=== PATIENT | male | born 1955 | race Caucasian/White ===

== ENCOUNTER → 2018-10-31 14:29 | Outpatient (CLI) | payer OTHER, SELFPAY ==
[2018-10-27 17:06] VITALS: BMI 18.1
--- NOTE | 2018-10-31 14:37 | RAD_ITS ---
STUDY: X-RAY CHEST REASON FOR EXAM: Male, 63 years old. Cough for 8 weeks. TECHNIQUE: PA and lateral views of the chest. COMPARISON: None. FINDINGS: There is hyperinflation of the lungs consistent with chronic obstructive lung disease (COPD). Airspace disease overlies the right middle lobe as seen on lateral projection. Additional areas of scattered airspace disease within the lung parenchyma not completely excluded with limitations due to COPD findings. There is no demonstrated pleural abnormality. Normal size heart. Normal mediastinum and ian. Normal visualized pulmonary arteries. There is atherosclerotic calcification of the aortic arch with tortuosity. Normal visualized thoracic spine. Normal visualized ribs, clavicles, and shoulders. There is no demonstrated abnormality of the visualized soft tissue structures of the upper abdomen. RAD/Chest PA and Lateral IMPRESSION: COPD with findings consistent with right middle lobe infiltrate. Recommend follow-up imaging in 4-6 weeks after appropriate treatment versus cross-sectional CT imaging for further assessment. Electronically Signed: Len Ferris DO at 9:32 EST , Service support ,
--- OUTSIDE RECORDS SUMMARY | 2018-12-25 20:40 | XMS RPT_ITS ---
:1955 Author Organization OHIP Care Team Providers Name Role Phone KLAUS BAXTER CNP Primary Care Unavailable KLAUS BAXTER CNP Attending Unavailable Mati Oliver SOLAR ENERGY TECHNICIAN-C Attending Unavailable Rich Salinas Referring Unavailable Harpreet, Klaus D. SOLAR ENERGY TECHNICIAN-C Primary Care Unavailable Oliver, Mati SOLAR ENERGY TECHNICIAN-C Attending Unavailable Oleghe, Efewongbe Referring Unavailable Oleghe, Efewongbe Attending Unavailable Oleghe, Efewongbe Referring Unavailable Oliver, Mati SOLAR ENERGY TECHNICIAN-C Attending Unavailable Oleghe, Efewongbe Referring Unavailable Oliver, Mati SOLAR ENERGY TECHNICIAN-C Attending Unavailable Oliver, Mati SOLAR ENERGY TECHNICIAN-C Primary Care Unavailable Prachi Aleman Attending Unavailable PROBLEMS PROBLEMS DATE TYPE CONDITION / CODE ATTENDING STATUS SOURCE 10/31/2018 Unknown R05 - Cough / Oliver, Mati Active [place] R05(ICD-10) SOLAR ENERGY TECHNICIAN-C [facility] Hospital Repository 10/27/2018 Unknown J44.9 - Chronic Oliver, Mati Active [place] obstructive SOLAR ENERGY TECHNICIAN-C [facility] pulmonary disease, Hospital unspecified / Repository J44.9(ICD-10) 10/27/2018 Unknown F17.200 - Nicotine Oliver, Mati Active [place] dependence, SOLAR ENERGY TECHNICIAN-C Community unspecified, Hospital uncomplicated / Repository F17.200(ICD-10) 10/27/2018 Unknown R06.00 - Dyspnea, Oliver, Mati Active [place] unspecified / SOLAR ENERGY TECHNICIAN-C Community R06.00(ICD-10) Hospital Repository PROCEDURES PROCEDURES No Procedure Records FoundRESULTS RESULTS PULMONARY VISIT REPORT Observed: 11/06/2018 Status: F Source: [place] 7:02 AM [facility] REPOSITORY [facility] Pulmonary Medicine of [address] [place] [address] OFFICE VISIT Date of Service: 11/04/18 MR#: [id number] Acct: [id number] Name: TOBY LEI Rep #: [id number] : 1955 Provider: Salvador Beach MD Age/Sex: 63/M Location: [facility] [place] Status: Signed Assessment AND Plan Medications Discontinued: HPI copd: Details: Documentation reviewed 10 pages of documentation were reviewed from patient's primary care physician. Patient reportedly has had issues with shortness of breath and cough. Patient has been treated with antibiotics and steroids secondary to presumed COPD exacerbations. Patient reportedly has had weight loss despite BMI of 18.1. Chest x-ray completed October 31, 2018 showed a right middle lobe infiltrate and hyperinflation. Intake Intake Visit Reasons: copd Chief Complaint: 2 week FU Allergies doxycycline Allergy (Unknown, Verified 10/27/18 17:03) Unknown Medications cholecalciferol (vitamin D3) 1,000 unit capsule 1,000 unit PO ONCE 11/12/17 [History Confirmed 10/01/18] multivitamin capsule 1 cap PO QAM 11/12/17 [History Confirmed 10/01/18] albuterol sulfate HFA 90 mcg/actuation aerosol inhaler 2 puff INHALATION Q6H PRN PRN #8.5 g 09/17/18 [Rx Confirmed 10/01/18] budesonide-formoterol HFA 160 mcg-4.5 mcg/actuation aerosol inhaler 2 puff INHALATION Q12H #10.2 g 09/17/18 [Rx Confirmed 10/01/18] guaifenesin ER 1,200 mg tablet, extended release 12 hr 1,200 mg PO Q12H #60 tab 10/01/18 [Rx Confirmed 10/01/18] prednisone 10 mg tablet See Rx Instructions PO QDAY #30 tab 10/27/18 [Rx Confirmed 10/27/18] umeclidinium 62.5 mcg/actuation blister powder for inhalation 1 inh INHALATION DAILY #30 ea 10/27/18 [Rx Confirmed 10/27/18] PFSH Medical History Chronic pain (Chronic) COPD (chronic obstructive pulmonary disease) (Chronic) Hypertension (Chronic) Opiate dependence (Chronic) Arthritis (Chronic) Degenerative disc disease, lumbar (Chronic) Surgical History H/O hernia repair (Acute) Family History Unknown No problems noted. Social History Smoking Status: Heavy Smoker (>10/day) alcohol intake: current alcohol intake frequency: 3 or more drinks per day substance use type: does not use what type of physical activity do you participate in: none 11/06/18 0702 <Electronically signed by Salvador Beach MD> Date Salvador Beach MD Cosigner Signature: Date (if applicable) CC: CHEST PA AND LATERAL Observed: 10/31/2018 Status: F Source: [place] 2:37 PM [facility] REPOSITORY [facility] Imaging Services [address] [place] [address] Chest PA and Lateral MR#: [id number] Acct: [id number] Name: TOBY LEI Rep #: [id number] : 1955 M 63 From: Len Ferris DO PCP: Mati Oliver NP Status: REG CLI Study: Chest PA and Lateral Date of Exam: 10/31/18 Exam# [id number] Ordering Dr: Mati Oliver SOLAR ENERGY TECHNICIAN-C STUDY: X-RAY CHEST REASON FOR EXAM: Male, 63 years old. Cough for 8 weeks. TECHNIQUE: PA and lateral views of the chest. COMPARISON: None. FINDINGS: There is hyperinflation of the lungs consistent with chronic obstructive lung disease (COPD). Airspace disease overlies the right middle lobe as seen on lateral projection. Additional areas of scattered airspace disease within the lung parenchyma not completely excluded with limitations due to COPD findings. There is no demonstrated pleural abnormality. Normal size heart. Normal mediastinum and ian. Normal visualized pulmonary arteries. There is atherosclerotic calcification of the aortic arch with tortuosity. Normal visualized thoracic spine. Normal visualized ribs, clavicles, and shoulders. There is no demonstrated abnormality of the visualized soft tissue structures of the upper abdomen. RAD/Chest PA and Lateral IMPRESSION: COPD with findings consistent with right middle lobe infiltrate. Recommend follow-up imaging in 4-6 weeks after appropriate treatment versus cross-sectional CT imaging for further assessment. Electronically Signed: Len Ferris DO at 9:32 EST , Service support , CC: Mati Oliver NP Delivery Driver/Supervisor: Signed INTERNAL MEDICINE Observed: 10/28/2018 Status: F Source: [place] OFFICE VISIT 8:31 AM [facility] REPOSITORY [facility] [address] [place] [address] OFFICE VISIT Date of Service: 10/27/18 MR#: [id number] Acct: [id number] Name: TOBY LEI Rep #: [id number] : 1955 Provider: Mati Oliver NP Age/Sex: 63/M Location: [facility] [place] Status: Signed Intake Vital Signs10/27/18 Body Mass Index (BMI) 18.1 10/27/18 Height 5 ft 8 in Intake Visit Reasons: FU BREATHING AND BACK PAIN Chief Complaint: 2 week FU Is patient in pain?: No Allergies doxycycline Allergy (Unknown, Verified 10/27/18 17:03) Unknown Medications cholecalciferol (vitamin D3) 1,000 unit capsule 1,000 unit PO ONCE 11/12/17 [History Confirmed 10/01/18] multivitamin capsule 1 cap PO QAM 11/12/17 [History Confirmed 10/01/18] albuterol sulfate HFA 90 mcg/actuation aerosol inhaler 2 puff INHALATION Q6H PRN PRN #8.5 g 09/17/18 [Rx Confirmed 10/01/18] budesonide-formoterol HFA 160 mcg-4.5 mcg/actuation aerosol inhaler 2 puff INHALATION Q12H #10.2 g 09/17/18 [Rx Confirmed 10/01/18] guaifenesin ER 1,200 mg tablet, extended release 12 hr 1,200 mg PO Q12H #60 tab 10/01/18 [Rx Confirmed 10/01/18] prednisone 10 mg tablet See Rx Instructions PO QDAY #30 tab 10/27/18 [Rx Confirmed 10/27/18] umeclidinium 62.5 mcg/actuation blister powder for inhalation 1 inh INHALATION DAILY #30 ea 10/27/18 [Rx Confirmed 10/27/18] PFSH Medical History Chronic pain (Chronic) COPD (chronic obstructive pulmonary disease) (Chronic) Hypertension (Chronic) Opiate dependence (Chronic) Arthritis (Chronic) Degenerative disc disease, lumbar (Chronic) Surgical History H/O hernia repair (Acute) Family History Unknown No problems noted. Social History Smoking Status: Heavy Smoker (>10/day) alcohol intake: current alcohol intake frequency: 3 or more drinks per day substance use type: does not use what type of physical activity do you participate in: none HPI HPI Chief Complaint: 2 week FU Details: TOBY LEI, is a 63 M who presents to the office today for ongoing complaints of cough and shortness of breath. The patient has a past medical history as listed above. The patient states that he has not had any improvement since his last office visit on October 01. 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 He complains of persistent intermittent cough with brown yellow thick sputum at times, shortness of breath at rest and with exertion and wheezing. he has been using his Symbicort as needed for shortness of breath and states that he uses it about 4-6 times per day and just today oyster picker his albuterol rescue inhaler which he has used twice today. He states the albuterol inhaler helps with the shortness of breath. Despite his respiratory symptoms he has continued to smoke 2 packs a day (x 50 years per pt report), which he states makes shortness of breath worse. He states he has lost about 30 pounds in the last year. he denies any other aggravating or alleviating factors. The patient otherwise denies any fever, chills, nausea, vomiting, shortness of breath, chest pain or pressure, palpitations, orthopnea, lower extremity edema, syncope or presyncopal episodes.He previously had refused all further work up, however, is now considering further investigation and thinks that he should be seen by a lung doctor. ROS Const Constitutional: No anorexia, body ache, chills, fever(s), decreased energy, malaise, night sweats, weight change, sleep problems, other, snoring, weakness, frequent falls, headache(s), abnormal sleep pattern, change in appetite, excessive sweating or fatigue Eyes Eyes: No blurry vision, change in vision, double vision, discharge, dry eyes, bulging eyes, floaters, eye pain, light sensitivity, spots in vision, tunnel vision, other or visual disturbances ENT ENT: No ear pain, ear discharge, ear pressure, hearing loss, tinnitus, dizziness/vertigo, balance problems, nosebleed/epistaxis, nasal congestion, nasal obstruction, nose pain, sinus pressure, sinus pain, nasal discharge, post nasal drip, facial pain, dental pain, dry mouth, bad breath, hoarseness, mouth lesions, mouth pain, sore throat, difficulty swallowing, neck pain, abnormal hearing, headache(s), other, lip swelling, throat swelling or tongue swelling Resp Respiratory: Positive for cough, chest congestion, excessive phlegm production, shortness of breath and pain with cough; no change in phlegm color, hemoptysis, pain on inspiration, snoring, stridor, other or wheezing Cardio Cardiology: No chest pain at rest, chest pain with exertion, leg pain with exertion, shortness of breath, dyspnea on exertion, generalized swelling, irregular heart rhythm, lightheadedness, orthopnea, radiating jaw, neck or arm pain, fast heart rate, slow heart rate, palpitations, other or excessive sweating Gastro GI: No abdominal pain, belching, bloating, change in bowel habits, change in stool character, coffee ground emesis, constipation, cramping, diarrhea, heartburn, difficulty swallowing, feeling full early, excessive flatus, incontinent of stools, Vomiting blood/hematemesis, blood in stool, loose stools, Black,tarry stools, nausea/dyspepsia, pain with swallowing, vomiting or other Genitourinary Male: No difficulty urinating, burning urination, painful urination, urinary incontinence, urinary frequency, urinary urgency, urinary hesitancy, urinary retention, blood in urine, Frequent nighttime urination/ nocturia, post void dribbling, suprapubic fullness, side pain, sexual problems, genital lesions, genital itching, erectile dysfunction, penile discharge, difficulty with ejaculations, blood in semen, scrotal swelling, testicle lump, testicle pain or other Musc Musculoskeletal: No joint pain, back pain, deformity, joint swelling, limited range of motion, loss of height, muscle cramps, muscle weakness, decreased muscle mass, body aches, neck pain, radiating pain into limb, stiffness, other, abnormal walking, numbness or tingling Skin Skin: No acne, hair loss, change in hair, nail changes, boil, change in skin color, dry skin, redness, excessive hair growth, yellowing of the skin, lesions, rash, skin pain, skin ulcer, sores, skin swelling, wounds, other or itching Breast Breast: No change in breast shape, breast lump, breast pain, breast skin changes, breast swelling, nipple discharge or other Neuro Neurology: No abnormal walking, abnormal hearing, abnormal movements, abnormal speech, unsteady gait/balance, dizziness, weakness, frequent falls, headache(s), lack of coordination, loss of vision, numbness, tingling, visual disturbances, restless legs, fainting, tremor(s), other, behavioral changes, confusion or memory loss Psych Psychiatric: No abnormal sleep pattern, No lack of enjoyment, No anxiety, No behavioral changes, No change in appetite, No confusion, No depression, No difficulty concentrating, No hopelessness, No irritability, No memory loss, No mood swings, No panic attacks, No paranoia, No Thoughts of harming yourself/Others, No hallucinations, No other Endo Endocrine: No change in body appearance, cold intolerance, excessive sweating, fatigue, flushing, heat intolerance, increased thirst/drinking, increased hunger, increased urination or other Aller/Imm Allergy/Immunologic: No food intolerance, itchy eyes, lip swelling, seasonal allergy symptoms, throat swelling, tongue swelling, hives, wheezing or other Moo/Lymp Hematologic/Lymphatic: No easy bleeding, easy bruising, enlarged lymph nodes or other Exam Const General: cooperative, comfortable, no acute distress Nutritional Appearance: thin Orientation: alert, oriented x3 Limitations: mental status not altered [facility] Head: normal to inspection Ears: hearing grossly normal bilaterally Nose: external nose normal Eyes General: appearance normal, both eyes and all related structures Resp Effort AND Inspection: normal respiratory effort, able to speak in complete sentences, normal respiratory pattern, symmetric chest movement, no audible wheezes, cough Quality of cough: productive, no respiratory distress, no stridor, not tachypneic Auscultation: Bilateral: Inspiratory Wheezes, Expiratory Wheezes Percussion: hyperresonance Cardio Palpation: normal PMI Rate: regular rate Heart Sounds: S1 normal, S2 normal, normal S1 and S2, no click, no gallops, no murmurs, no rubs Musc Musculoskeletal: No muscle weakness Skin General: no rashes or lesions noted, elasticity normal, turgor normal Lesions: no lesions Rashes: no rashes Neuro General: alert, awake, oriented x3, CN's II-XI intact bilaterally Speech: speech normal Gait: normal gait Motor: muscle tone normal throughout Extrem General: normal to inspection, normal gait, no edema, no pedal edema Psych Appearance: grossly normal Mental Status: mental status grossly normal Affect: normal affect Attitude: cooperative Thought Process: normal Assessment AND Plan Problems 1. COPD exacerbation J44.1 2. Tobacco abuse Z72.0 3. Weight loss R63.4 Plan Patient appears to be in an exacerbation of his COPD again. Will refer patient to pulmonology per his request and order PFTs. Will obtain chest x-ray and if appropriate, start patient on another course of antibiotics. Will Start patient on 12-day dose prednisone taper. Stop Spiriva due to cost and start Incruse. Reinforced on how to properly take medication. Patient educated on medication side effects and signs and symptoms that would warrant emergency medical care. Pt should be considered for a LDCT screening of the lungs, given his 100 pack year smoking history, however, he refuses at this time. A duoneb administration was given in office and pt did feel symptomatic relief. This note was generated with [employer] dictation software. It may contain incorrect words, spelling, and punctuation that were not noted in checking the note before signing. Orders Orders: Referrals: Medications New: prednisone 4 tabs for 3 days, then 3 tabs for 3 days, then 2 tabs for 3 days, then 1 tab f or 3 days PO QDAY; administer with food or milk 30 tabs 0RF Discontinued: tiotropium bromide 2.5 mcg/actuation (Spiriva Respim2 puffs Inhalation DAILY 4 grams 3RF at) Discontinued Reason: Order Changed Plan Detail Follow Up 2-4 weeks or sooner if needed Coding Level of Care Code Off vis,est,level 3 Diagnoses COPD exacerbation J44.1 Tobacco abuse Z72.0 Weight loss R63.4 10/28/18 0831 <Electronically signed by Mati CHAVEZ> Date Mati CHAVEZ Cosigner Signature: Date (if applicable) CC: INTERNAL MEDICINE Observed: 10/05/2018 Status: F Source: [place] OFFICE VISIT 1:05 PM [facility] [address] [place] [address] OFFICE VISIT Date of Service: 10/01/18 MR#: [id number] Acct: [id number] Name: TOBY LEI Rep #: [id number] : 1955 Provider: Rich Salinas MD Age/Sex: 63/M Location: [facility] [place] Status: Signed Intake Vital Signs10/01/18 Height 5 ft 8 in 10/01/18 Weight: 119 lb 10/01/18 Body Mass Index (BMI) 18.1 10/01/18 Blood Pressure 127/79 H Intake Visit Reasons: 2 WK FU Chief Complaint: 2 week FU Is patient in pain?: No Allergies doxycycline Allergy (Unknown, Verified 10/01/18 15:35) Unknown Medications cholecalciferol (vitamin D3) 1,000 unit capsule 1,000 unit PO ONCE 11/12/17 [History Confirmed 10/01/18] multivitamin capsule 1 cap PO QAM 11/12/17 [History Confirmed 10/01/18] albuterol sulfate HFA 90 mcg/actuation aerosol inhaler 2 puff INHALATION Q6H PRN PRN #8.5 g 09/17/18 [Rx Confirmed 10/01/18] budesonide-formoterol HFA 160 mcg-4.5 mcg/actuation aerosol inhaler 2 puff INHALATION Q12H #10.2 g 09/17/18 [Rx Confirmed 10/01/18] guaifenesin ER 1,200 mg tablet, extended release 12 hr 1,200 mg PO Q12H #60 tab 10/01/18 [Rx Confirmed 10/01/18] prednisone 20 mg tablet 40 mg PO DAILY #6 tab 10/01/18 [Rx Confirmed 10/01/18] tiotropium bromide 2.5 mcg/actuation mist for inhalation 2 puff INHALATION DAILY #4 g 10/01/18 [Rx Confirmed 10/01/18] PFSH Medical History Chronic pain (Chronic) COPD (chronic obstructive pulmonary disease) (Chronic) Hypertension (Chronic) Opiate dependence (Chronic) Arthritis (Chronic) Degenerative disc disease, lumbar (Chronic) Surgical History H/O hernia repair (Acute) Family History Unknown No problems noted. Social History Smoking Status: Heavy Smoker (>10/day) alcohol intake: current alcohol intake frequency: 3 or more drinks per day substance use type: does not use what type of physical activity do you participate in: none HPI HPI Chief Complaint: 2 week FU Details: TOBY LEI, is a 63yo M who presents to the office today for follow-up. He was seen about 2 weeks ago for COPD exacerbation and was given prescriptions for prednisone, levofloxacin and Mucinex. Patient reports feeling better however still has significant wheezing and shortness of breath. He still smokes daily. He denies fever or chills. He is also still not open to any investigations at this time. ROS Const Constitutional: No chills, fatigue, fever(s), frequent falls, malaise, weakness, sleep problems or change in appetite Eyes Eyes: No blurry vision, change in vision, double vision, discharge or visual disturbances ENT ENT: Positive for nasal discharge and nasal congestion; no abnormal hearing, ear pain, ear pressure, tinnitus or dizziness/vertigo Resp Respiratory: Positive for cough Cough: Yes productive, shortness of breath, wheezing and chest congestion Cardio Cardiology: No chest pain at rest, chest pain with exertion, shortness of breath, dyspnea on exertion, generalized swelling, irregular heart rhythm, lightheadedness, orthopnea, fast heart rate or palpitations Gastro GI: No abdominal pain, change in bowel habits, constipation, diarrhea, nausea/dyspepsia or vomiting Genitourinary Male: No difficulty urinating, burning urination, painful urination, urinary incontinence, urinary frequency, urinary urgency, urinary hesitancy, urinary retention, blood in urine, Frequent nighttime urination/ nocturia, sexual problems, testicle lump or testicle pain Musc Musculoskeletal: No joint pain, back pain, joint swelling, limited range of motion, muscle weakness, numbness or tingling Skin Skin: No change in skin color, itching, rash or wounds Breast Breast: No breast lump or breast pain Neuro Neurology: No frequent falls, weakness, abnormal hearing, numbness, tingling, unsteady gait/balance, dizziness, loss of vision, memory loss or visual disturbances Psych Psychiatric: No memory loss, No anxiety, No change in appetite, No depression, No Thoughts of harming yourself/Others Endo Endocrine: No fatigue, heat intolerance, increased thirst/drinking, increased hunger or increased urination Aller/Imm Allergy/Immunologic: Positive for wheezing; no itchy eyes or seasonal allergy symptoms Moo/Lymp Hematologic/Lymphatic: No easy bleeding, easy bruising or enlarged lymph nodes Exam Const General: cooperative, no acute distress Orientation: alert, awake, oriented x3 HENMT Head: atraumatic, normocephalic, normal to inspection Ears: hearing grossly normal bilaterally Resp Effort AND Inspection: able to speak in complete sentences Auscultation: Bilateral: Diminished Lung Sounds, Expiratory Wheezes, Rhonchi Cardio Rate: regular rate Rhythm: regular rhythm Heart Sounds: S1 normal, S2 normal Musc Musculoskeletal: No muscle weakness Neuro General: alert, awake, oriented x3, moves all extremities, CN's II-XI intact bilaterally Psych Appearance: grossly normal Mood: congruent mood Affect: normal affect Assessment AND Plan 1. COPD (chronic obstructive pulmonary disease) J44.9 Plan Still appears to be in exacerbation. Significant rhonchi/wheezing on examination. Diminished breath sounds. Symptoms however appear improved from 2 weeks ago. 3 more days of steroids given. Mucinex also prescribed. Continue Symbicort and albuterol as needed. Spiriva added. DuoNeb treatment given in office. Patient again declined any investigations. Advised to call the office with any concerns otherwise follow-up in a month Orders Orders: Medications New: Discontinued: albuterol sulfate Discontinued Reason: Or2.5 mg (3 mL) Continuous Nebulization ONCE 1 macho Changed mL 0RF 2. Nicotine dependence F17.200 Plan Still an everyday smoker with no plans of cessation. Strongly encouraged to discontinue tobacco use as this is worsening his COPD and breathing. Patient not open to cessation at this time. This note was generated with [employer] software. It may contain incorrect words, spelling, and punctuation that were not noted in checking the note before signing. Plan Detail Other Medications New: Discontinued: Coding Level of Care Code Off vis,est,level 3 Diagnoses COPD (chronic obstructive pulmonary disease) J44.9 Nicotine dependence F17.200 10/05/18 1302 <Electronically signed by Rich Salinas MD> Date Rich Salinas MD Cosigner Signature: Date (if applicable) CC: INTERNAL MEDICINE Observed: 09/17/2018 Status: F Source: [place] OFFICE VISIT 11:02 AM [facility] [address] [place] [address] [address] [place] [address] OFFICE VISIT Date of Service: 09/17/18 MR#: [id number] Acct: [id number] Name: TOBY LEI Rep #: [id number] : 1955 Provider: Mati Oliver NP Age/Sex: 63/M Location: [facility] [place] Status: Signed Intake Vital Signs09/17/18 Height 5 ft 8 in Intake Visit Reasons: bronchitis Chief Complaint: cough, SOB, and rib pain Is patient in pain?: Yes (rib pain) Pain scale (1-10): 7 Allergies doxycycline Allergy (Unknown, Verified 07/03/18 15:36) Unknown Medications cholecalciferol (vitamin D3) 1,000 unit capsule 1,000 unit PO ONCE 11/12/17 [History Confirmed 07/03/18] multivitamin capsule 1 cap PO QAM 11/12/17 [History Confirmed 07/03/18] albuterol sulfate HFA 90 mcg/actuation aerosol inhaler 2 puff INHALATION Q6H PRN PRN #8.5 g 09/17/18 [Rx Confirmed 09/17/18] budesonide-formoterol HFA 160 mcg-4.5 mcg/actuation aerosol inhaler 2 puff INHALATION Q12H #10.2 g 09/17/18 [Rx Confirmed 09/17/18] guaifenesin ER 1,200 mg tablet, extended release 12 hr 1,200 mg PO Q12H PRN #14 tab 09/17/18 [Rx Confirmed 09/17/18] levofloxacin 500 mg tablet 500 mg PO DAILY #7 tab 09/17/18 [Rx Confirmed 09/17/18] prednisone 10 mg tablet See Rx Instructions PO QDAY #30 tab 09/17/18 [Rx Confirmed 09/17/18] PFSH Medical History Chronic pain (Chronic) COPD (chronic obstructive pulmonary disease) (Chronic) Hypertension (Chronic) Opiate dependence (Chronic) Arthritis (Chronic) Degenerative disc disease, lumbar (Chronic) Surgical History H/O hernia repair (Acute) Family History Unknown No problems noted. Social History Smoking Status: Heavy Smoker (>10/day) alcohol intake: current alcohol intake frequency: 3 or more drinks per day substance use type: does not use what type of physical activity do you participate in: none HPI HPI Chief Complaint: cough, SOB, and rib pain Details: TOBY LEI, is a 63 M who presents to the office today for an acute visit of cough, shortness of breath, and left-sided rib pain times 2 weeks. He has a past medical history as listed above. Should be noted that patient is also currently on Suboxone therapy with Dr. Alonso. The patient states that he noted a productive cough of yellow sputum, worsening shortness of breath, and left-sided rib pain with coughing that started 2 weeks ago and has been progressively worsening. It got so bad that he was unable to work today and had to leave. He states that he has been taking his Symbicort routinely for his COPD. He does state that he has been exposed to many sick contacts at work. He takes his albuterol rescue inhaler periodically which does help with his shortness of breath. He denies any other aggravating or relieving factors. He otherwise denies any fever, chills, nausea, vomiting, chest pain or pressure, syncope or presyncopal episodes. ROS Const Constitutional: No weight change, body ache, chills, fatigue, sleep problems, fever(s), change in appetite, snoring, weakness, frequent falls, headache(s) or excessive sweating Eyes Eyes: No change in vision, eye pain, light sensitivity or blurry vision ENT ENT: No headache(s), abnormal hearing, ear pain, tinnitus, nasal congestion, sore throat or neck pain Resp Respiratory: Positive for cough Cough: Yes productive, shortness of breath and other (rib pain from coughing); no snoring or wheezing Cardio Cardiology: No excessive sweating, chest pain at rest, chest pain with exertion, shortness of breath, dyspnea on exertion, palpitations, orthopnea or lightheadedness Gastro GI: No abdominal pain, change in bowel habits, constipation, diarrhea, vomiting, nausea/dyspepsia or cramping Genitourinary Male: No painful urination, urinary incontinence, urinary frequency, urinary urgency, blood in urine, testicle pain or other Musc Musculoskeletal: No neck pain, abnormal walking, joint pain, back pain, limited range of motion, numbness, tingling or muscle weakness Skin Skin: No redness, dry skin, itching, lesions, wounds or rash Neuro Neurology: No weakness, frequent falls, headache(s), abnormal hearing, abnormal walking, numbness, tingling, abnormal speech, dizziness or memory loss Psych Psychiatric: No change in appetite, No memory loss, No anxiety, No depression, No Thoughts of harming yourself/Others Endo Endocrine: No fatigue, excessive sweating, cold intolerance, increased thirst/drinking, heat intolerance, flushing or increased hunger Aller/Imm Allergy/Immunologic: No wheezing, itchy eyes, hives or seasonal allergy symptoms Moo/Lymp Hematologic/Lymphatic: No easy bleeding, easy bruising or enlarged lymph nodes Exam Const General: cooperative, comfortable, no acute distress Nutritional Appearance: average body habitus, well nourished Orientation: alert, oriented x3 Limitations: mental status not altered [facility] Head: normal to inspection Ears: hearing grossly normal bilaterally Nose: external nose normal Eyes General: appearance normal, both eyes and all related structures Resp Effort AND Inspection: normal respiratory effort, able to speak in complete sentences, normal respiratory pattern, symmetric chest movement, cough Quality of cough: wet, prolonged expiratory phase Auscultation: Bilateral: Diminished Lung Sounds, Inspiratory Wheezes, Expiratory Wheezes, Rhonchi Cardio Palpation: normal PMI Rate: regular rate Heart Sounds: S1 normal, S2 normal, normal S1 and S2, no click, no gallops, no murmurs, no rubs GI Inspection: normal to inspection Auscultation: normal bowel sounds, no hyperactive bowel sounds, no hypoactive bowel sounds Palpation: soft, no hepatosplenomegaly Musc Musculoskeletal: No joint tenderness, decreased ROM or muscle weakness Skin General: no rashes or lesions noted, elasticity normal, turgor normal Lesions: no lesions Rashes: no rashes Neuro General: alert, awake, oriented x3, CN's II-XI intact bilaterally Speech: speech normal Gait: normal gait Motor: muscle tone normal throughout Extrem General: normal to inspection, normal gait, no edema, no pedal edema Psych Appearance: disheveled Mental Status: mental status grossly normal Mood: anxious mood Affect: anxious affect, irritable affect Attitude: cooperative Thought Process: normal Assessment AND Plan Problems 1. Chronic obstructive pulmonary disease with (acute) exacerbation J44.1 Plan The patient does seem to be an exacerbation of his COPD. A DuoNeb treatment was given in the office and patient did well and felt somewhat better symptomatically. Patient refuses a chest x-ray at this time. Given the duration of patient's symptoms, will treat empirically with 7-day course of Levaquin therapy, a prednisone taper, and Mucinex. Advised on the use of these medications and potential side effects. Patient verbalized understanding. Patient continues to refuse any baseline blood work. Discussed red flag symptoms that require urgent medical attention. Patient verbalized understanding. Patient to follow-up in 2 weeks or sooner if needed. Medications New: Refilled: budesonide-formoterol 160-4.5 mcg/actuation (Symbi2 puffs Inhalation Q12H 10.2 grams 2RF samira) Plan Detail Follow Up 2 weeks or sooner if needed Coding Level of Care Code Off vis,est,level 3 Diagnoses Chronic obstructive pulmonary disease with (acute) exacerbation J44.1 09/17/18 1102 <Electronically signed by Mati CHAVEZ> Date Mati CHAVEZ Cosigner Signature: Date (if applicable) CC: ALLERGIES ALLERGIES DATE TYPE / CODE NAME / CODE REACTION SEVERITY SOURCE 10/27/2018 Drug doxycycline/ Unknown Unknown [facility] Allergy/4160 [id number]( Hospital 37876(SNOMED XNORM) Repository CT) ENCOUNTERS ENCOUNTERS ADMIT/DISCHARGE ACCOUNT NUMBER ADMITTING ENCOUNTER LOCATION SOURCE CLASS 11/04/2018 [id number] Ambulatory [place]: [place] BMS[facility] Repository 10/31/2018 [id number] Ambulatory [facility] ding:RAD Repository 10/27/2018/10/27/20 [id number] Ambulatory BMSBuilding: [place] 18 BMS.[facility] Repository 10/01/2018/10/01/20 [id number] Ambulatory BMSBuilding: [place] 18 BMS.[facility] Repository 09/17/2018/09/17/20 [id number] Ambulatory BMSBuilding: [place] 18 BMS.[facility] Repository 07/03/2018/07/03/20 [id number] Ambulatory BMSBuilding: [place] 18 BMS.[facility] Repository 02/13/2018 [id number] Ambulatory BBuilding: [facility] Repository PAYERS PAYERS ENCOUNTER GUARANTOR PAYER SUBSCRIBER SOURCE 11/04/2018 [address]BY [id number] TOBY MINNERDOB: [place] TAPIA, Insurance:MEDICAL [id number] [address]Cvk: [facility] Number: Repository ) [id number] Date:[id number] [address] [address]QS: 11/04/2018 Secondary NOT GIVENUNK [place] Insurance:SELF PAY [facility] Number: Effective Repository Date:2018-11-04 10/31/2018 [address]BY [id number] TOBY MINNERDOB: [place] TAPIA, Insurance:MEDICAL [id number] Health [place] [address]Jpq: [facility] Number: Repository () [id number] Date:[id number] [address] [place] [id number]: 10/31/2018 Secondary NOT GIVENUNK [place] Insurance:SELF PAY [facility] Number: Effective Repository Date:2018-10-31 10/27/2018 TOBY [id number] TOBY MINNERDOB: [place] STEVENS RDWOOSTER, Insurance:MEDICAL [id number] [facility] [place] [address]Lad: [facility] Number: Repository () [id number] Date:[id number] [address] [place] [phone]: 10/27/2018 Secondary NOT GIVENUNK [place] Insurance:SELF PAY [facility] Number: Effective Repository Date:2018-10-27 10/01/2018 TOBY [id number] TOBY MINNERDOB: [place] STEVENS RDWOOSTER, Insurance:MEDICAL [id number] [facility] [place] [address]Clo: [facility] Number: Repository () [id number] Date:[id number] [address] [place] [phone]: 10/01/2018 Secondary NOT GIVENUNK [place] Insurance:SELF PAY [facility] Number: Effective Repository Date:2018-10-01 09/17/2018 [address]BY [id number] TOBY MINNERDOB: [place] STEVENS RDWOOSTER, Insurance:MEDICAL [id number] [facility] [place] [address]Edk: [facility] Number: Repository () [id number] Date:[id number] [address] [place] [phone]: 09/17/2018 Secondary NOT GIVENUNK [place] Insurance:SELF PAY [facility] Number: Effective Repository Date:2018-09-17 07/03/2018 TOBY [id number] TOBY MINNERDOB: [place] [facility] Insurance:MEDICAL [id number] [facility] [address]Inq: [facility] Number: Repository () [id number] Date:[id number] [address] [place] [id number]: 07/03/2018 Secondary NOT GIVENUNK [place] Insurance:SELF PAY [facility] Number: Effective Repository Date:2018-07-03 02/13/2018 TOBY R Primary TOBY R [facility] MINNERDOB: Insurance:MEDICAL MINNERDOB: [facility] [place] [address] [id number] Repository [facility], Number: [place] [address]Bwi: [id number] [place], [place] Date:2018-02-13 [address]Ekk: [phone] ()Tel: [phone] (WP) Name:BPO [address]OX ()Tel: 000) [address], [place] [phone] (WP) [address]KB:
== END ==
PROVIDERS: Family Provider Nurse Practitioner Family; PCP Nurse Practitioner Family; Visit Provider Nurse Practitioner Family
DX: R05 Cough (principal)
CPT/HCPCS: 71046

== ENCOUNTER → 2018-12-03 14:43 | Outpatient (CLI) | payer OTHER, SELFPAY ==
[2018-11-25 15:40] VITALS: BMI 18.1
--- NOTE | 2018-12-03 14:48 | CT_ITS ---
STUDY: CT CHEST WITHOUT CONTRAST REASON FOR EXAM: Male, 63 years old. Cough. Abnormal chest x-ray RADIATION DOSAGE (If Supplied By Facility): CTDIvol = ( 7.05 ) mGy, DLP = ( 265.02 ) mGycm TECHNIQUE: Transaxial imaging was performed without the administration of intravenous contrast material. Individualized dose optimization techniques were used for this CT. COMPARISON: None. FINDINGS: There is hyperinflation of the lungs consistent with chronic obstructive lung disease (COPD). Emphysematous changes are noted in both lungs more prominent in the upper lobes predominantly centrilobular type. Irregular opacities are seen in the right middle lobe may represent resolving pneumonia. There is a spiculated nodule in the superior segment of the left lung lower lobe measures 1 cm image #89/follow-up in 6 months is recommended. There is no demonstrated pleural abnormality. Normal heart and pericardium. Normal mediastinum. Normal hilar regions. Normal unenhanced pulmonary arteries. Normal aorta arch and descending thoracic aorta. Normal osseous structures. There is no demonstrated abnormality of the visualized upper abdomen. CT/Chest without Contrast IMPRESSION: There is a spiculated nodule in the superior segment of the left lung lower lobe measures 1 cm image #89/follow-up in 6 months is recommended. Electronically Signed: Vishnu Toledo MD at 8:19 EST Tel , Service support ,
== END ==
PROVIDERS: Family Provider Internal Medicine; PCP Internal Medicine; Referring Provider Internal Medicine; Visit Provider Internal Medicine
DX: J44.9 Chronic obstructive pulmonary disease, unspecified (principal); R93.89 Abnormal findings on diagnostic imaging of other specified body structures
CPT/HCPCS: 71250

== ENCOUNTER → 2019-03-06 11:18 | Outpatient (CLI) | payer OTHER, SELFPAY ==
[2019-02-18 15:39] VITALS: BMI 19.0
[2019-03-06 12:09] LABS: Absolute Neutrophil Count 6.7 X10^3/uL (2.0-7.7); Basophil# 0.01 X10^3/uL; Basophil% 0.1 % (0-1); Differential Indicated SCAN CRITERIA MET; Eosinophil# 0.02 X10^3/uL; Eosinophils% 0.3 % (0-5); Hematocrit 42.7 % (40-54); Lymphocyte % 7.8 % (19-41); Mean Corp Hgb Conc 35.1 g/gl (32-36); Mean Platelet Vol. 9.9 fl (6.2-12.0); Monocyte# 0.23 X10^3/uL; POSITIVE COUNT NO; POSITIVE DIFFERENTIAL YES; POSITIVE MORPHOLOGY YES; Platelet Count 227 K/mm3 (150-450); RBC Distribution Width CV 13.1 % (11.6-14.6); RBC Distribution Width SD 43.1 fl (35.1-43.9); Red Blood Count 4.69 M/mm3 (4.6-6.2); White Blood Count 7.7 K/mm3 (4.4-11.0)
[2019-03-06 12:26] LABS: ALB/GLOB Ratio 0.7 RATIO (0.9-2.4); AST(SGOT) 24 U/L (15-37); Alanine Aminotransfer ALT/SGPT 22 U/L (16-61); Alkaline Phosphatase 57 U/L (45-117); Anion Gap 9 (5-15); BUN 28 mg/dL (7-18); BUN/Creat Ratio 16.8 RATIO (10-20); Calcium,Total 8.9 mg/dL (8.5-10.1); Chloride 97 mmol/L (98-107); Creatinine, Serum 1.67 mg/dL (0.70-1.30); EST Glomerular Filtration Rate 44 mL/min (>60); Est Glom Filt Rate - Afr Amer 53 mL/min (>60); Globulin 4.1 g/dL (2.2-4.2); Glucose 115 mg/dL (74-106); Potassium 4.5 mmol/L (3.5-5.1); Protein, Total 7.1 g/dL (6.4-8.2); Sodium Level 135 mmol/L (136-145)
== END ==
PROVIDERS: Family Provider Internal Medicine; PCP Internal Medicine; Referring Provider Internal Medicine; Visit Provider Internal Medicine
DX: R53.81 Other malaise (principal); R53.82 Chronic fatigue, unspecified; R31.9 Hematuria, unspecified
CPT/HCPCS: 36415; 80053; 85025

== ENCOUNTER 2019-03-06 11:43 | Inpatient (IN) | payer OTHER, SELFPAY ==
[2019-02-18 15:39] VITALS: BMI 19.0
[2019-03-06] VITALS (17 sets, daily range): BP systolic 98–131; BP diastolic 61–78; PULSE 71–113; RESP 16–30; TEMP 36.6–37; O2SAT 87–96; BMI 17.5; BMI 17.7
--- NOTE | 2019-03-06 12:30 | EKG12_ITS ---
Test Reason : SOB Blood Pressure : / mmHG Vent. Rate : 102 BPM Atrial Rate : 102 BPM P-R Int : 122 ms QRS Dur : 082 ms QT Int : 324 ms P-R-T Axes : 006 069 035 degrees QTc Int : 422 ms Sinus tachycardia Possible Left atrial enlargement Borderline ECG Confirmed by CORNEL MALDONADO, DESI ([id number]), video editor LUCY CUEVA ([id number]) on 03/08/2019 11:03:56 AM Referred By: Rich Salinas Confirmed By:DESI UNGER MD
--- NOTE | 2019-03-06 12:30 | RAD_ITS ---
STUDY: X-RAY CHEST REASON FOR EXAM: Male, 63 years old. Cough for 2 days TECHNIQUE: PA and lateral views of the chest. COMPARISON: 10/31/2018 FINDINGS: EKG leads project over the chest. Multilobar airspace consolidation involving the right lower lobe dominantly but also the left upper and lower lobes. There is no demonstrated pleural abnormality. Normal size heart. Normal mediastinum and ian. Normal visualized pulmonary arteries. Normal visualized aortic arch and descending thoracic aorta. Normal visualized thoracic spine. Normal visualized ribs, clavicles, and shoulders. There is no demonstrated abnormality of the visualized soft tissue structures of the upper abdomen. RAD/Chest PA and Lateral IMPRESSION: Multilobar airspace disease suggesting pneumonia. Follow-up to resolution recommended. Electronically Signed: Kavon Elias MD at 13:46 EDT , Service support ,
[2019-03-06] MEDS: Ipratropium/Albuterol Sulfate 3 ML AMPUL.NEB INHALATION ×3 (12:50→23:46)
[2019-03-06] MEDS: 0.9% Normal Saline 1,000 ML 150 ML IV ×2 (13:02→22:29)
[2019-03-06 13:09] LABS: International Normalized Ratio 1.4; Prothrombin Time (Protime)PT. 17.2 SECONDS (11.7-14.9)
[2019-03-06 13:10] LABS: Basophil# 0.01 X10^3/uL; Basophil% 0.1 % (0-1); Differential Indicated SCAN CRITERIA MET; Hematocrit 40.6 % (40-54); Hemoglobin 14.1 g/dl (13.0-16.5); Lymphocyte % 7.4 % (19-41); Mean Corp Hgb Conc 34.7 g/gl (32-36); Mean Corpuscular Hgb 31.5 pg (27.0-32.0); Mean Corpuscular Volume 90.8 fL (80-94); Mean Platelet Vol. 9.7 fl (6.2-12.0); Monocyte# 0.21 X10^3/uL; Monocyte% 3.1 % (0-10); Neutrophil # 5.98 X10^3/uL (2.7-7.7); Neutrophil % 88.2 % (47-70); POSITIVE COUNT NO; POSITIVE DIFFERENTIAL YES; POSITIVE MORPHOLOGY YES; Partial Thromboplast Time 49.2 Seconds (24.1-36.2); Platelet Count 199 K/mm3 (150-450); RBC Distribution Width CV 13.1 % (11.6-14.6); RBC Distribution Width SD 43.3 fl (35.1-43.9); Red Blood Count 4.47 M/mm3 (4.6-6.2); White Blood Count 6.8 K/mm3 (4.4-11.0)
[2019-03-06] MEDS: Albuterol 2.5 MG/3 ML VIAL.NEB. INHALATION ×2 (13:11)
[2019-03-06 13:25] LABS: AST(SGOT) 24 U/L (15-37); Alanine Aminotransfer ALT/SGPT 22 U/L (16-61); Albumin, Serum 2.9 g/dL (3.2-5.0); Alkaline Phosphatase 55 U/L (45-117); Anion Gap 9 (5-15); BUN 29 mg/dL (7-18); BUN/Creat Ratio 19.3 RATIO (10-20); Bilirubin, Direct 0.31 mg/dL (0.00-0.30); Calcium,Total 8.5 mg/dL (8.5-10.1); Chloride 98 mmol/L (98-107); EST Glomerular Filtration Rate 50 mL/min (>60); Est Glom Filt Rate - Afr Amer 60 mL/min (>60); Estimated Creatinine Clearance 37.86 ml/min; Globulin 3.9 g/dL (2.2-4.2); Glucose 98 mg/dL (74-106); Lactic Acid 2.7 mmol/L (0.4-2.0); Potassium 3.9 mmol/L (3.5-5.1); Protein, Total 6.8 g/dL (6.4-8.2); Sodium Level 132 mmol/L (136-145)
--- NOTE | 2019-03-06 13:56 | ED.VISSUMM ---
- ER Visit Summary Date of Service: 03/06/19 Chief Complaint: Shortness of breath History of Present Illness: The patient is a 63 M who states that yesterday he got really sick. He states that since Friday he has had a little bit of a upper respiratory infection. But now it has moved into his chest. He notes a history of COPD and rheumatoid arthritis. History of drug alcohol and tobacco abuse. Denies any fevers but states he just cannot breathe. He notes a cough with some sputum production. Dyspnea on exertion. Generalized myalgias. Physical Examination: 105/73 temperature of 98.1 heart rate of 113 respirations are 24. Initially patient is 87% on room air down to 81 with ambulation. Is placed on nasal cannula and comes up to the mid 90s. Gen: Well-nourished well-developed Head: Normocephalic atraumatic Eyes: Perrl EOMI ENT: TMs clear no rhinorrhea moist mucous membranes Neck: Supple no lymphadenopathy no JVD nontender CVS: Regular rate tachycardic rhythm no murmurs normal S1-S2 Respiratory: No distress rhonchi and wheezing bilaterally right greater than left bilaterally chest nontender Abdomen: Soft nontender nondistended normal bowel sounds no masses Back: Nontender Extremity: Nontender no edema Skin: Normal color no rash Neuro: alert orientated ?3 CN II-XII intact normal strength sensation reflexes gait cerebellar Psych: Normal affect normal mood Test Results: Chest x-ray demonstrates large multilobar pneumonia. EKG sinus tachycardia at 102. White count normal 6.8. Lactic acid elevated 2.7. Troponin negative. Emergency Department Course and Treatment: Patient received IV fluids aerosols Rocephin and azithromycin after blood cultures. Plan is admission into the hospital. Impression: 1. Multilobar pneumonia 2. Sepsis 3. Hypoxemia This note was generated with [employer] dictation software. It may contain incorrect words, spelling, and punctuation that were not noted in review of the chart prior to signing ED Disposition - Plan for ED Patient: Referrals: Rich Salinas MD [Primary Care Provider] -
--- NOTE | 2019-03-06 15:11 | PCM.HP.STD ---
Problem List (1) Severe sepsis Status: Acute (2) Acute respiratory failure with hypoxia Status: Acute (3) Pneumococcal pneumonia Status: Acute (4) PERCY (acute kidney injury) Status: Acute (5) COPD exacerbation Status: Chronic (6) Opiate withdrawal Status: Acute History of Present Illness Date of Admission: 03/06/19 Chief Complaint: shortness of breath. malaise. The patient is a 63 year old M who has been feeling sick for the past week but most notably over the past few days. Placement of myalgias, malaise, shortness of breath. Also experiencing right-sided chest pain that is worse with deep inspiration and cough. Cough is productive for brown phlegm. Presented to the emergency room today with these complaints and was found to have a right lower lobe infiltrate. He received Rocephin and azithromycin for that. Was also hypoxic at 87% and was having to labored breathing and was notably tachypneic and placed on oxygen. He is maintaining his sats since being placed on oxygen. Patient stated that he had a similar episode about 4 years ago related with pneumonia. [] Past Medical History Past Medical History (Chronic Problems): Chronic Problems (Last Reviewed 02/18/19 @ 15:38 by Radha Moran) COPD exacerbation (Chronic) Chronic fatigue and malaise (Chronic) Chronic pain (Chronic) COPD (chronic obstructive pulmonary disease) (Chronic) Hypertension (Chronic) Opiate dependence (Chronic) Medical History: Medical History (Last Reviewed 03/06/19 @ 15:17 by Juan José Styles DO) Chronic pain (Chronic) G89.29 COPD (chronic obstructive pulmonary disease) (Chronic) J44.9 Hypertension (Chronic) I10 Opiate dependence (Chronic) F11.20 Bronchitis J40 Pneumonia J18.9 Arthritis M19.90 Degenerative disc disease, lumbar M51.36 Depression F32.9 Emphysema of lung J43.9 Osteoporosis M81.0 Rheumatoid arthritis M06.9 Sleep apnea G47.30 Allergies doxycycline Allergy (Unknown, Verified 03/06/19 11:45) Unknown Home Medications: Ambulatory Orders Medication Instructions Recorded multivitamin capsule 1 cap PO QAM 11/12/17 albuterol sulfate HFA 90 2 puff INHALATION Q6H PRN PRN #1 12/21/18 mcg/actuation aerosol inhaler device budesonide-formoterol HFA 160 2 puff INHALATION Q12H #10.2 g 12/21/18 mcg-4.5 mcg/actuation aerosol inhaler umeclidinium 62.5 mcg/actuation 1 inh INHALATION DAILY #30 ea 12/21/18 blister powder for inhalation albuterol sulfate 0.63 mg/3 mL 0.63 mg INHALATION TID PRN #90 ml 01/29/19 solution for nebulization omeprazole 20 mg capsule,delayed 20 mg PO DAILY #90 cap 02/18/19 release Surgical History: Surgical History (Last Reviewed 03/06/19 @ 15:17 by Juan José Styles DO) H/O hernia repair Z98.890, Z87.19 Smoking Status: Heavy Smoker (>10/day) Tobacco Use: Cigarettes Alcohol: Heavy - 3-4 beers per day Drugs: Marijuana, - - Uses roughly 4 Vicodin per day to keep his withdrawal symptoms at bay. - *Family History Maternal Family History: Family History (Last Reviewed 02/18/19 @ 15:38 by Radha Moran) Unknown No problems noted. History Items: No pertinent history Review of Systems Constitutional: Reports: Chills. Denies: Anorexia, Fever Eyes: Denies: Blurred vision, Double vision HEENT: Denies: Head Aches, Sinus Congestion, Sinus Drainage Cardiovascular: Reports: Chest Pain. Denies: Edema Respiratory: Reports: Cough, Shortness of breath upon exertion. Denies: Shortness of breath at rest, Sputum production Gastrointestinal: Reports: Nausea. Denies: Abdominal Pain, Vomiting Genitourinary: Denies: Dysuria Musculoskeletal: Reports: - - Diffuse myalgias Skin: Denies: Dryness, Jaundice Neurological: Denies: Numbness, Tingling, Focal weakness Psychiatric: Denies: Anxiety, Depression Endocrine: Reports: Change in Body Habitus - Has lost roughly 40 pounds over the past several years. States that he is not trying to lose weight Hematologic/ Lymphatic: Denies: Easy Bruising, Easy Bleeding, Hx of blood clot Comment: Yawning. Rhinitis. Watery eyes. A 10 point review of systems were negative except as mentioned in the history of present illness and the other review of systems. VTE Information - Inpt Only VTE Present on Admission: No VTE Pharm Prophylaxis ordered?: Yes Patient Problems: Active and Suspected Problems (Last Reviewed 02/18/19 @ 15:38 by Radha Moran) Severe sepsis (Acute) Acute respiratory failure with hypoxia (Acute) Pneumococcal pneumonia (Acute) PERCY (acute kidney injury) (Acute) - Physical Exam General: Alert, Cooperative, No apparent distress, - - Cachectic. Afebrile. HEENT: Atraumatic, Normocephalic, - - Temporal wasting. No maxillary sinus tenderness. Oral: Moist Mucosa, - - Poor dentition Neck: No Nodes, Thyroid Normal Size and Texture Lungs: Diminished, Wheezes, - - Crackles right lower lobe Cardiovascular: Normal S1, Normal S2, Tachycardic Abdomen: Bowel Sounds Present, Soft, Non Tender, Non-Distended, No Hepato-splenomegaly Extremities: No edema, No Calf Tenderness Skin: No rashes, No breakdown Musculoskeletal: Cachexia, Muscle Wasting Neurological: Muscle tone normal, - - No clonus Psych/Mental Status: Normal Affect, Appropriate Vital Signs Temp Pulse Resp BP Pulse Ox 36.7 C 109 H 18 99/72 91 03/06/19 11:46 03/06/19 13:12 03/06/19 13:12 03/06/19 12:22 03/06/19 12:51 Oxygen Flow Rate (L/min) 3 Oxygen Delivery Method Nasal Cannula Weight: 53.8 kg Body Mass Index (BMI) 17.5 Laboratory Tests Past 24 Hrs 03/06/19 03/06/19 03/06/19 12:46 12:46 12:46 WBC 6.8 RBC 4.47 L Hgb 14.1 Hct 40.6 MCV 90.8 MCH 31.5 MCHC 34.7 RDW 13.1 RDW Differential 43.3 Plt Count 199 MPV 9.7 Immature Gran % (Auto) 1.200 H Neut % (Auto) 88.2 H Lymph % (Auto) 7.4 L [place] % (Auto) 3.1 Eos % (Auto) 0.0 Baso % (Auto) 0.1 Absolute Neuts (auto) 6.0 Absolute Lymphs (auto) 0.50 L Total Counted Not Reportable PT INR APTT Sodium 132 L Potassium 3.9 Chloride 98 Carbon Dioxide 25.0 Anion Gap 9 BUN 29 H Creatinine 1.50 H Estim Creat Clear Calc 37.86 Est GFR (MDRD) Af Amer 60 Est GFR (MDRD) Non-Af 50 L BUN/Creatinine Ratio 19.3 Glucose 98 Lactic Acid 2.7 H Calcium 8.5 Total Bilirubin 0.80 Direct Bilirubin 0.31 H AST 24 ALT 22 Alkaline Phosphatase 55 Troponin I < 0.015 Total Protein 6.8 Albumin 2.9 L Globulin 3.9 03/06/19 12:46 WBC RBC Hgb Hct MCV MCH MCHC RDW RDW Differential Plt Count MPV Immature Gran % (Auto) Neut % (Auto) Lymph % (Auto) [place] % (Auto) Eos % (Auto) Baso % (Auto) Absolute Neuts (auto) Absolute Lymphs (auto) Total Counted PT 17.2 H INR 1.4 APTT 49.2 H Sodium Potassium Chloride Carbon Dioxide Anion Gap BUN Creatinine Estim Creat Clear Calc Est GFR (MDRD) Af Amer Est GFR (MDRD) Non-Af BUN/Creatinine Ratio Glucose Lactic Acid Calcium Total Bilirubin Direct Bilirubin AST ALT Alkaline Phosphatase Troponin I Total Protein Albumin Globulin Clinical Impression(s) from Imaging Studies Chest X-Ray 03/06/19 12:30 IMPRESSION: Multilobar airspace disease suggesting pneumonia. Follow-up to resolution recommended. Electronically Signed: Kavon Elias MD at 13:46 EDT , Service support , Assessment/Plan All Active Problems (Last Reviewed 02/18/19 @ 15:38 by Radha Moran) Severe sepsis (Acute) Acute respiratory failure with hypoxia (Acute) Pneumococcal pneumonia (Acute) EPRCY (acute kidney injury) (Acute) Blood in urine (Acute) Abnormal chest x-ray (Acute) Esophageal foreign body (Acute) Alcohol withdrawal (Acute) Opiate withdrawal (Acute) Substance use disorder (Acute) Nicotine dependence (Acute) 1. Severe sepsis Present on admission Secondary to pneumonia Check urinary antigens for Streptococcus and Legionella, check sputum culture, check influenza. Follow-up lactic acid Treat the pneumonia IV fluids Lactic acidosis may be at least partially related with the hypoxia. 2. Suspected pneumococcal pneumonia Continue with azithromycin and ceftriaxone Pulmonary toilet Follow-up urinary antigens for Streptococcus and Legionella as well as sputum culture 3. Acute opiate withdrawal Patient has an intake CINA score of 15. Granted some of that may be attributed to his pneumonia and sepsis Patient does state that he takes Vicodin's to keep his withdrawal symptoms at bay Will initially made him on buprenorphine taper as well as other medications to help with other somatic complaints [facility] to help patient facilitate outpatient facilities. Patient stated that he found it difficult to follow-up appointments 3 times per week given his job. 4. Acute kidney injury Presumed, as creatinine is 1.5 and his creatinine from 2015 was 0.9 IV fluids Urine studies Reevaluate 5. Alcohol abuse States that he is only drinking 3 beers per day and cut back before he got sick Doubt the patient is going through alcohol withdrawal at this time Start the patient on thiamine and folate Advised patient to quit alcohol completely if he wants to stay sober off of opiates. Stated that he cannot just pick and choose which one he wants to go off of if he wants to maintain complete sobriety 6. Cachexia Patient is a very gaunt in appearance and has lost roughly 40 pounds in the past several years unintentionally. Check prealbumin Much of this workup can have to be performed on outpatient basis 7. Acute COPD exacerbation Patient seen Dr. Patterson and was to have pulmonary function test. Unclear if those were done as I do not see in [facility] IV steroids with Solu-Medrol 40 mg every 8 hours plus bronchodilators 8. DVT prophylaxis with Lovenox Code Visit Inpatient E&M: 68287 Init Hosp L3
--- NOTE | 2019-03-06 15:16 | HP.PCM_ITS ---
Problem List (1) Severe sepsis Status: Acute (2) Acute respiratory failure with hypoxia Status: Acute (3) Pneumococcal pneumonia Status: Acute (4) PERCY (acute kidney injury) Status: Acute (5) COPD exacerbation Status: Chronic (6) Opiate withdrawal Status: Acute History of Present Illness Date of Admission: 03/06/19 Chief Complaint: shortness of breath. malaise. The patient is a 63 year old M who has been feeling sick for the past week but most notably over the past few days. Placement of myalgias, malaise, shortness of breath. Also experiencing right-sided chest pain that is worse with deep inspiration and cough. Cough is productive for brown phlegm. Presented to the emergency room today with these complaints and was found to have a right lower lobe infiltrate. He received Rocephin and azithromycin for that. Was also hypoxic at 87% and was having to labored breathing and was notably tachypneic and placed on oxygen. He is maintaining his sats since being placed on oxygen. Patient stated that he had a similar episode about 4 years ago related with pneumonia. [] Past Medical History Past Medical History (Chronic Problems): Chronic Problems (Last Reviewed 02/18/19 @ 15:38 by Radha Moran) COPD exacerbation (Chronic) Chronic fatigue and malaise (Chronic) Chronic pain (Chronic) COPD (chronic obstructive pulmonary disease) (Chronic) Hypertension (Chronic) Opiate dependence (Chronic) Medical History: Medical History (Last Reviewed 03/06/19 @ 15:17 by Juan José Styles DO) Chronic pain (Chronic) G89.29 COPD (chronic obstructive pulmonary disease) (Chronic) J44.9 Hypertension (Chronic) I10 Opiate dependence (Chronic) F11.20 Bronchitis J40 Pneumonia J18.9 Arthritis M19.90 Degenerative disc disease, lumbar M51.36 Depression F32.9 Emphysema of lung J43.9 Osteoporosis M81.0 Rheumatoid arthritis M06.9 Sleep apnea G47.30 Allergies doxycycline Allergy (Unknown, Verified 03/06/19 11:45) Unknown Home Medications: Ambulatory Orders Medication Instructions Recorded multivitamin capsule 1 cap PO QAM 11/12/17 albuterol sulfate HFA 90 2 puff INHALATION Q6H PRN PRN #1 12/21/18 mcg/actuation aerosol inhaler device budesonide-formoterol HFA 160 2 puff INHALATION Q12H #10.2 g 12/21/18 mcg-4.5 mcg/actuation aerosol inhaler umeclidinium 62.5 mcg/actuation 1 inh INHALATION DAILY #30 ea 12/21/18 blister powder for inhalation albuterol sulfate 0.63 mg/3 mL 0.63 mg INHALATION TID PRN #90 ml 01/29/19 solution for nebulization omeprazole 20 mg capsule,delayed 20 mg PO DAILY #90 cap 02/18/19 release Surgical History: Surgical History (Last Reviewed 03/06/19 @ 15:17 by Juan José Styles DO) H/O hernia repair Z98.890, Z87.19 Smoking Status: Heavy Smoker (>10/day) Tobacco Use: Cigarettes Alcohol: Heavy - 3-4 beers per day Drugs: Marijuana, - - Uses roughly 4 Vicodin per day to keep his withdrawal symptoms at bay. - *Family History Maternal Family History: Family History (Last Reviewed 02/18/19 @ 15:38 by Radha Moran) Unknown No problems noted. History Items: No pertinent history Review of Systems Constitutional: Reports: Chills. Denies: Anorexia, Fever Eyes: Denies: Blurred vision, Double vision HEENT: Denies: Head Aches, Sinus Congestion, Sinus Drainage Cardiovascular: Reports: Chest Pain. Denies: Edema Respiratory: Reports: Cough, Shortness of breath upon exertion. Denies: Shortness of breath at rest, Sputum production Gastrointestinal: Reports: Nausea. Denies: Abdominal Pain, Vomiting Genitourinary: Denies: Dysuria Musculoskeletal: Reports: - - Diffuse myalgias Skin: Denies: Dryness, Jaundice Neurological: Denies: Numbness, Tingling, Focal weakness Psychiatric: Denies: Anxiety, Depression Endocrine: Reports: Change in Body Habitus - Has lost roughly 40 pounds over the past several years. States that he is not trying to lose weight Hematologic/ Lymphatic: Denies: Easy Bruising, Easy Bleeding, Hx of blood clot Comment: Yawning. Rhinitis. Watery eyes. A 10 point review of systems were negative except as mentioned in the history of present illness and the other review of systems. VTE Information - Inpt Only VTE Present on Admission: No VTE Pharm Prophylaxis ordered?: Yes Patient Problems: Active and Suspected Problems (Last Reviewed 02/18/19 @ 15:38 by Radha Moran) Severe sepsis (Acute) Acute respiratory failure with hypoxia (Acute) Pneumococcal pneumonia (Acute) PERCY (acute kidney injury) (Acute) - Physical Exam General: Alert, Cooperative, No apparent distress, - - Cachectic. Afebrile. HEENT: Atraumatic, Normocephalic, - - Temporal wasting. No maxillary sinus tenderness. Oral: Moist Mucosa, - - Poor dentition Neck: No Nodes, Thyroid Normal Size and Texture Lungs: Diminished, Wheezes, - - Crackles right lower lobe Cardiovascular: Normal S1, Normal S2, Tachycardic Abdomen: Bowel Sounds Present, Soft, Non Tender, Non-Distended, No Hepato- splenomegaly Extremities: No edema, No Calf Tenderness Skin: No rashes, No breakdown Musculoskeletal: Cachexia, Muscle Wasting Neurological: Muscle tone normal, - - No clonus Psych/Mental Status: Normal Affect, Appropriate Vital Signs Temp Pulse Resp BP Pulse Ox 36.7 C 109 H 18 99/72 91 03/06/19 11:46 03/06/19 13:12 03/06/19 13:12 03/06/19 12:22 03/06/19 12:51 Oxygen Flow Rate (L/min) 3 Oxygen Delivery Method Nasal Cannula Weight: 53.8 kg Body Mass Index (BMI) 17.5 Laboratory Tests Past 24 Hrs 03/06/19 03/06/19 03/06/19 12:46 12:46 12:46 WBC 6.8 RBC 4.47 L Hgb 14.1 Hct 40.6 MCV 90.8 MCH 31.5 MCHC 34.7 RDW 13.1 RDW Differential 43.3 Plt Count 199 MPV 9.7 Immature Gran % (Auto) 1.200 H Neut % (Auto) 88.2 H Lymph % (Auto) 7.4 L [place] % (Auto) 3.1 Eos % (Auto) 0.0 Baso % (Auto) 0.1 Absolute Neuts (auto) 6.0 Absolute Lymphs (auto) 0.50 L Total Counted Not Reportable PT INR APTT Sodium 132 L Potassium 3.9 Chloride 98 Carbon Dioxide 25.0 Anion Gap 9 BUN 29 H Creatinine 1.50 H Estim Creat Clear Calc 37.86 Est GFR (MDRD) Af Amer 60 Est GFR (MDRD) Non-Af 50 L BUN/Creatinine Ratio 19.3 Glucose 98 Lactic Acid 2.7 H Calcium 8.5 Total Bilirubin 0.80 Direct Bilirubin 0.31 H AST 24 ALT 22 Alkaline Phosphatase 55 Troponin I < 0.015 Total Protein 6.8 Albumin 2.9 L Globulin 3.9 03/06/19 12:46 WBC RBC Hgb Hct MCV MCH MCHC RDW RDW Differential Plt Count MPV Immature Gran % (Auto) Neut % (Auto) Lymph % (Auto) [place] % (Auto) Eos % (Auto) Baso % (Auto) Absolute Neuts (auto) Absolute Lymphs (auto) Total Counted PT 17.2 H INR 1.4 APTT 49.2 H Sodium Potassium Chloride Carbon Dioxide Anion Gap BUN Creatinine Estim Creat Clear Calc Est GFR (MDRD) Af Amer Est GFR (MDRD) Non-Af BUN/Creatinine Ratio Glucose Lactic Acid Calcium Total Bilirubin Direct Bilirubin AST ALT Alkaline Phosphatase Troponin I Total Protein Albumin Globulin Clinical Impression(s) from Imaging Studies Chest X-Ray 03/06/19 12:30 IMPRESSION: Multilobar airspace disease suggesting pneumonia. Follow-up to resolution recommended. Electronically Signed: Kavon Elias MD at 13:46 EDT , Service support , Assessment/Plan All Active Problems (Last Reviewed 02/18/19 @ 15:38 by Radha Moran) Severe sepsis (Acute) Acute respiratory failure with hypoxia (Acute) Pneumococcal pneumonia (Acute) PERCY (acute kidney injury) (Acute) Blood in urine (Acute) Abnormal chest x-ray (Acute) Esophageal foreign body (Acute) Alcohol withdrawal (Acute) Opiate withdrawal (Acute) Substance use disorder (Acute) Nicotine dependence (Acute) 1. Severe sepsis * Present on admission * Secondary to pneumonia * Check urinary antigens for Streptococcus and Legionella, check sputum culture, check influenza. * Follow-up lactic acid * Treat the pneumonia * IV fluids * Lactic acidosis may be at least partially related with the hypoxia. 2. Suspected pneumococcal pneumonia * Continue with azithromycin and ceftriaxone * Pulmonary toilet * Follow-up urinary antigens for Streptococcus and Legionella as well as sputum culture 3. Acute opiate withdrawal * Patient has an intake CINA score of 15. Granted some of that may be attributed to his pneumonia and sepsis * Patient does state that he takes Vicodin's to keep his withdrawal symptoms at bay * Will initially made him on buprenorphine taper as well as other medications to help with other somatic complaints * [facility] to help patient facilitate outpatient facilities. Patient stated that he found it difficult to follow-up appointments 3 times per week given his job. 4. Acute kidney injury * Presumed, as creatinine is 1.5 and his creatinine from 2015 was 0.9 * IV fluids * Urine studies * Reevaluate 5. Alcohol abuse * States that he is only drinking 3 beers per day and cut back before he got sick * Doubt the patient is going through alcohol withdrawal at this time * Start the patient on thiamine and folate * Advised patient to quit alcohol completely if he wants to stay sober off of opiates. Stated that he cannot just pick and choose which one he wants to go off of if he wants to maintain complete sobriety 6. Cachexia * Patient is a very gaunt in appearance and has lost roughly 40 pounds in the past several years unintentionally. * Check prealbumin * Much of this workup can have to be performed on outpatient basis 7. Acute COPD exacerbation * Patient seen Dr. Patterson and was to have pulmonary function test. Unclear if those were done as I do not see in [facility] * IV steroids with Solu-Medrol 40 mg every 8 hours plus bronchodilators 8. DVT prophylaxis with Lovenox Code Visit Inpatient E&M: 66596 Init Hosp L3
[2019-03-06] MEDS: Buprenorphine HCl 2 MG TAB.SUBL SL ×2 (16:06→22:29)
[2019-03-06] MEDS: Folic Acid 1 MG Tablet PO (16:07)
[2019-03-06] MEDS: Ketorolac 15 MG/ML Vial IV (16:07)
[2019-03-06] MEDS: Thiamine Hydrochloride 100 MG Tablet PO ×2 (16:07)
[2019-03-06] MEDS: Methocarbamol 750 MG Tablet PO (16:07)
[2019-03-06 16:53] LABS: Reflex Lactate? Y
[2019-03-06 18:02] LABS: Lactic Acid 3.1 mmol/L (0.4-2.0)
[2019-03-06] MEDS: hydrOXYzine PAM 25 MG Capsule 50 MG PO (21:03)
[2019-03-06] MEDS: guaiFENesin 1,200 MG Tablet 1200 MG PO (22:29)
[2019-03-06] MEDS: traZODone 50 MG Tablet PO (22:29)
[2019-03-07] VITALS (18 sets, daily range): BP systolic 107–116; BP diastolic 56–70; PULSE 86–99; RESP 16–25; TEMP 36.9–37.1; O2SAT 87–94
[2019-03-07 01:09] LABS: Bacteria 0 SEEN /hpf (None Seen); Mucous, Urine 0 SEEN /hpf (<or=2+)
[2019-03-07 01:48] LABS: Color, Urine Yellow (Yellow); Glucose, Dipstick Normal (Normal); Ketone-Dipstick 5 mg/dl (Negative); Leukocyte Esterase-Dipstick 25 /ul (Negative); Nitrite-Dipstick Negative (Negative); Occult Blood-Urine 10 /ul (Negative); Protein-Dipstick 30 mg/dl (Negative); Specific Gravity, Urine 1.025 (1.002-1.030); Urine Clarity Sl. Cloudy (Clear); Urine Urobilinogen Normal (Normal)
[2019-03-07 02:04] LABS: Urine Sodium 5 mmol/L (Not Establ.)
[2019-03-07 02:06] LABS: Urine Bilirubin Dipstick 1 mg/dL (Negative)
[2019-03-07 02:10] LABS: Hyaline Cast 10-25 SEEN /lpf (0-5)
[2019-03-07 02:11] LABS: Red Blood Cells-Urine 5-10 SEEN /hpf (0-5); Squamous Epithelial Cells - UA 5-10 SEEN /hpf (0-5); White Blood Cells 5-10 SEEN /hpf (0-5)
[2019-03-07] MEDS: Ketorolac 15 MG/ML Vial IV (02:45)
[2019-03-07] MEDS: Ipratropium/Albuterol Sulfate 3 ML AMPUL.NEB INHALATION ×5 (03:43→23:47)
[2019-03-07 06:14] LABS: Vitamin D,25 Hydroxy 37.2 ng/mL (29.95-100.01)
[2019-03-07 06:16] LABS: ALB/GLOB Ratio 0.6 RATIO (0.9-2.4); AST(SGOT) 19 U/L (15-37); Alanine Aminotransfer ALT/SGPT 18 U/L (16-61); Albumin, Serum 2.1 g/dL (3.2-5.0); Alkaline Phosphatase 48 U/L (45-117); Anion Gap 9 (5-15); BUN 31 mg/dL (7-18); BUN/Creat Ratio 34.3 RATIO (10-20); Chloride 102 mmol/L (98-107); EST Glomerular Filtration Rate 90 mL/min (>60); Est Glom Filt Rate - Afr Amer 108 mL/min (>60); Estimated Creatinine Clearance 63.84 ml/min; Globulin 3.7 g/dL (2.2-4.2); Glucose 117 mg/dL (74-106); Potassium 3.6 mmol/L (3.5-5.1); Prealbumin 8.4 mg/dL (20.0-40.0); Protein, Total 5.8 g/dL (6.4-8.2); Sodium Level 137 mmol/L (136-145); Thyroid Stim Hormone (TSH) 0.66 uIU/mL (0.358-3.74)
[2019-03-07] MEDS: Buprenorphine HCl 2 MG TAB.SUBL SL ×2 (06:41→15:07)
[2019-03-07 06:52] LABS: Absolute Lymphocyte Count 0.33 X10^3/ul (0.83-4.51); Absolute Neutrophil Count 7.6 X10^3/uL (2.0-7.7); Basophil# 0.01 X10^3/uL; Basophil% 0.1 % (0-1); Eosinophil# 0.01 X10^3/uL; Eosinophils% 0.1 % (0-5); Hemoglobin 12.1 g/dl (13.0-16.5); Lymphocyte # 0.33 X10^3/ul (4.0); Lymphocyte % 4.1 % (19-41); Mean Corp Hgb Conc 35.6 g/gl (32-36); Mean Corpuscular Hgb 31.5 pg (27.0-32.0); Mean Corpuscular Volume 88.5 fL (80-94); Mean Platelet Vol. 10.2 fl (6.2-12.0); Monocyte# 0.16 X10^3/uL; Neutrophil # 7.56 X10^3/uL (2.7-7.7); Neutrophil % 93.1 % (47-70); Platelet Count 186 K/mm3 (150-450); RBC Distribution Width CV 12.6 % (11.6-14.6); RBC Distribution Width SD 39.7 fl (35.1-43.9); Red Blood Count 3.84 M/mm3 (4.6-6.2); White Blood Count 8.1 K/mm3 (4.4-11.0)
[2019-03-07 06:54] LABS: POSITIVE COUNT NO; POSITIVE DIFFERENTIAL YES; POSITIVE MORPHOLOGY YES
[2019-03-07 06:55] LABS: Differential Indicated SCAN CRITERIA MET
[2019-03-07 07:02] LABS: Toxic Granulation 1+
[2019-03-07 07:03] LABS: Dohle Bodies 1+; Platelet Estimate ADEQUATE (ADEQ)
--- NOTE | 2019-03-07 08:15 | PN_ITS ---
Patient Problems: Active and Suspected Problems (Last Reviewed 03/06/19 @ 15:17 by Juan José Styles DO) Severe sepsis (Acute) Acute respiratory failure with hypoxia (Acute) Pneumococcal pneumonia (Acute) PERCY (acute kidney injury) (Acute) Subjective: Chest x-ray reviewed dense infiltrate in the predominantly right middle and lower lobe but also in left upper and lower lobe. Patient has history of presumptive COPD with PFT done about 4 years ago and oral. Patient has followed Dr. Pattreson in the clinic in December 2018. History of his smoking, 2 packs/day for 50 years. Has a smoking history with 1 cm spiculated mass in superior segment of left lower lobe. Vitals/I&O's: Vital Signs Temp Pulse Resp BP Pulse Ox 98.6 F 97 16 107/70 92 03/07/19 03:30 03/07/19 07:52 03/07/19 06:49 03/07/19 03:30 03/07/19 06:49 Oxygen Flow Rate (L/min) 3 Oxygen Delivery Method Nasal Cannula Weight: 120 lb Body Mass Index (BMI) 17.7 Intake and Output for Last 24 Hours 03/05/19 03/06/19 03/07/19 23:59 23:59 23:59 Intake Total 2911 / 2911 Balance 2911 / 2911 General: Alert, Oriented x3, Cooperative HEENT: Atraumatic, PERRLA, EOMI, Normocephalic Neck: Supple, No JVD, Negative Carotid Bruits Lungs: Diminished - Air entry is severely diminished in all lung bess., Rales - Coarse rales present, Rhonchi - On exertion, Short of Breath Cardiovascular: Regular rate, Regular Rhythm, Normal S1, Normal S2, No murmurs Abdomen: Bowel Sounds Present, Soft, Non Tender, Non-Distended Extremities: No edema, Capillary Refill Less than 3 Seconds Skin: No rashes, No breakdown Musculoskeletal: No Tenderness to Palpation of Joints or Extremities, Arthritic Changes, Muscle Wasting Lymphatic: No Cervical, Supraclavicular, or Inguinal Adenopathy Neurological: Cranial nerves II-XII grossly intact, Deep Tendon Reflexes 2+/4 and Symmetrical, Neuro grossly intact Psych/Mental Status: Normal Affect, Appropriate Microbiology Past 72 Hours 03/06/19 22:02 Urine, Clean Catch Streptococcus pneumoniae Antigen (M - Final Streptococcus pneumonia Ag 03/06/19 22:02 Urine, Clean Catch Legionella Antigen - Final 03/06/19 19:33 Mucosa - Nasopharyngeal Influenza Types A,B Direct FA (HARSH) - Final Laboratory Results 03/06/19 12:46: WBC 6.8, RBC 4.47 L, Hgb 14.1, Hct 40.6, MCV 90.8, MCH 31.5, MCHC 34.7, RDW 13.1, RDW Differential 43.3, Plt Count 199, MPV 9.7, Immature Gran % (Auto) 1.200 H, Neut % (Auto) 88.2 H, Lymph % (Auto) 7.4 L, [place] % (Auto) 3.1, Eos % (Auto) 0.0, Baso % (Auto) 0.1, Absolute Neuts (auto) 6.0, Absolute Lymphs (auto) 0.50 L, Total Counted Not Reportable 03/06/19 12:46: Sodium 132 L, Potassium 3.9, Chloride 98, Carbon Dioxide 25.0, Anion Gap 9, BUN 29 H, Creatinine 1.50 H, Estim Creat Clear Calc 37.86, Est GFR (MDRD) Af Amer 60, Est GFR (MDRD) Non-Af 50 L, BUN/Creatinine Ratio 19.3, Glucose 98, Calcium 8.5, Total Bilirubin 0.80, Direct Bilirubin 0.31 H, AST 24, ALT 22, Alkaline Phosphatase 55, Troponin I < 0.015, Total Protein 6.8, Albumin 2.9 L, Globulin 3.9 03/06/19 12:46: Lactic Acid 2.7 H 03/06/19 12:46: PT 17.2 H, INR 1.4, APTT 49.2 H 03/06/19 17:10: Lactic Acid 3.1 H 03/06/19 22:02: Eos Smear Total Cells Pending 03/06/19 22:02: Ur Random Sodium 5, Urine Creatinine 189.00 03/06/19 22:02: Urine Color Yellow, Urine Clarity Sl. Cloudy, Urine pH 5.0, Ur Specific Widener 1.025, Urine Protein 30 H, Urine Glucose (UA) Normal, Urine Ketones 5 H, Urine Occult Blood 10 H, Urine Nitrite Negative, Urine Bilirubin 1 H, Urine Urobilinogen Normal, Ur Leukocyte Esterase 25 H, Urine RBC 5-10 SEEN, Urine WBC 5-10 SEEN, Ur Squamous Epith Cells 5-10 SEEN, Urine Bacteria 0 SEEN, Hyaline Casts 10-25 SEEN, Urine Mucus 0 SEEN 03/07/19 04:30: WBC 8.1, RBC 3.84 L, Hgb 12.1 L, Hct 34.0 L, MCV 88.5, MCH 31.5, MCHC 35.6, RDW 12.6, RDW Differential 39.7, Plt Count 186, MPV 10.2, Immature Gran % (Auto) 0.600, Neut % (Auto) 93.1 H, Lymph % (Auto) 4.1 L, [place] % (Auto) 2.0, Eos % (Auto) 0.1, Baso % (Auto) 0.1, Absolute Neuts (auto) 7.6, Absolute Lymphs (auto) 0.33 L, Total Counted Not Reportable, Differential Comment , Toxic Granulation 1+, Dohle Bodies 1+, Platelet Estimate ADEQUATE 03/07/19 04:30: Sodium 137, Potassium 3.6, Chloride 102, Carbon Dioxide 26.0, Anion Gap 9, BUN 31 H, Creatinine 0.90, Estim Creat Clear Calc 63.84, Est GFR (MDRD) Af Amer 108, Est GFR (MDRD) Non-Af 90, BUN/Creatinine Ratio 34.3 H, Glucose 117 H, Calcium 8.0 L, Total Bilirubin 0.40, AST 19, ALT 18, Alkaline Phosphatase 48, Total Protein 5.8 L, Albumin 2.1 L, Globulin 3.7, Albumin/Globulin Ratio 0.6 L, Prealbumin 8.4 L, TSH 0.66 03/07/19 04:30: Vitamin D 25-Hydroxy 37.2 Current Medications Acetaminophen (Tylenol) 650 mg PO Q6H PRN PRN PRN Reason: Mild Pain (1-3)/Temp > 100.7 F Albuterol Sulfate (Ventolin Aerosols) 2.5 mg INHALATION Q2H PRN PRN PRN Reason: SHORTNESS OF BREATH Albuterol/Ipratropium (Duoneb) 3 ml INHALATION Q4H.RT TRICE Last Admin: 03/07/19 06:49 Dose: 3 ml Buprenorphine HCl (Buprenorphine Hcl) 4 mg SL Q8H TRICE; Taper Stop: 03/09/19 19:29 Last Admin: 03/07/19 06:41 Dose: 4 mg Clonidine (Catapres) 0.1 mg PO Q2H PRN PRN PRN Reason: Hot/Cold Sweats or Anxiety Dextrose (D50w Syringe) 0 gm IV X1 PRN; Protocol PRN Reason: Hypoglycemia Dicyclomine HCl (Bentyl) 20 mg PO Q6H PRN PRN PRN Reason: Abdomnial Discomfort Enoxaparin Sodium (Lovenox) 40 mg SC DAILY@1000 TRICE Folic Acid (Folic Acid) 1 mg PO DAILY@0800 [facility] Last Admin: 03/06/19 16:07 Dose: 1 mg Glucagon () 1 mg IM .X1 PRN PRN Reason: Hypoglycemia Guaifenesin (Mucinex) 1,200 mg PO BID [facility] Last Admin: 03/06/19 22:29 Dose: 1,200 mg Hydroxyzine Pamoate (Vistaril Pamoate Capsule) 50 mg PO Q6H PRN PRN PRN Reason: Mild Anxiety Last Admin: 03/06/19 21:03 Dose: 50 mg Azithromycin 500 mg/ Dextrose 255 mls @ 250 mls/hr IV Q24 [facility] Stop: 03/09/19 11:02 Ceftriaxone Sodium (Rocephin) 1 gm in 50 mls @ 100 mls/hr IV Q24 [facility] Ketorolac Tromethamine (Toradol) 15 mg IV Q6H PRN PRN PRN Reason: PAIN Stop: 03/11/19 15:17 Last Admin: 03/07/19 02:45 Dose: 15 mg Methocarbamol (Methocarbamol) 750 mg PO Q6H PRN PRN PRN Reason: Muscle Aches Last Admin: 03/06/19 16:07 Dose: 750 mg Methylprednisolone (Solu-Medrol) 40 mg IV Q8 [facility] Last Admin: 03/07/19 06:42 Dose: 40 mg Multivitamins (Multivitamin) 1 tablet PO DAILY@0800 [facility] Nicotine (Nicoderm Cq (Pbkc)) 21 mg TRANSDERM. DAILY [facility] Last Admin: 03/06/19 16:06 Dose: 21 mg Nutritional Formula (Lactose Free) (Ensure Enlive) 120 ml PO 4X/DAY [facility] Last Admin: 03/06/19 23:58 Dose: Not Given Ondansetron HCl (Zofran) 4 mg IV Q8H PRN PRN PRN Reason: NAUSEA/VOMITING [facility]opraz[facility]) [facility] Pramipexole Dihydrochloride (Mirapex) 0.25 mg PO Q12H PRN PRN PRN Reason: Restless Legs Sodium Chloride () 5 - 15 ml IV UD PRN PRN Reason: SALINE FLUSH Thiamine HCl (Vitamin B1) [facility] Last Admin: 03/06/19 16:07 Dose: 100 mg Trazodone HCl (Desyrel) 50 mg PO QHS [facility] Last Admin: 03/06/19 22:29 Dose: 50 mg Medical Necessity - Tobacco Use Smoking Status: Heavy Smoker (>10/day) Tobacco Use: Cigarettes Assessment/Plan All Active Problems (Last Reviewed 03/06/19 @ 15:17 by Juan José Styles DO) Severe sepsis (Acute) Acute respiratory failure with hypoxia (Acute) Pneumococcal pneumonia (Acute) PERCY (acute kidney injury) (Acute) Blood in urine (Acute) Abnormal chest x-ray (Acute) Esophageal foreign body (Acute) Alcohol withdrawal (Acute) Opiate withdrawal (Acute) Substance use disorder (Acute) Nicotine dependence (Acute) There is a 63-year-old gentleman with history of 100 pack years of smoking, presumptive COPD is being admitted with shortness of breath, productive cough with brownish sputum, pleuritic right-sided chest pain, fever and chills along with chest x-ray suggestive of extensive right lower lobe consolidation along with left upper and left lower lobes infiltrates. Patient had on and off cough and fever for last 4 weeks. Patient was treated with 1 week of Levaquin in last week of December 2018. Patient has followed Dr. Patterson in the clinic in December 2018. History of his smoking, 2 packs/day for 50 years. Has a smoking history with 1 cm spiculated mass in superior segment of left lower lobe. 1. Severe sepsis secondary to multilobar, predominantly right middle lobe Streptococcus pneumoniae community-acquired pneumonia: The patient is started on IV Rocephin and Zithromax along with bronchodilator, oxygen and incentive spirometry. Urinary antigen is positive for Streptococcus pneumoniae. Influenza test is negative. Sputum culture is pending. Blood cultures x2 are pending. Patient is supposed to have PFT as an outpatient. 2. COPD exacerbation: On bronchodilator, IV steroids, chest physiotherapy. Patient breathing has improved. May change to prednisone 40 mg daily from tomorrow a.m. Acute opioid withdrawal: Admitting OUTSIDE SALES CONSULTANT score was 15 but may be attributed to some pneumonia and sepsis. Patient has history of taking Vicodin. [facility] consult on Friday. 3. Acute kidney injury most probably from sepsis/pneumonia: Resolved. Admitting creatinine was 1.5. Today creatinine 0.9. BUN 31. 4. Chronic alcohol use and dependence: Patient drinks 5-6 cans of beer daily since age of 14. Continue IV fluid. On thiamine and folate. 5. Severe protein calorie malnutrition with cachexia: Patient is gaunt in appearance with diffuse muscle atrophy of extremities. Albumin is 2.1. Prealbumin 8.4. Satellite Technician consult. Clinical Impression(s) from Imaging Studies Chest X-Ray 03/06/19 12:30 IMPRESSION: Multilobar airspace disease suggesting pneumonia. Follow-up to resolution recommended. Microbiology Past 72 Hours 03/06/19 19:58 Sputum, Expectorated/Coughed Gram Stain - Final 03/06/19 22:02 Urine, Clean Catch Streptococcus pneumoniae Antigen (M - Final Streptococcus pneumonia Ag 03/06/19 22:02 Urine, Clean Catch Legionella Antigen - Final 03/06/19 19:33 Mucosa - Nasopharyngeal Influenza Types A,B Direct FA (HARSH) - Final Laboratory Results 03/06/19 17:10: Lactic Acid 3.1 H 03/06/19 22:02: Eos Smear Total Cells Pending 03/06/19 22:02: Ur Random Sodium 5, Urine Creatinine 189.00 03/06/19 22:02: Urine Color Yellow, Urine Clarity Sl. Cloudy, Urine pH 5.0, Ur Specific [place] 1.025, Urine Protein 30 H, Urine Glucose (UA) Normal, Urine Ketones 5 H, Urine Occult Blood 10 H, Urine Nitrite Negative, Urine Bilirubin 1 H, Urine Urobilinogen Normal, Ur Leukocyte Esterase 25 H, Urine RBC 5-10 SEEN, Urine WBC 5-10 SEEN, Ur Squamous Epith Cells 5-10 SEEN, Urine Bacteria 0 SEEN, Hyaline Casts 10-25 SEEN, Urine Mucus 0 SEEN 03/07/19 04:30: WBC 8.1, RBC 3.84 L, Hgb 12.1 L, Hct 34.0 L, MCV 88.5, MCH 31.5, MCHC 35.6, RDW 12.6, RDW Differential 39.7, Plt Count 186, MPV 10.2, Immature Gran % (Auto) 0.600, Neut % (Auto) 93.1 H, Lymph % (Auto) 4.1 L, [place] % (Auto) 2.0, Eos % (Auto) 0.1, Baso % (Auto) 0.1, Absolute Neuts (auto) 7.6, Absolute Lymphs (auto) 0.33 L, Total Counted Not Reportable, Differential Comment , Toxic Granulation 1+, Dohle Bodies 1+, Platelet Estimate ADEQUATE 03/07/19 04:30: Sodium 137, Potassium 3.6, Chloride 102, Carbon Dioxide 26.0, Anion Gap 9, BUN 31 H, Creatinine 0.90, Estim Creat Clear Calc 63.84, Est GFR (MDRD) Af Amer 108, Est GFR (MDRD) Non-Af 90, BUN/Creatinine Ratio 34.3 H, Glucose 117 H, Calcium 8.0 L, Total Bilirubin 0.40, AST 19, ALT 18, Alkaline Phosphatase 48, Total Protein 5.8 L, Albumin 2.1 L, Globulin 3.7, Albumin/Globulin Ratio 0.6 L, Prealbumin 8.4 L, TSH 0.66 03/07/19 04:30: Vitamin D 25-Hydroxy 37.2 Code Visit Inpatient E&M: [id number] Subs Hosp L3
[2019-03-07] MEDS: Ceftriaxone 1 GM/50 ML BAG IV (08:55)
[2019-03-07] MEDS: Folic Acid 1 MG Tablet PO (08:56)
[2019-03-07] MEDS: guaiFENesin 1,200 MG Tablet 1200 MG PO ×2 (08:56→21:43)
[2019-03-07] MEDS: Multivitamins,Therapeutic Tablet 1 TABLET PO (08:57)
[2019-03-07] MEDS: Pantoprazole Sodium 20 MG Tablet PO (08:57)
[2019-03-07] MEDS: Enoxaparin 40 MG/0.4 ML Syringe SC (08:57)
[2019-03-07] MEDS: Albuterol 2.5 MG/3 ML VIAL.NEB. INHALATION (14:58)
[2019-03-07] MEDS: traZODone 50 MG Tablet PO (21:43)
[2019-03-07] MEDS: 0.9% NaCl Peripheral Flush Adult/Peds IV (21:44)
[2019-03-08] VITALS (7 sets, daily range): BP systolic 131–136; BP diastolic 79; PULSE 83–111; RESP 16–27; TEMP 36.8; O2SAT 93–97
[2019-03-08] MEDS: Buprenorphine HCl 2 MG TAB.SUBL SL ×2 (00:01→09:20)
[2019-03-08] MEDS: Ipratropium/Albuterol Sulfate 3 ML AMPUL.NEB INHALATION ×3 (03:58→11:02)
--- NOTE | 2019-03-08 07:46 | CPS ---
pt placed O2 back in nose for comfort. pep used on own.
[2019-03-08 07:58] LABS: Absolute Lymphocyte Count 0.47 X10^3/ul (0.83-4.51); Absolute Neutrophil Count 11.7 X10^3/uL (2.0-7.7); Basophil# 0.01 X10^3/uL; Basophil% 0.1 % (0-1); Hematocrit 34.7 % (40-54); Lymphocyte # 0.47 X10^3/ul (4.0); Lymphocyte % 3.6 % (19-41); Mean Corp Hgb Conc 34.6 g/gl (32-36); Mean Corpuscular Hgb 30.8 pg (27.0-32.0); Mean Corpuscular Volume 89.2 fL (80-94); Mean Platelet Vol. 9.7 fl (6.2-12.0); Monocyte# 0.83 X10^3/uL; Monocyte% 6.4 % (0-10); Neutrophil # 11.72 X10^3/uL (2.7-7.7); Neutrophil % 89.6 % (47-70); Platelet Count 221 K/mm3 (150-450); RBC Distribution Width CV 13.1 % (11.6-14.6); RBC Distribution Width SD 42.4 fl (35.1-43.9); Red Blood Count 3.89 M/mm3 (4.6-6.2); White Blood Count 13.1 K/mm3 (4.4-11.0)
[2019-03-08 08:03] LABS: Differential Indicated SCAN CRITERIA MET; POSITIVE COUNT NO; POSITIVE DIFFERENTIAL YES; POSITIVE MORPHOLOGY NO
[2019-03-08 08:16] LABS: Anion Gap 5 (5-15); BUN 31 mg/dL (7-18); Calcium,Total 9.2 mg/dL (8.5-10.1); Chloride 101 mmol/L (98-107); Creatinine, Serum 0.84 mg/dL (0.70-1.30); EST Glomerular Filtration Rate 98 mL/min (>60); Est Glom Filt Rate - Afr Amer 118 mL/min (>60); Estimated Creatinine Clearance 68.36 ml/min; Glucose 125 mg/dL (74-106); Potassium 3.9 mmol/L (3.5-5.1); Sodium Level 134 mmol/L (136-145)
[2019-03-08] MEDS: Multivitamins,Therapeutic Tablet 1 TABLET PO (09:21)
[2019-03-08] MEDS: Pantoprazole Sodium 20 MG Tablet PO (09:21)
[2019-03-08] MEDS: Thiamine Hydrochloride 100 MG Tablet PO (09:21)
[2019-03-08] MEDS: Folic Acid 1 MG Tablet PO (09:21)
[2019-03-08] MEDS: guaiFENesin 1,200 MG Tablet 1200 MG PO (09:22)
[2019-03-08] MEDS: Enoxaparin 40 MG/0.4 ML Syringe SC (09:22)
[2019-03-08] MEDS: Ceftriaxone 1 GM/50 ML BAG IV (09:26)
[2019-03-08] MEDS: 0.9% NaCl Peripheral Flush Adult/Peds IV (09:30)
--- NOTE | 2019-03-08 09:48 | DCINST_ITS ---
- Discharge Diagnoses Current Active Problems: Current Active and Chronic Problems (Last Reviewed 03/06/19 @ 15:17 by Juan José Styles DO) Severe sepsis (Acute) Acute respiratory failure with hypoxia (Acute) Pneumococcal pneumonia (Acute) PERCY (acute kidney injury) (Acute) COPD exacerbation (Chronic) You will use the following diet at home:: Cardiac Your food should be the consistency of: Regular Your liquids should be the consistency of: Regular/Thin Discharge Activity: Return to Normal Activity Weight Bearing Status: Weight bearing as tolerated Call your doctor if you observe: Fever of 101 or Higher, Shortness of breath, - - intractable cough Instructions: Pneumonia Treatment, Discharge Instructions for Pneumonia Additional Instructions: please follow up with Dr Patterson o/a of lung nodule; counselled to follow up for PET scan as recommended by Pulmo; counselled to quit drinking alcohol and smoking. Follow up with PCP for repeat [facility]est imaging to assess for resolution of infiltrate Allergies/Adverse Reactions: Allergies doxycycline Allergy (Unknown, Verified 03/06/19 11:45) Unknown Medications to take at Discharge multivitamin capsule 1 cap PO QAM 11/12/17 albuterol sulfate HFA 90 mcg/actuation aerosol inhaler 2 puff INHALATION Q6H PRN PRN #1 device 12/21/18 budesonide-formoterol HFA 160 mcg-4.5 mcg/actuation aerosol inhaler 2 puff INHALATION Q12H #10.2 g 12/21/18 umeclidinium 62.5 mcg/actuation blister powder for inhalation 1 inh INHALATION DAILY #30 ea 12/21/18 albuterol sulfate 0.63 mg/3 mL solution for nebulization 0.63 mg INHALATION TID PRN #90 ml 01/29/19 omeprazole 20 mg capsule,delayed release 20 mg PO DAILY #90 cap 02/18/19 Amoxicillin/Potassium Clav [Augmentin 875-125 Tablet] 1 each PO BID #20 tablet 03/08/19 predniSONE tablet 40 mg PO DAILY #10 tablet 03/08/19 The following prescriptions were given: predniSONE tablet 40 mg PO DAILY #10 tablet Amoxicillin/Potassium Clav [Augmentin 875-125 Tablet] 1 each PO BID #20 tablet Primary Care Physician: Rich Salinas MD [Primary Care Provider] - Please follow up with your Primary Care Physician in: one week Test Results: Test results from this visit will be discussed in further detail at your follow- up appointment, if applicable. Please Follow Up With: Delmar Patterson DO When: 1-2 weeks Proposed Discharge Date: 03/08/19
--- NOTE | 2019-03-08 09:53 | DS.PCM_ITS ---
Discharge Date and Diagnosis Date of Admission: 03/06/19 Date of Discharge: 03/08/19 - Primary Discharge Diagnosis Active and Suspected Problems (Last Reviewed 03/06/19 @ 15:17 by Juan José Styles DO) Severe sepsis (Acute) Acute respiratory failure with hypoxia (Acute) Pneumococcal pneumonia (Acute) PERCY (acute kidney injury) (Acute) - Secondary Discharge Diagnosis Chronic Problems (Last Reviewed 03/06/19 @ 15:17 by Juan José Styles DO) COPD exacerbation (Chronic) Chronic fatigue and malaise (Chronic) Chronic pain (Chronic) COPD (chronic obstructive pulmonary disease) (Chronic) Hypertension (Chronic) Opiate dependence (Chronic) Hospital Course and Treatment Imaging Results: Diagnostic Data Chest X-Ray 03/06/19 12:30 IMPRESSION: Multilobar airspace disease suggesting pneumonia. Follow-up to resolution recommended. Electronically Signed: Kavon Elias MD at 13:46 EDT , Service support , Operations: None Procedures: None Summary of Care Provided: The patient is a 63 year old M with past medical history of COPD and alcohol dependence. He was admitted on 03/06/2019 with a complaint of shortness of breath and generalized malaise. He also had right-sided chest pain which was worse with inspiration and coughing. Cough was productive of brownish sputum. However in the ED, he was noted to be hypoxic, saturating at 87% on room air with labored breathing and was also tachypneic. Saturation improved after he was placed on oxygen by nasal cannula. Chest x-ray done showed multilobar airspace disease suggestive of pneumonia. He was admitted and managed for severe sepsis due to community-acquired pneumonia as well as acute hypoxic respiratory insufficiency due to community-acquired pneumonia. He was started on IV ceftriaxone and IV azithromycin. Urine for Streptococcus antigen was negative. Sputum also cultured alphahemolytic organism clusters. This was likely Streptococcus pneumonia. Blood cultures showed no growth after 48 hours. Sputum Gram stain was negative. Of note, lactic acid was also elevated, likely due to dehydration as blood pressure went down to the 90s systolic on admission. Patient was hydrated with IV fluids as he was also noted to be in [place] I, with a creatinine of 1.5 on admission. Creatinine trended down to 0.84. Patient gradually improved and malaise resolved. Shortness of breath also improved and cough also got better. Of note, patient was also put on buprenorphine taper for acute opiate withdrawal as a [employer] COMM[employer]INE[employer] score was 15 and he said he had been taking Vicodin. However, some of the symptoms could have been explained by the severe sepsis. The symptoms gradually resolved, and patient was discharged home on 03/08/2019 with a prescription for p.o. Augmentin for 7 days to complete a 10-day course of antibiotics. He is to follow up with his PCP in 1 week and will need follow-up imaging to assess for resolution of infiltrates. Patient was also given information by [employer] about alcohol abuse assistance in the community. Patient is also to follow up with his room cleaner Dr Patterson for COPD and a lung nodule which had been previously diagnosed. Patient's walking pulse ox was 91% on room air prior to discharge, therefore he didnt qualify for home oxygen. Patient seen and examined. He had no complaints and said he felt much better. He still had a mild cough which was productive of scanty brownish sputum. He denied palpitations or dizziness, chest pain, fever chills, diarrhea vomiting. Review of systems otherwise negative. Labs and vitals reviewed. Home medications reviewed and reconciled. o/e: Vital Signs Height 5 ft 9 in Weight: 119 lb 14.903 oz Weight in Pounds 119.9 lbs Pulse Ox 96 Temperature 98.3 F Pulse Rate 99 Respiratory Rate 16 Blood Pressure 131/79 Blood Pressure Position Semi-Fowlers [] - Physical Exam General: Alert, Oriented x3, Cooperative, No apparent distress HEENT: Atraumatic, PERRLA, EOMI, Normocephalic Oral: Moist Mucosa Neck: Supple, No JVD, Negative Carotid Bruits Lungs: - - decreased breath sounds bibasally, with few coarse crackles posteriorly. Cardiovascular: Regular rate, Regular Rhythm, Normal S1, Normal S2, No murmurs Abdomen: Bowel Sounds Present, Soft, Non Tender, Non-Distended, No Hepato- splenomegaly Extremities: No clubbing, No cyanosis, No edema, Capillary Refill Less than 3 Seconds Skin: No rashes, No breakdown Musculoskeletal: No Tenderness to Palpation of Joints or Extremities Lymphatic: No Cervical, Supraclavicular, or Inguinal Adenopathy Neurological: Cranial nerves II-XII grossly intact, Neuro grossly intact, Motor Exam 5/5 strength throughout Psych/Mental Status: Normal Affect, Appropriate, Alert and oriented to time, place, person, mood and affect Vital Signs Temp Pulse Resp BP Pulse Ox 98.3 F 85 18 131/79 H 96 03/08/19 09:00 03/08/19 09:00 03/08/19 09:00 03/08/19 09:00 03/08/19 09:00 Oxygen Flow Rate (L/min) 2 Oxygen Delivery Method Room Air Weight: 119 lb 14.903 oz Body Mass Index (BMI) 17.7 Intake and Output for Last 24 Hours 03/06/19 03/07/19 03/08/19 23:59 23:59 23:59 Intake Total 5214.5 / 5214.5 700 / 700 Balance 5214.5 / 5214.5 700 / 700 Microbiology Past 72 Hours 03/06/19 19:58 Gram Stain - Final Sputum, Expectorated/Coughed Respiratory Culture - Preliminary Alpha hemolytic organism 03/06/19 22:02 Streptococcus pneumoniae Antigen (M - Final Urine, Clean Catch Streptococcus pneumonia Ag 03/06/19 22:02 Legionella Antigen - Final Urine, Clean Catch 03/06/19 19:33 Influenza Types A,B Direct FA ([facility]ARSH) - Final Mucosa - Nasopharyngeal Laboratory Tests Past 24 Hrs 03/08/19 03/08/19 07:35 07:35 WBC 13.1 H RBC 3.89 L Hgb 12.0 L Hct 34.7 L MCV 89.2 MCH 30.8 MCHC 34.6 RDW 13.1 RDW Differential 42.4 Plt Count 221 MPV 9.7 Immature Gran % (Auto) 0.300 Neut % (Auto) 89.6 H Lymph % (Auto) 3.6 L Pennington % (Auto) 6.4 Eos % (Auto) 0.0 Baso % (Auto) 0.1 Absolute Neuts (auto) 11.7 H Absolute Lymphs (auto) 0.47 L Total Counted Not Reportable Differential Comment COMMENT Sodium 134 L Potassium 3.9 Chloride 101 Carbon Dioxide 28.0 Anion Gap 5 BUN 31 H Creatinine 0.84 Estim Creat Clear Calc 68.36 Est GFR (MDRD) Af Amer 118 Est GFR (MDRD) Non-Af 98 BUN/Creatinine Ratio 37.0 H Glucose 125 H Calcium 9.2 Discharge Diet: Low fat/ Low Cholesterol Discharge Activity: Return to Normal Activity Weight Bearing Status: Weight bearing as tolerated Call your doctor if you observe: Fever of 101 or Higher, Shortness of breath, - - intractable cough Home Medications: Medications to take at Discharge multivitamin capsule 1 cap PO QAM 11/12/17 albuterol sulfate HFA 90 mcg/actuation aerosol inhaler 2 puff INHALATION Q6H PRN PRN #1 device 12/21/18 budesonide-formoterol HFA 160 mcg-4.5 mcg/actuation aerosol inhaler 2 puff INHALATION Q12H #10.2 g 12/21/18 umeclidinium 62.5 mcg/actuation blister powder for inhalation 1 inh INHALATION DAILY #30 ea 12/21/18 albuterol sulfate 0.63 mg/3 mL solution for nebulization 0.63 mg INHALATION TID PRN #90 ml 01/29/19 omeprazole 20 mg capsule,delayed release 20 mg PO DAILY #90 cap 02/18/19 Amoxicillin/Potassium Clav [Augmentin 875-125 Tablet] 1 each PO BID #20 tablet 03/08/19 Guaifenesin [Mucinex] 1,200 mg PO BID #30 tbmp.12hr 03/08/19 RX: predniSONE tablet 40 mg PO DAILY #10 tablet 03/08/19 Following Prescrptions Were Given to Patient: RX: predniSONE tablet 40 mg PO DAILY #10 tablet Amoxicillin/Potassium Clav [Augmentin 875-125 Tablet] 1 each PO BID #20 tablet Guaifenesin [Mucinex] 1,200 mg PO BID #30 tbmp.12hr Primary Care Physician: Rich Salinas MD [Primary Care Provider] - Please follow up with your Primary Care Physician in: one week Please Follow Up With: Delmar Patterson DO When: 1-2 weeks Patient Instructions: Pneumonia Treatment, Discharge Instructions for Pneumonia Disposition: Home Minutes spent on discharge:: 45 Patient Condition:: Stable Medical Necessity - Tobacco Use Smoking Status: Heavy Smoker (>10/day) Tobacco Use: Cigarettes Meaningful Use Info Meaningful Use Diagnoses (Choose all that apply): None applicable Code Visit Inpatient E&M: 65492 Disch Hosp
--- NOTE | 2019-03-08 13:00 | CASEMGMT ---
RN CM Assessment Presentation: Sepsis, pneumonia Intro role of CM and purpose of RN CM assessment. Pt with mild tremors, hx of ETOH use, but able to participate in assessment. Demographics, PCP and Pharmacy verified. Pt lives with his daughter and plans to return on discharge. States he will be looking for own place again when able. Reported to CM that [facility] would be giving pt information on ETOH abuse assist. PCP: Dr. Duron Preferred Pharmacy: [facility] Insurance: MMO Prescription Benefit: yes LNOK: patt Woody Living Arrangements: Lives independently with daughter. Denies requiring assistance with any care needs. Transportation: drives DME: nebulizer HHC: none Patient DC goals: Home SW referral: F/U for ETOH abuse assist information prior to dc. Bharat PRASAD will speak with Willie GRAMAJO re: pt. DC PLAN: Home Donna WOOD RN ACM
--- NOTE | 2019-03-09 14:24 | CASEMGMT ---
[facility] DC PHONE CALL DC DATE: 03/08/19 DC Disposition: Home LACE/STRATA: 09/02 Attempted call to patient. No answer. Donna DAVISN RN AC
[2019-03-09 15:40] LABS: Eosinophil Ct. Urine No Eosinophils Seen % (.)
== END 2019-03-08 12:47 | disposition home or self-care (01) | DRG 871 ==
LOC: ED 12:48 → MS3 14:48
PROVIDERS: Emergency Provider Emergency Medicine; Family Provider Internal Medicine; PCP Internal Medicine; Visit Provider Student in an Organized Health Care Education/Training Program
DX: A40.3 Sepsis due to Streptococcus pneumoniae (principal); J13 Pneumonia due to Streptococcus pneumoniae; R65.20 Severe sepsis without septic shock; E43 Unspecified severe protein-calorie malnutrition; J96.01 Acute respiratory failure with hypoxia; F11.23 Opioid dependence with withdrawal; N17.9 Acute kidney failure, unspecified; Z68.1 Body mass index [BMI] 19.9 or less, adult; R64 Cachexia; J44.1 Chronic obstructive pulmonary disease with (acute) exacerbation; J44.0 Chronic obstructive pulmonary disease with (acute) lower respiratory infection; F10.10 Alcohol abuse, uncomplicated; R53.82 Chronic fatigue, unspecified; I10 Essential (primary) hypertension; G89.29 Other chronic pain; F17.210 Nicotine dependence, cigarettes, uncomplicated
CPT/HCPCS: 36415; 71046; 80048; 80053; 80076; 81001; 82306; 82570; 83605; 84134; 84300; 84443; 84484; 85025; 85610; 85730; 87040; 87070; 87077; 87186; 87205; 87449; 87633; 87804; 93005; 94640; 94667; 94668; 97802; 99251; 99282; 99406; J7030; J7040; J7050; A4216; G0463; J0696

== ENCOUNTER → 2019-03-12 09:57 | Outpatient (CLI) | payer OTHER, SELFPAY ==
[2019-03-12 09:35] VITALS: BMI 17.7
[2019-03-12 12:11] LABS: Absolute Lymphocyte Count 0.96 X10^3/ul (0.83-4.51); Absolute Neutrophil Count 11.1 X10^3/uL (2.0-7.7); Basophil# 0.03 X10^3/uL; Basophil% 0.2 % (0-1); Eosinophil# 0.03 X10^3/uL; Eosinophils% 0.2 % (0-5); Hemoglobin 12.6 g/dl (13.0-16.5); Lymphocyte # 0.96 X10^3/ul (4.0); Lymphocyte % 7.4 % (19-41); Mean Corp Hgb Conc 34.1 g/gl (32-36); Mean Corpuscular Hgb 31.2 pg (27.0-32.0); Mean Corpuscular Volume 91.6 fL (80-94); Mean Platelet Vol. 9.7 fl (6.2-12.0); Monocyte# 0.55 X10^3/uL; Monocyte% 4.3 % (0-10); Neutrophil # 11.12 X10^3/uL (2.7-7.7); Neutrophil % 86.1 % (47-70); Platelet Count 416 K/mm3 (150-450); RBC Distribution Width CV 13.9 % (11.6-14.6); RBC Distribution Width SD 46.5 fl (35.1-43.9); Red Blood Count 4.04 M/mm3 (4.6-6.2); White Blood Count 12.9 K/mm3 (4.4-11.0)
[2019-03-12 12:12] LABS: POSITIVE COUNT NO; POSITIVE DIFFERENTIAL NO; POSITIVE MORPHOLOGY NO
[2019-03-12 12:16] LABS: Anion Gap 6 (5-15); BUN 15 mg/dL (7-18); BUN/Creat Ratio 20.1 RATIO (10-20); Calcium,Total 8.9 mg/dL (8.5-10.1); Chloride 103 mmol/L (98-107); Creatinine, Serum 0.75 mg/dL (0.70-1.30); EST Glomerular Filtration Rate 112 mL/min (>60); Est Glom Filt Rate - Afr Amer 135 mL/min (>60); Glucose 111 mg/dL (74-106); Potassium 4.4 mmol/L (3.5-5.1); Sodium Level 138 mmol/L (136-145)
== END ==
PROVIDERS: Family Provider Internal Medicine; PCP Internal Medicine; Visit Provider Internal Medicine
DX: A41.9 Sepsis, unspecified organism (principal); R65.20 Severe sepsis without septic shock
CPT/HCPCS: 36415; 80048; 85025

== ENCOUNTER 2019-04-13 07:59 | Emergency (ER) | payer OTHER, SELFPAY ==
[2019-03-23 08:08] VITALS: BMI 18.3
[2019-04-13 08:00] VITALS: BP 136/76; PULSE 78; RESP 18; TEMP 37.1; O2SAT 99; BMI 18.2
--- NOTE | 2019-04-13 08:10 | ED.VISSUMM ---
- ER Visit Summary Date of Service: 04/13/19 Chief Complaint: Right eye redness History of Present Illness: The patient is a 63 M who presents with right eye redness that began this morning. Patient states he woke up today he noticed his eye was red. Patient admits to increased watery drainage from his right eye. Patient feels like there is something in his eye. Patient does not remember getting anything in his eye. Patient admits to some blurred vision from the right eye. Patient states the pain is worse when he blinks. Patient denies any matting or crusting. Physical Examination: Vital signs are stable. Patient is afebrile. Patient is in no acute distress. Equal, round, and reactive to light bilaterally. Extraocular muscles are intact. Conjunctiva was injected on the right. Tetracaine and fluorescein dye was applied. There is a corneal abrasion over the lower central cornea. There are no foreign bodies visualized. Patient was unable to tolerate eversion of the upper eyelid. Funduscopic exam was unable to be performed because the patient would not tolerate it. Emergency Department Course and Treatment: Patient felt like he could tolerate drops better than ointment. Patient was given a prescription for gentamicin ophthalmic drops. Patient was instructed to follow-up with his primary care physician in 1 to 2 days. Patient was also given the name of ophthalmology on-call for follow-up. Patient was instructed to take Tylenol or ibuprofen as needed for pain. Patient understood and was agreeable with the plan. All questions were answered. Disposition: Discharge home Impression: Corneal abrasion right eye This note was generated with [employer] dictation software. It may contain incorrect words, spelling, and punctuation that were not noted in review of the chart prior to signing ED Disposition - Plan for ED Patient: Disposition: Home or Assisted Living Diagnosis: Corneal abrasion, right Instructions: ED Eye Injury Corneal Abrasion Prescriptions: Gentamicin Ophthalmic Drops [Garamycin Ophthalmic Drops] 1 drp RIGHT EYE Q4 #1 opth.btl Referrals: Rich Salinas MD [Primary Care Provider] - 2 Days Xochilt De La Rosa MD [STAFF PHYSICIAN] - 1-2 Days if not improving
--- NOTE | 2019-04-13 08:17 | ED.DCSUM_ITS ---
- ER Visit Summary Date of Service: 04/13/19 Chief Complaint: Right eye redness History of Present Illness: The patient is a 63 M who presents with right eye redness that began this morning. Patient states he woke up today he noticed his eye was red. Patient admits to increased watery drainage from his right eye. Patient feels like there is something in his eye. Patient does not remember getting anything in his eye. Patient admits to some blurred vision from the right eye. Patient states the pain is worse when he blinks. Patient denies any matting or crusting. Physical Examination: Vital signs are stable. Patient is afebrile. Patient is in no acute distress. Equal, round, and reactive to light bilaterally. Extraocular muscles are intact. Conjunctiva was injected on the right. Tetracaine and fluorescein dye was applied. There is a corneal abrasion over the lower central cornea. There are no foreign bodies visualized. Patient was unable to tolerate eversion of the upper eyelid. Funduscopic exam was unable to be performed because the patient would not tolerate it. Emergency Department Course and Treatment: Patient felt like he could tolerate drops better than ointment. Patient was given a prescription for gentamicin ophthalmic drops. Patient was instructed to follow-up with his primary care physician in 1 to 2 days. Patient was also given the name of ophthalmology on- call for follow-up. Patient was instructed to take Tylenol or ibuprofen as needed for pain. Patient understood and was agreeable with the plan. All questions were answered. Disposition: Discharge home Impression: Corneal abrasion right eye This note was generated with [employer] dictation software. It may contain incorrect words, spelling, and punctuation that were not noted in review of the chart prior to signing ED Disposition - Plan for ED Patient: Disposition: Home or Assisted Living Diagnosis: Corneal abrasion, right Instructions: ED Eye Injury Corneal Abrasion Prescriptions: Gentamicin Ophthalmic Drops [Garamycin Ophthalmic Drops] 1 drp RIGHT EYE Q4 #1 opth.btl Referrals: Rich Salinas MD [Primary Care Provider] - 2 Days Xochilt De La Rosa MD [STAFF PHYSICIAN] - 1-2 Days if not improving
[2019-04-13] MEDS: Tetracaine 0.5% Ophthalmic Bottle 1 DRP RIGHT EYE (08:41)
[2019-04-13] MEDS: Fluorescein 1 MG STRIP 1 STRIP RIGHT EYE (08:41)
== END 2019-04-13 08:48 | disposition home or self-care (01) ==
PROVIDERS: Emergency Provider Emergency Medicine; Family Provider Internal Medicine; PCP Internal Medicine
DX: S05.01XA Injury of conjunctiva and corneal abrasion without foreign body, right eye, initial encounter (principal); X58.XXXA Exposure to other specified factors, initial encounter; Y93.9 Activity, unspecified; Y92.9 Unspecified place or not applicable; J44.9 Chronic obstructive pulmonary disease, unspecified; Z72.0 Tobacco use
CPT/HCPCS: 99284

== ENCOUNTER → 2019-05-24 16:30 | Outpatient (CLI) | payer OTHER, MEDICARE, SELFPAY ==
[2019-03-23 08:08] VITALS: BMI 18.3
[2019-05-24 08:01] VITALS: BMI 18.7
--- NOTE | 2019-05-24 16:40 | CT_ITS ---
STUDY: CT CHEST WITHOUT CONTRAST REASON FOR EXAM: Male, 64 years old. Lung nodule RADIATION DOSAGE (If Supplied By Facility): DLP = ( 272.27 ) mGycm TECHNIQUE: Transaxial imaging was performed without the administration of intravenous contrast material. Coronal and sagittal reformatted images were created. Individualized dose optimization techniques were used for this CT. COMPARISON: CT chest December 03, 2018 FINDINGS: There are no pulmonary infiltrates or pleural effusions. Biapical scarring is again seen. Stable emphysema is present. There is now groundglass opacity in the right lower lobe at the base. There is a new right lower lobe 1 cm spiculated nodule, series 4 image 132. There is a stable 1 cm spiculated nodule in the superior segment of the left lower lobe, series 4 image 85. There is no pneumothorax. The heart and pericardium are within normal limits. There is no thoracic lymphadenopathy. There is no evidence of thoracic aortic aneurysm. Images through the upper abdomen demonstrate no significant abnormality. There are no destructive osseous lesions. CT/Chest without Contrast IMPRESSION: New right lower lobe 1 cm spiculated nodule. Pulmonary consultation and six-month follow-up is recommended. Stable left lower lobe superior segment 1 cm nodule. Right middle lobe groundglass opacification at the bases, consistent with infectious/inflammatory etiology and/or atelectasis. Stable emphysema and scarring. Electronically Signed: Mynor Nevarez, at 21:40 EDT Tel , Service support ,
== END ==
PROVIDERS: Family Provider Internal Medicine; PCP Internal Medicine; Referring Provider Nurse Practitioner Acute Care; Visit Provider Nurse Practitioner Acute Care
DX: R91.8 Other nonspecific abnormal finding of lung field (principal)
CPT/HCPCS: 71250

== ENCOUNTER → 2019-07-19 11:05 | Outpatient (CLI) | payer OTHER, SELFPAY ==
[2019-05-26 15:35] VITALS: BMI 18.7
--- NOTE | 2019-07-19 12:00 | PET_ITS ---
EXAMINATION: FDG PET/CT INDICATIONS: A 64-year-old male with reported history of pulmonary nodularity. COMPARISON EXAMINATION: CT of the chest report dated 05/24/19 INDEX LESION SIZE SUV INTERPRETATION Right mid posterior lung field, right lower lobe 7.2-mm (frame 177) 0.6 Quantitative criteria for viable neoplasm are not fulfilled, sequential radiologic investigation recommended NON-INDEX LESION SIZE SUV INTERPRETATION Right mid pelvic mesentery, proximal ascending colon-nodular 5.2 (max) Most consistent with physiologic distribution of the radiopharmaceutical, if soft tissue mass formation suspected, correlation with CT of the abdomen and pelvis recommended TECHNIQUE: Following the intravenous administration of 15.7 mCi of F-18 deoxyglucose via the left antecubital fossa, multiplanar image acquisitions of the neck, chest, abdomen and pelvis to level of mid thigh, obtained at one hour post radiopharmaceutical administration contemporaneously interpreted with the current CT of the neck, chest, abdomen and pelvis to level of mid thigh, dated 07/19/[address] of the chest report dated 05/24/19 reveal: SERUM GLUCOSE LEVEL: 107 mg/dl. HEIGHT: 68 inches. WEIGHT: 110 lbs. FINDINGS: 1. Subtle increased FDG concentration is defined in the right mid hemithorax pulmonary parenchyma, superior segment of the right lower lobe, generating a calculated maximal standard uptake value of 0.6. The maximal axial diameter of the corresponding parenchymal density on review of CT of the chest dated 07/19/19 is 7.2-mm (AP). 2. Normal physiologic distribution of the radiopharmaceutical is apparent in the hepatic (2.1) and splenic parenchyma, both renal units, bladder and visualized intestinal tract. The visualized portion of the cerebral cortex demonstrate symmetric and preserved glucose metabolism. Prominent radiopharmaceutical concentration extends from the proximal to distal esophagus, segmental in presentation, consistent with physiologic distribution of the radiopharmaceutical. Prominent intestinal tract distribution of radiopharmaceutical is noted, most accentuated in the right mid pelvic mesentery in the region of the proximal ascending colon generating a calculated maximal standard uptake value of 5.2. Pertinent CT findings are as follows: CHEST: Parenchymal density defined in the right apical lung field demonstrates no evidence of quantitatively significant, discernible increased glucose metabolism. The parenchymal density defined in the superior segment of the left lower lobe is non-glucose avid. Centrilobular emphysematous change is noted in the bilateral upper-mid lung zones. A calcified parenchymal density noted in the left lower posteromedial lung field is non-glucose avid. Additional subcentimeter densities defined in the right-left hemithorax define no evidence of abnormal increased glucose concentration. There is atherosclerotic calcification defined in the thoracic aorta without evidence of dilatation-aneurysm formation. Calcified and non-calcified mediastinal and scattered bilateral axillary subcentimeter soft tissue densities are ametabolic. ABDOMEN AND PELVIS: Calcified granuloma formation is noted within the splenic parenchyma. There is atherosclerotic calcification defined in the abdominal aorta without evidence of dilatation-aneurysm formation. Pelvic arterial calcification is observed. Right-left inguinal soft tissue densities are non-glucose avid. SKELETAL: Degenerative changes are noted in the cervical, thoracic and lumbar spine. Scattered sclerotic densities noted in the axial skeletal structures demonstrate no evidence of facilitated FDG uptake. PET/PET/CT Tumor Base -Thigh Init IMPRESSION: 1. Barely perceptible increased radiopharmaceutical concentration noted in the right mid hemithorax pulmonary parenchyma, right lower lobe, does not fulfill quantitative criteria for viable neoplasm. (Pnoce et al, Annals of Internal Medicine, 138:724, 2003). 2. Metabolic and/or anatomic stability may be ensured in the right hemithorax pulmonary parenchyma-right lower lobe abnormality with repeat FDG PET study and/or CT of the thorax in three-six months. (Xiu, Journal of Nuclear Medicine 45:88, P2004 Breana, Seminars in Thoracic and Cardiovascular Surgery 14:292, 2002). 3. Anatomic stability may be ensured in the remaining non-glucose avid parenchymal densities with repeat CT of the thorax in three-six months. (Breana, Seminars in Thoracic and Cardiovascular Surgery 14:292, 2002). 4. Facilitated tracer concentration noted in the proximal ascending colon is most consistent with physiologic distribution of the radiopharmaceutical of the radiopharmaceutical. If intraluminal soft tissue mass formation is a diagnostic consideration, correlation with CT of the abdomen and pelvis with oral and intravenous contrast is recommended. (Deepthi et al, Journal of Nuclear Medicine, 30:E372, 2003). Electronic Signature Klaus Rasmussen D.O. Electronically Signed: Klaus Rasmussen DO at 23:31 EDT Tel , Service support ,
== END ==
PROVIDERS: Family Provider Internal Medicine; PCP Internal Medicine; Referring Provider Internal Medicine Critical Care Medicine; Visit Provider Internal Medicine Critical Care Medicine
DX: R91.1 Solitary pulmonary nodule (principal)
CPT/HCPCS: 78815; A9552

== ENCOUNTER → 2020-05-05 15:58 | Outpatient (CLI) | payer OTHER, SELFPAY ==
[2020-05-05 15:21] VITALS: BMI 19.5
[2020-05-05 16:48] LABS: Absolute Lymphocyte Count 2.79 X10^3/uL (0.83-4.51); Absolute Neutrophil Count 4.5 X10^3/uL (2.0-7.7); Basophil# 0.03 X10^3/uL; Basophil% 0.4 % (0-1); Eosinophil# 0.19 X10^3/uL; Eosinophils% 2.3 % (0-5); Hematocrit 47.8 % (40-54); Hemoglobin 16.7 g/dL (13.0-16.5); Lymphocyte # 2.79 X10^3/ul (4.0); Lymphocyte % 33.3 % (19-41); Mean Corp Hgb Conc 34.9 g/dL (32-36); Mean Corpuscular Hgb 33.1 pg (27.0-32.0); Mean Corpuscular Volume 94.8 fL (80-94); Mean Platelet Vol. 9.7 fl (6.2-12.0); Monocyte# 0.87 X10^3/uL; Monocyte% 10.4 % (0-10); NRBC Flagged by Analyzer 0 % (0-5); Neutrophil # 4.47 X10^3/uL (2.7-7.7); Neutrophil % 53.2 % (47-70); Platelet Count 338 K/mm3 (150-450); RBC Distribution Width CV 12.1 % (11.6-14.6); RBC Distribution Width SD 42.4 fl (35.1-43.9); Red Blood Count 5.04 M/mm3 (4.6-6.2); White Blood Count 8.4 K/mm3 (4.4-11.0)
[2020-05-05 17:15] LABS: ALB/GLOB Ratio 1.2 RATIO (0.9-2.4); AST(SGOT) 19 U/L (15-37); Alanine Aminotransfer ALT/SGPT 26 U/L (16-61); Albumin, Serum 4.3 g/dL (3.2-5.0); Alkaline Phosphatase 112 U/L (45-117); Anion Gap 5 (5-15); BUN 16 mg/dL (7-18); BUN/Creat Ratio 18.3 RATIO (10-20); Calcium,Total 9.4 mg/dL (8.5-10.1); Chloride 103 mmol/L (98-107); Cholesterol 153 mg/dL (200); Creatinine, Serum 0.88 mg/dL (0.70-1.30); EST Glomerular Filtration Rate 93 mL/min (>60); Est Glom Filt Rate - Afr Amer 112 mL/min (>60); Globulin 3.7 g/dL (2.2-4.2); Glucose 94 mg/dL (74-106); High Density Lipoprotein 83 mg/dL; Potassium 5.1 mmol/L (3.5-5.1); Sodium Level 136 mmol/L (136-145); Thyroid Stim Hormone (TSH) 2.72 uIU/mL (0.358-3.74); Triglycerides 87 mg/dL; Very Low Density Lipoprotein 17 mg/dL (5-40)
== END ==
PROVIDERS: PCP Internal Medicine; Referring Provider Internal Medicine; Visit Provider Internal Medicine
DX: J44.9 Chronic obstructive pulmonary disease, unspecified (principal); I10 Essential (primary) hypertension; Z13.29 Encounter for screening for other suspected endocrine disorder
CPT/HCPCS: 36415; 80053; 80061; 84439; 84443; 85025

== ENCOUNTER → 2020-11-17 15:34 | Outpatient (CLI) | payer MEDICARE, SELFPAY ==
[2020-11-17 15:05] VITALS: BMI 19.9
[2020-11-17 17:58] LABS: BNP,B-Type NATRIURETIC PEPTIDE 26.5 pg/mL (0-100)
== END ==
PROVIDERS: PCP Internal Medicine; Referring Provider Internal Medicine; Visit Provider Internal Medicine
DX: R06.02 Shortness of breath (principal)
CPT/HCPCS: 36415; 83880

== ENCOUNTER → 2021-02-15 16:09 | Outpatient (CLI) | payer MEDICARE, SELFPAY ==
[2021-02-15 17:13] LABS: BNP,B-Type NATRIURETIC PEPTIDE 27.5 pg/mL (0-100)
== END ==
PROVIDERS: PCP Internal Medicine; Referring Provider Internal Medicine; Visit Provider Internal Medicine
DX: R06.02 Shortness of breath (principal)
CPT/HCPCS: 36415; 83880

== ENCOUNTER 2021-05-19 15:33 | Emergency (ER) | payer MEDICARE, SELFPAY ==
[2021-05-19 15:33] VITALS: BP 140/111; PULSE 88; RESP 14; TEMP 36.4; O2SAT 96; BMI 19.1
--- NOTE | 2021-05-19 16:31 | EX.ED.DYSGE1 ---
HPI History of Present Illness Chief Complaint: Other, Pain/Inj Detail of Chief Complaint: Atraumatic right lateral neck pain and stiffness. Informant: patient Onset/Context/Timing Onset: Days Context: Gradual Onset Timing: Continuous Current Severity: Mild Maximum Severity: Mild Narrative Narrative: 66-year-old male history of COPD. No prior neck or back surgery. Denies any injury or trauma. Said he awoke believes is either Friday or Friday morning and he said he had some stiffness in the right lateral aspect of his neck. He denies any weakness or numbness to his upper or lower extremities. No fall or trauma. He has not been lifting anything or any new exercises. Otherwise he denies being ill. He went to a chiropractor he said he did x-rays and he said he really did not feel any better. Prior similar symptoms: No Recent Illness/Hospitalization: No [facility] Medical History (Updated 05/19/21 @ 16:[address] Chris Giles MD) Arthritis Bronchitis Chronic pain COPD (chronic obstructive pulmonary disease) Degenerative disc disease, lumbar Depression Emphysema of lung Hypertension Opiate dependence Osteoporosis Pneumonia Rheumatoid arthritis Sleep apnea Home Medications disability placard #1 ea 02/04/20 [Rx Last Taken Unknown] nebulizer accessories #1 ea 11/17/20 [Rx Last Taken Unknown] fluticasone fur. 100 mcg-umeclid 62.5 mcg-vilant 25 mcg inhalat.powder 1 inh INHALATION QDAY #90 ea 02/06/21 [Rx Last Taken Unknown] albuterol sulfate 0.63 mg/3 mL solution for nebulization See Rx Instructions .ROUTE .COMPLEX #225 milliliter 02/15/21 [Rx Last Taken Unknown] albuterol sulfate 90 mcg/actuation aerosol inhaler 2 puff INHALATION Q6H PRN PRN #1 device 05/02/21 [Rx Last Taken Unknown] hydrocodone-acetaminophen 1 tab PO Q4H PRN 4 Days #14 tab 05/19/21 [Rx Last Taken Unknown] multivitamin 1 tab PO DAILY 05/19/21 [History Last Taken Unknown] Allergy/AdvReac Type Severity Reaction Status Date / Time doxycycline AdvReac Unknown Unknown Verified 05/19/21 15:36 Family History Unknown No problems noted. Surgical History H/O hernia repair Social History household members: children and other details: grandchildren housing: house current occupational status: employed current occupation: [employer] pets and animals: Yes pets and animals: cat(s) and dog(s) Smoking Status: Current every day smoker tobacco type: cigarettes second hand exposure: Yes alcohol intake: current alcohol intake frequency: 3 or more drinks per day Alcohol type: beer substance use type: does not use what type of physical activity do you participate in: none ROS ROS ED ROS Narrative Patient denies any recent illness. Review of Systems ROS Unobtainable: Denies due to encephalopathy Constitutional Constitutional ED: Denies chills or fever(s) Eyes Eyes: Denies change in vision ENT ENT ED: Denies ear pain or sore throat Cardiovascular Cardiovascular: Denies chest pain Respiratory/Chest Respiratory/Chest: Denies cough or dyspnea Gastrointestinal Gastrointestinal: Denies abdominal pain, constipation, diarrhea, nausea or vomiting Genitourinary Genitourinary ED: Denies dysuria Musculoskeletal Musculoskeletal: Reports neck pain Integumentary Denies abscess or rash Neurologic Neurologic: Denies headache(s) Psychiatric Psychiatric: Denies depression Endocrine Endocrinology: Denies polyuria Allergic/Immunologic Allergic/Immunologic ED: Denies urticaria EXAM Physical Exam Narrative Exam Narrative: Well-appearing older male no acute distress. Vital signs stable afebrile. HEENT exam unremarkable. Neck right lateral paracervical soft tissue tenderness consistent with a myofascial strain and spasm. Spine soft nontender. Trachea midline. Lungs are coarse with a few expiratory wheezes. Heart regular rhythm. Otherwise exam unremarkable. Normal motor strength and sensation both upper and lower extremities. Normal range of motion. He does have worsening discomfort with rotation of his neck. Const Vital Signs: 05/19/21 15:33 Temperature 97.6 F L Temperature Source Temporal Pulse Rate 88 Respiratory Rate 14 Blood Pressure 140/111 H Blood Pressure Mean 120 Pulse Ox 96 Oxygen Delivery Method Room Air Positive well nourished and well developed General Appearance ED: well developed HEENT Reports moist mucous membranes Negative for trauma or tenderness Eyes PERRL and EOMs intact bilaterally Neck no lymphadenopathy, supple and no JVD Neck Narrative: Right lateral neck soft tissue muscular tenderness. General: tenderness Chest Wall inspection of chest normal and palpation of chest normal Resp normal respiratory effort Auscultation: wheezes Cardio regular rate, regular rhythm and no murmurs GI normal to inspection, nondistended, normoactive bowel sounds, non-tender and non-distended Palpation: soft Back/Spine no CVA tenderness Extremity normal to inspection General Extremety ED: Negative for edema or tenderness General Extremity: Negative for edema Neuro oriented x3 and CN's II-XII intact bilaterally Sensorium / Orientation: alert Motor Exam: strength 5/5 throughout Psych mental status grossly normal Skin no rashes or lesions noted MDM MDM MDM Narrative Medical decision making narrative: History and exam are consistent with myofascial strain and spasm of the right lateral neck. Otherwise exam unremarkable. Discussed with patient. He states muscle relaxants in the past have just knocked him out. He was just hoping for something for pain. He and I discussed treatment plan. They written for 10 [place]. Discharge Plan Triage Chief Complaint: Other, Pain/Inj ED Provider: Chris Giles Dx/Rx/DC Orders Clinical Impression: Muscle spasm, Neck muscle strain Instructions: ED Neck Sprain or Strain, ED Neck Spasm, No Trauma Prescriptions: New hydrocodone-acetaminophen 5-325 mg tablet 1 tab PO Q4H PRN (Reason: pain) 4 Days Qty: 14 RF: 0 No Action (DME) disability placard Qty: 1 RF: 0 (DME) nebulizer accessories Kit See Rx Instructions .ROUTE .MEDSUPPLY Qty: 1 RF: 3 albuterol sulfate 0.63 mg/3 mL solution for nebulization See Rx Instructions .ROUTE .COMPLEX Qty: 225 RF: 3 multivitamin Tablet 1 tab PO DAILY RF: 0 Trelegy Ellipta 100-62.5-25 mcg blister with device 1 inh INHALATION QDAY Qty: 90 RF: 3 albuterol sulfate 90 mcg/actuation HFA aerosol inhaler 2 puff INHALATION Q6H PRN PRN (Reason: shortness of breath or wheezing) Qty: 1 RF: 6 Primary Care Provider: Rich Salinas Referrals: Rich Salinas MD [Primary Care Provider] - 1 Week if not improving Activity Restrictions/Additional Instructions: Ice and heat to your neck to decrease inflammation and muscle spasm. Hot shower and warm bath. Massage would help loosen the muscles up. [place] as needed for pain no more than 2 every 6 hours. Also limited Motrin 400 mg twice a day for up to 5 days. Follow-up if not improving. Return if worse. Disposition Disposition: Home, self care
== END 2021-05-19 17:31 | disposition home or self-care (01) ==
LOC: ED 17:22
PROVIDERS: Emergency Provider Emergency Medicine; PCP Internal Medicine
DX: M62.838 Other muscle spasm (principal); S16.1XXA Strain of muscle, fascia and tendon at neck level, initial encounter; J44.9 Chronic obstructive pulmonary disease, unspecified; F17.210 Nicotine dependence, cigarettes, uncomplicated; X58.XXXA Exposure to other specified factors, initial encounter; Z79.899 Other long term (current) drug therapy
CPT/HCPCS: 99282

== ENCOUNTER → 2021-05-24 15:59 | Outpatient (CLI) | payer MEDICARE, SELFPAY ==
[2021-05-24 15:31] VITALS: BMI 19.1
[2021-05-24 16:39] LABS: Absolute Lymphocyte Count 1.78 X10^3/uL (0.83-4.51); Absolute Neutrophil Count 3.6 X10^3/uL (2.0-7.7); Basophil# 0.03 X10^3/uL; Basophil% 0.5 % (0-1); Eosinophil# 0.14 X10^3/uL; Eosinophils% 2.3 % (0-5); Hematocrit 47.3 % (40-54); Hemoglobin 16.1 g/dL (13.0-16.5); Lymphocyte # 1.78 X10^3/ul (0.83-4.51); Lymphocyte % 29.1 % (19-41); Mean Corpuscular Hgb 32.1 pg (27.0-32.0); Mean Corpuscular Volume 94.2 fL (80-94); Mean Platelet Vol. 9.2 fl (6.2-12.0); Monocyte# 0.55 X10^3/uL; NRBC Flagged by Analyzer 0 % (0-5); Neutrophil # 3.59 X10^3/uL (2.7-7.7); Neutrophil % 58.8 % (47-70); Platelet Count 300 K/mm3 (150-450); RBC Distribution Width CV 12.3 % (11.6-14.6); RBC Distribution Width SD 42.6 fl (35.1-43.9); Red Blood Count 5.02 M/mm3 (4.6-6.2); White Blood Count 6.1 K/mm3 (4.4-11.0)
[2021-05-24 18:10] LABS: ALB/GLOB Ratio 1.2 RATIO (0.9-2.4); AST(SGOT) 23 U/L (15-37); Alanine Aminotransfer ALT/SGPT 22 U/L (16-61); Albumin, Serum 4.3 g/dL (3.2-5.0); Alkaline Phosphatase 106 U/L (45-117); Anion Gap 3 (5-15); BUN 10 mg/dL (7-18); BUN/Creat Ratio 13.7 RATIO (10-20); Calcium,Total 8.9 mg/dL (8.5-10.1); Chloride 107 mmol/L (98-107); Cholesterol 175 mg/dL (200); Creatinine, Serum 0.73 mg/dL (0.70-1.30); EST Glomerular Filtration Rate 114 mL/min (>60); Est Glom Filt Rate - Afr Amer 138 mL/min (>60); Globulin 3.7 g/dL (2.2-4.2); Glucose 84 mg/dL (74-106); High Density Lipoprotein 89 mg/dL; Potassium 4.5 mmol/L (3.5-5.1); Sodium Level 138 mmol/L (136-145); Triglycerides 67 mg/dL; Very Low Density Lipoprotein 13 mg/dL (5-40)
== END ==
PROVIDERS: PCP Internal Medicine; Referring Provider Internal Medicine; Visit Provider Internal Medicine
DX: I10 Essential (primary) hypertension (principal)
CPT/HCPCS: 36415; 80053; 80061; 85025

== ENCOUNTER → 2021-11-29 08:45 | Outpatient (CLI) | payer MEDICARE, SELFPAY ==
--- NOTE | 2021-11-30 10:05 | PFT ---
INTRODUCTION: The patient is a 66-year-old male that presents for pulmonary function studies secondary to a diagnosis of shortness of breath. Respiratory therapy reported good patient effort. Bronchodilators were used during testing. INTERPRETATION: Forced expiration spirometry demonstrates the presence of a severe large airways obstructive ventilatory defect. There was no significant response to aerosolized bronchodilators. Spirograms are of good quality but do not plateau indicating slow emptying of the lungs. Body plethysmography was performed and revealed an elevated TLC and RV, indicative of underlying hyperinflation and air trapping. Diffusing capacity by single breath CO is reduced at 72% of predicted. IMPRESSION: Irreversible severe large airways obstructive ventilatory defect with associated hyperinflation, air trapping and mild reduction in diffusing capacity.
== END ==
PROVIDERS: PCP Internal Medicine; Referring Provider Internal Medicine; Visit Provider Internal Medicine
DX: R91.1 Solitary pulmonary nodule (principal)
CPT/HCPCS: 94060; 94726; 94729

== ENCOUNTER 2022-01-24 12:22 | Outpatient (CLI) | payer MEDICARE, SELFPAY ==
[2022-01-24 12:51] VITALS: PULSE 83; PULSE 86; PULSE 87; PULSE 92; PULSE 95; PULSE 98; PULSE 99; O2SAT 93; O2SAT 95; O2SAT 96; O2SAT 97; O2SAT 98
--- NOTE | 2022-01-25 10:08 | PCM.PSN.6M ---
PSN 6 Minute Walk Test 6 Minute Walk Test 6 Minute Walk Test: 6 Minute Walk Test PSN:6-Minute Walk Test Start: 01/24/22 12:51 Freq: Status: Active Protocol: RESP.6MINW Document 01/24/22 12:51 TAYLOR (Rec: 01/24/22 12:53 TAYLOR [id number]) 6 Minute Walk Test Date Performed 01/24/22 Time Performed 12:30 Height 5 ft 8 in Weight: 58.967 kg Weight in Pounds 130.[address]: Rich Salinas Assistive device used: None Pre-test Oxygen Delivery Method Room Air Pulse Ox (%) 98 Pulse Rate (60-100 beats/min) 83 Dyspnea Jeff Scale (0-10) 0 Exertion Jeff Scale (6-20) 6 1st minute Oxygen Delivery Method Room Air Pulse Ox (%) 95 Pulse Rate (60-100 beats/min) 87 2nd minute Oxygen Delivery Method Room Air Pulse Ox (%) 93 Pulse Rate (60-100 beats/min) 92 3rd minute Oxygen Delivery Method Room Air Pulse Ox (%) 96 Pulse Rate (60-100 beats/min) 95 4th minute Oxygen Delivery Method Room Air Pulse Ox (%) 98 Pulse Rate (60-100 beats/min) 98 5th minute Oxygen Delivery Method Room Air Pulse Ox (%) 97 Pulse Rate (60-100 beats/min) 99 6th minute Oxygen Delivery Method Room Air Pulse Ox (%) 98 Pulse Rate (60-100 beats/min) 98 Dyspnea Jeff Scale (0-10) 3 Exertion Jeff Scale (6-20) 12 Post-test Oxygen Delivery Method Room Air Pulse Ox (%) 98 Pulse Rate (60-100 beats/min) 86 Full Laps Walked 16 Partial Lap, Number of Tiles Walked 10 Total Distance Walked (ft) 954 Interpretation Interpretation: The patient ambulated 954 feet over the course of 6 minutes beginning on room air without assistive devices. Pretesting oxygen saturation was noted to be 98% on room air. With ambulation, the marsha oxygen saturation was 93%. This represents a significant exertional oxygen desaturation. Recommendations Recommendations: There is no indication for the use of supplemental oxygen at this time. However, close interval follow-up is recommended, given the degree of oxygen desaturation noted during this study.
== END 2022-01-24 23:59 | disposition home or self-care (01) ==
LOC: PSN 12:23
PROVIDERS: PCP Internal Medicine; Referring Provider Internal Medicine; Visit Provider Internal Medicine
DX: J44.9 Chronic obstructive pulmonary disease, unspecified (principal)
CPT/HCPCS: 94618

== ENCOUNTER → 2022-07-31 | Outpatient (CLI) | payer MEDICARE, SELFPAY ==
[2022-07-31 16:45] LABS: Absolute Lymphocyte Count 1.55 X10^3/uL (0.83-4.51); Absolute Neutrophil Count 4.2 X10^3/uL (2.0-7.7); Basophil# 0.02 X10^3/uL; Basophil% 0.3 % (0-1); Eosinophil# 0.15 X10^3/uL; Eosinophils% 2.2 % (0-5); Hematocrit 50.4 % (40-54); Hemoglobin 16.8 g/dL (13.0-16.5); Lymphocyte # 1.55 X10^3/ul (0.83-4.51); Lymphocyte % 23.2 % (19-41); Mean Corp Hgb Conc 33.3 g/dL (32-36); Mean Corpuscular Hgb 31.9 pg (27.0-32.0); Mean Corpuscular Volume 95.8 fL (80-94); Mean Platelet Vol. 10.1 fl (6.2-12.0); Monocyte# 0.75 X10^3/uL; Monocyte% 11.2 % (0-10); NRBC Flagged by Analyzer 0 % (0-5); Neutrophil # 4.17 X10^3/uL (2.7-7.7); Neutrophil % 62.7 % (47-70); Platelet Count 283 K/mm3 (150-450); RBC Distribution Width CV 12.2 % (11.6-14.6); RBC Distribution Width SD 43.7 fl (35.1-43.9); Red Blood Count 5.26 M/mm3 (4.6-6.2); White Blood Count 6.7 K/mm3 (4.4-11.0)
[2022-07-31 16:57] LABS: AST(SGOT) 17 U/L (15-37); Alanine Aminotransfer ALT/SGPT 23 U/L (16-61); Albumin, Serum 3.8 g/dL (3.2-5.0); Alkaline Phosphatase 99 U/L (45-117); Anion Gap 6 (5-15); BUN 13 mg/dL (7-18); BUN/Creat Ratio 14.9 RATIO (10-20); Calcium,Total 9.5 mg/dL (8.5-10.1); Chloride 102 mmol/L (98-107); Creatinine, Serum 0.88 mg/dL (0.70-1.30); EST Glomerular Filtration Rate 92 mL/min (>60); Est Glom Filt Rate - Afr Amer 111 mL/min (>60); Globulin 3.9 g/dL (2.2-4.2); Glucose 125 mg/dL (74-106); Potassium 4.8 mmol/L (3.5-5.1); Protein, Total 7.7 g/dL (6.4-8.2); Sodium Level 137 mmol/L (136-145)
== END | disposition home or self-care (01) ==
PROVIDERS: PCP Internal Medicine; Referring Provider Internal Medicine; Visit Provider Internal Medicine
DX: J44.9 Chronic obstructive pulmonary disease, unspecified (principal)
CPT/HCPCS: 36415; 80053; 85025

== ENCOUNTER → 2023-04-29 | Outpatient (CLI) | payer MEDICARE, SELFPAY ==
[2023-04-29 16:58] LABS: Absolute Lymphocyte Count 2.32 X10^3/uL (0.83-4.51); Absolute Neutrophil Count 4.7 X10^3/uL (2.0-7.7); Basophil# 0.05 X10^3/uL; Basophil% 0.6 % (0-1); Eosinophil# 0.16 X10^3/uL; Hemoglobin 18.4 g/dL (13.0-16.5); Lymphocyte # 2.32 X10^3/ul (0.83-4.51); Lymphocyte % 28.6 % (19-41); Mean Corp Hgb Conc 33.5 g/dL (32-36); Mean Corpuscular Hgb 31.2 pg (27.0-32.0); Mean Corpuscular Volume 93.4 fL (80-94); Mean Platelet Vol. 9.7 fl (6.2-12.0); Monocyte# 0.88 X10^3/uL; Monocyte% 10.8 % (0-10); NRBC Flagged by Analyzer 0 % (0-5); Neutrophil # 4.68 X10^3/uL (2.7-7.7); Neutrophil % 57.6 % (47-70); Platelet Count 314 K/mm3 (150-450); RBC Distribution Width CV 11.9 % (11.6-14.6); RBC Distribution Width SD 41.2 fl (35.1-43.9); Red Blood Count 5.89 M/mm3 (4.6-6.2); White Blood Count 8.1 K/mm3 (4.4-11.0)
[2023-04-29 17:36] LABS: ALB/GLOB Ratio 1.1 RATIO (0.9-2.4); AST(SGOT) 21 U/L (15-37); Alanine Aminotransfer ALT/SGPT 34 U/L (16-61); Albumin, Serum 4.2 g/dL (3.2-5.0); Alkaline Phosphatase 103 U/L (45-117); Anion Gap 5 (5-15); BUN 18 mg/dL (7-18); BUN/Creat Ratio 19.8 RATIO (10-20); Calcium,Total 9.8 mg/dL (8.5-10.1); Chloride 104 mmol/L (98-107); Creatinine, Serum 0.91 mg/dL (0.70-1.30); EST Glomerular Filtration Rate 88 mL/min (>60); Est Glom Filt Rate - Afr Amer 106 mL/min (>60); Globulin 3.8 g/dL (2.2-4.2); Glucose 86 mg/dL (74-106); Potassium 4.2 mmol/L (3.5-5.1); Sodium Level 139 mmol/L (136-145); Thyroid Stim Hormone (TSH) 2.48 uIU/mL (0.358-3.74)
[2023-05-01 09:27] LABS: Pathologist Review Reviewed
== END | disposition home or self-care (01) ==
PROVIDERS: PCP Internal Medicine; Referring Provider Nurse Practitioner Family; Visit Provider Nurse Practitioner Family
DX: T18.108A Unspecified foreign body in esophagus causing other injury, initial encounter (principal); X58.XXXA Exposure to other specified factors, initial encounter; R63.4 Abnormal weight loss; R93.89 Abnormal findings on diagnostic imaging of other specified body structures
CPT/HCPCS: 36415; 80053; 84443; 85025

== ENCOUNTER → 2023-05-07 | Outpatient (CLI) | payer MEDICARE, SELFPAY ==
[2023-05-07 15:49] LABS: Basophil# 0.05 X10^3/uL; Basophil% 0.6 % (0-1); Eosinophil# 0.34 X10^3/uL; Eosinophils% 4.2 % (0-5); Hematocrit 42.7 % (40-54); Hemoglobin 14.5 g/dL (13.0-16.5); Mean Corpuscular Hgb 31.9 pg (27.0-32.0); Mean Corpuscular Volume 93.8 fL (80-94); Mean Platelet Vol. 10.1 fl (6.2-12.0); Monocyte# 1.08 X10^3/uL; Monocyte% 13.2 % (0-10); NRBC Flagged by Analyzer 0 % (0-5); Neutrophil # 3.97 X10^3/uL (2.7-7.7); Neutrophil % 48.6 % (47-70); Platelet Count 299 K/mm3 (150-450); RBC Distribution Width CV 11.7 % (11.6-14.6); RBC Distribution Width SD 40.6 fl (35.1-43.9); Red Blood Count 4.55 M/mm3 (4.6-6.2); White Blood Count 8.2 K/mm3 (4.4-11.0)
== END | disposition home or self-care (01) ==
LOC: BIMLAB 14:32
PROVIDERS: PCP Nurse Practitioner Family; Visit Provider Nurse Practitioner Family
DX: D75.839 Thrombocytosis, unspecified (principal)
CPT/HCPCS: 36415; 85025

== ENCOUNTER → 2023-05-16 | Outpatient (CLI) | payer MEDICARE, SELFPAY ==
--- NOTE | 2023-05-16 12:52 | CT_ITS ---
ACR Level 3 findings have been noted. An addendum which confirms receipt of the report will follow. EXAM: CT CHEST WITH INTRAVENOUS CONTRAST CLINICAL INDICATION: LUNG MASS TECHNIQUE: Helically acquired images were obtained of the chest with intravenous contrast. This CT exam was performed using one or more of the following dose reduction techniques: automated exposure control, adjustment of the mA and/or kV according to patient size, and/or use of iterative reconstruction technique. CONTRAST: 100 cc of Isovue-300 IV. RADIATION DOSE: CTDIvol = 9.64 mGy, DLP = 257.88 mGy-cm COMPARISON: 05/24/2019. FINDINGS: LUNGS AND PLEURAL SPACES: Calcified granuloma left lower lobe. There is a new irregular mildly spiculated nodule measuring up to 1 cm in the superior segment of the left lower lobe abutting the major fissure in the parietal pleura. Previously noted nodule in the right lower lobe now measures 6 mm maximum diameter and appears smaller and less spiculated than on the prior exam. Previously noted nodule in the superior segment of the left lower lobe appears stable and measures 6 mm. Stable emphysema. No pneumothorax. No change right apical scarring. HEART: Unremarkable. Heart size is normal. No pericardial effusion. MEDIASTINUM: Calcified mediastinal lymph nodes unchanged. Esophagus is unremarkable. No hiatal hernia. THYROID: Unremarkable. No thyroid lesions. BONES/JOINTS: Unremarkable. No suspicious lytic or blastic abnormality. VASCULATURE: Unremarkable. Thoracic aorta is non-dilated. No thoracic aortic dissection. No obvious central pulmonary embolism although this study was not performed with the pulmonary embolism protocol. CT/Chest WITH Contrast IMPRESSION: 1. There is a new irregular mildly spiculated nodule measuring up to 1 cm in the superior segment of the left lower lobe abutting the major fissure in the parietal pleura. Fleischner Society Guidelines for high-risk patients (smoking history or other known risk factors), initial follow-up chest CT at 3-6 months and if unchanged, 18-24 months. 2. Previously noted nodule in the right lower lobe now measures 6 mm maximum diameter and appears smaller and less spiculated than on the prior exam. 3. Previously noted nodule in the superior segment of the left lower lobe appears stable and measures 6 mm. 4. Stable emphysema. 5. Calcified mediastinal lymph nodes unchanged. 6. No change right apical scarring. Electronically Signed: Calderon Moran MD at 7:33 EDT ,
== END | disposition home or self-care (01) ==
LOC: CT 12:52
PROVIDERS: PCP Nurse Practitioner Family; Referring Provider Nurse Practitioner Family; Visit Provider Nurse Practitioner Family
DX: R91.8 Other nonspecific abnormal finding of lung field (principal)
CPT/HCPCS: 71260; Q9967

== ENCOUNTER 2023-06-13 21:46 | Inpatient (IN) | payer MEDICARE, SELFPAY ==
[2023-06-13 21:47] VITALS: BP 162/90; PULSE 90; RESP 18; TEMP 36.8; O2SAT 98; BMI 17.3
[2023-06-13 22:16] LABS: Absolute Lymphocyte Count 2.03 X10^3/uL (0.83-4.51); Absolute Neutrophil Count 3.8 X10^3/uL (2.0-7.7); Basophil# 0.04 X10^3/uL; Basophil% 0.6 % (0-1); Eosinophil# 0.07 X10^3/uL; Eosinophils% 1.1 % (0-5); Hematocrit 51.2 % (40-54); Hemoglobin 17.7 g/dL (13.0-16.5); Lymphocyte # 2.03 X10^3/ul (0.83-4.51); Lymphocyte % 30.9 % (19-41); Mean Corp Hgb Conc 34.6 g/dL (32-36); Mean Corpuscular Volume 92.6 fL (80-94); Mean Platelet Vol. 9.5 fl (6.2-12.0); Monocyte# 0.59 X10^3/uL; NRBC Flagged by Analyzer 0 % (0-5); Neutrophil # 3.84 X10^3/uL (2.7-7.7); Neutrophil % 58.2 % (47-70); Platelet Count 271 K/mm3 (150-450); RBC Distribution Width CV 12.7 % (11.6-14.6); RBC Distribution Width SD 43.5 fl (35.1-43.9); Red Blood Count 5.53 M/mm3 (4.6-6.2); White Blood Count 6.6 K/mm3 (4.4-11.0)
[2023-06-13 22:44] LABS: Amphetamine Urine VISTA NEGATIVE (<1000 ng/mL); Barbiturate Urine VISTA NEGATIVE (< 200 ng/mL); Benzodiazepine Urine VISTA NEGATIVE (< 200 ng/mL); Cocaine Urine VISTA NEGATIVE (< 300 ng/mL); Ecstacy Urine VISTA NEGATIVE (< 500 ng/mL); Methadone Urine VISTA NEGATIVE (< 300 ng/mL); PCP Urine VISTA NEGATIVE (< 25 ng/mL); THC Urine VISTA NEGATIVE (< 50 ng/mL); Vista UDS pH Range 5
[2023-06-13 22:53] LABS: Alcohol, Blood (Medical)-Serum < 3.0 mg/dL
[2023-06-13 22:54] LABS: Anion Gap 4 (5-15); BUN 13 mg/dL (7-18); BUN/Creat Ratio 13.4 RATIO (10-20); Calcium,Total 9.7 mg/dL (8.5-10.1); Chloride 104 mmol/L (98-107); Creatinine, Serum 0.97 mg/dL (0.70-1.30); EST Glomerular Filtration Rate 82 mL/min (>60); Est Glom Filt Rate - Afr Amer 99 mL/min (>60); Estimated Creatinine Clearance 54.19 ml/min; Glucose 131 mg/dL (74-106); Potassium 4.2 mmol/L (3.5-5.1); Sodium Level 137 mmol/L (136-145)
--- NOTE | 2023-06-13 23:18 | EDS_ITS ---
HPI History of Present Illness Chief Complaint: Substance Abuse Informant: patient Narrative Narrative: Patient presents requesting detox from both alcohol and Vicodin/opiates. Patient is drank for a long time. He states he drinks 6 or 8 beers a day but that is been increasing since he can is retired over the last couple years. He does not remember the last time he went more than about 24 hours without drinking. He thinks he would get pretty shaky if he did not drink but he really does not stop. He also uses opiates. He primarily uses Vicodin because he used to be prescribed these for pain. But then he started buying them from people at work when he worked. He buys them on the street. He will occasionally take Percocet. He will occasionally take Suboxone. He has never injected. Patient states he just feels like he needs to get off the chemicals. They are not good for him. On review of systems I also find out that he likely has chronic COPD. Last use an inhaler about 6 hours ago. He is wheezing now. He is not having any real medical acute complaints. He does have a history of about a 40 pound weight loss over the last 3 or so years. He also reports having a spot on his lung 2 or so years ago. They then found 2 more spots. When his doctor gets back in town they were going to work this up. They recommended biopsy a few years ago but he did not do it because they were not bothering him. But now he is decided to have this done. [facility] Medical History Alcohol abuse Anxiety and depression Arthritis Chronic pain COPD (chronic obstructive pulmonary disease) Degenerative disc disease, lumbar Emphysema of lung Hypertension Opiate abuse, continuous Osteoporosis Pulmonary nodules Rheumatoid arthritis Sleep apnea Tobacco use Weight loss Home Medications disability placard #1 ea 02/04/20 [Rx Last Taken Unknown] multivitamin 1 tab PO DAILY 05/19/21 [History Last Taken Unknown] albuterol sulfate 0.63 mg/3 mL solution for nebulization See Rx Instructions .Route .COMPLEX #225 mL 07/31/22 [Rx Last Taken Unknown] albuterol sulfate 90 mcg/actuation aerosol inhaler 2 puff inhalation Q6H PRN PRN shortness of breath or wheezing #8.5 grams 04/29/23 [Rx Last Taken Unknown] fluticasone fur. 100 mcg-umeclid 62.5 mcg-vilant 25 mcg inhalat.powder (Trelegy Ellipta) 1 inh inhalation QDAY #90 ea 04/29/23 [Rx Last Taken Unknown] sertraline 25 mg tablet 25 mg PO Q24H 06/13/23 [History Last Taken Unknown] Allergy/AdvReac Type Severity Reaction Status Date / Time doxycycline AdvReac Unknown Unknown Verified 06/13/23 21:49 Family History Unknown No problems noted. Surgical History H/O hernia repair Social History household members: children and other details: grandchildren housing: house current occupational status: employed current occupation: [employer] pets and animals: Yes pets and animals: cat(s) and dog(s) Smoking Status: Current every day smoker tobacco type: cigarettes second hand exposure: Yes alcohol intake: current alcohol intake frequency: 3 or more drinks per day Alcohol type: beer substance use type: does not use what type of physical activity do you participate in: none ROS ROS ED Constitutional Constitutional ED: Denies chills or fever(s) Eyes Eyes: Denies change in vision ENT ENT ED: Denies rhinorrhea Cardiovascular Cardiovascular: Denies chest pain or palpitations Respiratory/Chest Respiratory/Chest: Reports cough; Denies dyspnea or sputum Gastrointestinal Gastrointestinal: Denies nausea or vomiting Genitourinary Genitourinary ED: Denies dysuria Musculoskeletal Musculoskeletal: Denies myalgias Integumentary Denies rash Neurologic Neurologic: Denies headache(s) Hematologic/Lymphatic Hematologic/Lymphatic: Denies easy bleeding Allergic/Immunologic Allergic/Immunologic ED: Denies urticaria EXAM Physical Exam Narrative Exam Narrative: Patient is awake and alert but no acute distress. No confusion. HEENT shows no trauma. Mucous membranes are moist. Neck is supple Lungs show some diffuse but mild expiratory wheezing. No coughing while I am in the room. His saturations are still normal at 98% on room air though. Heart sounds regular. Abdomen is very thin and not tender. He states sometimes he gets abdominal pain but that has been going on for years. That is why he started on Vicodin originally. But he is not having symptoms now. Extremities are thin. Neurologic patient is awake alert appropriate. No flight of ideas. No paranoia. No indication of hallucinations. Const Vital Signs: 06/13/23 21:47 Temperature 98.3 F Temperature Source Temporal Pulse Rate 90 Respiratory Rate 18 Blood Pressure 162/90 H Blood Pressure Mean 114 Pulse Ox 98 Oxygen Delivery Method Room Air MDM MDM MDM Narrative Medical decision making narrative: Patient CBC shows some high hemoglobin likely due to chronic COPD. Rest of the CBC is overall normal. Patient's electrolytes show no marked abnormalities. His glucose is slightly up at 131. His alcohol is negative. His toxicology urine screen is negative. Patient thinks his last helton or Percocet was 2 maybe 3 days ago. He is not 100% certain. He states he just had a little drink of alcohol be for he came in here so he surprised his level is 0. Before that he either had drinks late last night or early this morning. I also reviewed an outpatient CT from about 1 month ago. He has a spiculated mass in the left lower lobe. This along with his weight loss, age, long history of smoking leads me to believe that this is likely lung cancer. They are pending biopsy of this. Lab Data Attestation: I reviewed the patient's lab results. Labs: Laboratory Results - last 24 hr 06/13/23 06/13/23 22:00 22:10 WBC 6.6 RBC 5.53 Hgb 17.7 H Hct 51.2 MCV 92.6 MCH 32.0 MCHC 34.6 RDW Std Deviation 43.5 RDW Coeff of Dilshad 12.7 Plt Count 271 MPV 9.5 Immature Gran % (Auto) 0.200 Neut % (Auto) 58.2 Lymph % (Auto) 30.9 Iron % (Auto) 9.0 Eos % (Auto) 1.1 Baso % (Auto) 0.6 Absolute Neuts (auto) 3.8 Absolute Lymphs (auto) 2.03 Nucleated RBC % 0 Sodium 137 Potassium 4.2 Chloride 104 Carbon Dioxide 29.0 Anion Gap 4 L BUN 13 Creatinine 0.97 Estim Creat Clear Calc 54.19 Est GFR (MDRD) Af Amer 99 Est GFR (MDRD) Non-Af 82 BUN/Creatinine Ratio 13.4 Glucose 131 H Calcium 9.7 Urine Opiates Screen NEGATIVE Urine Methadone Screen NEGATIVE Ur Barbiturates Screen NEGATIVE Ur Phencyclidine Scrn NEGATIVE Ur Amphetamines Screen NEGATIVE MDMA (Ecstasy) Screen NEGATIVE U Benzodiazepines Scrn NEGATIVE Urine Cocaine Screen NEGATIVE U Cannabinoids Screen NEGATIVE Ur Drug Screen Comment Ethyl Alcohol < 3.0 Management Discussion w/another healthcare provider: Hospitalist Discharge Plan Triage Chief Complaint: Substance Abuse ED Provider: Dejan Vargas Dx/Rx/DC Orders Clinical Impression: Alcohol dependence, Opiate dependence, Mass of left lung, Desire for detoxification Prescriptions: No Action (DME) disability placard Qty: 1 0RF Rx Instructions: As directed, Length of time: 5 years albuterol sulfate 0.63 mg/3 mL solution for nebulization See Rx Instructions .ROUTE .COMPLEX Qty: 225 3RF Dose Instruction: INHALE 0.63 MG (3 mL) 3 times daily As Needed for shortness of breath or wheezing Rx Instructions: INHALE 0.63 MG (3 mL) 3 times daily As Needed for shortness of breath or wheezing Trelegy Ellipta 100-62.5-25 mcg blister with device 1 inh INHALATION QDAY Qty: 90 3RF Rx Instructions: administer at approximately the same time(s) each day albuterol sulfate 90 mcg/actuation HFA aerosol inhaler 2 puff INHALATION Q6H PRN PRN (Reason: shortness of breath or wheezing) Qty: 8.5 5RF multivitamin Tablet 1 tab PO DAILY sertraline 25 mg tablet 25 mg PO Q24H Patient Comments: TAKE 1 TABLET BY MOUTH EVERY DAY Primary Care Provider: Mati Oliver NP Referrals: Mati Oliver NP, [facility] [employer] [facility] [Primary Care Provider] - Disposition Disposition: Acute Care Hospital [facility]
--- NOTE | 2023-06-13 23:30 | HP.PCM.HOS_ITS ---
HPI - General General Date of Admission: 06/13/23 Date of Service: 06/13/23 Chief Complaint: Opiate, EtOH abuse, detoxification. HPI Narrative The patient is a 68 y/o M w/ PMHx: HTN, Tobacco use, Pulmonary nodules, COPD, Depression and Anxiety, Rheumatoid arthritis, CYNTHIA, Chronic pain syndrome, Polysubstance abuse (EtOH 6-8 beers at least daily, last use > 24 hours, Opiates, vicodin pills usually, used via oral ingestion, at least 6 tablets or more daily, last use several hours prior to ED presentation), Tobacco use who presents to the [facility] ED on06/13/23 with ongoing substance abuse, both EtOH and opiates with acute EtOH withdrawal and acute Opiate withdrawal, onset starting on day of ED presentation, progressively worsening with onset of nausea, tremors, agitation and intermittent fatigue, diaphoresis, body aches, restless legs, tactile disturbances. He denies any IVDA but has been buying nacrotic pills on the street and notes has had percocet, suboxone and possibly other agents. Patient is interested in attaining both clean and sober status. Work-up in the ED included T98.3, heart rate 90, BP 162/90, respiratory rate 18, 98% on room air, CBC with WBC 6.6, hemoglobin 17.7, platelet 271 without marked shift, UDS negative, ethyl alcohol <3, BMP with glucose 131 otherwise not marked appearing. He does report severe muscle cramps in addition. [facility] Medical History (Updated 06/14/23 @ 01:[address] Ainsley Esposito MD) Alcohol abuse Anxiety and depression Arthritis Chronic pain COPD (chronic obstructive pulmonary disease) Degenerative disc disease, lumbar Emphysema of lung Hypertension Opiate abuse, continuous Osteoporosis Pulmonary nodules Rheumatoid arthritis Sleep apnea Tobacco use Weight loss Home Medications disability placard #1 ea 02/04/20 [Rx Last Taken Unknown] multivitamin 1 tab PO DAILY vitamin 05/19/21 [History Last Taken Unknown] albuterol sulfate 0.63 mg/3 mL solution for nebulization See Rx Instructions .Route .COMPLEX copd #225 mL 07/31/22 [Rx Last Taken Unknown] albuterol sulfate 90 mcg/actuation aerosol inhaler 2 puff inhalation Q6H PRN PRN shortness of breath or wheezing #8.5 grams 04/29/23 [Rx Last Taken Unknown] fluticasone fur. 100 mcg-umeclid 62.5 mcg-vilant 25 mcg inhalat.powder (Trelegy Ellipta) 1 inh inhalation QDAY copd #90 ea 04/29/23 [Rx Last Taken Unknown] sertraline 25 mg tablet 25 mg PO Q24H depression 06/13/23 [History Last Taken Unknown] Allergy/AdvReac Type Severity Reaction Status Date / Time doxycycline AdvReac Unknown Unknown Verified 06/13/23 21:49 Family History (Updated 06/14/23 @ 01:[address] Ainsley Esposito MD) Mother Cancer Father Cancer Surgical History H/O hernia repair Social History (Updated 06/14/23 @ 01:[address] Ainsley Esposito MD) household members: children and other details: grandchildren housing: house current occupational status: retired current occupation: [employer] pets and animals: Yes pets and animals: cat(s) and dog(s) Smoking Status: Current every day smoker tobacco type: cigarettes Smoking packs per day: 2 Smoking cigarettes per day: 40.0 second hand exposure: Yes alcohol intake: current alcohol intake frequency: 3 or more drinks per day Alcohol type: beer details: At least 6-8 beers daily. substance use type: opiates and other details: Uses vicodin, percocet, suboxone. No IVDA. what type of physical activity do you participate in: none ROS ROS Narrative Admission Review of Systems: CONSTITUTIONAL: No weight loss, fever, chills, + weakness or fatigue. HEENT: + Mild rhinorrhea evident. Eyes: No visual loss, blurred vision, double vision or yellow sclerae. Ears, Nose, Throat: No hearing loss, sneezing, congestion, sore throat. SKIN: No rash or itching, lesions, wounds. CARDIOVASCULAR: No chest pain, chest pressure or chest discomfort, palpitations, edema, orthopnea, syncopal events. RESPIRATORY: + Chronic intermittent dyspnea, chronic occasional cough without marked sputum, No wheezing, hemoptysis. GASTROINTESTINAL: + anorexia, nausea, abdominal discomfort. No vomiting, diarrhea, melena, BRBPR. GENITOURINARY: No dysuria, frequency, urgency or retention. NEUROLOGICAL: + Restless legs, tremors. No headache, dizziness, syncope, paralysis, ataxia, numbness or tingling in the extremities, focal weakness, change in bowel or bladder control, seizure. MUSCULOSKELETAL: + muscle, back pain, joint pain or stiffness. HEMATOLOGIC: + Easy bleeding or bruising. LYMPHATICS: No enlarged nodes. No history of splenectomy. PSYCHIATRIC: No history of depression or anxiety. ENDOCRINOLOGIC: + reports of sweating, cold or heat intolerance. No polyuria or polydipsia. ALLERGIES: No history of asthma, hives, eczema or rhinitis. Vital Signs Vital Signs Vital Signs: 06/13/23 21:47 Temperature 98.3 F Temperature Source Temporal Pulse Rate 90 Respiratory Rate 18 Blood Pressure 162/90 H Blood Pressure Mean 114 Pulse Ox 98 Oxygen Delivery Method Room Air Weight Weight: 117 lb 8.102 oz Body Mass Index (BMI) 17.3 Physical Exam Narrative Physical Examination: General: Awake, alert, oriented x 3 and cooperative, laying in the ED bed, restless, noting abdominal discomfort and muscle cramping. Skin: Flushed color, normal turgor, no icterus, no cyanosis. HEENT: AT/NC, EOMI, PERRLA, dry MM, no carotid bruits or JVD noted, mild rhinorrhea evident. Lungs: Diminished, greater bases, appropriate effort, no rales, ronchi or wheezing. Heart: Regular rate and rhythm; no gallop, rub audible. Abdomen: Soft, mild generalized discomfort with palpation with no rebound or guarding, ND, hyperactive BS, mild HM. Extremities: No cyanosis, clubbing, or edema, evidence of muscle and fat loss. Neurological: Patient awake, alert, oriented as noted, cognitive function intact; pupils equally reactive to light and accommodation, cranial nerves grossly normal, moving all 4 extremities, no focal deficits, mild tremors, reporting tactile disturbances, strength moderately globally decreased secondary to acute presentation. Psychiatric: Affect appears fatigued, anxious, restless, no acute evidence of depressive feelings. Results Lab / Micro Data 06/13/23 22:10 06/13/23 22:10 Labs: Laboratory Results - last 24 hr 06/13/23 22:00: Urine Opiates Screen NEGATIVE, Urine Methadone Screen NEGATIVE, Ur Barbiturates Screen NEGATIVE, Ur Phencyclidine Scrn NEGATIVE, Ur Amphetamines Screen NEGATIVE, MDMA (Ecstasy) Screen NEGATIVE, U Benzodiazepines Scrn NEGATI VE, Urine Cocaine Screen NEGATIVE, U Cannabinoids Screen NEGATIVE, Ur Drug Screen Comment 06/13/23 22:10: WBC 6.6, RBC 5.53, Hgb 17.7 H, Hct 51.2, MCV 92.6, MCH 32.0, MCHC 34.6, RDW Std Deviation 43.5, RDW Coeff of Dilshad 12.7, Plt Count 271, MPV 9.5, Immature Gran % (Auto) 0.200, Neut % (Auto) 58.2, Lymph % (Auto) 30.9, [place] % (Auto) 9.0, Eos % (Auto) 1.1, Baso % (Auto) 0.6, Absolute Neuts (auto) 3.8, Absolute Lymphs (auto) 2.03, Nucleated RBC % 0, Sodium 137, Potassium 4.2, Chloride 104, Carbon Dioxide 29.0, Anion Gap 4 L, BUN 13, Creatinine 0.97, Estim Creat Clear Calc 54.19, Est GFR (MDRD) Af Amer 99, Est GFR (MDRD) Non-Af 82, BUN/Creatinine Ratio 13.4, Glucose 131 H, Calcium 9.7, Ethyl Alcohol < 3.0 Assessment & Plan Assessment/Plan (1) Desire for detoxification: PLAN: Plan The patient is a 68 y/o M w/ PMHx: HTN, Tobacco use, Pulmonary nodules, COPD, Depression and Anxiety, Rheumatoid arthritis, CYNTHIA, Chronic pain syndrome, Polysubstance abuse (EtOH 6-8 beers at least daily, last use > 24 hours, Opiates, vicodin pills usually, used via oral ingestion, at least 6 tablets or more daily, last use several hours prior to ED presentation), Tobacco use who presents to the [facility] ED on06/13/23 with acute opiate and EtOH withdrawal interested in clean/sober status. #1. Acute EtOH Withdrawal: Will admit to medical surgical floor, routine labs obtained in the ED upon presentation and notable []. Given interest in sobriety, will initiate and continue on protocol with taper course of Pheno barbital, scheduled gabapentin for seizure prophylaxis, as needed Catapres, Bentyl, Vistaril, IV fluids, IV antiemetics, Tylenol as needed for pain. Will consult Case management for assistance for transition to next level of rehabilitation care. Mag, phos pending. Maintain on CIWA protocol concurrently. #2. Acute Opiate Withdrawal: Given patient concurrent usage of opiates, will additionally initiate and continue on protocol with tapering course of Subutex, as needed tylenol, ibuprofen, bowel regimen, gabapentin, Bentyl, Vistaril, methocarbamol, clonidine, PRN nightly trazodone for insomnia, IV fluids, IV antiemetics. Once patient clinically improved and completion of taper nearing will plan consultation with case management for transition to next level of rehabilitation care. #3. Hypertension, uncontrolled: Patient with chart reported previous hypertensive history, from current medication list not on any antihypertensive medications, will for now especially given acute presentation with opiate and alcohol withdrawal utilize as needed IV hydralazine but if blood pressure remains elevated above goal would add oral regimen. #4. Hyperglycemia, mild: Admission glucose 131, will obtain hemoglobin A1c to be cautious. #5. Polysubstance Abuse, Chronic: Given history of polysubstance abuse regardless of IV drug abuse history lacking to be cautious will obtain HIV, RPR and hepatitis panel. Patient currently not candidate for hep C treatment currently as needs to be clean, sober x 6 months, documented attendance NA or AA meetings, counseling and ongoing negative drug screens. #6. History of pulmonary nodules: Patient with prior noted history of pulmonary nodule unfortunately not following up aggressively with pulmonary medicine, will encourage continued outpatient follow-up as per recent evaluation by his primary care with outpatient CT chest 05/16/2023 with new irregular mildly spiculated nodule measuring up to 1 cm in the superior segment of the left lower lobe abutting the major fissure in the parietal pleural as well as a previously noted nodule in the right lower lobe now measuring 6 mm maximum diameter and appears smaller and less spiculated in the prior exam, previously noted nodule in the superior segment of the left lower lobe appears stable and measuring 6 mm with stable emphysematous changes as well as unchanged right apical scarring. We will need again CT follow-up in 3 to 6 months therefore recommended aggressive continued outpatient follow-up with his primary care. #7. Anxiety and depression, insomnia: Patient with trial of Zoloft supposedly but suspect this was not try for an appropriate amount of time with recent initiation of mirtazapine. Encourage continued outpatient follow-up and therapy as this likely contributes to his substance abuse as well as chronic pain. We will have. As needed trazodone as noted. #8. Chronic COPD: Will maintain on ATC budesonide therapies, PRN albuterol, HOB, IS parameters. #9. Chronic pain, back pain with DDD: Contributes greatly to his substance abuse, will have as needed agents as noted above, will benefit greatly from potential consideration of injections with pain management which may be considered outpatient. #10. Tobacco use: Encourage tobacco cessation, RT consulted for education, NR ordered. #11. CYNTHIA: CPAP q HS if amenable. #12. DVT Prophylaxis: Low risk, encourage ambulation. #13. CODE status: Full Code. Admission Evaluation Time spent evaluating chart, patient history, patient evaluation, care planning and discussion with specialists: 75 minutes. Charges/Coding Visit Charges Inpatient E&M: 13120 Init Hosp L3
[2023-06-13 23:49] VITALS: PULSE 92; RESP 22
[2023-06-13] MEDS: Ipratropium/Albuterol Sulfate 3 ML AMPUL.NEB INHALATION (23:49)
[2023-06-14] VITALS (9 sets, daily range): BP systolic 94–120; BP diastolic 58–78; PULSE 71–92; RESP 16–20; TEMP 36.2–36.9; O2SAT 91–99; BMI 16.7
[2023-06-14 00:19] LABS: AST(SGOT) 20 U/L (15-37); Alanine Aminotransfer ALT/SGPT 28 U/L (16-61); Albumin, Serum 4.3 g/dL (3.2-5.0); Alkaline Phosphatase 101 U/L (45-117); Bilirubin, Direct 0.27 mg/dL (0.00-0.30); Globulin 3.9 g/dL (2.2-4.2); Magnesium 2.3 mg/dL (1.6-2.6); Phosphorus 3.1 mg/dL (2.5-4.9); Protein, Total 8.2 g/dL (6.4-8.2)
[2023-06-14] MEDS: Lactated Ringers 1,000 ML 125 ML IV (01:27)
[2023-06-14] MEDS: 0.9% Saline Lock 10 ML Syringe IV ×3 (01:39→22:52)
[2023-06-14] MEDS: Methocarbamol 750 MG Tablet 1500 MG PO (01:40)
[2023-06-14] MEDS: Phenobarbital 32.4 MG Tablet 64.8 MG PO ×6 (01:40→22:32)
[2023-06-14] MEDS: Gabapentin 300 MG Capsule PO (01:40)
[2023-06-14] MEDS: traZODone 100 MG Tablet PO (01:40)
--- NOTE | 2023-06-14 02:57 | CPS ---
PT REFUSED PAP THERAPY FOR THE NIGHT, DOES NOT WEAR AT HOME. ON RA.
--- NOTE | 2023-06-14 06:33 | NURSING ---
When patient arrived on the floor he was anxious, and complaining about the hospital gown, and locking up his clothing, He was reminded of the contract he signed which is hanging on the bathroom door. He asked for meds to prevent withdrawal symptoms. He was given his first dose of phenobarb and several prns, he is now sleeping soundly, sleeping through vitals and barely awoke long enough to take the next dose of phenobarb. Bed exit was turned on incase he wakes up confused.
[2023-06-14 07:40] LABS: Hemoglobin A1c 4.9 % (3.8-5.6)
[2023-06-14] MEDS: Thiamine Hydrochloride 100 MG Tablet PO (09:01)
[2023-06-14] MEDS: Multivitamins,Therapeutic Tablet 1 TABLET PO (09:01)
[2023-06-14] MEDS: Folic Acid 1 MG Tablet PO (09:01)
[2023-06-14] MEDS: Mag Hydrox/Al Hydrox/Simeth 30 ML UDC PO (13:54)
[2023-06-14] MEDS: Ibuprofen 600 MG Tablet PO (13:54)
[2023-06-14] MEDS: Acetaminophen 325 MG Tablet 650 MG PO (13:55)
[2023-06-14] MEDS: cloNIDine HCl 0.1 MG Tablet PO (13:55)
[2023-06-14] MEDS: Budesonide Respules 0.5 MG/2 ML AMPUL.NEB. INHALATION ×2 (13:59→19:22)
[2023-06-14] MEDS: Albuterol 2.5 MG/3 ML VIAL.NEB. INHALATION (14:00)
[2023-06-14] MEDS: Buprenorphine HCl 2 MG TAB.SUBL SL ×2 (14:02→22:32)
[2023-06-14] MEDS: Ensure Plus High Protein 120 ML LIQUID PO ×3 (14:02→22:47)
[2023-06-14] MEDS: hydrOXYzine PAM 25 MG Capsule 50 MG PO (16:10)
--- NOTE | 2023-06-14 16:28 | PN.HOSP_ITS ---
Subjective Subjective Follow-up for acute alcohol and opioid withdrawal syndrome. Objective Data Objective Data Vital Signs: Vital Signs Temp Pulse Resp BP Pulse Ox O2 Del Method 98.0 F 83 18 120/63 92 Room Air 06/14/23 13:33 06/14/23 14:00 06/14/23 14:00 06/14/23 13:33 06/14/23 13:33 06/14/23 13:33 Oxygen Delivery Method Room Air Weight: 113 lb 9.6 oz Body Mass Index (BMI) 16.7 Intake & Output: Intake and Output for Last 24 Hours 06/12/23 06/13/23 06/14/23 23:59 23:59 23:59 Intake Total 1000 / 1000 Balance 1000 / 1000 Lab / Micro Data 06/13/23 22:10 06/13/23 22:10 Labs: Laboratory Results - last 24 hr 06/13/23 22:00: Urine Opiates Screen NEGATIVE, Urine Methadone Screen NEGATIVE, Ur Barbiturates Screen NEGATIVE, Ur Phencyclidine Scrn NEGATIVE, Ur Amphetamines Screen NEGATIVE, MDMA (Ecstasy) Screen NEGATIVE, U Benzodiazepines Scrn NEGATIVE, Urine Cocaine Screen NEGATIVE, U Cannabinoids Screen NEGATIVE, Ur Drug Screen Comment 06/13/23 22:10: WBC 6.6, RBC 5.53, Hgb 17.7 H, Hct 51.2, MCV 92.6, MCH 32.0, MCH C 34.6, RDW Std Deviation 43.5, RDW Coeff of Dilshad 12.7, Plt Count 271, MPV 9.5, Immature Gran % (Auto) 0.200, Neut % (Auto) 58.2, Lymph % (Auto) 30.9, [place] % (Auto) 9.0, Eos % (Auto) 1.1, Baso % (Auto) 0.6, Absolute Neuts (auto) 3.8, Absolute Lymphs (auto) 2.03, Nucleated RBC % 0 Sodium 137, Potassium 4.2, Chloride 104, Carbon Dioxide 29.0, Anion Gap 4 L, BUN 13, Creatinine 0.97, Estim Creat Clear Calc 54.19, Est GFR (MDRD) Af Amer 99, Est GFR (MDRD) Non-Af 82, BUN/Creatinine Ratio 13.4, Glucose 131 H, Calcium 9.7, Phosphorus 3.1, Magnesium 2.3, Total Bilirubin 0.80, Direct Bilirubin 0.27, AST 20, ALT 28, Alkaline Phosphatase 101, Total Protein 8.2, Albumin 4.3, Globulin 3.9, Ethyl Alcohol < 3.0 06/14/23 06:21: Hemoglobin A1c 4.9 Physical Exam Narrative Patient is status he takes Vicodin about 4 tablets daily sometimes it takes 6 tablets also. He drinks about 6-8 bottles of beer every day. He denies IV needle. He denies history of chronic liver disease. Denies chronic stigmata of liver disease. He stated he slept all night yesterday. Physical exam: General: Alert, Oriented x3, Cooperative HEENT: Atraumatic, PERRLA, EOMI, Normocephalic Oral: Oral mucosa moist. No Gingival or Mucosal Lesions/ Ulcerations Neck: Supple, No JVD, Negative Carotid Bruits Lungs: Air entry diminished in bilateral lung bases. No crepitation/rhonchi Cardiovascular: Regular rate, Regular Rhythm, Normal S1, Normal S2, No murmurs Abdomen: Bowel Sounds Present, Soft, Non Tender, Non-Distended : No renal angle tenderness. No suprapubic tenderness. Extremities: No edema, Capillary Refill Less than 3 Seconds Skin: No rashes, No breakdown Musculoskeletal: No Tenderness to Palpation of Joints or Extremities Neurological: Cranial nerves II-XII grossly intact, DTR 2+/4 and Symmetrical, Neuro grossly intact Psych/Mental Status: Flat affect. Denies hallucination/delusion. Assessment & Plan Assessment/Plan (1) Desire for detoxification: PLAN: Plan The patient is a 68 y/o M admitted with acute alcohol and opioid withdrawal syndrome stabilization. #1. Acute EtOH Withdrawal with history of chronic alcohol use dependence and tolerance: Patient is admitted to MedSurg floor. Patient on phenobarbital based order set along with other adjunctive medications as needed for alcohol withdrawal symptom control. [facility] monitor. mine safety manager consulted for discharge planning. Electrolytes including sodium, potassium magnesium and phosphorus are in normal range. #2. Acute Opiate Withdrawal with history of chronic opioid use/Vicodin depend ence and tolerance: Denies IV needle use in the past. Denies chronic liver disease/viral hepatitis. The patient is started on buprenorphine along with other adjunctive medications as needed for medical stabilization as per order set of opioid withdrawal syndrome.Patient also on trazodone, hydroxyzine, gabapentin as needed ordered. Advised quitting opioid use. mine safety manager consult. #3. Hypertension, uncontrolled: From chart review it seems patient was on antihypertensive medication in the past but currently is not. Blood pressure most recently normal. #4. Hyperglycemia, mild: Admission glucose 131, A1c 4.9.. #5. Polysubstance Abuse, Chronic: Patient has hepatitis B surface antigen, hepatitis panel HIV 1 and 2 antibody and syphilis antibody pending. #6. History of pulmonary nodules: Patient had outpatient CT chest 05/16/2023 with new irregular mildly spiculated nodule measuring up to 1 cm in the superior segment of the left lower lobe abutting the major fissure in the parietal pleural as well as a previously noted nodule in the right lower lobe now measuring 6 mm maximum diameter and appears smaller and less spiculated in the prior exam, previously noted nodule in the superior segment of the left lower lobe appears stable and measuring 6 mm with stable emphysematous changes as well as unchanged right apical scarring. Advised that he needs a CT scan follow-up in 3 to 6 months follow-up in pulmonary clinic #7. Anxiety and depression, insomnia: Patient with trial of Zoloft supposedly but suspect this was not try for an appropriate amount of time with recent initiation of mirtazapine. Encourage continued outpatient follow-up and therapy as this likely contributes to his substance abuse as well as chronic pain. We will have. As needed trazodone as noted. #8. COPD: Will maintain on ATC budesonide therapies, PRN albuterol, incentive spirometry #9. Chronic pain, back pain with DDD: Contributes greatly to his substance abuse, will have as needed agents as noted above, will benefit greatly from potential consideration of injections with pain management which may be considered outpatient. #10. Tobacco use: Encourage tobacco cessation, #11. CYNTHIA: CPAP q HS if amenable. #12. DVT Prophylaxis: Low risk, encourage ambulation. #13. CODE status: Full Code. Charges/Coding Visit Charges Inpatient E&M: 52666 Subs Hosp L2
[2023-06-15] VITALS (9 sets, daily range): BP systolic 124–140; BP diastolic 60–92; PULSE 66–82; RESP 16–20; TEMP 36.1–37.3; O2SAT 91–95
[2023-06-15] MEDS: Phenobarbital 32.4 MG Tablet 64.8 MG PO ×6 (02:07→21:08)
[2023-06-15] MEDS: Albuterol 2.5 MG/3 ML VIAL.NEB. INHALATION (03:17)
[2023-06-15] MEDS: Buprenorphine HCl 2 MG TAB.SUBL SL ×3 (06:39→21:08)
[2023-06-15] MEDS: Thiamine Hydrochloride 100 MG Tablet PO (06:49)
[2023-06-15] MEDS: Folic Acid 1 MG Tablet PO (06:49)
[2023-06-15] MEDS: Multivitamins,Therapeutic Tablet 1 TABLET PO (06:49)
[2023-06-15] MEDS: Budesonide Respules 0.5 MG/2 ML AMPUL.NEB. INHALATION ×2 (07:20→20:03)
[2023-06-15] MEDS: Ensure Plus High Protein 120 ML LIQUID PO ×4 (09:31→21:10)
--- NOTE | 2023-06-15 12:36 | PCM.PN.HOSP ---
Reason for Visit Reason for Visit: Follow-up for acute alcohol withdrawal/opioid and alcohol withdrawal. Patient also has advanced COPD. Objective Data Objective Data Vital Signs: Vital Signs Temp Pulse Resp BP Pulse Ox O2 Del Method 97.8 F 82 18 139/74 H 94 Room Air 06/15/23 07:56 06/15/23 07:56 06/15/23 07:56 06/15/23 07:56 06/15/23 07:56 06/15/23 08:01 Oxygen Delivery Method Room Air Weight: 113 lb 9.6 oz Body Mass Index (BMI) 16.7 Intake & Output: Intake and Output for Last 24 Hours 06/13/23 06/14/23 06/15/23 23:59 23:59 23:59 Intake Total 1000 / 1000 Balance 1000 / 1000 Lab / Micro Data 06/13/23 22:10 06/13/23 22:10 Physical Exam Narrative Patient is status he takes Vicodin about 4 tablets daily sometimes it takes 6 tablets also. He drinks about 6-8 bottles of beer every day. He denies IV needle. He denies history of chronic liver disease. Denies chronic stigmata of liver disease. He stated he slept all night yesterday. Patient also has chronic cough for many years and gets easily short of breath even on mild exertion/walking or conversation. Smokes 3 packs/day Physical exam: General: Alert, Oriented x3, Cooperative HEENT: Atraumatic, PERRLA, EOMI, Normocephalic Oral: Oral mucosa moist. No Gingival or Mucosal Lesions/ Ulcerations Neck: Supple, No JVD, Negative Carotid Bruits Lungs: Air entry diminished in bilateral lung bases. Bilateral coarse wheezing. Cardiovascular: Regular rate, Regular Rhythm, Normal S1, Normal S2, No murmurs Abdomen: Bowel Sounds Present, Soft, Non Tender, Non-Distended : No renal angle tenderness. No suprapubic tenderness. Extremities: No edema, Capillary Refill Less than 3 Seconds Skin: No rashes, No breakdown Musculoskeletal: No Tenderness to Palpation of Joints or Extremities Neurological: Cranial nerves II-XII grossly intact, DTR 2+/4 and Symmetrical, Neuro grossly intact Psych/Mental Status: Flat affect. Denies hallucination/delusion. Assessment & Plan Assessment/Plan (1) Desire for detoxification: PLAN: Plan The patient is a 68 y/o M admitted with acute alcohol and opioid withdrawal syndrome stabilization. #1. Acute EtOH Withdrawal with history of chronic alcohol use dependence and tolerance: Patient is admitted to MedSurg floor. Patient on phenobarbital based order set along with other adjunctive medications as needed for alcohol withdrawal symptom control. [facility] monitor. data warehousing manager consulted for discharge planning. Electrolytes including sodium, potassium magnesium and phosphorus are in normal range. #2. Acute Opiate Withdrawal with history of chronic opioid use/Vicodin dependence and tolerance: Denies IV needle use in the past. Denies chronic liver disease/viral hepatitis. The patient is started on buprenorphine along with other adjunctive medications as needed for medical stabilization as per order set of opioid withdrawal syndrome.Patient also on trazodone, hydroxyzine, gabapentin as needed ordered. Advised quitting opioid use. data warehousing manager consult. #3. Hypertension, uncontrolled: From chart review it seems patient was on antihypertensive medication in the past but currently is not. Blood pressure most recently normal. #4. Hyperglycemia, mild: Admission glucose 131, A1c 4.9.. #5. Polysubstance Abuse, Chronic: Patient has hepatitis B surface antigen, hepatitis panel HIV 1 and 2 antibody and syphilis antibody pending. #6. History of pulmonary nodules: Patient had outpatient CT chest 05/16/2023 with new irregular mildly spiculated nodule measuring up to 1 cm in the superior segment of the left lower lobe abutting the major fissure in the parietal pleural as well as a previously noted nodule in the right lower lobe now measuring 6 mm maximum diameter and appears smaller and less spiculated in the prior exam, previously noted nodule in the superior segment of the left lower lobe appears stable and measuring 6 mm with stable emphysematous changes as well as unchanged right apical scarring. Advised that he needs a CT scan follow-up in 3 to 6 months follow-up in pulmonary clinic #7. Anxiety and depression, insomnia: Patient with trial of Zoloft supposedly but suspect this was not try for an appropriate amount of time with recent initiation of mirtazapine. Encourage continued outpatient follow-up and therapy as this likely contributes to his substance abuse as well as chronic pain. We will have. As needed trazodone as noted. #8. COPD: Patient follows Dr. Beach but has not seen him in 2 years. DuoNeb every 4 hourly while awake, Pep/incentive spirometry and Mucinex DM. Patient does not seem to be in exacerbation but it seems advanced COPD/chronic bronchitis with chronic cough with sputum production and dyspnea on mild/minimal exertion. #9. Chronic pain, back pain with DDD: Contributes greatly to his substance abuse, will have as needed agents as noted above, will benefit greatly from potential consideration of injections with pain management which may be considered outpatient. #10. Tobacco use: Encourage tobacco cessation, #11. CYNTHIA: CPAP q HS if amenable. #12. DVT Prophylaxis: Low risk, encourage ambulation. #13. CODE status: Full Code. Charges/Coding Visit Charges Inpatient E&M: 79048 Subs Hosp L2
[2023-06-15] MEDS: guaiFENesin/D-Methorphan TAB.SR.12H 1 TABLET PO ×2 (13:54→21:08)
[2023-06-15] MEDS: Ipratropium/Albuterol Sulfate 3 ML AMPUL.NEB INHALATION (20:02)
[2023-06-16] MEDS: Phenobarbital 32.4 MG Tablet 64.8 MG PO ×3 (01:04→09:27)
[2023-06-16 05:00] VITALS: BP 111/73; PULSE 69; RESP 18; TEMP 36.5; O2SAT 92
[2023-06-16] MEDS: Buprenorphine HCl 2 MG TAB.SUBL SL (05:01)
[2023-06-16] MEDS: Budesonide Respules 0.5 MG/2 ML AMPUL.NEB. INHALATION (06:56)
[2023-06-16] MEDS: Ipratropium/Albuterol Sulfate 3 ML AMPUL.NEB INHALATION ×2 (06:56→11:09)
[2023-06-16 06:57] VITALS: PULSE 74; RESP 19; O2SAT 92
[2023-06-16] MEDS: Thiamine Hydrochloride 100 MG Tablet PO (08:12)
[2023-06-16] MEDS: Folic Acid 1 MG Tablet PO (08:12)
[2023-06-16] MEDS: Multivitamins,Therapeutic Tablet 1 TABLET PO (08:13)
[2023-06-16] MEDS: guaiFENesin/D-Methorphan TAB.SR.12H 1 TABLET PO (08:13)
[2023-06-16] MEDS: Ensure Plus High Protein 120 ML LIQUID PO (08:19)
[2023-06-16 08:38] VITALS: BP 110/78; PULSE 70; RESP 16; TEMP 36.4; O2SAT 95
[2023-06-16 09:01] LABS: HIV - WCH Non-Reactive (Nonreactive); Hepatitis B Surface Antibody Non-Reactive; Hepatitis B Surface Antigen Non-Reactive (Nonreactive); Hepatitis C Antibody Non-Reactive (Nonreactive); Syphilis Antibodies Non-reactive
[2023-06-16 11:10] VITALS: PULSE 71; RESP 18
--- NOTE | 2023-06-16 11:45 | PCM.DC ---
Discharge Instructions Diet Discharge Diet: No restrictions Activity Discharge Activity: Return to Normal Activity Follow Up Care Test Results: Test results from this visit will be discussed in further detail at your follow-up appointment, if applicable. Discharge Plan Admission Admit Date/Time: 06/13/23 23:30 Primary Reason for Your Visit: Alcohol and opioid detox Attending Provider: Gaye Dorsey Primary Care Provider: Mati Oliver NP Consulting Providers: Ainsley Esposito; Zay Lion Instructions Patient Instructions: Addiction: Getting Help, Addiction: Your Treatment Options, Addiction Recovery Counseling, ED Opioid Withdrawal Additional Instructions / Restrictions: DISCHARGE INSTRUCTIONS PLEASE READ *Please take this with you to your next doctors appointment* - It is strongly advised that you refrain from any substance use. [facility] at [address] [place] [address] (ph [phone]) if you are interested in further resources -Please follow-up with Yong upon discharge due to lung nodules found on your imaging. Please call their office to schedule a follow-up appointment upon discharge. -Please call your primary care provider's office upon discharge to schedule a hospital follow up within 1 week. -For any concerning signs or symptoms please call 911 or proceed to the nearest emergency department Discharge Orders/Prescriptions Prescriptions: Continued (DME) disability placard Qty: 1 0RF Rx Instructions: As directed, Length of time: 5 years albuterol sulfate 0.63 mg/3 mL solution for nebulization See Rx Instructions .ROUTE .COMPLEX Qty: 225 3RF Dose Instruction: INHALE 0.63 MG (3 mL) 3 times daily As Needed for shortness of breath or wheezing Rx Instructions: INHALE 0.63 MG (3 mL) 3 times daily As Needed for shortness of breath or wheezing Trelegy Ellipta 100-62.5-25 mcg blister with device 1 inh INHALATION QDAY Qty: 90 3RF Rx Instructions: administer at approximately the same time(s) each day albuterol sulfate 90 mcg/actuation HFA aerosol inhaler 2 puff INHALATION Q6H PRN PRN (Reason: shortness of breath or wheezing) Qty: 8.5 5RF multivitamin Tablet 1 tab PO DAILY sertraline 25 mg tablet 25 mg PO Q24H Patient Comments: TAKE 1 TABLET BY MOUTH EVERY DAY Referrals / Follow Up: Salvador Beach MD [Med Staff - Active Staff] - 07/22/23 9:45 am (For history of possible COPD, smokes 3 packs/day since early age 15. Chronic cough, dyspnea on mild exertion.) Mati Oliver HOUSEKEEPING/LAUNDRY, HOUSEKEEPING/LAUNDRY-C [Primary Care Provider] - Disposition Disposition (needs filled in before D/C Order can be placed): Home, Self Care
--- NOTE | 2023-06-16 11:49 | DS.PCM_ITS ---
Providers Date of Admission: 06/13/23 Date of Discharge: 06/16/23 Primary Care Physician: SCOTT Grullon Reason For Visit: OPIATE/ETOH DETOX Diagnosis Discharge Diagnosis (1) Desire for detoxification: Status: Acute (2) Alcohol dependence: Status: Acute Code(s): F10.20 - Alcohol dependence, uncomplicated (3) Lung nodule: Status: Acute Code(s): R91.1 - Solitary pulmonary nodule (4) COPD (chronic obstructive pulmonary disease): Status: Chronic Code(s): J44.9 - Chronic obstructive pulmonary disease, unspecified Plan #opioid use disorder #alcohol use disorder #Lung nodule #COPD #nicotine use Medications at Discharge Home Medications disability placard #1 ea 02/04/20 multivitamin 1 tab PO DAILY vitamin 05/19/21 albuterol sulfate 0.63 mg/3 mL solution for nebulization See Rx Instructions .Route .COMPLEX copd #225 mL 07/31/22 albuterol sulfate 90 mcg/actuation aerosol inhaler 2 puff inhalation Q6H PRN PRN shortness of breath or wheezing #8.5 grams 04/29/23 fluticasone fur. 100 mcg-umeclid 62.5 mcg-vilant 25 mcg inhalat.powder (Trelegy Ellipta) 1 inh inhalation QDAY copd #90 ea 04/29/23 sertraline 25 mg tablet 25 mg PO Q24H depression 06/13/23 Hospital Course Summary of Care Provided Minutes Spent on Discharge: 31 Hospital Course: Patient was admitted 06/13 requesting detox from alcohol and opiates. Patient was admitted and detox protocol ordered. He completed several days of both tapers and was feeling much better, requested for discharge prior to both tapers being completely completed, did discuss risks of recurring symptoms given he did not finish his Subutex taper though the phenobarb may help with the symptoms. Patient verbalized his understanding and still requested discharge, it is reasonable at this time and do not feel patient needs to leave AMA. Additionally patient is noted to have lung nodules and he was advised that he follow-up with Dr. Beach on discharge. He had no new acute complaints on day of discharge and reports his breathing is better than it had been and that he intends to use his trilogy inhaler when he is discharged. Physical Exam Narrative General: Alert, oriented, no apparent distress HEENT: Atraumatic, normocephalic Eyes: Anicteric, normal conjunctiva, extraocular movements grossly intact Neck: Supple Respiratory: Scattered wheezes, normal respiratory effort Cardiovascular: Regular rate GI: Soft, nontender, nondistended Extremities: No edema Musculoskeletal: Moving all extremities Neuro: No overt focal neurological deficits Skin: No rashes appreciated Psych: Cooperative Weight / BMI Weight Weight: 51.528 kg Body Mass Index (BMI) 16.7 ABG / Lab / Microbiology Data 06/13/23 22:10 06/13/23 22:10 Laboratory: Laboratory Results - last 24 hr 06/14/23 06:21: Syphilis Total Ab Non-reactive, Hep Bs Antigen Non-Reactive, Hep Bs Antibody Non-Reactive, Hepatitis C Antibody Non-Reactive, HIV 1&2 Antibody Non-Reactive D/C Instructions Discharge Diet: No restrictions Meaningful Use Info Meaningful Use Diagnoses (Choose all that apply): None applicable Discharge Plan Admission Admit Date/Time: 06/13/23 23:30 Primary Reason for Your Visit: Alcohol and opioid detox Attending Provider: Gaye Dorsey Primary Care Provider: Mati Oliver NP Consulting Providers: Ainsley Esposito; Zay Lion Instructions Patient Instructions: Addiction: Getting Help, Addiction: Your Treatment Options, Addiction Recovery Counseling, ED Opioid Withdrawal Additional Instructions / Restrictions: DISCHARGE INSTRUCTIONS PLEASE READ *Please take this with you to your next doctors appointment* - It is strongly advised that you refrain from any substance use. Please call [facility] located at [address] [place] [phone] (ph [phone]) if you are interested in further resources -Please follow-up with Yong upon discharge due to lung nodules found on your imaging. Please call their office to schedule a follow-up appointment upon discharge. -Please call your primary care provider's office upon discharge to schedule a hospital follow up within 1 week. -For any concerning signs or symptoms please call 911 or proceed to the nearest emergency department Discharge Orders/Prescriptions Prescriptions: Continued (DME) disability placard Qty: 1 0RF Rx Instructions: As directed, Length of time: 5 years albuterol sulfate 0.63 mg/3 mL solution for nebulization See Rx Instructions .ROUTE .COMPLEX Qty: 225 3RF Dose Instruction: INHALE 0.63 MG (3 mL) 3 times daily As Needed for shortness of breath or wheezing Rx Instructions: INHALE 0.63 MG (3 mL) 3 times daily As Needed for shortness of breath or wheezing Trelegy Ellipta 100-62.5-25 mcg blister with device 1 inh INHALATION QDAY Qty: 90 3RF Rx Instructions: administer at approximately the same time(s) each day albuterol sulfate 90 mcg/actuation HFA aerosol inhaler 2 puff INHALATION Q6H PRN PRN (Reason: shortness of breath or wheezing) Qty: 8.5 5RF multivitamin Tablet 1 tab PO DAILY sertraline 25 mg tablet 25 mg PO Q24H Patient Comments: TAKE 1 TABLET BY MOUTH EVERY DAY Referrals / Follow Up: Salvador Beach MD [Med Staff - Active Staff] - 07/22/23 9:45 am (For history of possible COPD, smokes 3 packs/day since early age 15. Chronic cough, dyspnea on mild exertion.) Mati Oliver ORACLE MANUFACTURING CONSULTANT, ORACLE MANUFACTURING CONSULTANT-C [Primary Care Provider] - Disposition Disposition (needs filled in before D/C Order can be placed): Home, Self Care Charges/Coding Visit Charges Inpatient E&M: 54530 Disch Hosp >30min
--- NOTE | 2023-06-16 12:00 | PHA.DC.MR.R ---
Pharmacy [place] Med Reconciliation Pharmacy Service has performed discharge medication reconciliation for this patient. The patient's discharge medication list was reviewed for discrepancies and discrepancies were resolved. Medications at Discharge Home Medications disability placard #1 ea 02/04/20 multivitamin 1 tab PO DAILY vitamin 05/19/21 albuterol sulfate 0.63 mg/3 mL solution for nebulization See Rx Instructions .Route .COMPLEX copd #225 mL 07/31/22 albuterol sulfate 90 mcg/actuation aerosol inhaler 2 puff inhalation Q6H PRN PRN shortness of breath or wheezing #8.5 grams 04/29/23 fluticasone fur. 100 mcg-umeclid 62.5 mcg-vilant 25 mcg inhalat.powder (Trelegy Ellipta) 1 inh inhalation QDAY copd #90 ea 04/29/23 sertraline 25 mg tablet 25 mg PO Q24H depression 06/13/23
== END 2023-06-16 12:46 | disposition home or self-care (01) | DRG 897 ==
LOC: ED 23:43 → MS3 23:58
PROVIDERS: Admitting Provider Family Medicine; Emergency Provider Emergency Medicine; PCP Nurse Practitioner Family; Referring Provider Family Medicine; Visit Provider Internal Medicine
DX: F10.239 Alcohol dependence with withdrawal, unspecified (principal); F11.23 Opioid dependence with withdrawal; J43.9 Emphysema, unspecified; F17.210 Nicotine dependence, cigarettes, uncomplicated; I10 Essential (primary) hypertension; F32.A Depression, unspecified; F41.9 Anxiety disorder, unspecified; G47.33 Obstructive sleep apnea (adult) (pediatric); M51.36 Other intervertebral disc degeneration, lumbar region; G47.00 Insomnia, unspecified; Y90.0 Blood alcohol level of less than 20 mg/100 ml; G89.29 Other chronic pain; R91.8 Other nonspecific abnormal finding of lung field; R73.9 Hyperglycemia, unspecified; Z79.51 Long term (current) use of inhaled steroids; Z79.899 Other long term (current) drug therapy
CPT/HCPCS: 36415; 80048; 80076; 80307; 82077; 83036; 83735; 84100; 85025; 86703; 86706; 86780; 86803; 87340; 94640; 94668; 99281; 99283; 99406; J7120; A4216

== ENCOUNTER → 2023-08-01 | Outpatient (CLI) | payer MEDICARE, SELFPAY ==
--- NOTE | 2023-08-01 16:41 | CT_ITS ---
EXAM: CT CHEST WITH INTRAVENOUS CONTRAST CLINICAL INDICATION: new lung nodule, spiculated, 1cm TECHNIQUE: Helically acquired images were obtained of the chest with intravenous contrast. This CT exam was performed using one or more of the following dose reduction techniques: automated exposure control, adjustment of the mA and/or kV according to patient size, and/or use of iterative reconstruction technique. CONTRAST: IV 100mL Isovue-300 COMPARISON: CT chest, 05/16/2023; PET/CT, 07/19/2019 FINDINGS: LUNGS AND PLEURAL SPACES: Calcified granuloma in the left lower lobe. Minimal linear and nodular opacity in the superior segment of the left lower lobe is present, similar to the prior examination although the nodules slightly more cephalad has resolved consistent with an infectious or inflammatory process for which no follow-up is indicated. Diffuse centrilobular emphysema. Unchanged appearance of bilateral apical pleural-parenchymal scarring. 5 mm right lower lobe nodule, similar to prior examination. No new pulmonary nodules. No mass or consolidation. No pleural effusion or pneumothorax. HEART: No significant abnormality. Heart size is normal. No pericardial effusion. MEDIASTINUM: Mediastinal granulomas. No significant mediastinal adenopathy. Esophagus is unremarkable. No hiatal hernia. THYROID: No significant abnormality. No thyroid lesions. BONES/JOINTS: Degenerative changes in the spine and shoulders. No suspicious lytic or blastic abnormality. VASCULATURE: No significant abnormality. Thoracic aorta is non-dilated. No thoracic aortic dissection. No obvious central pulmonary embolism although this study was not performed with the pulmonary embolism protocol. SPLEEN: Splenic granulomas. No additional splenic abnormality. CT/Chest WITH Contrast IMPRESSION: 1. Minimal linear and nodular opacity in the superior segment of the left lower lobe is present, similar to the prior examination although the nodule previously identified slightly more cephalad has resolved consistent with an infectious or inflammatory process for which no follow-up is indicated. 2. 5 mm right lower lobe nodule, similar to prior examination. Fleischner Society Guidelines (MacMahon, et al. Radiology 2017; 284(1):228-43) suggest that no follow-up is necessary for patients with a low or high risk of malignancy. 3. Diffuse centrilobular emphysema and unchanged bilateral apical pleural-parenchymal scarring. Electronically Signed: Demar Wilde DO at 22:01 EDT Reading Location ID and State: [facility] / [place] Tel , Service support ,
[2023-08-01 17:04] LABS: CREATININE FINGERSTICK < 0.9 mg/dL (0.70-1.30); EGFR FINGERSTICK > 60.0000 mL/min (>60)
== END | disposition home or self-care (01) ==
PROVIDERS: PCP Nurse Practitioner Family; Visit Provider Internal Medicine
DX: R91.1 Solitary pulmonary nodule (principal)
CPT/HCPCS: 71260; Q9967

== ENCOUNTER → 2024-05-24 | Outpatient (CLI) | payer MEDICARE, SELFPAY | END | disposition home or self-care (01) | PROVIDERS: PCP Nurse Practitioner Family; Referring Provider Nurse Practitioner Acute Care; Visit Provider Nurse Practitioner Acute Care | DX: R05.9 Cough, unspecified (principal) | CPT/HCPCS: 87070; 87205 ==

== ENCOUNTER → 2024-08-05 | Outpatient (CLI) | payer MEDICARE, MEDICAID, SELFPAY ==
--- NOTE | 2024-08-05 16:27 | CT_ITS ---
STUDY: LOW DOSE CT LUNG CANCER SCREENING REASON FOR EXAM: Male, 69 years old. Current smoker. Patient smokes 2 packs per day for 48 years. RADIATION DOSAGE (If Supplied By Facility): CTDIvol = ( 1.47 ) mGy, DLP = ( 55.23 ) mGycm TECHNIQUE: No contrast was administered. Low dose technique was utilized (average mAS-38 and kVp 120). 1.25 mm axial source images with a slice interval of 1.25-mm were reconstructed in lung windows. 2.5 mm axial source images with a slice interval of 2.5-mm were reconstructed in lung windows. 5.0 mm axial source images with a slice interval of 5.0-mm were reconstructed in soft tissue windows. COMPARISON: Comparison is made with prior study dated August 01, 2023. NODULES: There is evidence of a 1.8 cm x 2.7 cm heterogeneous nodular density in the medial posterior aspect of the right lung apex. This has progressed as compared to prior study. A neoplastic process should be ruled out. There is also evidence of a 1 cm nodule in the anterior aspect of the right lung apex. The previously seen nodule in the posterior aspect of the superior segment of the left lobe has increased in size. It presently measures 6.5 mm. There is a new 8.7 mm noncalcified nodule in the peripheral lateral aspect of the right lower lobe as seen on axial image #100. Emphysema: Hyperinflation. Diffuse emphysematous changes with bullous formation worse in the upper lobes. Focal infiltrate/scarring in the posterior aspect of the right upper lobe abutting the right major fissure. Stable calcified granuloma in the posteromedial segment of the right lower lobe. Endobronchial lesion: None Aorta: Atherosclerotic plaque formation. CORONARY ARTERIES: Coronary artery calcification no significant coronary artery calcification is seen. Heart: Unremarkable Pulmonary artery: Unremarkable. Mediastinal nodes: Calcified mediastinal lymph nodes. Other chest and abdominal findings: CT/Low Dose CT Lung Screening IMPRESSION: Lung-RADS category 4B - Chest CT with or without contrast, PET/CT and/or tissue sampling can be obtained depending on the probability of malignancy and comorbidities. IMPORTANT NOTES FOR USE: ACR Lung-RADS Version 1.1 Assessment Categories Release Date: 2018 Category: Coded 0-4 bases on nodule(s) with highest degree of suspicion. Negative screen is defined as categories 1 and 2; a positive screen is defined as categories 3 and 4. Category 3 and 4A nodules that are unchanged on interval CT should be coded as category 2, and individuals returned to screening in 12 months. Category 4X: Category 3 or 4 nodules with additional imaging findings that increase the suspicion of lung cancer, such as spiculation, GGN that doubles in size in 1 year, enlarged lymph notes, etc. Category Modifiers: S (significant finding unrelated to lung cancer) Electronically Signed: Oliver Harry MD at 12:40 EDT ,
== END | disposition home or self-care (01) ==
LOC: CT 16:26
PROVIDERS: PCP Nurse Practitioner Family; Referring Provider Nurse Practitioner Acute Care; Visit Provider Nurse Practitioner Acute Care
DX: Z12.2 Encounter for screening for malignant neoplasm of respiratory organs (principal); F17.210 Nicotine dependence, cigarettes, uncomplicated
CPT/HCPCS: 71271

== ENCOUNTER → 2024-08-17 | Outpatient (CLI) | payer MEDICARE, MEDICAID, SELFPAY ==
--- NOTE | 2024-08-31 11:30 | PET_ITS ---
EXAMINATION: FDG-PET/CT ? INDICATIONS: 69-year-old male with a history of pulmonary nodularity. ? COMPARISON EXAMINATION: FDG-PET CT study dated 07/19/2019, CT of the chest dated 08/05/2024. ? INDEX LESION SIZE SUV INTERPRETATION Right upper lung field, right upper lobe 46.3 mm 4.5 Fulfills quantitative criteria for viable neoplasm, histopathologic analysis is recommended.? ? TECHNIQUE: Following the intravenous administration of 14.83 mCi of F-18 deoxyglucose via the left antecubital fossa, multiplanar image acquisitions of the head, neck, chest, abdomen and pelvis to the level of the midthigh, obtained at one-hour post radiopharmaceutical administration contemporaneously interpreted with the current CT of the chest, abdomen and pelvis dated 09/01/2024 and prior FDG-PET CT study dated 07/19/2019, CT of the chest dated 08/05/2024 via coregistration reveal: ? SERUM GLUCOSE LEVEL:? 100 mg/dL? HEIGHT:?? 69 inches WEIGHT:?? 126 pounds ? FINDINGS: ? HEAD/NECK:? There is no evidence of abnormal increased glucose metabolism in the pharyngeal mucosal space, parapharyngeal space, oropharynx, bilateral-lateral and anterior neck, hypopharynx and distribution of the larynx. ? The visualized portion of the cerebral cortical-subcortical structures demonstrate symmetric and preserved glucose metabolism. ? CHEST:? Increased FDG concentration is noted in the right apical lung field, right upper lobe. The calculated standard uptake value is 4.5. The maximal axial diameter of the metabolic, morphologic abnormality is 46.3 mm. ? CT of the chest demonstrates the following anatomic characteristics: Atherosclerotic calcification is defined in the thoracic aorta without evidence of dilatation, aneurysm formation. Both calcified and noncalcified mediastinal soft tissue reveals no evidence of increased tracer uptake. Centrilobular emphysematous changes are defined in the bilateral upper-mid lung zones. ? ABDOMEN/PELVIS:? Normal physiologic distribution of the radiopharmaceutical is identified in the hepatic (2.9) and splenic parenchyma, both renal units, urinary bladder, and visualized intestinal tract. ? CT of the abdomen and pelvis is remarkable for the following: Calcified phlebolith formation is noted in the bilateral lower hemipelvis. Atherosclerotic calcification is defined in the abdominal aorta without evidence of dilatation, aneurysm formation. Pelvic arterial calcification is observed. Right and left inguinal soft tissue densities are ametabolic. ? SKELETAL:? There is no evidence of quantitatively significant enhanced glucose metabolism on meticulous inspection of the appendicular and axial skeletal structures. ? Degenerative changes defined in the thoracic and lumbar spine demonstrate no evidence of increased glucose metabolism. There are no sclerotic, mixed sclerotic-lytic, or primarily lytic changes defined in the axial skeletal structures with evidence of increased FDG uptake. ? PET/PET/CT Tumor Base -Thigh Init IMPRESSION: 1. The increase in radiopharmaceutical concentration defined in the right upper lung field, right upper lobe fulfills quantitative criteria for viable neoplasm with single point technique. Histopathologic sampling is recommended.? 2. No other quantitatively significant hypermetabolic abnormalities are noted. Electronic Signature Klaus Rasmussen D.O. Accurate Quantification of SUVs for this report are calculated using the exclusive [employer]. (U.S. Patent No. [phone], 674, 983 B2 [phone] [place] patent [phone]). Standardization and correction of the FDG SUV metric via [employer] technology allow for vendor non-specific objective quantitative examination comparison and optimization of the sensitivity and specificity of the FDG PET-CT examination. [email or web address]/13/08/[email or web address] ? Electronically Signed: Klaus Rasmussen DO at 21:37 EDT ,
== END | disposition home or self-care (01) ==
PROVIDERS: PCP Nurse Practitioner Family; Referring Provider Nurse Practitioner Acute Care; Visit Provider Nurse Practitioner Acute Care
DX: R91.8 Other nonspecific abnormal finding of lung field (principal)
CPT/HCPCS: 78815; A9552

== ENCOUNTER → 2024-09-06 | Outpatient (CLI) | payer MEDICARE, MEDICAID, SELFPAY ==
[2024-09-06 14:10] LABS: Platelet Count 296 K/mm3 (150-450)
[2024-09-06 14:24] LABS: Prothrombin Time (Protime)PT. 13.3 SECONDS (11.7-14.9)
[2024-09-06 14:25] LABS: Partial Thromboplast Time 37.8 Seconds (24.1-36.2)
== END | disposition home or self-care (01) ==
LOC: PAVLAB 13:55
PROVIDERS: PCP Nurse Practitioner Family; Referring Provider Nurse Practitioner Acute Care; Visit Provider Nurse Practitioner Acute Care
DX: I48.91 Unspecified atrial fibrillation (principal); R05.9 Cough, unspecified; R06.00 Dyspnea, unspecified
CPT/HCPCS: 36415; 85049; 85610; 85730

== ENCOUNTER 2024-09-27 12:42 | Inpatient (IN) | payer MEDICARE, MEDICAID, SELFPAY ==
[2024-09-27] VITALS (12 sets, daily range): BP systolic 99–143; BP diastolic 65–97; PULSE 64–86; RESP 16–22; TEMP 36.6–36.8; O2SAT 95–98; BMI 17.9; BMI 17.7
--- NOTE | 2024-09-27 13:29 | ED.VIS.DYS ---
HPI History of Present Illness Chief Complaint: Shortness of Breath Detail of Chief Complaint: Shortness of breath Informant: patient Narrative Narrative: Patient presents with shortness of breath after having a lung biopsy this morning. Patient was noted to have a small pneumothorax that seem to get worse after 2 hours and was referred to the emergency department for chest tube placement. Patient denies any significant chest pain. He has a slight cough that is producing some bloody sputum since the biopsy. Denies fevers or chills or sweats. [facility] Medical History (Updated 09/27/24 @ 13:[address] Crow Pina, DO) Pulmonary nodules Tobacco use Opiate abuse, continuous Alcohol abuse Anxiety and depression Weight loss Osteoporosis Rheumatoid arthritis Sleep apnea Emphysema of lung Chronic pain Arthritis Hypertension Degenerative disc disease, lumbar Home Medications ?Medication ?Instructions ?Recorded ?Last Taken ?Type disability placard #1 ea 02/04/20 Unknown Rx multivitamin 1 tab PO DAILY vitamin 05/19/21 Unknown History guaifenesin 1,200 mg tablet, 1,200 mg PO Q12H #60 tabs 08/06/23 Unknown Rx extended release 12 hr albuterol sulfate 90 mcg/actuation 2 inh inhalation Q6H PRN shortness 02/18/24 Unknown History aerosol inhaler of breath or wheezing lorazepam 0.5 mg tablet 0.5 mg PO DAILY PRN anxiety 05/24/24 Unknown History mirtazapine 15 mg tablet 15 mg PO QHS 05/24/24 Unknown History albuterol sulfate 2.5 mg/3 mL 2.5 mg inhalation Q4H PRN 08/10/24 Unknown History (0.083 %) solution for nebulization shortness of breath or wheezing fluticasone fur. 200 mcg-umeclid 1 ea inhalation QDAY 08/10/24 Unknown History 62.5 mcg-vilant 25 mcg inhalat.powder (Trelegy Ellipta) Allergy/AdvReac Type Severity Reaction Status Date / Time doxycycline AdvReac Unknown Unknown Verified 09/27/24 08:58 Family History Mother Cancer Father Cancer Surgical History H/O hernia repair Social History household members: children and other details: grandchildren housing: house current occupational status: retired current occupation: [employer] pets and animals: Yes pets and animals: cat(s) and dog(s) Smoking Status: Current every day smoker tobacco type: cigarettes second hand exposure: Yes alcohol intake: current alcohol intake frequency: 3 or more drinks per day Alcohol type: beer details: At least 6-8 beers daily. substance use type: opiates and other details: Uses vicodin, percocet, suboxone. No IVDA. what type of physical activity do you participate in: none ROS ROS ED Review of Systems ROS Unobtainable: other Constitutional Constitutional ED: Reports lethargy; Denies chills, fever(s), sweats or weight loss Eyes Eyes: Denies blurry vision, change in vision or diplopia ENT ENT ED: Denies rhinorrhea or sore throat Cardiovascular Cardiovascular: Denies chest pain, orthopnea or racing heartbeat Respiratory/Chest Respiratory/Chest: Reports cough and dyspnea; Denies dyspnea on exertion, orthopnea or sputum Gastrointestinal Gastrointestinal: Denies abdominal pain, diarrhea, nausea or vomiting Genitourinary Genitourinary ED: Denies dysuria, hematuria or urinary frequency Musculoskeletal Musculoskeletal: Denies arthralgias, back pain, myalgias or neck pain Integumentary Denies abscess, Abrasions or rash Neurologic Neurologic: Denies headache(s) or weakness Psychiatric Psychiatric: Denies anxiety, depression or suicidal thoughts Endocrine Endocrinology: Denies polydipsia, polyphagia or polyuria Hematologic/Lymphatic Hematologic/Lymphatic: Denies easy bleeding, easy bruising or lymphadenopathy Allergic/Immunologic Allergic/Immunologic ED: Denies mouth swelling, tongue swelling or urticaria EXAM Physical Exam Const Vital Signs: 09/27/24 12:43 09/27/24 12:43 09/27/24 13:02 Temperature 98.0 F Temperature Source Oral Pulse Rate 86 Respiratory Rate 21 H Respiratory Effort Short of Breath Respiratory Depth Shallow Respiratory Pattern Tachypnea Blood Pressure 130/76 H Blood Pressure Mean 94 Pulse Ox 96 Oxygen Delivery Method Nasal Cannula Nasal Cannula Nasal Cannula Oxygen Flow Rate (L/min) 2 2 2 09/27/24 13:25 09/27/24 13:41 Temperature Temperature Source Pulse Rate 83 Respiratory Rate 18 Respiratory Effort Short of Breath Labored Accessory Muscle Use Respiratory Depth Deep Respiratory Pattern Tachypnea Blood Pressure 119/65 Blood Pressure Mean 83 Pulse Ox 98 96 Oxygen Delivery Method Nasal Cannula Nasal Cannula Oxygen Flow Rate (L/min) 3 3 Positive well nourished and well developed General Appearance ED: well developed and NAD HEENT Reports TM's clear and moist mucous membranes normocephalic and atraumatic; Negative for trauma or tenderness Tympanic Membrane ED: Yes TM's clear Eyes PERRL and EOMs intact bilaterally General Eye ED: Negative for pale conjunctiva or scleral icterus Neck no lymphadenopathy, supple and no JVD General: Negative for tenderness Chest Wall inspection of chest normal Chest: Negative for tenderness Resp normal respiratory effort Resp Narrative: Slightly diminished in the right lung Effort and Inspection: Negative for respiratory distress or pain with movement Auscultation: Negative for rhonchi, wheezes or diminished lung sounds Cardio regular rate, regular rhythm, S1 normal heart sound, S2 normal heart sound and no murmurs Peripheral Pulses: pulses 2+ throughout GI normal to inspection, nondistended, normoactive bowel sounds, soft to palpation, non-tender, non-distended and no masses Back/Spine no CVA tenderness and no thoracic nor lumbar tenderness Extremity normal to inspection General Extremety ED: Negative for edema General Extremity: Negative for edema Neuro oriented x3, CN's II-XII intact bilaterally, no sensory deficits noted and gait normal Sensorium / Orientation: awake, alert, oriented to person, oriented to place and oriented to time Motor Exam: strength 5/5 throughout and strength abnormal Psych mental status grossly normal Skin no rashes or lesions noted and no wounds MDM MDM MDM Narrative Medical decision making narrative: Patient presents with small pneumothorax from lung biopsy. Consented patient for procedural sedation. Patient had a small chest tube placed via Seldinger technique. He tolerated procedure well. Will discuss with hospitalist to evaluate for admission. Also discussed with general surgeon Dr. Covarrubias who will follow in consult. Patient was given 4 mg of morphine and 4 mg of Zofran after chest tube placement. Repeat chest x-ray obtained showed good expansion of the lung and I do not appreciate a pneumothorax any longer. Patient will be admitted for observation to hospitalist Dr. Styles and Dr. Covarrubias will follow along. Procedures Other Procedures Procedure(s): Patient had small arrow type Pleur-evac chest tube placed to right chest for small pneumothorax related to lung biopsy today. Area of the skin sterilely draped and prepped. Area cleansed with ChloraPrep. 1% lidocaine used anesthetize the skin and soft tissues and area adjacent the fifth rib superior portion. Using an 11 blade small 1 cm incision was made into the skin. I advanced the small chest tube over the fifth rib into the pleural space and immediately there was bubbling in the syringe with a air. I advanced the chest tube over the needle into the pleural space and connections were made and patient was attached to Pleur-evac to low intermittent suction. Patient had clean dressing applied. Patient Toller procedure well. Discharge Plan Dx/Rx/DC Orders Clinical Impression: Pneumothorax, COPD (chronic obstructive pulmonary disease), Lung mass Disposition Disposition: Acute Care Hospital [facility]
--- NOTE | 2024-09-27 13:35 | RAD_ITS ---
STUDY: X-RAY CHEST REASON FOR EXAM: Male, 69 years old. Chest tube placement TECHNIQUE: Single AP portable view of the chest. COMPARISON: Comparison is made with prior chest radiograph done earlier today. FINDINGS: A small caliber chest tube has been placed with the tip in the medial aspect of the right upper hemithorax. Minimal residual right apical pneumothorax. Normal size heart. Normal mediastinum and ian. Normal visualized pulmonary arteries. There is atherosclerotic calcification of the aortic arch with tortuosity. Normal visualized thoracic spine. Healed right rib fractures. There is no demonstrated abnormality of the visualized soft tissue structures of the upper abdomen. RAD/Chest 1 View (Portable) IMPRESSION: Status post small-caliber right-sided chest tube placement. Minimal residual right apical pneumothorax. Electronically Signed: Oliver Harry MD at 14:05 EDT ,
[2024-09-27] MEDS: Ondansetron 4 MG/2 ML Vial IV (13:54)
[2024-09-27] MEDS: Morphine 4 MG/ML Syringe IV ×2 (13:54→15:07)
--- NOTE | 2024-09-27 14:54 | HP.PCM.HOS_ITS ---
HPI - General General Date of Admission: 09/27/24 Date of Service: 09/27/24 Chief Complaint: Shortness of breath HPI Narrative TOBY LEI, is a 69 M who presents with shortness of breath. Patient underwent a lung biopsy this morning for a lung nodule and sustained a small pneumothorax 2 hours afterwards. Patient was sent to the emergency room and had a right- sided chest tube placed. Dr. Covarrubias was contacted drug from the emergency room to be seen the patient in consultation. Patient having similar chest pain after the chest tube was placed. [facility] Medical History Pulmonary nodules Tobacco use Opiate abuse, continuous Alcohol abuse Anxiety and depression Weight loss Osteoporosis Rheumatoid arthritis Sleep apnea Emphysema of lung Chronic pain Arthritis Hypertension Degenerative disc disease, lumbar Home Medications ?Medication ?Instructions ?Recorded ?Last Taken ?Type disability placard #1 ea 02/04/20 Unknown Rx albuterol sulfate 90 mcg/actuation 2 inh inhalation Q6H PRN shortness 02/18/24 Unknown History aerosol inhaler of breath or wheezing lorazepam 0.5 mg tablet 0.5 mg PO DAILY PRN anxiety 05/24/24 09/26/24 History albuterol sulfate 2.5 mg/3 mL 2.5 mg inhalation Q4H PRN 08/10/24 09/27/24 History (0.083 %) solution for nebulization shortness of breath or wheezing fluticasone fur. 200 mcg-umeclid 1 ea inhalation QDAY 08/10/24 09/27/24 History 62.5 mcg-vilant 25 mcg inhalat.powder (Trelegy Ellipta) buprenorphine 8 mg-naloxone 2 mg 1 ea sublingual BID 09/27/24 09/27/24 History sublingual film docusate sodium 100 mg capsule 100 mg PO DAILY PRN constipation 09/27/24 Unknown History (Stool Softener) mirtazapine 7.5 mg tablet 7.5 mg PO QHS 09/27/24 09/26/24 History Allergy/AdvReac Type Severity Reaction Status Date / Time doxycycline AdvReac Unknown Unknown Verified 09/27/24 08:58 Family History Mother Cancer Father Cancer Surgical History H/O hernia repair Social History household members: children and other details: grandchildren housing: house current occupational status: retired current occupation: [employer] pets and animals: Yes pets and animals: cat(s) and dog(s) Smoking Status: Current every day smoker tobacco type: cigarettes second hand exposure: Yes alcohol intake: current alcohol intake frequency: 3 or more drinks per day Alcohol type: beer details: At least 6-8 beers daily. substance use type: opiates and other details: Uses vicodin, percocet, suboxone. No IVDA. what type of physical activity do you participate in: none ROS ROS Narrative All review of systems were negative except as mentioned above in the history of present illness and the other review of systems. Vital Signs Vital Signs Vital Signs: 09/27/24 12:43 09/27/24 12:43 09/27/24 13:02 Temperature 36.7 C Temperature Source Oral Pulse Rate 86 Respiratory Rate 21 H Respiratory Effort Short of Breath Respiratory Depth Shallow Respiratory Pattern Tachypnea Blood Pressure 130/76 H Blood Pressure Mean 94 Pulse Ox 96 Oxygen Delivery Method Nasal Cannula Nasal Cannula Nasal Cannula Oxygen Flow Rate (L/min) 2 2 2 09/27/24 13:25 09/27/24 13:41 Temperature Temperature Source Pulse Rate 83 Respiratory Rate 18 Respiratory Effort Short of Breath Labored Accessory Muscle Use Respiratory Depth Deep Respiratory Pattern Tachypnea Blood Pressure 119/65 Blood Pressure Mean 83 Pulse Ox 98 96 Oxygen Delivery Method Nasal Cannula Nasal Cannula Oxygen Flow Rate (L/min) 3 3 Weight Weight: 51.9 kg Body Mass Index (BMI) 17.9 Physical Exam Const alert and no apparent distress Constitutional Narrative: Uncomfortable. HEENT normocephalic and head/scalp atraumatic Resp normal respiratory effort, no retractions, no use of accessory muscles and clear to auscultation bilaterally Resp Narrative: Chest tube on right side Cardio regular rate, regular rhythm, S1 normal heart sound and S2 normal heart sound GI normal to inspection, nondistended, normoactive bowel sounds and soft to palpation Extremity normal to inspection and no clubbing, cyanosis or edema Neuro oriented x3, CN's II-XII intact bilaterally, moves all extremities and no focal motor deficits Results Lab / Micro Data Attestation: I reviewed the patient's lab results. Imaging Radiology Impression Chest X-Ray 09/27/24 13:35 IMPRESSION: Status post small-caliber right-sided chest tube placement. Minimal residual right apical pneumothorax. Electronically Signed: Oliver Harry MD at 14:05 EDT , Assessment & Plan Assessment/Plan (1) Pneumothorax: PLAN: Iatrogenic from lung biopsy. Chest tube placed in the emergency room and follow-up x-ray shows resolution of the pneumothorax. General surgery for consultation for further recommendations in regards to when he could be put to waterseal and then subsequently discontinued. Patient with a lot of pain but does have a history of chronic pain syndrome which she is on buprenorphine patch. Will utilize acetaminophen, ketorolac as well as oxycodone and hydromorphone. PLAN: Plan Chronic conditions * Lung mass: Had a biopsy today. Despite the pneumothorax. To be successful. Patient need follow-up with oncology as outpatient * COPD: Not in exacerbation. * Tobacco abuse: Smokes 2 packs/day. Complicates care and long-term recovery. VTE prophylaxis with SCDs. CODE STATUS: Full Charges/Coding Visit Charges Inpatient E&M: 28372 Init Hosp L3
--- NOTE | 2024-09-27 15:51 | EX.PCM.CON.S ---
Assessment & Plan Assessment/Plan (1) Pneumothorax: QUALIFIERS: Pneumothorax type: postprocedural Qualified Code(s): J95.811 - Postprocedural pneumothorax PLAN: I have been consulted in conjunction with Dr. Covarrubias. She will independently evaluate this patient. Patient is a 69 y/o M who is s/p CT-guided biopsy of right lung mass today, who developed a pneumothorax post-procedure. CXR confirms chest tube placement with a minimal residual right apical pneumothorax. Patient will be admitted with the chest tube to wall suction. Plan to repeat CXR tomorrow morning. Continue oxygen via nasal canula. Patient has had the opportunity to ask and have questions answered. Patient verbally understands and agrees with the plan. Thank you for allowing us to participate in this patient's care. HPI Consult Data Date of Consult: 09/27/24 HPI Narrative Reason for Consultation: Right pneumothorax HPI Narrative: TOBY LEI, is a 69 M who presents from radiology with a right-sided pneumothorax. Patient had a CT-guided biopsy of the right upper lobe by our radiology department today. Patient was found to have a worsening pneumothorax at his 2-hour post-procedural CXR. Patient was short of breath at that time and sent directly to the the ED to have a chest tube placed. Patient states he smokes 2 packs of cigarettes per day. Patient had a PET scan which demonstrated reactivity in the right upper lobe, which lead to the biopsy. Patient is on oxygen via nasal canula as needed at home for the past 6 months. Follow-up CXR s/p chest tube placement demonstrates residual right apical pneumothorax. [facility] Medical History (Updated 09/27/24 @ 16:00 by Latasha AG, PAJinC) Anxiety Smoker On home oxygen therapy Asthma Pulmonary nodules Tobacco use Opiate abuse, continuous Alcohol abuse Anxiety and depression Weight loss Osteoporosis Rheumatoid arthritis Sleep apnea Emphysema of lung Chronic pain Arthritis Hypertension Degenerative disc disease, lumbar Home Medications ?Medication ?Instructions ?Recorded ?Last Taken ?Type disability placard #1 ea 02/04/20 Unknown Rx albuterol sulfate 90 mcg/actuation 2 inh inhalation Q6H PRN shortness 02/18/24 Unknown History aerosol inhaler of breath or wheezing lorazepam 0.5 mg tablet 0.5 mg PO DAILY PRN anxiety 05/24/24 09/26/24 History albuterol sulfate 2.5 mg/3 mL 2.5 mg inhalation Q4H PRN 08/10/24 09/27/24 History (0.083 %) solution for nebulization shortness of breath or wheezing fluticasone fur. 200 mcg-umeclid 1 ea inhalation QDAY 08/10/24 09/27/24 History 62.5 mcg-vilant 25 mcg inhalat.powder (Trelegy Ellipta) buprenorphine 8 mg-naloxone 2 mg 1 ea sublingual BID 09/27/24 09/27/24 History sublingual film docusate sodium 100 mg capsule 100 mg PO DAILY PRN constipation 09/27/24 Unknown History (Stool Softener) mirtazapine 7.5 mg tablet 7.5 mg PO QHS 09/27/24 09/26/24 History Allergy/AdvReac Type Severity Reaction Status Date / Time doxycycline AdvReac Unknown Unknown Verified 09/27/24 08:58 Family History Mother Cancer Father Cancer Surgical History H/O hernia repair Social History household members: children and other details: grandchildren housing: house current occupational status: retired current occupation: [employer] pets and animals: Yes pets and animals: cat(s) and dog(s) Smoking Status: Current every day smoker tobacco type: cigarettes second hand exposure: Yes alcohol intake: current alcohol intake frequency: 3 or more drinks per day Alcohol type: beer details: At least 6-8 beers daily. substance use type: opiates and other details: Uses vicodin, percocet, suboxone. No IVDA. what type of physical activity do you participate in: none ROS Constitutional Constitutional: Reports systems reviewed and no addt'l complaints, except as documented Eyes Eyes: Reports systems reviewed and no addt'l complaints, except as documented ENT HEENT: Reports systems reviewed and no addt'l complaints, except as documented Cardiovascular Cardiovascular: Reports systems reviewed and no addt'l complaints, except as documented Respiratory/Chest Respiratory/Chest: Reports systems reviewed and no addt'l complaints, except as documented Gastrointestinal Gastrointestinal: Reports systems reviewed and no addt'l complaints, except as documented Genitourinary Genitourinary: Reports systems reviewed and no addt'l complaints, except as documented Musculoskeletal Musculoskeletal: Reports systems reviewed and no addt'l complaints, except as documented Integumentary Integumentary: Reports systems reviewed and no addt'l complaints, except as documented Neurologic Neurologic: Reports systems reviewed and no addt'l complaints, except as documented Psychiatric Psychiatric: Reports systems reviewed and no addt'l complaints, except as documented Endocrine Endocrinology: Reports systems reviewed and no addt'l complaints, except as documented Hematologic/Lymphatic Hematologic/Lymphatic: Reports systems reviewed and no addt'l complaints, except as documented Allergic/Immunologic Allergic/Immunologic: Reports systems reviewed and no addt'l complaints, except as documented Physical Exam Const alert and oriented x3 Nutritional Appearance: cachectic HEENT normocephalic Eyes PERRL Neck full ROM Resp normal respiratory effort and clear to auscultation bilaterally Cardio regular rate and regular rhythm GI normal to inspection, nondistended, normoactive bowel sounds no CVA tenderness Back/Spine no CVA tenderness Extremity normal to inspection Skin no rashes or lesions noted Neuro no focal motor deficits and no sensory deficits noted Psych mental status grossly normal Imaging Radiology Impression Chest X-Ray 09/27/24 13:35 IMPRESSION: Status post small-caliber right-sided chest tube placement. Minimal residual right apical pneumothorax. Electronically Signed: Oliver Harry MD at 14:05 EDT Reading Location ID and State: [facility] / [place] , Service support , Charges/Coding Visit Charges Inpatient E&M: 19597 Init Hosp L2
[2024-09-27] MEDS: Ketorolac 15 MG/ML Vial IV (16:14)
[2024-09-27] MEDS: 0.9% Saline Lock 10 ML Syringe IV (16:15)
--- OUTSIDE RECORDS SUMMARY | 2024-09-27 17:49 | XMS RPT_ITS | CCD ---
Author Organization [facility] [facility] [employer] [facility] Care Team Providers Care Track Announcer Name Role Phone SIMI BAXTER Unavailable Unavailable SIMI BAXTER Unavailable Unavailable Encounters Encounter Date Encounter Type Care Provider Facility Start: 02-13-2018 Ambulatory SIMI BAXTER Fac ility:B Payers Date Payer Category Payer Unknown [id number] Summary Purpose Family History No Family History Records Found Advance Directives No Advanced Directives Records Found Additional Source Comments (unrecognized sect ion and content) No Status Records Found INFORMATION SOURCE (unrecogn ized section and content) DATE CREATED AUTHOR 05/22/2018 [facility] ([place]) FOR RECORDS PERTAINING TO PATIENTS WHO ARE OR HAVE BEEN ENROLLED IN A CHEMICAL DEPENDENCY/SUBSTANCEABUSE PROGRAM, SOME INFORMATION MAY BE OMITTED. This clinical summary was aggregated from multiple sources. Caution should be exercised in using it in the provision of clinical care. This summary normalizes information from multiple sources, and as a consequence, information in this document may materially change the coding, format and clinical context of patient data. In addition, data may be omitted in some cases. CLINICAL DECISIONS SHOULD BE BASED ON THE PRIMARY CLINICAL RECORDS. [facility] [employer] [facility]. provides no warranty or guarantee of the accuracy or completeness of information in this document.
--- OUTSIDE RECORDS SUMMARY | 2024-09-27 18:42 | XMS RPT_ITS | CCD ---
Author Organization [facility] [employer] [facility] Care Team Providers Care Smearer Name Role Phone SIMI BAXTER Unavailable Unavailable SIMI BAXTER Unavailable Unavailable Encounters Encounter Date Encounter Type Care Provider Facility Start: 02-13-2018 Ambulatory SIMI BAXTER Fac ility:B Payers Date Payer Category Payer Unknown [id number] Summary Purpose Family History No Family History Records Found Advance Directives No Advanced Directives Records Found Additional Source Comments (unrecognized sect ion and content) No Status Records Found INFORMATION SOURCE (unrecogn ized section and content) DATE CREATED AUTHOR 05/22/2018 [facility] ([place]) FOR RECORDS PERTAINING TO PATIENTS WHO ARE [...] BE BASED ON THE PRIMARY CLINICAL RECORDS. [facility] [employer] [facility]. provides no warranty or guarantee of the accuracy or completeness of information in this document.
--- NOTE | 2024-09-27 18:57 | NURSING ---
in to room as bedexit going off. pt moving in bed. pt states he wants to go smoke. explained to pt that with his chesttube and oxygen that is not an option. offered to contact physician for nicotine patch.
[2024-09-27] MEDS: Budesonide Respules 0.5 MG/2 ML AMPUL.NEB. INHALATION (19:09)
[2024-09-27] MEDS: Ipratropium/Albuterol Sulfate 3 ML AMPUL.NEB INHALATION (19:09)
--- OUTSIDE RECORDS SUMMARY | 2024-09-27 19:16 | XMS RPT_ITS | CCD ---
Author Organization [facility] [employer] [facility] Care Team Providers Care Supervisor Firearms Name Role Phone SIMI BAXTER Unavailable Unavailable SIMI BAXTER Unavailable Unavailable Encounters Encounter Date Encounter Type Care Provider Facility Start: 02-13-2018 Ambulatory SIMI BAXTER Fac ility:B Payers Date Payer Category Payer Unknown [id number] Summary Purpose Family History No Family History Records Found Advance Directives No Advanced Directives Records Found Additional Source Comments (unrecognized sect ion and content) No Status Records Found INFORMATION SOURCE (unrecogn ized section and content) DATE CREATED AUTHOR 05/22/2018 [facility] ([place]) FOR RECORDS PERTAINING TO PATIENTS WHO ARE [...] BE BASED ON THE PRIMARY CLINICAL RECORDS. [facility] [employer] [facility]. provides no warranty or guarantee of the accuracy or completeness of information in this document.
[2024-09-27] MEDS: HYDROcodone Bitartrate/Apap 5/325 Tablet PO (21:09)
[2024-09-27] MEDS: Mirtazapine 15 MG Tablet 7.5 MG PO (21:09)
--- NOTE | 2024-09-27 22:45 | NURSING ---
Pt stated he wants to be able to leave tomorrow. Pt's father recently (Friday) and stated I want to make it to the in [facility] on Friday.
[2024-09-28] VITALS (9 sets, daily range): BP systolic 102–126; BP diastolic 58–84; PULSE 67–82; RESP 16–18; TEMP 36.5–36.9; O2SAT 93–96
--- NOTE | 2024-09-28 06:00 | RAD_ITS ---
We are attempting to reach an attending provider to discuss findings. An addendum with communication details will be sent when the communication is complete. EXAM: XR CHEST, 1 VIEW CLINICAL INDICATION: right pneumothorax -- PORTABLE TECHNIQUE: Frontal view of the chest. COMPARISON: 09/27/2024. FINDINGS: LUNGS AND PLEURAL SPACES: Mild increase in the right apical pneumothorax. Previously the visceral pleura of the apex of the lung was approximately 7 mm below the superior sulcus. It is now approximately 1.2 cm below the superior sulcus with increased pneumothorax extending laterally. No effusion. No change in the opacity in the right superior sulcus. HEART: Unremarkable. Cardiac silhouette not enlarged. MEDIASTINUM: Central airways and mediastinal contour are unremarkable. BONES/JOINTS: Unremarkable. No acute fracture. SOFT TISSUES: Unremarkable. TUBES, LINES AND DEVICES: No change in the small caliber right-sided chest tube. RAD/Chest 1 View (Portable) IMPRESSION: 1. Mild increase in the right apical pneumothorax. Previously the visceral pleura of the apex of the lung was approximately 7 mm below the superior sulcus. It is now approximately 1.2 cm below the superior sulcus with increased pneumothorax extending laterally. 2. No change in the opacity in the right superior sulcus. 3. No change in the small caliber right-sided chest tube. Electronically Signed: Calderon Moran MD at 7:36 EDT ,
[2024-09-28] MEDS: HYDROcodone Bitartrate/Apap 5/325 Tablet PO ×3 (06:11→18:30)
[2024-09-28] MEDS: Ipratropium/Albuterol Sulfate 3 ML AMPUL.NEB INHALATION ×3 (07:37→19:15)
[2024-09-28] MEDS: Budesonide Respules 0.5 MG/2 ML AMPUL.NEB. INHALATION ×2 (07:37→19:15)
--- NOTE | 2024-09-28 08:13 | PCM.PN.SRG ---
Subjective Subjective Patient evaluated resting comfortably in bed. He notes his breathing has returned to normal. He notes some discomfort where the chest tube is located. Patient voices that his father on Friday at the age of 89. He states the is tomorrow in [place]. He would like to be able to be discharged today to be able to attend the . Per nursing staff patient had been seen walking the halls last night after he detached himself from wall suction. Objective Data Objective Data Vital Signs: Vital Signs Temp Pulse Resp BP Pulse Ox O2 Del Method O2 Flow Rate 98.0 F 73 18 108/58 L 94 Nasal Cannula 1 09/28/24 05:43 09/28/24 07:38 09/28/24 07:38 09/28/24 05:43 09/28/24 07:38 09/28/24 07:38 09/28/24 07:38 Oxygen Flow Rate (L/min) 1 Oxygen Delivery Method Nasal Cannula Weight: 113 lb 5.082 oz Body Mass Index (BMI) 17.7 Intake & Output: Intake and Output for Last 24 Hours 09/26/24 09/27/24 09/28/24 23:59 23:59 23:59 Intake Total 1200 / 1200 Output Total 0 / 0 Balance 0 / 0 1200 / 1200 Radiography Diagnostic Testing: Radiology Impression Chest X-Ray 09/27/24 13:35 IMPRESSION: Status post small-caliber right-sided chest tube placement. Minimal residual right apical pneumothorax. Electronically Signed: Oliver Harry MD at 14:05 EDT , Chest X-Ray 09/28/24 06:00 IMPRESSION: 1. Mild increase in the right apical pneumothorax. Previously the visceral pleura of the apex of the lung was approximately 7 mm below the superior sulcus. It is now approximately 1.2 cm below the superior sulcus with increased pneumothorax extending laterally. 2. No change in the opacity in the right superior sulcus. 3. No change in the small caliber right-sided chest tube. Electronically Signed: Calderon Moran MD at 7:36 EDT , Physical Exam Resp normal respiratory effort Resp Narrative: Chest tube, right-side- intact. No active pneumo noted by the canister. Auscultation: wheezes inspiratory wheezes and throughout Assessment & Plan Assessment/Plan (1) Pneumothorax: QUALIFIERS: Pneumothorax type: postprocedural Qualified Code(s): J95.811 - Postprocedural pneumothorax PLAN: I am following this patient in conjunction with Dr. Covarrubias. She will independently evaluate this patient. CXR this AM reveals mild increase in the right apical pneumothorax. Patient has been off wall suction throughout the night without any increase of shortness of breath Plan to place patient to waterseal and recheck CXR in 6 hours, if pneumothorax resolved then will plan to pull chest tube If pneumothorax remains and shortness of breath increases, will have to place patient back to wall suction and discuss further plans We will continue to monitor this patient Charges/Coding Visit Charges Inpatient E&M: 60894 [facility] L1
[2024-09-28] MEDS: Ensure Plus High Protein 120 ML LIQUID PO (08:54)
[2024-09-28] MEDS: Ketorolac 15 MG/ML Vial IV (09:00)
[2024-09-28] MEDS: 0.9% Saline Lock 10 ML Syringe IV ×3 (09:01→20:32)
--- NOTE | 2024-09-28 09:37 | CASEMGMT ---
BECKI PRASAD Assessment: Face to Face with pt for initial transition planning/care coordination assessment. BECKI PRASAD introduced self and role at [facility], pt voices understanding and consents to assessment. Pt is A&O x4 and answers all questions appropriately at this time. Pt sitting up in bed with oxygen on in no distress. Care providers, pharmacy, and demographics verified/updated. Admitting Dx: pneumothorax Strata Score: 1 PCP:MARY Grullon Specialists:denilson Rodarte Preferred Pharmacy: [facility] Insurance: [employer] [facility], [facility] Prescription Benefit: yes LNOK: Megan Knight dtr Living Arrangements: Pt lives alone in a ground level apt with no steps to enter. Pt reports he is I in ADLs. Pt states he does have difficulty with laundry as it requires him to navigate steps to a common area. Transportation: Pt drives self and denies concerns with transportation. DME:nebulizer, pox, oxygen through [employer] HHC/SNF: Pt reports he was dc'd from hospice approx 1 yr ago, denies hx of HHC or SNF stays. Pt states no concerns with going home at time of dc. Pt father passed on Friday. Pt aware RN OSMAR will speak with SW regarding assistance through [facility] with laundry and bathing. Updated SW who will see pt. Pt states no further concerns/needs. CM to follow. Advised pt to ask CM if any further question/concerns/needs arise, voices understanding. Pt Goal: Home Plan: Home, follow for increased oxygen rx Sourav CONNELL CM
--- NOTE | 2024-09-28 11:52 | CASEMGMT ---
Social Work- SW completed SDOH. SW provided printed resources for [employer] [facility], [facility], [place], [facility] transportation, mental health, grief, [facility], and [employer] card. Pt requests referral to Waiver program through [facility]. Pt reports that he drives and normally transports himself, but does need transportation assistance at times. Pt reports that his vehicle has repairs and he also does not feel well enough to drive at times. SW advised of [facility] car repair program. Pt reports that his furnace needs cleaned and needs filters, but he does not have any utility needs at this time. Pt reports that he would like to change oxygen providers; SW advised RNCM. SW guided discussion regarding the of pt father and pending tomorrow. Pt was guarded in regards to this topic and picked up his phone and started watching a video. Pt reported that he had supports. Pt was not receptive to engaging in discussion about loss or coping mechanisms. Pt reports no other needs at this time. ROCIO Hull
--- NOTE | 2024-09-28 12:11 | CASEMGMT ---
SW notified BECKI PRASAD that pt would like to switch oxygen companies. TC to [employer], to see if pt is eligible. Pt is. BECKI PRASAD into pt room, discussed this with pt. He states he wants to change on his own. Discussed with pt that it will be easier to change while in the hospital and this could be done prior to dc rather than an outpt basis. Pt states that he set up his oxygen on his own before and will do again. He wants to research [employer]. Pt expressing dissatisfaction with current DME company. BECKI PRASAD asked to reach out to [employer] to see if they can get in touch with him to discuss his concerns. Pt is agreeable to this. Emailed [employer] contacts. Provided pt with a local verbal list of in network DME companies. Pt states he would chose [employer]. Made him aware [employer]'s name and phone number will be placed on dc instructions. Pt denies further needs.
[2024-09-28] MEDS: buprenorphine HCL 8 MG TAB.SUBL SL ×2 (12:51→20:33)
[2024-09-28] MEDS: Ondansetron 4 MG/2 ML Vial IV (13:12)
--- NOTE | 2024-09-28 14:45 | RAD_ITS ---
INDICATION: Follow-up right pneumothorax, 6 hours off suction EXAMINATION/TECHNIQUE: X-RAY - portable upright AP chest x-ray COMPARISON: 09/28/2024 at 5:42 AM FINDINGS: Stable small right apical pneumothorax. Right chest tube remains. Study otherwise unchanged. RAD/Chest 1 View (Portable) IMPRESSION: Persistent small right apical pneumothorax. Electronically Signed: Ashok Espinoza MD at 17:39 EDT ,
--- NOTE | 2024-09-28 14:52 | PCM.PN.HOSP ---
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 Objective Data Objective Data Vital Signs: Vital Signs Temp Pulse Resp BP Pulse Ox O2 Del Method O2 Flow Rate 98.4 F 69 18 102/60 96 Nasal Cannula 1 09/28/24 12:41 09/28/24 13:37 09/28/24 13:37 09/28/24 12:41 09/28/24 12:41 09/28/24 12:41 09/28/24 12:41 Oxygen Flow Rate (L/min) 1 Oxygen Delivery Method Nasal Cannula Weight: 51.4 kg Body Mass Index (BMI) 17.7 Intake & Output: Intake and Output for Last 24 Hours 09/26/24 09/27/24 09/28/24 23:59 23:59 23:59 Intake Total 1200 / 1200 Output Total 0 / 0 Balance 0 / 0 1200 / 1200 Radiography Diagnostic Testing: Radiology Impression Chest X-Ray 09/28/24 06:00 IMPRESSION: 1. Mild increase in the right apical pneumothorax. Previously the visceral pleura of the apex of the lung was approximately 7 mm below the superior sulcus. It is now approximately 1.2 cm below the superior sulcus with increased pneumothorax extending laterally. 2. No change in the opacity in the right superior sulcus. 3. No change in the small caliber right-sided chest tube. Electronically Signed: Calderon Moran MD at 7:36 EDT , ADDENDUM: 09/28/24 0817 IMPRESSION: 1. Mild increase in the right apical pneumothorax. Previously the visceral pleura of the apex of the lung was approximately 7 mm below the superior sulcus. It is now approximately 1.2 cm below the superior sulcus with increased pneumothorax extending laterally. 2. No change in the opacity in the right superior sulcus. 3. No change in the small caliber right-sided chest tube. N.B. : The above Results were Read Back by Calderon Moran MD to Courtney Garcia RN, and understanding confirmed on 09/28/2024 08:10:13 (ET). Electronically Signed: Calderon Moran MD at 7:36 EDT , Physical Exam Const alert, oriented x3 and no apparent distress Constitutional Narrative: Patient appears cachectic General Appearance: cooperative, well kempt and well developed Orientation / Consciousness: awake, oriented to person, oriented to place and oriented to time HEENT normocephalic, head/scalp atraumatic and moist oral mucous membranes Eyes PERRL, EOMs intact bilaterally and conjunctivae normal Neck supple, no JVD, thyroid normal and no carotid bruits General: trachea midline Resp normal respiratory effort, no retractions and no use of accessory muscles Resp Narrative: Breath sounds are distant bilaterally, there is expiratory wheezes scattered over both lung bess Auscultation: wheezes; Negative for rales or rhonchi Cardio regular rate, regular rhythm, S1 normal heart sound, S2 normal heart sound, no murmurs, no rub and no gallops GI normal to inspection, nondistended, normoactive bowel sounds, soft to palpation, non-tender and non-distended Extremity no clubbing, cyanosis or edema Skin no rashes or lesions noted General Skin Exam: no breakdown Neuro oriented x3, CN's II-XII intact bilaterally, moves all extremities, no focal motor deficits and no sensory deficits noted Sensorium / Orientation: awake and alert Speech: speech normal Psych affect normal Assessment & Plan Assessment/Plan (1) Lung mass: PLAN: Plan 1. Right pneumothorax as a complication of CT-guided needle biopsy of right lung lesion-patient has a chest tube currently, general surgery is participating in his care #2 right upper lung lesions concerning for neoplasm-biopsy results are pending at this time #3 chronic obstructive pulmonary disease-patient has oxygen at home and uses it as needed. Patient remains on aerosol treatments #4 low BMI-complicates care, management, recovery, and prognosis #5 left lung nodule-etiology unclear at this point #6 right lower lobe lung lesion-etiology unclear Total clinical time spent by myself addressing the patient's medical issues, reviewing all of his data, and collaborating with patient's care team: 35 minutes Charges/Coding Visit Charges Inpatient E&M: 47968 [facility] Hosp L2
--- NOTE | 2024-09-28 16:30 | DCINST_ITS ---
Discharge Instructions Diet Discharge Diet: No restrictions Activity Lifting Restrictions: no lifting greater than 10 pounds for 3 days Additional Activity Instructions:: No high altitudes for 6 weeks from pneumothorax Follow Up Care Please Follow Up With: Mati Oliver, MARAC When: 1 week Test Results: Test results from this visit will be discussed in further detail at your follow- up appointment, if applicable. Pending Tests Upon Discharge: Please obtain a Chest x-ray on Friday to follow-up from pneumothorax Discharge Plan Admission Admit Date/Time: 09/27/24 14:49 Attending Provider: Mati Lucio Primary Care Provider: Mati Oliver Consulting Providers: Szuy Covarrubias; Juan José Styles Instructions Additional Instructions / Restrictions: Leave right chest dressing in place for 2 days. After 2 days, you may remove the entire dressing. You will need a follow-up chest x-ray on Friday. An order has been placed, please come to the hospital for the imaging. No appointment needed. Discharge Orders/Prescriptions Prescriptions: No Action (DME) disability placchristina Qty: 1 0RF Rx Instructions: As directed, Length of time: 5 years albuterol sulfate 90 mcg/actuation HFA aerosol inhaler 2 inh inhalation Q6H PRN (Reason: shortness of breath or wheezing) albuterol sulfate 2.5 mg /3 mL (0.083 %) solution for nebulization 2.5 mg inhalation Q4H PRN (Reason: shortness of breath or wheezing) Trelegy Ellipta 200-62.5-25 mcg blister with device 1 ea inhalation QDAY lorazepam 0.5 mg tablet 0.5 mg PO DAILY PRN (Reason: anxiety) docusate sodium [Stool Softener] 100 mg capsule 100 mg PO DAILY PRN (Reason: constipation) mirtazapine 7.5 mg tablet 7.5 mg PO QHS buprenorphine-naloxone 8-2 mg film 1 ea sublingual BID Patient Comments: pt states he took half of one early this morning Other Ambulatory Orders: Chest 1 View (Portable) (Routine) Timeframe: [id number] Facility: [facility] - Location: [facility] Ordered By: Latasha AG Referrals / Follow Up: Mati Oliver, RAMILA-C [Primary Care Provider] -
--- NOTE | 2024-09-28 17:55 | RAD_ITS ---
INDICATION: Follow-up right pneumothorax EXAMINATION/TECHNIQUE: X-RAY - portable upright AP chest x-ray COMPARISON: 09/28/2024 at 2:40 PM FINDINGS: Right chest tube removed. Stable small right apical pneumothorax. Remainder the study is stable. RAD/Chest 1 View (Portable) IMPRESSION: Stable small right-sided pneumothorax status post chest tube removal. Electronically Signed: Ashok Espinoza MD at 19:00 EDT ,
[2024-09-28] MEDS: Mirtazapine 15 MG Tablet 7.5 MG PO (20:33)
[2024-09-29 05:38] VITALS: BP 122/88; PULSE 87; RESP 14; TEMP 37.1; O2SAT 98
--- NOTE | 2024-09-29 06:49 | RAD_ITS ---
STUDY: X-RAY CHEST REASON FOR EXAM: Male, 69 years old. Right pneumothorax -- PORTABLE TECHNIQUE: Single AP portable view of the chest. COMPARISON: Comparison is made with prior study dated September 28, 2024. FINDINGS: Hyperinflation. Tiny residual right apical pneumothorax. Normal size heart. Calcified lymph node in the aortopulmonary window. Normal visualized pulmonary arteries. Normal visualized aortic arch and descending thoracic aorta. There are degenerative changes of the visualized thoracic spine. Healed right rib fractures. There is no demonstrated abnormality of the visualized soft tissue structures of the upper abdomen. RAD/Chest 1 View (Portable) IMPRESSION: Hyperinflation. No acute infiltrate is seen. Tiny residual right apical pneumothorax. Electronically Signed: Oliver Harry MD at 8:43 EDT ,
[2024-09-29 07:09] VITALS: PULSE 80; RESP 18; O2SAT 92
[2024-09-29] MEDS: Budesonide Respules 0.5 MG/2 ML AMPUL.NEB. INHALATION (07:09)
[2024-09-29] MEDS: Ipratropium/Albuterol Sulfate 3 ML AMPUL.NEB INHALATION (07:09)
--- NOTE | 2024-09-29 07:58 | PN.SURG_ITS ---
Subjective Subjective Patient evaluated sitting up in bed. He notes having a coughing fit overnight. He states he was coughing up small amount of blood-tinged sputum. He did not save any to be visualized. He had just completed a breathing treatment when I had arrived. Patient was anxious upon entering the room by the end of our evalua tion, he had returned to normal breathing. He notes this will occasionally happen at home. He denies any tenderness at the chest tube site. Objective Data Objective Data Vital Signs: Vital Signs Temp Pulse Resp BP Pulse Ox O2 Del Method O2 Flow Rate 98.7 F 87 14 122/88 H 98 Room Air 1 09/29/24 05:38 09/29/24 05:38 09/29/24 05:38 09/29/24 05:38 09/29/24 05:38 09/29/24 05:38 09/28/24 19:15 Oxygen Flow Rate (L/min) 1 Oxygen Delivery Method Room Air Weight: 113 lb 5.082 oz Body Mass Index (BMI) 17.7 Intake & Output: Intake and Output for Last 24 Hours 09/27/24 09/28/24 09/29/24 23:59 23:59 23:59 Intake Total 1550 / 1800 350 / 350 Output Total 0 / 0 200 / 200 Balance 0 / 0 1350 / 1600 350 / 350 Medical Nutrition Assessment Dietitian: Malnutrition Criteria Met Start: 09/28/24 16:26 Freq: Status: Active Protocol: Document 09/28/24 16:26 RMA (Rec: 09/28/24 16:26 RMA [id number]) Nutrition Malnutrition Evidence of Malnutrition Exists Yes Malnutrition (severe): Chronic Evidenced By Suboptimal Energy Intake ( Severe),Weight Loss (Severe), Physical Changes (Severe) Clinical Problem Chronic Disease or Condition Related Malnutrition Etiology severe protein-calorie malnutrition in the context of chronic disease related to inadequate oral/energy intake and increased energy expenditure Signs/Symptoms as evidenced by BMI 17.7, PO meeting less than 50% estimated nutrition needs x 6 months, ~13% unintentional weight loss x 6-12 months and muscle wasting and fat depletion in the face, orbitals, clavicle, arms and legs Status Active Problem Recommendation Dietitian Recommendations/Changes Will continue liberalized regular diet as ordered. Will d/c 120mL ensure plus HP w/ medpass and add 240mL vanilla ensure plus HP 3 times per day w/ meals. Additional ONS as needed to promote weight gain. Radiography Diagnostic Testing: Radiology Impression Chest X-Ray 09/28/24 06:00 IMPRESSION: 1. Mild increase in the right apical pneumothorax. Previously the visceral pleura of the apex of the lung was approximately 7 mm below the superior sulcus. It is now approximately 1.2 cm below the superior sulcus with increased pneumothorax extending laterally. 2. No change in the opacity in the right superior sulcus. 3. No change in the small caliber right-sided chest tube. Electronically Signed: Calderon Moran MD at 7:36 EDT , ADDENDUM: 09/28/24 0817 IMPRESSION: 1. Mild increase in the right apical pneumothorax. Previously the visceral pleura of the apex of the lung was approximately 7 mm below the superior sulcus. It is now approximately 1.2 cm below the superior sulcus with increased pneumothorax extending laterally. 2. No change in the opacity in the right superior sulcus. 3. No change in the small caliber right-sided chest tube. N.B. : The above Results were Read Back by Calderon Moran MD to Courtney Garcia RN, and understanding confirmed on 09/28/2024 08:10:13 (ET). Electronically Signed: Calderon Moran MD at 7:36 EDT , Chest X-Ray 09/28/24 14:45 IMPRESSION: Persistent small right apical pneumothorax. Electronically Signed: Ashok Espinoza MD at 17:39 EDT , Chest X-Ray 09/28/24 17:55 IMPRESSION: Stable small right-sided pneumothorax status post chest tube removal. Electronically Signed: Ashok Espinoza MD at 19:00 EDT , Physical Exam Chest Chest Narrative: Right chest tube site- dressing intact without any drainage. Nontender to palpation Assessment & Plan Assessment/Plan (1) Pneumothorax: QUALIFIERS: Pneumothorax type: postprocedural Qualified Code(s): J95.811 - Postprocedural pneumothorax PLAN: I am following this patient in conjunction with Dr. Covarrubias. I have discussed this patient with Dr. Covarrubias. CXR was completed this morning demonstrating a tiny residual apical pneumotho rax. Patient's father on Friday and his viewing is today in [place]. He notes states his children will be taking him to the . I have again discussed with him that if his shortness of breath becomes worse, he is to seek medical help emergently. I have ordered a follow-up CXR for Friday. Patient is aware that he will need to return to the hospital to have a follow-up film. Orde r has been placed. He is to continue to keep the dressing intact until Friday Patient is very anxious which contributes to his shortness of breath and coughing fits. He continues to smoke and refuses to quit. He will be discharged today to attend his father's later today Charges/Coding Visit Charges Inpatient E&M: 57244 [facility] Hosp L1
--- NOTE | 2024-09-29 08:54 | DCINST_ITS ---
Discharge Instructions Diet Discharge Diet: No restrictions Activity Discharge Activity: Return to Normal Activity Weight Bearing Status: Full weight bearing Additional Activity Instructions:: No high altitudes for 6 weeks from p neumothorax Follow Up Care Please Follow Up With: Mati Oliver, EN[employer]EL[employer] MACHINE ADJUSTER-C Test Results: Test results from this visit will be discussed in further detail at your follow- up appointment, if applicable. Discharge Plan Admission Admit Date/Time: 09/27/24 14:49 Primary Reason for Your Visit: pneumothorax Attending Provider: Mati Lucio Primary Care Provider: Mati Oliver Consulting Providers: Suzy Covarrubias; Juan José Styles Instructions Additional Instructions / Restrictions: Leave right chest dressing in place for 2 days. After 2 days, you may remove the entire dressing. You will need a follow-up chest x-ray on Friday. An order has been placed, please come to the hospital for the imaging. No appointment needed. Discharge Orders/Prescriptions Prescriptions: New prednisone 20 mg tablet 20 mg PO BID Qty: 14 0RF Rx Instructions: 1 twice a day for 5 days, then 1/day until gone Continued (DME) disability placard Qty: 1 0RF Rx Instructions: As directed, Length of time: 5 years albuterol sulfate 90 mcg/actuation HFA aerosol inhaler 2 inh inhalation Q6H PRN (Reason: shortness of breath or wheezing) albuterol sulfate 2.5 mg /3 mL (0.083 %) solution for nebulization 2.5 mg inhalation Q4H PRN (Reason: shortness of breath or wheezing) Trelegy Ellipta 200-62.5-25 mcg blister with device 1 ea inhalation QDAY lorazepam 0.5 mg tablet 0.5 mg PO DAILY PRN (Reason: anxiety) docusate sodium [Stool Softener] 100 mg capsule 100 mg PO DAILY PRN (Reason: constipation) mirtazapine 7.5 mg tablet 7.5 mg PO QHS buprenorphine-naloxone 8-2 mg film 1 ea sublingual BID Patient Comments: pt states he took half of one early this morning Other Ambulatory Orders: Chest 1 View (Portable) (Routine) Timeframe: 20241001 Facility: [facility] - Location: [facility] Ordered By: Latasha AG Referrals / Follow Up: Martha Neumann NP, [employer]ACHINE ADJUSTER-C [Med Staff - Adv Practice Prof] - See Referral Note (as directed) Mati Oliver VSC, [employer] MACHINE ADJUSTER-C [Primary Care Provider] - Disposition Disposition (needs filled in before D/C Order can be placed): Home, Self Care
--- NOTE | 2024-09-29 08:59 | PCM.DC.SUM ---
Providers Date of Admission: 09/27/24 Date of Discharge: 09/29/24 Primary Care Physician: SCOTT Grullon Consultations 09/27/24 15:51 Consult: General Surgery Routine Consulting Provider: Suzy Covarrubias Reason for Consult: chest tube mgmt EMERGENT Consult: No MD Notified: Yes Date Notified: 09/27/24 Time Notified: 14:53 Method of Notification: ED Physician Initiated Reason For Visit: PNEUMOTHORAX Diagnosis Discharge Diagnosis (1) Lung mass: Status: Acute Code(s): R91.8 - Other nonspecific abnormal finding of lung field Plan 1. Right pneumothorax as a complication of CT-guided needle biopsy of right lung lesion-patient has a chest tube currently, general surgery is participating in his care #2 right upper lung lesions concerning for neoplasm-biopsy results are pending at this time #3 chronic obstructive pulmonary disease-patient has oxygen at home and uses it as needed. Patient remains on aerosol treatments #4 low BMI-complicates care, management, recovery, and prognosis #5 left lung nodule-etiology unclear at this point #6 right lower lobe lung lesion-etiology unclear Total clinical time spent by myself addressing the patient's medical issues, reviewing all of his data, and collaborating with patient's care team: 35 minutes Medications at Discharge Home Medications disability placard #1 ea 02/04/20 albuterol sulfate 90 mcg/actuation aerosol inhaler 2 inh inhalation Q6H PRN shortness of breath or wheezing 02/18/24 lorazepam 0.5 mg tablet 0.5 mg PO DAILY PRN anxiety 05/24/24 albuterol sulfate 2.5 mg/3 mL (0.083 %) solution for nebulization 2.5 mg inhalation Q4H PRN shortness of breath or wheezing 08/10/24 fluticasone fur. 200 mcg-umeclid 62.5 mcg-vilant 25 mcg inhalat.powder (Trelegy Ellipta) 1 ea inhalation QDAY 08/10/24 buprenorphine 8 mg-naloxone 2 mg sublingual film 1 ea sublingual BID 09/27/24 docusate sodium 100 mg capsule (Stool Softener) 100 mg PO DAILY PRN constipation 09/27/24 mirtazapine 7.5 mg tablet 7.5 mg PO QHS 09/27/24 prednisone 20 mg tablet 20 mg PO BID #14 tabs 09/29/24 Hospital Course Operations None Procedures None Summary of Care Provided Minutes Spent on Discharge: 31 Hospital Course: This 69-year-old white male was seen in the emergency room at [facility] after he underwent a needle biopsy of the right lung lesion and afterwards chest x-ray revealed a pneumothorax which was small. Chest tube was inserted in the emergency room with good results, he was admitted to [place] [address] and seen in consultation by general surgery. Patient's chest tube was subsequently removed by general surgery and there was no recurrence of the pneumothorax. On 09/29/2024, patient was seen and examined: On examination he appeared cachectic and older than his stated age. Vital signs as documented. Skin warm and dry and without overt rashes. Neck without JVD, neck was supple, trachea midline, thyroid was normal. Lungs clear bilaterally, normal air movement was noted. Heart exam notable for regular rhythm, normal sounds and absence of murmurs, rubs or gallops. Abdomen unremarkable and without evidence of organomegaly, masses, or abdominal aortic enlargement. Bowel sounds are present, abdomen is not distended. Extremities nonedematous, no cyanosis was noted, no clubbing was noted. Neuro: Cranial nerves II through XII are grossly intact, no focal motor deficits were noted, sensation to light touch and pinprick intact, motor exam 5/5 throughout. Psych: Patient is alert and oriented x3, he does not appear anxious or depressed, he does not appear agitated. Patient was discharged home in stable condition on 09/29/2024. Medical Records Data Medical Nutrition Assessment Dietitian: Malnutrition Criteria Met Start: 09/28/24 16:26 Freq: Status: Active Protocol: Document 09/28/24 16:26 RMA (Rec: 09/28/24 16:26 RMA [id number]) Nutrition Malnutrition Evidence of Malnutrition Exists Yes Malnutrition (severe): Chronic Evidenced By Suboptimal Energy Intake ( Severe),Weight Loss (Severe), Physical Changes (Severe) Clinical Problem Chronic Disease or Condition Related Malnutrition Etiology severe protein-calorie malnutrition in the context of chronic disease related to inadequate oral/energy intake and increased energy expenditure Signs/Symptoms as evidenced by BMI 17.7, PO meeting less than 50% estimated nutrition needs x 6 months, ~13% unintentional weight loss x 6-12 months and muscle wasting and fat depletion in the face, orbitals, clavicle, arms and legs Status Active Problem Recommendation Dietitian Recommendations/Changes Will continue liberalized regular diet as ordered. Will d/c 120mL ensure plus HP w/ medpass and add 240mL vanilla ensure plus HP 3 times per day w/ meals. Additional ONS as needed to promote weight gain. Weight / BMI Weight Weight: 51.4 kg Body Mass Index (BMI) 17.7 Radiography Diagnostic Testing: Radiology Impression Chest X-Ray 09/28/24 14:45 IMPRESSION: Persistent small right apical pneumothorax. Electronically Signed: Ashok Espinoza MD at 17:39 EDT , Chest X-Ray 09/28/24 17:55 IMPRESSION: Stable small right-sided pneumothorax status post chest tube removal. Electronically Signed: Ashok Espinoza MD at 19:00 EDT , Chest X-Ray 09/29/24 06:49 IMPRESSION: Hyperinflation. No acute infiltrate is seen. Tiny residual right apical pneumothorax. Electronically Signed: Oliver Harry MD at 8:43 EDT , D/C Instructions Discharge Diet: No restrictions Weight Bearing Status: Full weight bearing Additional Activity Instructions: No high altitudes for 6 weeks from pneumothorax Pending Tests Upon Discharge: Please obtain a Chest x-ray on Friday to follow-up from pneumothorax Please Follow Up With: Mati Oliver Arthur, LENS GRINDER APPRENTICE-C When: 1 week Meaningful Use Info Meaningful Use Meaningful Use Diagnoses (Choose all that apply): None applicable Ischemic Stroke Statin Dosing Therapy Reference: STATIN DOSE THERAPY REFERENCE: * Patients > 75 years receive moderate or high dose statin therapy. * Patients 75 years or YOUNGER should receive HIGH intensity statin dose unless contraindicated. You will be required to document reason for non-treatment if statin daily dose does not meet guidelines. HIGH DOSE STATIN THERAPY DAILY Atorvastatin > than or = to 40 mg Rosuvastatin > than or = to 20 mg Amlodipine + Atorvastatin > than or = to 2.5/40 mg Ezetimibe + Simvastatin 10/80 mg Simvastatin 80mg Discharge Plan Admission Admit Date/Time: 09/27/24 14:49 Primary Reason for Your Visit: pneumothorax Attending Provider: Mati Lucio Primary Care Provider: Mati Oliver Consulting Providers: Suzy Covarrubias; Juan José Styles Instructions Additional Instructions / Restrictions: Leave right chest dressing in place for 2 days. After 2 days, you may remove the entire dressing. You will need a follow-up chest x-ray on Friday. An order has been placed, please come to the hospital for the imaging. No appointment needed. Discharge Orders/Prescriptions Prescriptions: New prednisone 20 mg tablet 20 mg PO BID Qty: 14 0RF Rx Instructions: 1 twice a day for 5 days, then 1/day until gone Continued (DME) disability placard Qty: 1 0RF Rx Instructions: As directed, Length of time: 5 years albuterol sulfate 90 mcg/actuation HFA aerosol inhaler 2 inh inhalation Q6H PRN (Reason: shortness of breath or wheezing) albuterol sulfate 2.5 mg /3 mL (0.083 %) solution for nebulization 2.5 mg inhalation Q4H PRN (Reason: shortness of breath or wheezing) Trelegy Ellipta 200-62.5-25 mcg blister with device 1 ea inhalation QDAY lorazepam 0.5 mg tablet 0.5 mg PO DAILY PRN (Reason: anxiety) docusate sodium [Stool Softener] 100 mg capsule 100 mg PO DAILY PRN (Reason: constipation) mirtazapine 7.5 mg tablet 7.5 mg PO QHS buprenorphine-naloxone 8-2 mg film 1 ea sublingual BID Patient Comments: pt states he took half of one early this morning Other Ambulatory Orders: Chest 1 View (Portable) (Routine) Timeframe: [id number] Facility: [facility] - Location: [facility] Ordered By: Latasha AG Referrals / Follow Up: Martha Neumann NP, LENS GRINDER APPRENTICE-C [Med Staff - Adv Practice Prof] - See Referral Note (as directed) Oliver,Mati VSC, LENS GRINDER APPRENTICE-C [Primary Care Provider] - Disposition Disposition (needs filled in before D/C Order can be placed): Home, Self Care Charges/Coding Visit Charges Inpatient E&M: 86098 Disch Hosp >30min
[2024-09-29] MEDS: buprenorphine HCL 8 MG TAB.SUBL SL (09:01)
[2024-09-29 09:44] VITALS: BP 124/77; PULSE 78; RESP 18; TEMP 37.1; O2SAT 92
[2024-09-29 10:55] VITALS: O2SAT 91; O2SAT 93
--- NOTE | 2024-09-29 11:14 | CASEMGMT ---
Addendum entered by Olivia Mitchell 09/29/24 12:43: Received email from Lashawn stating pt came to branch for conserving device and an order is needed. Hospitalist willing to sign for this. Order sent to [facility] via [employer] at this time. Original Note: Pt did not qualify for an increase of oxygen rx.
[2024-09-29 11:16] VITALS: BP 138/70; PULSE 70; RESP 18; TEMP 36.7; O2SAT 93
--- NOTE | 2024-09-29 15:00 | PHA.DC.MR.R ---
Pharmacy [place] Med Reconciliation Pharmacy Service has performed discharge medication reconciliation for this patient. Medication education papers prepared, patient discharged when counseling attempted. The patient's discharge medication list was reviewed for discrepancies and discrepancies were resolved. Medications at Discharge Home Medications disability placard #1 ea 02/04/20 albuterol sulfate 90 mcg/actuation aerosol inhaler 2 inh inhalation Q6H PRN shortness of breath or wheezing 02/18/24 lorazepam 0.5 mg tablet 0.5 mg PO DAILY PRN anxiety 05/24/24 albuterol sulfate 2.5 mg/3 mL (0.083 %) solution for nebulization 2.5 mg inhalation Q4H PRN shortness of breath or wheezing 08/10/24 fluticasone fur. 200 mcg-umeclid 62.5 mcg-vilant 25 mcg inhalat.powder (Trelegy Ellipta) 1 ea inhalation QDAY 08/10/24 buprenorphine 8 mg-naloxone 2 mg sublingual film 1 ea sublingual BID 09/27/24 docusate sodium 100 mg capsule (Stool Softener) 100 mg PO DAILY PRN constipation 09/27/24 mirtazapine 7.5 mg tablet 7.5 mg PO QHS 09/27/24 prednisone 20 mg tablet 20 mg PO BID #14 tabs 09/29/24
== END 2024-09-29 11:20 | disposition home or self-care (01) | DRG 199 ==
LOC: ED 13:52 → MS3 14:31
PROVIDERS: Emergency Provider Emergency Medicine; PCP Nurse Practitioner Family; Visit Provider Internal Medicine
DX: J95.811 Postprocedural pneumothorax (principal); E43 Unspecified severe protein-calorie malnutrition; J85.0 Gangrene and necrosis of lung; Z68.1 Body mass index [BMI] 19.9 or less, adult; J44.9 Chronic obstructive pulmonary disease, unspecified; J84.10 Pulmonary fibrosis, unspecified; F17.210 Nicotine dependence, cigarettes, uncomplicated; G89.4 Chronic pain syndrome
CPT/HCPCS: 32551; 36415; 71045; 71046; 77012; 85025; 85610; 85730; 88172; 88305; 88312; 88313; 94640; 94762; 97802; 99156; 99284; A4216; C2613; J2405

== ENCOUNTER → 2024-09-27 | Outpatient (CLI) | payer MEDICARE, MEDICAID, SELFPAY ==
[2024-09-27] VITALS (18 sets, daily range): BP systolic 101–133; BP diastolic 62–106; PULSE 73–87; RESP 14–20; TEMP 36.5; O2SAT 90–97; BMI 20.3
--- NOTE | 2024-09-27 | ASPIGT_PTH ---
PATHOLOGY RESULTS PATIENT: TOBY LEI LOC: SD U#:[id number] AGE/SX: 69/M ROOM: RE09/27/[address]: SCOTT Lee : 1955 BED: DIS: 09/27/2024 SPEC #: [id number] RECD: 09/27/24 10:24 STATUS: SEAN RETrini #: [id number] MAJO: 09/27/24 00:[address]: Martha Neumann NP DEPT: SURGICAL PATHOLOGY RECD BY: Torrey Feng ENTERED: 09/27/24 10:27 SP TYPE: ASP RAD OTHR DR: SCOTT Grullon Tissues: Right upper lobe of lung, NOS Procedures: FNA Specimen Adequacy Special Stain Group II Special Stain Group I Surgery Specimen Level IV AFB Stain (control) GMS Stain (control) Imprint (control) HEADER OPERATION: CT guided right lung biopsy PRE-OP DIAGNOSIS: Right upper lung lobe mass TISSUE SUBMITTED: 20 gauge x 6 cores MICROSCOPIC DIAGNOSIS Right upper lobe lung mass, CT guided core biopsy: Extensive fibrosis and necrosis. Focal necrotizing granuloma formation. Negative for malignancy. See comment. 09/28/2024 COMMENT The specimen is evaluated at the time of CT biopsy by Dr. Saleh. Immediate Evaluation = Negative for malignant cells. Dr. Harry was called at 10:05 with results. Special stains for acid fast bacilli and fungi are negative for organisms; matched controls are appropriate. Correlation with clinical, radiologic findings and appropriate follow up are necessary. MICROSCOPIC DESCRIPTION Slides are reviewed. GROSS DESCRIPTION Received in fixative is one container labeled with the patient's name and designated Right lung biopsy. The specimen consists of multiple irregular fragments of gutierrez soft tissue that in aggregate measure 0.7 x 0.1 x <0.1 cm. The specimen is totally submitted in one cassette. Two touch imprints are prepared at the time of core biopsy. 09/27/2024 TC:5 CPT:61106, [id number], [id number]
--- NOTE | 2024-09-27 08:23 | CT_ITS ---
PROCEDURE: CT GUIDED CORE NEEDLE BIOPSY OF A right upper lobe LUNG LESION INDICATION: Male, 69 years old. RUL lung nodule PET positive PHYSICIAN: Dr. Kamryn Knight CONSENT: Written informed consent was obtained having explained the risks, benefits and alternatives in detail with the patient who accepted the risks and agreed to proceed. Laboratory review and clinical assessment was performed. CONSCIOUS SEDATION PROTOCOL: The Drugs used were: Versed, 2 mg IV., and 50 mcg Fentanyl, IV. The sedation time was: 23 minutes. Conscious sedation was started on 9:39 AM and terminated at 10:02 AM. The conscious sedation protocol was independently monitored. RADIATION DOSAGE (If Supplied By Facility): CTDIvol = ( 14.5 ) mGy, DLP = ( 181.24 ) mGycm Individualized dose optimization techniques were used for this CT. TECHNIQUE: The patient was placed in the prone position. A noncontrast CT was performed to localize the lesion in the posterior right upper lobe . The skin surface was prepped and draped in a sterile fashion. 1% lidocaine was used for local anesthesia. Using CT guidance, a 20-gauge coaxial biopsy device was advanced to the periphery of the lesion. A total of 6 core specimens were obtained. The specimens were placed in a formalin solution. A post procedure CT demonstrated no adverse sequelae or pneumothorax. The patient tolerated the procedure well without adverse event. A negative biopsy does not exclude malignancy. Further imaging or clinical followup based on patient condition and degree of clinical suspicion for malignancy. Suggest rebiopsy, if biopsy results do not match with clinical scenario. CT/Biopsy/Inj or Needle Placement IMPRESSION: 1. CT directed core needle biopsy of the right upper lobe lung nodule using CT image guidance with image documentation as described. Pathology results are pending. 2. Conscious Sedation protocol utilized with independent monitoring. Electronically Signed: Oliver Harry MD at 10:29 EDT ,
[2024-09-27 08:44] LABS: Absolute Lymphocyte Count 2.71 X10^3/uL (0.83-4.51); Absolute Neutrophil Count 4.1 X10^3/uL (2.0-7.7); Basophil# 0.05 X10^3/uL; Basophil% 0.6 % (0-1); Eosinophil# 0.35 X10^3/uL; Eosinophils% 4.3 % (0-5); Hematocrit 47.6 % (40-54); Lymphocyte # 2.71 X10^3/ul (0.83-4.51); Lymphocyte % 33.7 % (19-41); Mean Corp Hgb Conc 33.6 g/dL (32-36); Mean Corpuscular Hgb 30.7 pg (27.0-32.0); Mean Corpuscular Volume 91.4 fL (80-94); Mean Platelet Vol. 9.4 fl (6.2-12.0); Monocyte# 0.87 X10^3/uL; Monocyte% 10.8 % (0-10); NRBC Flagged by Analyzer 0 % (0-5); Neutrophil # 4.05 X10^3/uL (2.7-7.7); Neutrophil % 50.4 % (47-70); Platelet Count 281 K/mm3 (150-450); RBC Distribution Width CV 12.6 % (11.6-14.6); RBC Distribution Width SD 42.5 fl (35.1-43.9); Red Blood Count 5.21 M/mm3 (4.6-6.2); White Blood Count 8.1 K/mm3 (4.4-11.0)
[2024-09-27 09:00] LABS: Prothrombin Time (Protime)PT. 13.4 SECONDS (11.7-14.9)
[2024-09-27] MEDS: fentaNYL 100 MCG/2 ML Ampul IV (09:39)
[2024-09-27] MEDS: Midazolam 2 MG/2 ML Syringe IV (09:40)
[2024-09-27] MEDS: Lidocaine 2% (20 ml mdv) 20 ML Vial INFILT (09:54)
--- NOTE | 2024-09-27 10:05 | RAD_ITS ---
STUDY: X-RAY CHEST REASON FOR EXAM: Male, 69 years old. Post lung biopsy -- Immediately post lung biopsy TECHNIQUE: AP inspiration and expiration views. COMPARISON: None. FINDINGS: The patient is status post right lung biopsy. There is evidence of a small right apical pneumothorax. The patient is asymptomatic. Multiple healed right rib fractures. Hyperinflation. RAD/Chest Insp/Exp 2 View IMPRESSION: Tiny right apical pneumothorax on the immediate post right lung biopsy radiographs. Electronically Signed: Oliver Harry MD at 10:17 EDT ,
--- NOTE | 2024-09-27 12:05 | RAD_ITS ---
STUDY: X-RAY CHEST REASON FOR EXAM: Male, 69 years old. Post lung biopsy -- 2 hours post lung biopsy TECHNIQUE: AP inspiration and expiration views were obtained. COMPARISON: Comparison is made with prior study done earlier today. FINDINGS: EKG electrodes are seen. Hyperinflation. There has been a slight increase in the size of the right pneumothorax. The patient is symptomatic at this time. The patient was referred to the emergency room for chest tube placement. RAD/Chest Insp/Exp 2 View IMPRESSION: Slight increase in size of the right-sided pneumothorax. The patient is symptomatic. The patient is referred to the emergency room for appropriate treatment. Electronically Signed: Oliver Harry MD at 13:31 EDT ,
[2024-09-27] MEDS: Albuterol 2.5 MG/3 ML VIAL.NEB. INHALATION (12:11)
--- NOTE | 2024-09-27 12:30 | NURSING ---
AFTER SECOND CHEST X-RAY, PATIENT WITH SMALL PNEUMOTHORAX. PATIENT COMPLAINS OF WORSENING SHORTNESS OF BREATH AFTER BREATHING TREATMENT. DR. PARISI WOULD LIKE PATIENT SEEN IN ER. REPORT GIVEN TO COCONUT COOKER AND PATIENT TAKEN TO ROOM 11.
== END | disposition home or self-care (01) ==
LOC: CT 08:23
PROVIDERS: Radiology Diagnostic Radiology; PCP Nurse Practitioner Family; Referring Provider Nurse Practitioner Acute Care; Visit Provider Nurse Practitioner Acute Care
DX: Z01.818 Encounter for other preprocedural examination (principal); J85.0 Gangrene and necrosis of lung; R91.8 Other nonspecific abnormal finding of lung field
CPT/HCPCS: 32408; 36415; 71046; 77012; 85025; 85610; 85730; 88172; 88305; 88312; 88313; 94640; 99156; A4216; C2613

== ENCOUNTER 2024-10-05 09:28 | Emergency (ER) | payer MEDICARE, MEDICAID, SELFPAY ==
[2024-10-05] VITALS (9 sets, daily range): BP systolic 118–142; BP diastolic 73–77; PULSE 80–98; RESP 19–31; TEMP 36.4–36.8; O2SAT 92–100; BMI 19.1
--- NOTE | 2024-10-05 09:49 | EKG12_ITS ---
Test Reason : Blood Pressure : */* mmHG Vent. Rate : 89 BPM Atrial Rate : 89 BPM P-R Int : 120 ms QRS Dur : 74 ms QT Int : 356 ms P-R-T Axes : 85 86 67 degrees QTcB Int : 433 ms Normal sinus rhythm with sinus arrhythmia Normal ECG Confirmed by Calderon Ramirez ([id number]), scientific publications editor LUCY CUEVA ([id number]) on 10/06/2024 11:40:46 AM Referred By: Confirmed By: Calderon Ramirez
--- NOTE | 2024-10-05 09:56 | ED.VIS.DYS ---
HPI History of Present Illness Chief Complaint: Shortness of Breath Informant: patient Onset/Context/Timing Onset: Today Context: gradual Timing: Continuous Quality: Positive for Wheezing Current Severity: Moderate Maximum Severity: Moderate Worsened by: Exertion and Coughing Relieved by: Oxygen Associated Symptoms cough; Negative for fever or sore throat Chest Pain: Positive for None Narrative Narrative: 69-year-old male history of COPD on oxygen at home occasionally. Patient still smokes. Reportedly had a pneumothorax that was caused after procedure possibly a lung biopsy 1 to 2 weeks ago. Had a chest tube and it was removed 1 to 2 days later. Said he woke up this morning short of breath and wheezing. Cough. No hemoptysis. No chest pain. No fever. No leg pain or swelling. PE Risk Factors: Negative for Cancer, OCP + Smoking + > 35, Prior DVT or PE, Recent surgery or Recent travel Prior similar symptoms: Yes Recent Illness/Hospitalization: Yes [facility] Medical History Anxiety Smoker On home oxygen therapy Asthma Pulmonary nodules Tobacco use Opiate abuse, continuous Alcohol abuse Anxiety and depression Weight loss Osteoporosis Rheumatoid arthritis Sleep apnea Emphysema of lung Chronic pain Arthritis Hypertension Degenerative disc disease, lumbar Home Medications ?Medication ?Instructions ?Recorded ?Last Taken ?Type disability placard #1 ea 02/04/20 Unknown Rx albuterol sulfate 90 mcg/actuation 2 inh inhalation Q6H PRN shortness 02/18/24 Unknown History aerosol inhaler of breath or wheezing lorazepam 0.5 mg tablet 0.5 mg PO DAILY PRN anxiety 05/24/24 09/26/24 History albuterol sulfate 2.5 mg/3 mL 2.5 mg inhalation Q4H PRN 08/10/24 09/27/24 History (0.083 %) solution for nebulization shortness of breath or wheezing fluticasone fur. 200 mcg-umeclid 1 ea inhalation QDAY 08/10/24 09/27/24 History 62.5 mcg-vilant 25 mcg inhalat.powder (Trelegy Ellipta) buprenorphine 8 mg-naloxone 2 mg 1 ea sublingual BID 09/27/24 09/27/24 History sublingual film docusate sodium 100 mg capsule 100 mg PO DAILY PRN constipation 09/27/24 Unknown History (Stool Softener) mirtazapine 7.5 mg tablet 7.5 mg PO QHS 09/27/24 09/26/24 History prednisone 20 mg tablet 20 mg PO BID #14 tabs 09/29/24 Unknown Rx Allergy/AdvReac Type Severity Reaction Status Date / Time doxycycline AdvReac Unknown Unknown Verified 10/05/24 09:30 Family History Mother Cancer Father Cancer Surgical History H/O hernia repair Social History household members: children and other details: grandchildren housing: house current occupational status: retired current occupation: [employer] pets and animals: Yes pets and animals: cat(s) and dog(s) Smoking Status: Current every day smoker tobacco type: cigarettes second hand exposure: Yes alcohol intake: current alcohol intake frequency: 3 or more drinks per day Alcohol type: beer details: At least 6-8 beers daily. substance use type: opiates and other details: Uses vicodin, percocet, suboxone. No IVDA. what type of physical activity do you participate in: none ROS ROS ED ROS Narrative Cough. Shortness of breath. Wheezing. Constitutional Constitutional ED: Denies chills or fever(s) Eyes Eyes: Denies blurry vision ENT ENT ED: Denies ear pain Cardiovascular Cardiovascular: Denies chest pain Respiratory/Chest Respiratory/Chest: Reports cough, dyspnea and sputum Gastrointestinal Gastrointestinal: Denies abdominal pain, diarrhea, nausea or vomiting Genitourinary Genitourinary ED: Denies dysuria or hematuria Musculoskeletal Musculoskeletal: Denies arthralgias Integumentary Denies abscess Neurologic Neurologic: Denies headache(s) Psychiatric Psychiatric: Denies anxiety Endocrine Endocrinology: Denies cold intolerance Hematologic/Lymphatic Hematologic/Lymphatic: Denies easy bleeding or easy bruising Allergic/Immunologic Allergic/Immunologic ED: Denies mouth swelling or tongue swelling EXAM Physical Exam Narrative Exam Narrative: 69-year-old male sitting upright in bed. Vital signs are stable. He is 100% on nonrebreather. Heart rates in the 90s. He does not look septic or toxic. H EENT exam unremarkable. Mytrex membranes. Neck nontender no JVD. Lungs prolonged expiratory phase. Expiratory wheezing. No rales or rhonchi. Equal symmetrical. Barrel chested. Heart regular rhythm rate about 90 no murmur. Chest wall ribs nontender. No crepitance. Abdomen soft nontender. Moving all 4 extremities. Nontender no edema. No cords. Back nontender. Neurologically he is awake alert no focal motor deficits. Answer questions following commands. Const Vital Signs: 10/05/24 09:30 10/05/24 09:41 10/05/24 09:45 Temperature 98.2 F 98.2 F Temperature Source Oral Oral Pulse Rate 95 91 80 Respiratory Rate 31 H 20 H 24 H Respiratory Effort Blood Pressure 125/76 H Blood Pressure Mean 92 Pulse Ox 100 99 Oxygen Delivery Method Non-Rebreather Nasal Cannula Oxygen Flow Rate (L/min) 15 5 10/05/24 10:06 10/05/24 10:06 10/05/24 10:18 Temperature Temperature Source Pulse Rate 84 Respiratory Rate 24 H Respiratory Effort Blood Pressure Blood Pressure Mean Pulse Ox 99 97 Oxygen Delivery Method Nasal Cannula Nasal Cannula Oxygen Flow Rate (L/min) 2 1 10/05/24 10:26 10/05/24 10:26 10/05/24 10:55 Temperature 98.3 F Temperature Source Oral Pulse Rate 86 91 Respiratory Rate 19 H 20 H Respiratory Effort Short of Breath Blood Pressure 124/73 H 142/75 H Blood Pressure Mean 90 97 Pulse Ox 94 95 Oxygen Delivery Method Nasal Cannula Room Air Oxygen Flow Rate (L/min) 1 10/05/24 12:00 Temperature 98.1 F Temperature Source Oral Pulse Rate 98 Respiratory Rate 19 H Respiratory Effort Blood Pressure 138/77 H Blood Pressure Mean 97 Pulse Ox 92 Oxygen Delivery Method Room Air Oxygen Flow Rate (L/min) Positive well nourished and well developed; Negative for obese, cachectic, contractures or unkempt General Appearance ED: well developed; Negative for unkempt, cachectic, contractures, NAD or pallor Nutritional Appearance: Negative for cachectic or obese HEENT Reports moist mucous membranes atraumatic; Negative for trauma or tenderness Eyes PERRL and EOMs intact bilaterally General Eye ED: Negative for pale conjunctiva or scleral icterus Neck no lymphadenopathy, supple, no meningeal signs and no JVD General: Negative for tenderness Lymph Lymphatic: Negative for other Resp No normal respiratory effort and No clear to auscultation bilaterally Resp Narrative: Prolonged expiratory phase. Expiratory wheezing bilaterally. Equal symmetrical. Auscultation: wheezes; Negative for rales or rhonchi Cardio regular rate, regular rhythm, S1 normal heart sound, S2 normal heart sound and no murmurs Rate: Negative for bradycardia or tachycardic Rhythm: Negative for abnormal rhythm GI non-tender, non-distended and no masses Inspection: Negative for other Auscultation: normoactive bowel sounds Palpation: soft; Negative for tender, guarding or rebound tenderness present Back/Spine no CVA tenderness and normal to inspection General Back: Negative for CVA tenderness Extremity normal to inspection General Extremety ED: Negative for edema or tenderness General Extremity: Negative for edema Neuro oriented x3 and CN's II-XII intact bilaterally Sensorium / Orientation: alert, oriented to person, oriented to place and oriented to time; Negative for orientation impaired, confused, lethargic or stuporous Speech: speech normal Motor Exam: strength 5/5 throughout Psych mental status grossly normal Appearance: Negative for unkempt Attitude: No agitated Mood & Affect: anxious; Negative for depressed or tearful Thought Process: normal thought process Skin no wounds and skin turgor normal General Skin Exam: Negative for jaundice or pallor Lesions: no lesions Rashes: no rashes MDM MDM MDM Narrative Medical decision making narrative: 69-year-old male short of breath suspect exacerbation COPD rule out pneumonia rule out pneumothorax. Cardiac workup and chest x-ray. Treated with DuoNeb and albuterol aerosols. IV Solu-Medrol and reassess. Repeat exam patient doing well at 12:44 PM. He and I went over his test results. His blood work looks good as is his chest x-ray. He is clinically doing much better after the IV Solu-Medrol and aerosols. He wants to be discharged to home. He will be treated as a COPD flare and placed on a prescription for prednisone. History & Record Review Discussion w/independent historian: Patient Additional record(s) reviewed:: Prior inpatient record, Prior outpatient record and Prior ED visit Lab Data Attestation: I reviewed the patient's lab results. Lab results narrative: CBC normal white count of 7. H&H 14 and 42. Platelets 260. Chemistries unremarkable gap 5. Normal BUN and creatinine. Glucose 84. Troponin 6. Labs: Laboratory Results - last 24 hr 10/05/24 09:35 WBC 7.0 RBC 4.58 L Hgb 14.1 Hct 42.1 MCV 91.9 MCH 30.8 MCHC 33.5 RDW Std Deviation 43.0 RDW Coeff of Dilshad 12.9 Plt Count 260 MPV 10.0 Immature Gran % (Auto) 0.400 Neut % (Auto) 46.9 L Lymph % (Auto) 41.9 H Coal % (Auto) 9.9 Eos % (Auto) 0.6 Baso % (Auto) 0.3 Absolute Neuts (auto) 3.3 Absolute Lymphs (auto) 2.91 Nucleated RBC % 0 Sodium 142 Potassium 4.0 Chloride 107 Carbon Dioxide 30.0 Anion Gap 5 BUN 12 Creatinine 0.68 L Estim Creat Clear Calc 67.08 Est GFR (MDRD) Af Amer 148 Est GFR (MDRD) Non-Af 122 BUN/Creatinine Ratio 17.6 Glucose 84 Calcium 8.9 Troponin I High Sens 6 Radiography Chest X-Ray - ED: 2 View, Read by ED Physician, Read by Radiologist, Heart, Lungs, Mediastinum, Bony Structures, No Acute Disease, Chronic Changes and No Infiltrates Diagnostic Testing: Clinical Impression(s) from Imaging Studies Chest X-Ray 10/05/24 10:25 IMPRESSION: Hyperinflation. No acute abnormality is seen. Multiple healed right rib fractures. Electronically Signed: Oliver Harry MD at 10:59 EST Reading Location ID and State: [address] [place] [address] , Service support , Chest x-ray, 2 views, AP and lateral, interpreted by by myself and radiologist shows no acute abnormality. Normal cardiac silhouette. Normal lung bess. Chronic changes. Old right rib fractures healed. Rhythm Strip Rhythm Strip: Sinus Rhythm Rate: 89 Ectopy: None EKG Initial EKG: Attestation: I personally reviewed and interpreted this EKG as follows: Interpretation: Sinus Rhythm and No Acute Injury Pattern Comments: Sinus rhythm rate 89 no acute signs of OK or ischemia. Discharge Plan Triage Chief Complaint: Shortness of Breath ED Provider: Chris Giles Dx/Rx/DC Orders Prescriptions: No Action (DME) disability placchristina Qty: 1 0RF Rx Instructions: As directed, Length of time: 5 years albuterol sulfate 90 mcg/actuation HFA aerosol inhaler 2 inh inhalation Q6H PRN (Reason: shortness of breath or wheezing) albuterol sulfate 2.5 mg /3 mL (0.083 %) solution for nebulization 2.5 mg inhalation Q4H PRN (Reason: shortness of breath or wheezing) Trelegy Ellipta 200-62.5-25 mcg blister with device 1 ea inhalation QDAY lorazepam 0.5 mg tablet 0.5 mg PO DAILY PRN (Reason: anxiety) docusate sodium [Stool Softener] 100 mg capsule 100 mg PO DAILY PRN (Reason: constipation) mirtazapine 7.5 mg tablet 7.5 mg PO QHS buprenorphine-naloxone 8-2 mg film 1 ea sublingual BID Patient Comments: pt states he took half of one early this morning prednisone 20 mg tablet 20 mg PO BID Qty: 14 0RF Rx Instructions: 1 twice a day for 5 days, then 1/day until gone Primary Care Provider: Mati Oliver Referrals: Mati Oliver, HEALTHCARE LIAISON-C [Primary Care Provider] - Print Language: Tamazight
[2024-10-05] MEDS: Albuterol 2.5 MG/3 ML VIAL.NEB. INHALATION ×2 (10:03)
[2024-10-05] MEDS: Ipratropium/Albuterol Sulfate 3 ML AMPUL.NEB INHALATION (10:03)
[2024-10-05] MEDS: MethylPREDNISolone 125 MG/2 ML Vial IV (10:06)
--- NOTE | 2024-10-05 10:19 | CPS ---
RT decreased pt to 1L NC at this time. Pt states he does not wear O2 at home normally.
[2024-10-05 10:24] LABS: Absolute Lymphocyte Count 2.91 X10^3/uL (0.83-4.51); Absolute Neutrophil Count 3.3 X10^3/uL (2.0-7.7); Basophil# 0.02 X10^3/uL; Basophil% 0.3 % (0-1); Eosinophil# 0.04 X10^3/uL; Eosinophils% 0.6 % (0-5); Hematocrit 42.1 % (40-54); Hemoglobin 14.1 g/dL (13.0-16.5); Lymphocyte # 2.91 X10^3/ul (0.83-4.51); Lymphocyte % 41.9 % (19-41); Mean Corp Hgb Conc 33.5 g/dL (32-36); Mean Corpuscular Hgb 30.8 pg (27.0-32.0); Mean Corpuscular Volume 91.9 fL (80-94); Monocyte# 0.69 X10^3/uL; Monocyte% 9.9 % (0-10); NRBC Flagged by Analyzer 0 % (0-5); Neutrophil # 3.26 X10^3/uL (2.7-7.7); Neutrophil % 46.9 % (47-70); Platelet Count 260 K/mm3 (150-450); RBC Distribution Width CV 12.9 % (11.6-14.6); Red Blood Count 4.58 M/mm3 (4.6-6.2)
--- NOTE | 2024-10-05 10:25 | RAD_ITS ---
STUDY: X-RAY CHEST REASON FOR EXAM: Male, 69 years old. Chest pain TECHNIQUE: Single AP portable view of the chest. COMPARISON: Comparison is made with prior study dated September 29, 2024. FINDINGS: EKG electrodes are seen. There is hyperinflation of the lungs consistent with chronic obstructive lung disease (COPD). There is no demonstrated pleural abnormality. Normal size heart. Calcified left hilar lymph nodes. Normal visualized pulmonary arteries. Normal visualized aortic arch and descending thoracic aorta. Normal visualized thoracic spine. Multiple healed right rib fractures. There is no demonstrated abnormality of the visualized soft tissue structures of the upper abdomen. RAD/Chest 1 View (Portable) IMPRESSION: Hyperinflation. No acute abnormality is seen. Multiple healed right rib fractures. Electronically Signed: Oliver Harry MD at 10:59 EST ,
[2024-10-05 10:55] LABS: Anion Gap 5 (5-15); BUN 12 mg/dL (7-18); BUN/Creat Ratio 17.6 RATIO (10-20); Calcium,Total 8.9 mg/dL (8.5-10.1); Chloride 107 mmol/L (98-107); Creatinine, Serum 0.68 mg/dL (0.70-1.30); EST Glomerular Filtration Rate 122 mL/min (>60); Est Glom Filt Rate - Afr Amer 148 mL/min (>60); Estimated Creatinine Clearance 67.08 ml/min; Glucose 84 mg/dL (74-106); Sodium Level 142 mmol/L (136-145); Troponin-I HS 6 pg/mL (3.0-78.0)
== END 2024-10-05 12:57 | disposition home or self-care (01) ==
PROVIDERS: Emergency Provider Emergency Medicine; PCP Nurse Practitioner Family; Visit Provider Emergency Medicine
DX: J44.1 Chronic obstructive pulmonary disease with (acute) exacerbation (principal); F17.210 Nicotine dependence, cigarettes, uncomplicated; Z79.51 Long term (current) use of inhaled steroids
CPT/HCPCS: 71045; 80048; 84484; 85025; 93005; 94640; 96374; 99285; A4216

== ENCOUNTER → 2025-03-15 | Outpatient (CLI) | payer MEDICARE, MEDICAID, SELFPAY ==
--- NOTE | 2025-03-15 13:10 | PR.HP_ITS ---
History of Present Illness General Arrival date:: 03/15/25 Arrival time:: 13:10 Date of Referral:: 02/21/25 Date of Evaluation: 03/15/25 Referring Physician: Dr. Randhawa Primary Diagnosis: centrilobular emphysema History of Present Pulmonary Event [facility] Breathless Scale: When is the patient short of breath? Y/N Grade: Description of Breathlessness: 0 I only get breathless with strenuous exercise. 1 I get short of breath when hurrying on level ground or walking up a slight hill. 2 On level ground, I walk slower than people of the same age because of breathless, or have to stop for breath when walking at my own pace. 3 I stop for breath after walking 100 yards or after a few minutes on level ground. 4 I am too breathless to leave the house or I am breathless when dressing. Respiratory Problems: Yes Retain Secretions, Fatigue, Wheezing, Able to Speak in Full Sentences, Dizziness, Hoarseness, Anxiety, Panic, Dyspnea with Activity and Cough with Secretions; No Limited Range of Motion, Chest Pain, Ankle Swelling, Dyspnea at Rest or Dyspnea Lying Down Flat Medications Home Medications disability placard #1 ea 02/04/20 albuterol sulfate 90 mcg/actuation aerosol inhaler 2 inh inhalation Q6H PRN shortness of breath or wheezing 02/18/24 lorazepam 0.5 mg tablet 0.5 mg PO DAILY PRN anxiety 05/24/24 albuterol sulfate 2.5 mg/3 mL (0.083 %) solution for nebulization 2.5 mg inhalation Q4H PRN shortness of breath or wheezing 08/10/24 fluticasone fur. 200 mcg-umeclid 62.5 mcg-vilant 25 mcg inhalat.powder (Trelegy Ellipta) 1 ea inhalation QDAY 08/10/24 buprenorphine 8 mg-naloxone 2 mg sublingual film 1 ea sublingual BID 09/27/24 docusate sodium 100 mg capsule (Stool Softener) 100 mg PO DAILY PRN constipation 09/27/24 mirtazapine 7.5 mg tablet 7.5 mg PO QHS 09/27/24 prednisone 20 mg tablet 20 mg PO BID #14 tabs 09/29/24 prednisone 10 mg tablet 10 mg PO QDAY #30 tabs 10/05/24 Allergies Allergies doxycycline Adverse Reaction (Unknown, Verified 10/05/24 14:14) Unknown Secretions Thick:: Yes Amount/Day:: 2 TBSP AM: Yes Sleep Disorder Evaluation Hx of Sleep Apnea: No Do you snore loudly (louder than talking or can be heard through closed doors)?: No Do you often feel tired/ fatigued/ sleepy during daytime?: No Has anyone observed you stop breathing during sleep?: No History of Hypertension (for STOP score): Yes STOP Results: Negative Medical Utilization Medical Devices Do you use a peak flow meter at home?: No Do you use a spacer device with your inhalers?: No Medical Utilization Number of hospital visits in the last year?: 2 Number of emergency room visits in the last year?: 2 Do you see your physician on a regular schedule?: No Advanced Directives Advanced Directives Do you have a Healthcare Power of Batch Blender?: No Living Will: No Advance Directives Information Provided: No Advance Directives on File: No DNR Order?:: No Past Medical History Covid-19 Screening Physicial Symptoms Other Clinical Concerns Exposure Risk Pertinent Comorbidities 65 years or older:: Yes Has a chronic lung disease or moderate to severe asthma:: Yes Medical History Medical History Anxiety Smoker On home oxygen therapy Asthma Pulmonary nodules Tobacco use Opiate abuse, continuous Alcohol abuse Anxiety and depression Weight loss Osteoporosis Rheumatoid arthritis Sleep apnea Emphysema of lung Chronic pain Arthritis Hypertension Degenerative disc disease, lumbar Surgical History Surgical History H/O hernia repair Significant Family History Family History Mother Cancer Father Cancer Social History Smoking History Smoking Status: Current every day smoker Years Smokin Packs Smoked per Day: 2 Hx Tobacco Use: Yes Alcohol Use Alcohol Usage: Yes Substance Abuse Hx Substance Use: Yes Occupation Occupation (List type of work in comments):: Retired Functioning ADL/IADL Current Ability Current Ability: Independent: Self-Care (e.g.,grooming, dressing, & bathing), Independent: Ambulation, Independent: Transfer and Independent: Household tasks (e.g., light meal prep, laundry, shopping) Pt Functioning Prior to Problem Prior Functioning: Self-Care (e.g.,grooming, dressing, & bathing): Independent, Ambulation: Independent, Transfer: Independent and Household tasks (e.g., light meal prep, laundry, shopping): Independent Social Environment Status Marital Status: Current Living Arrangements Living Environment:: Alone Children How many children do you have?: 2 Do any of your children live nearby?: Yes Safety Do you feel safe in your surroundings?: Yes Assistance Do you need any assistance at home?: no Review of Systems Review of Systems Review of Systems Respiratory: Reports Cough, SOB upon Exertion, Sputum production, Wheezing, Dizziness/Lightheadedness and Fatigue; Denies Hemoptysis, Pleuritic Pain, SOB at Rest, Appetite, Normal, PVD, Sexual changes or Sleep, Normal Pain Is Patient Pain Free?: No Pain Location: other (everywhere) Pain Level: 5/10 Risk Factor Assessment Chief Complaint Chief Complaint: centrilobular emphysema Vital Signs Pulse Rate: 77 Pulse Rhythm: Regular Pulse Ox: 96 Blood Pressure: 111/65 Obesity Height: 5 ft 7 in Weight:: 117 lb Weight in Pounds: 117.0 lbs Body Mass Index (BMI): 18.3 Nutritional Referral for Obesity: No Physical Activity Physical Inactivity: None Risk Stratification Risk Guidelines: Lowest Risk: Risk Factor for Obesity, Moderate Risk: Risk Factor for Dyslipidemia, Risk Factor for Diabetes and Risk Factor for Sedentary Lifestyle and Highest Risk: Risk Factor for Smoking, Risk Factor for Hypertension and Risk Factor for Depression For Smoking Smoking Risk Guidelines For Dyslipidemia Dyslipidemia Risk Guidelines For Diabetes Mellitus Diabetes Risk Guidelines For Obesity/Overweight Obesity/Overweight Risk Guidelines For Hypertension Hypertension Risk Guidelines For Sedentary Lifestyle Sedentary Lifestyle Risk Guidelines For Depression Depression Risk Guidelines Motivation Motivation to Participate On a scale of 1 to 10, how prepared are you to commit to attending program?: 8 What do you see as barriers to successfully being able to complete the program?: nothing What do you see as the benefits of succesfully completing the program? In other words, what do you hope to get out of participating in the program?: breath easier, more energy Are there issues you are dealing with that will interfere with completing the program?: no yes Diagnostic Data Review Pulmonary Function Test FEV1:: 40 FVC:: 93 FEV1/FVC%:: 42
[2025-03-15 13:18] VITALS: BP 111/65; PULSE 77; O2SAT 96
--- NOTE | 2025-03-15 13:18 | PR.ITP_ITS ---
General Information2 General Information Admitting Diagnosis: centrilobular emphysema PFT FEV1:: 40 FVC:: 93 FEV1/FVC%:: 42 Personal Learning Style/Barriers Personal Learning Style:: Audio/Visual Barriers to Learning: None Education/Goals MO Patient Goals: Quit Smoking: Initial Assessment, Increase muscle strength: Initial Assessment, Experience less dyspnea: Initial Assessment, Improve energy level: Initial Assessment, Improve the ability to cope with ADLs: Initial Assessment, Improve knowledge of lung disease: Initial Assessment, Understand how to use medications: Initial Assessment, Increase knowledge of oxygen use: Initial Assessment, Control panic/anxiety: Initial Assessment, Improve diet and nutrition: Initial Assessment, Improve my quality of life: Initial Assessment and Reduce Stress/relaxation techniques: Initial Assessment Exercise - Initial Assessment Visit Date of Eval: 03/15/25 (initial eval ) Problem/Goals Problems: Deconditioning, No regular exercise, Knowledge deficit exercise guidelines and Knowledge deficit exercise safety Goals:: Aerobic exercise 30-60 mins x 12 weeks [36 sessions] Functional Capacity Test Number of feet walked: 954 Lowest SPO2 %: 93 Physician Prescribed Exercise Modalities: Treadmill, Rower, Schwinn Airdyne AD-7, [email or web address] Stepper, Fonemesh Pro- II Ergometer and Fonemesh Lateral Religious Ritual Slaughterer Frequency (days/week): 3 Duration (Minutes):: 30-45 Intensity: 60-80% of age predicted maximum heart rate reserve Current METSs:: 2 Target HR:: 113 (90-113) Resting Blood Pressure: 111/65 Minimum SpO2 with exercise: 96 EKG Type: NSR with sinus arrhythmia Plan Plan and Plan to Review:: Benefits of exercise, Core components of exercise, How to measure dyspnea level, How to monitor dyspnea level, Exercise intensity, Exercise safety guideline, Home exercise guidelines and Jeff: 3-4/11-13 Nutrition/Wt Mgmt - Initial Visit Date of Eval: 03/15/25 (initial eval ) Problems/Goals Problems: Underweight Goals: Prevent further wt loss Weight Management Knowledge Deficit Management of:: Underweight Admit Height:: 5 ft 7 in Admit Weight:: 117 lb Admit BMI:: 18.3 Intervention Referral to dietitian:: No Will attend diet classes:: Yes Intervention/Plan: Instruct on ideal BMI & set weight loss goal w/patient, Assist pt to ID & incorporate diet changes for weight loss by S9, Refer to Structured Weight Loss program as appropriate, Encourage goal of using 250- 300dcal per session for weight loss and Other additional plan/interventions Plan Nutrition Plan: Yes: Review BMI or WC & identify target wt & strategies for wt control, Yes: Nutrition education class:, Yes: Medication education class [Prednisone]:, Yes: Weight control education class:, Yes: Education re: Need for ongoing weight monitoring, Yes: Food diary: and Yes: Physical activity log: Nutrition/Wt Mgmt - 30-Day Weight Management Height: 5 ft 7 in Weight:: 117 lb BMI: 18.3 Nutrition/Wt Mgmt - 60-Day Weight Management Height: 5 ft 7 in Weight:: 117 lb BMI: 18.3 Nutrition/Wt Mgmt - 90-Day Weight Management Height: 5 ft 7 in Weight:: 117 lb BMI: 18.3 Nutrition/Wt Mgmt - Final Weight Management Height: 5 ft 7 in Weight:: 117 lb BMI: 18.3 Psychosocial - Initial Assess Visit Date of Eval: 03/15/25 (initial eval ) Problems/Goals History of Emotional Disorders: Anxious and Depression Psychosocial Goals: 1. Patient is free from overwhelming symtoms of depression (or anxiety, 2. Identifies personal stressors & states the strategies for managing, 3. Identifies activities to decrease isolation and/or symptoms of, 4. Improved psychosocial coping skills., 5. Verbalizes coping strategies., 6. Adequate treatment of depression. and 7. Improved Q.O.L. Self-reported stressors: Recent Illness Psychosocial Test Tool Used:: Pulmonary QOL and PHQ-9 Questionnaire Referred to MD for counseling:: No Referral to Behavioral Health PS - Interventions: Yes: Attend Stress Management Classes Intervention/Plan: See List Interventions/Plan:: Assess stressors,coping strategies & signs of derpression on admission, Instruct/assist pt to develop coping & personal stress Mgt strategies, Refer to Behavioral Health if appropriate, Refer to Physician if appropriate, Instruct patient to recognize signs & symptoms of depression and Instruct patient to recog Psychosocial - 30-Day Problems/Goals History of Emotional Disorders: Anxious and Depression Psychosocial Goals: 1. Patient is free from overwhelming symtoms of depression (or anxiety, 2. Identifies personal stressors & states the strategies for managing, 3. Identifies activities to decrease isolation and/or symptoms of, 4. Improved psychosocial coping skills., 5. Verbalizes coping strategies., 6. Adequate treatment of depression. and 7. Improved Q.O.L. Self-reported stressors: Recent Illness Psychosocial Test Tool Used:: Pulmonary QOL and PHQ-9 Questionnaire Referred to MD for counseling:: No Referral to Behavioral Health PS - Interventions: Yes: Attend Stress Management Classes Plan Interventions/Plan:: Assess stressors,coping strategies & signs of derpression on admission, Instruct/assist pt to develop coping & personal stress Mgt strategies, Refer to Behavioral Health if appropriate, Refer to Physician if appropriate, Instruct patient to recognize signs & symptoms of depression and Instruct patient to recog Psychosocial - 60-Day Problems/Goals History of Emotional Disorders: Anxious and Depression Psychosocial Goals: 1. Patient is free from overwhelming symtoms of depression (or anxiety, 2. Identifies personal stressors & states the strategies for managing, 3. Identifies activities to decrease isolation and/or symptoms of, 4. Improved psychosocial coping skills., 5. Verbalizes coping strategies., 6. Adequate treatment of depression. and 7. Improved Q.O.L. Self-reported stressors: Recent Illness Psychosocial Test Tool Used:: Pulmonary QOL and PHQ-9 Questionnaire Referred to MD for counseling:: No Referral to Behavioral Health PS - Interventions: Yes: Attend Stress Management Classes Plan Interventions/Plan:: Assess stressors,coping strategies & signs of derpression on admission, Instruct/assist pt to develop coping & personal stress Mgt strategies, Refer to Behavioral Health if appropriate, Refer to Physician if appropriate, Instruct patient to recognize signs & symptoms of depression and Instruct patient to recog Psychosocial - 90-Day Problems/Goals History of Emotional Disorders: Anxious and Depression Psychosocial Goals: 1. Patient is free from overwhelming symtoms of depression (or anxiety, 2. Identifies personal stressors & states the strategies for managing, 3. Identifies activities to decrease isolation and/or symptoms of, 4. Improved psychosocial coping skills., 5. Verbalizes coping strategies., 6. Adequate treatment of depression. and 7. Improved Q.O.L. Self-reported stressors: Recent Illness Psychosocial Test Tool Used:: Pulmonary QOL and PHQ-9 Questionnaire Referred to MD for counseling:: No Referral to Behavioral Health PS - Interventions: Yes: Attend Stress Management Classes Plan Interventions/Plan:: Assess stressors,coping strategies & signs of derpression on admission, Instruct/assist pt to develop coping & personal stress Mgt strategies, Refer to Behavioral Health if appropriate, Refer to Physician if appropriate, Instruct patient to recognize signs & symptoms of depression and Instruct patient to recog Psychosocial - Final Assess Problems/Goals History of Emotional Disorders: Anxious and Depression Psychosocial Goals: 1. Patient is free from overwhelming symtoms of depression (or anxiety, 2. Identifies personal stressors & states the strategies for managing, 3. Identifies activities to decrease isolation and/or symptoms of, 4. Improved psychosocial coping skills., 5. Verbalizes coping strategies., 6. Adequate treatment of depression. and 7. Improved Q.O.L. Self-reported stressors: Recent Illness Psychosocial Test Tool Used:: Pulmonary QOL and PHQ-9 Questionnaire Referred to MD for counseling:: No Referral to Behavioral Health PS - Interventions: Yes: Attend Stress Management Classes Plan Interventions/Plan:: Assess stressors,coping strategies & signs of derpression on admission, Instruct/assist pt to develop coping & personal stress Mgt strategies, Refer to Behavioral Health if appropriate, Refer to Physician if appropriate, Instruct patient to recognize signs & symptoms of depression and Instruct patient to recog Oxygen & Oxygen Titration Init Visit Date of Eval: 03/15/25 (initial eval ) Initial Assessment Oxygen on Admission: Oxygen w/activity (3L with activity) SpO2:: 96 Goal Oxygen & Oxygen Tritration Goals: Effective hypoxemia control and Uses O2 as Rx'd/safely Plans Plan: Monitor SpO2 rest & with exercise, Recommend appropriate FiO2 to Pt/MD, Assist to contact DME for O2, Train appropriate O2 use at rest, Train appropriate O2 use with exercise and Train O2 safety & systems Reviewed prescribed medications:: Purpose, Schedule, Side effects and Importance of compliance Instruct correct technique/timing & care:: MDI, DPI, Nebulizer and Return demo use of inhaler Bronchial Hygiene Plan: Controlled cough, CPT, Vibratory PEP device, VEST, Role of exercise in secretion clearance, NS Nasal spray, Hydration, Hand hygiene, Evaluate sputum, When to call MD, Signs/symptoms to report:, Influenza/Pneumovax vaccines and Cleaning of respiratory equipment Oxygen & Oxygen Titration 30D Reassessment SpO2:: 96 Oxygen & Oxygen Titration 60D Reassessment SpO2:: 96 Oxygen & Oxygen Titration 90D Reassessment SpO2:: 96 Oxygen & Oxygen Titration JEOVANNY Reassessment SpO2:: 96 Core Components - Initial Visit Date of Eval: 03/15/25 (initial eval ) Hypertension Hypertension Diagnosis:: Hypertension ICD-10 I10 BP: 111/65 Citizen Of [place] [employer] Hypertension Guidelines Outcomes/Goals: Able to verbalize/achieve optimal blood pressure <130/80 and Incorporates diet changes & exercise for blood pressure control by DC Tobacco - Initial Assessment Tobacco Program Goals Stages of Change:: Contemplate Learning Barriers: Ready to Learn Do you have family support?: Yes Tobacco Use: Cigarettes Do you use smokeless tobacco?: No Smoking Cessation Referral:: Yes Individual Education/Counseling:: Yes Education Schedule Given:: Yes Gave Education Materials For:: Tobacco Triggers, Pulmonary Disease, Risk Factors, Breathing Techniques, Medical Compliance, Pulmonary A&P, Exacerbation Signs & Symptoms and Stress & Relaxation Exacerbation Mgmt & Airway Clearance Problems:: Poor knowledge of O2 use/safety Hypoxemia Goals:: Hypoxemia managed, Port system and Using O2 as Rx's safely Bronchial Hygiene Problems:: Ineffective secretion clearance and Respiratory in fection Prevention/Management Goals: Pt demonstrates effective cough, effective secretion clearance. and Pt describes signs and symptoms of infection. Plan: Monitor SpO2 rest & with exercise, Recommend appropriate FiO2 to Pt/MD, Assist to contact DME for O2, Train appropriate O2 use at rest, Train appropriate O2 use with exercise and Train O2 safety & systems Instruct correct technique/timing & care:: MDI, DPI, Nebulizer and Return demo use of inhaler Bronchial Hygiene Plan: Controlled cough, CPT, Vibratory PEP device, VEST, Role of exercise in secretion clearance, NS Nasal spray, Hydration, Hand hygiene, Evaluate sputum, When to call MD, Signs/symptoms to report:, Influenza/Pneumovax vaccines and Cleaning of respiratory equipment Medication Interventions/plans: Instruct on medication effects & side effects, Review medication list w/patient every two weeks and Instruct importance of taking meds as ordered & assist problem solving Medication Goals: Adherence to prescribed medications and Correct technique/timing & care of MDI, DPI, nebulizer, and spacer. Does pt report taking home meds as prescribed?: Yes Medications: Yes: MDI, Yes: DPI, Yes: NEB and Yes: Spacer Reviewed prescribed medications:: Purpose, Schedule, Side effects and Importance of compliance Diabetes Diabetes:: No Referral to dietitian:: No Will attend diet classes:: Yes Core Components - 30 DAYS Hypertension Hypertension Diagnosis:: Hypertension ICD-10 I10 Resting Blood Pressure:: 111/65 Citizen Of [place] [employer] Hypertension Guidelines Outcomes/Goals: Able to verbalize/achieve optimal blood pressure <130/80 and Incorporates diet changes & exercise for blood pressure control by DC Tobacco - 30-Day Tobacco Program Goals Stages of Change:: Contemplate Do you have family support?: Yes Tobacco Use: Cigarettes Do you use smokeless tobacco?: No Smoking Cessation Referral:: Yes Education Schedule Given:: Yes Gave Education Materials For:: Tobacco Triggers, Pulmonary Disease, Risk Factors, Breathing Techniques, Medical Compliance, Pulmonary A&P, Exacerbation Signs & Symptoms and Stress & Relaxation Diabetes Diabetes:: No Core Components - 60 DAYS Hypertension Hypertension Diagnosis:: Hypertension ICD-10 I10 Resting Blood Pressure:: 111/65 Citizen Of [place] [employer] Hypertension Guidelines Outcomes/Goals: Able to verbalize/achieve optimal blood pressure <130/80 and Incorporates diet changes & exercise for blood pressure control by DC Tobacco - 60-Day Tobacco Program Goals Stages of Change:: Contemplate Do you have family support?: Yes Tobacco Use: Cigarettes Do you use smokeless tobacco?: No Smoking Cessation Referral:: Yes Individual Education/Counseling:: Yes Education Schedule Given:: Yes Gave Education Materials For:: Tobacco Triggers, Pulmonary Disease, Risk Factors, Breathing Techniques, Medical Compliance, Pulmonary A&P, Exacerbation Signs & Symptoms and Stress & Relaxation Diabetes Diabetes:: No Core Components - 90 DAYS Hypertension Hypertension Diagnosis:: Hypertension ICD-10 I10 Resting Blood Pressure:: 111/65 Citizen Of [place] [employer] Hypertension Guidelines Outcomes/Goals: Able to verbalize/achieve optimal blood pressure <130/80 and Incorporates diet changes & exercise for blood pressure control by DC Tobacco - 90-Day Tobacco Program Goals Stages of Change:: Contemplate Do you have family support?: Yes Tobacco Use: Cigarettes Do you use smokeless tobacco?: No Smoking Cessation Referral:: Yes Individual Education/Counseling:: Yes Education Schedule Given:: Yes Gave Education Materials For:: Tobacco Triggers, Pulmonary Disease, Risk Factors, Breathing Techniques, Medical Compliance, Pulmonary A&P, Exacerbation Signs & Symptoms and Stress & Relaxation Diabetes Diabetes:: No Core Components - Final Hypertension Hypertension Diagnosis:: Hypertension ICD-10 I10 Resting Blood Pressure:: 111/65 Citizen Of [place] [employer] Hypertension Guidelines Outcomes/Goals: Able to verbalize/achieve optimal blood pressure <130/80 and Incorporates diet changes & exercise for blood pressure control by DC Tobacco - Final Tobacco Program Goals Stages of Change:: Contemplate Do you have family support?: Yes Tobacco Use: Cigarettes Do you use smokeless tobacco?: No Smoking Cessation Referral:: Yes Individual Education/Counseling:: Yes Education Schedule Given:: Yes Diabetes Diabetes:: No Patient Health Questionnaire PHQ-9 Screening Initial Assessment: 1. Little interest or pleasure in doing things: More than half the days 2. Feeling down, depressed, or hopeless: More than half the days 3. Trouble falling or staying asleep, or sleeping too much: Nearly every day 4. Feeling tired or having little energy: More than half the days 5. Poor appetite or overeating: Nearly every day 6. Feeling bad about yourself -- or that you are a failure or have let yourself or your family down: Nearly every day 7. Trouble concentrating on things, such as reading the newspaper or watching television: More than half the days 8. Moving or speaking so slowly that other people could have noticed. Or the opposite - being so fidgety or restless that you have been moving around a lot more than usual: Several days 9. Thoughts that you would be better off , or of hurting yourself in some way: Not at all How difficult have these problems made it for you to do your work, take care of things at home, or get along with other people?: Somewhat difficult Total Score: 18 Knowledge Questionaire (BCKQ) Information Information: [place] COPD Knowledge Questionnaire (BCKQ) This questionnaire is designed to find out what you know about your lung problem. It should be completed without help form anyone else. This usually takes between 10 and 20 minutes. Your answers will help us to find out what inf ormation you need to help you to understand and manage your lung condition. [place] which you think is the correct answer. Questions 1. In COPD: b. COPD can only be confirmed by breathing tests: False c. In COPD ther is usually gradual worsening over time: True d. In COPD oxygen levels in the blood are always low: Don't know e. COPD is usually in people less than 40 years old: False 2. COPD: Mateusz than 80% of COPD cases are caused by cigarette smoking: Don't know b. COPD can be caused by occupational dust exposure: Don't know c. Longstanding asthma can develop into COPD: Don't know d. COPD is commonly an inherited disease: False e. Women are less vunerable to the effects of cigarette than men: False 3. The following symptoms are Common in COPD: a. Swelling of the ankles is common in COPD:: False b. Fatigue [tiredness] is common in COPD: Don't know c. Wheezing is common in COPD: True d. Crushing chest pain is common in COPD: True e. Rapid weight loss is common in COPD: True 4. Breathlessness in COPD: a. Severe breathlessness prevents travel by air: Don't know b. Breathlessness can be worsened by eating large meals: Don't know c. Breathlessness means that your oxygen levels are low: Don't know d. Breathlessness is a normal response to exercise: True e. Breathlessness is primarily caused by a narrowing of the bronchial tubes: Don't know 5. Phlegm (sputum): a. Coughing phlegm is a common symptom in COPD: True b. Clearing phlegm is more difficult if you get dehydrated: Don't know c. Bronchodilator inhalers can help clear phlegm: Don't know d. Phlegm causes harm if swallowed: Don't know e. Clearing phlegm can be assisted by breathing exercises: Don't know 6. Chest infections / exacerbations: a. Chest infections often cause coughing of blood: Don't know b. Chest infection phlegm usually becomes coloured (ylw/grn): Don't know cExerbations (episodes of worsening) can occur in the absence of chest infection: Don't know d. Chest infections are always accompanied by a high temperature: Don't know e. Steroid tablets should be taken whenever there is an exacerbation: Don't know 7. Excercise in COPD: aWalking excercises better than breathing to improve fitness: Don't know b. Exercise should be avoided as it strains the lungs: Don't know c. Exercise can help maintain your bone density: Don't know d. Exercise helps relieve depression: Don't know e. Exercise should be stopped if it makes you breathless: True 8. Smoking: a. Stopping smoking will reduce the risk of heart disease: True b. Stopping smoking will slow down further lung damage: Don't know c. Stopping smoking is pointless as the damage is done: Don't know d.Stopping smoking usually results in improved lung function: Don't know eNicotine replacement therapy only available on prescription: Don't know 9. Vaccination: a. A flu jab is recommended every year: Don't know b. You can get flu from having a flu jab: Don't know c. You can only have a flu jab if you are 65 or over: False d. A pneumonia jab protects against all forms of pneumonia: Don't know e.You can have a pneumonia jab and a flu job on the same day: Don't know 10. Inhaled bronchodilators: a. Bronchodilators act quickly (within 10 minutes): Don't know b. Both short & long acting bronchodilators can be taken on the same day: Don't know c. Spacers (volumatic,nebuhaler,serochamber)should be dried w/atowel after washing: Don't know d. A spacer device increases the medication to the lungs: Don't know e. Tremor may be a side effect of bronchodilators: Don't know 11. Antibiotic treatment in COPD: a. To be effective, the course should last at least 10 days: Don't know b. Excessive use of antibiotics can cause resistant bacteria (germs): Don't know c. Antibiotics will clear all chest infections: Don't know d. Antibiotic treatment is necessary for an exacerbation (worsening) however mild: Don't know e. Seek advice if antibiotics cause severe diarrhoea: True 12. Steroid tablets given for COPD (eg Prednisolone): a. Steroid tablets help strengthen muscles: True b. Steroid tablets should be avoided if there is a chest infection: Don't know c. The risk of long-term side effects due to steroids is less w/short courses then w/continous treatment: Don't know dIndigestion is common side effect from using steroid tablet: Don't know e. Steroid tablets can increase your appetite: Don't know 13. Inhaled steroids (brown, red or orange): a. Inhaled steroids should be stopped if you are given steroid tablets: Don't know bSteroid inhalers can be used for rapid relief breathlessnes: Don't know c. Spacer devices reduce the risk of getting thrush in the mouth: Don't know d.Steroid inhaler should be taken before your bronchodilator: Don't know e. Inhaled steroids improve lung function in COPD: Don't know COPD Assessment Test [CAT] Questions Never cough = 0, Cough all the time = 5: 4 No phlegm = 0, Chest full of phlegm = 5: 4 No chest tightness = 0, Chest very tight = 5: 3 No breathless w/exertion = 0, Very breathless w/exertion = 5: 5 No limitations w/activity = 0, Very limited w/activity = 5: 5 Confident leaving home = 0, Not at all confident = 5: 1 Sleep soundly = 0, Don't sleep soundly = 5: 4 Lots of energy = 0, No energy at all = 5: 3 Total CAT score:: 29 Self-Efficacy 6-Item Scale Initial Assessment: We would like to know how confident you are in doing certain activities. Please select your confidence level for: Fatigue Select Number: 2 Physical Discomfort or Pain Select Number: 2 Emotional Distress Select Number: 3 Other Symptoms or Health Problems Select Number: 4 Different Tasks and Activities Select Number: 8 Medication Select Number: 6 Total Score:: 4 Nutrition Survey Nutrition Survey Instructions Scoring Instructions Nutrition Survey Initial: Have you lost >10 lbs over the past 2 months without trying?: Yes Are you following a special diet at home for diabetes, low fat, or low salt?: No Are you interested in meeting with a dietitian for help understanding your diet?: No Do you eat less than 3 meals a day?: Yes Do you eat fatty meats (helton, sausage, ribs, etc), fried foods, desserts, large amounts of salad dressings, margarine, butter, or cheese most days?: Yes Do you have food allergies? [Enter types in comment field]: No Do you eat in restaurants more than 3 times a week?: No Do you season food with salt, seasoning salt, or garlic salt?: No Do you used canned, boxed, frozen meals, or soups, seasoning packets?: Yes Total Score:: 4
[2025-03-15 13:31] VITALS: BP 111/65; O2SAT 96
[2025-03-15 13:56] VITALS: BMI 18.3
[2025-03-15 14:14] VITALS: BMI 18.3
== END | disposition home or self-care (01) ==
LOC: PR 13:05
PROVIDERS: PCP Nurse Practitioner Family
DX: J43.2 Centrilobular emphysema (principal); R09.89 Other specified symptoms and signs involving the circulatory and respiratory systems; F17.200 Nicotine dependence, unspecified, uncomplicated

== ENCOUNTER 2025-04-01 08:29 | Outpatient (RCR) | payer MEDICARE, MEDICAID, SELFPAY ==
[2025-03-15 14:14] VITALS: BMI 18.3
== END 2025-04-30 23:59 ==
LOC: PR 08:29
PROVIDERS: PCP Nurse Practitioner Family
DX: J42 Unspecified chronic bronchitis (principal); J43.2 Centrilobular emphysema; R09.89 Other specified symptoms and signs involving the circulatory and respiratory systems; Z72.0 Tobacco use
CPT/HCPCS: 97150; 94626

== ENCOUNTER 2025-05-07 13:12 | Emergency (ER) | payer MEDICARE, MEDICAID, SELFPAY ==
[2025-03-15 14:14] VITALS: BMI 18.3
[2025-05-07 13:13] VITALS: BP 113/70; PULSE 88; RESP 18; TEMP 36.5; O2SAT 96; BMI 17.1
[2025-05-07] MEDS: HYDROcodone Bitartrate/Apap 5/325 Tablet PO (13:24)
--- NOTE | 2025-05-07 13:24 | EX.ED.GENINJ ---
HPI History of Present Illness Chief Complaint: Lower Extremity Injury Detail of Chief Complaint: Blunt trauma left foot Informant: patient Onset/Context/Timing Onset: Days (Injury occurred on , May 05) Mechanism/Context: Blunt Injury Location of pain/injuries: Left foot Quality of Pain: Aching and Throbbing Location: Mid left foot Current Severity: Mild Maximum Severity: Moderate Worsened by: Weightbearing and palpation Relieved by: Nothing. Better if not weightbearing and elevated Associated Symptoms Associated Symptoms: Negative for Parasthesias, Weakness, Loss of function or Inability to ambulate Narrative Narrative: Patient is a 70-year-old male. A 6 foot walnut shelf/cabinet fell onto his left foot. He presents today because of increased pain swelling discoloration. He denies paresthesia, anesthesia or motor weakness. Patient does have history of COPD, depression, lung nodule, substance disorder and chronic pain. Based on meds he has a history hypertension. Prior similar symptoms: No Recent Illness/Hospitalization: [facility] Medical History Anxiety Smoker On home oxygen therapy Asthma Pulmonary nodules Tobacco use Opiate abuse, continuous Alcohol abuse Anxiety and depression Weight loss Osteoporosis Rheumatoid arthritis Sleep apnea Emphysema of lung Chronic pain Arthritis Hypertension Degenerative disc disease, lumbar Home Medications ?Medication ?Instructions ?Recorded ?Last Taken ?Type disability placard #1 ea 02/04/20 Unknown Rx albuterol sulfate 90 mcg/actuation 2 inh inhalation Q6H PRN shortness 02/18/24 Unknown History aerosol inhaler of breath or wheezing lorazepam 0.5 mg tablet 0.5 mg PO DAILY PRN anxiety 05/24/24 09/26/24 History albuterol sulfate 2.5 mg/3 mL 2.5 mg inhalation Q4H PRN 08/10/24 09/27/24 History (0.083 %) solution for nebulization shortness of breath or wheezing fluticasone fur. 200 mcg-umeclid 1 ea inhalation QDAY 08/10/24 09/27/24 History 62.5 mcg-vilant 25 mcg inhalat.powder (Trelegy Ellipta) buprenorphine 8 mg-naloxone 2 mg 1 ea sublingual BID 09/27/24 09/27/24 History sublingual film docusate sodium 100 mg capsule 100 mg PO DAILY PRN constipation 09/27/24 Unknown History (Stool Softener) mirtazapine 7.5 mg tablet 7.5 mg PO QHS 09/27/24 09/26/24 History prednisone 20 mg tablet 20 mg PO BID #14 tabs 09/29/24 Unknown Rx prednisone 10 mg tablet 10 mg PO QDAY #30 tabs 10/05/24 Unknown Rx oxycodone-acetaminophen 5 mg-325 1 tab PO Q8H PRN pain 4 days #10 05/07/25 Unknown Rx mg tablet (Percocet) tabs Allergy/AdvReac Type Severity Reaction Status Date / Time doxycycline AdvReac Unknown Unknown Verified 05/07/25 13:13 Family History Mother Cancer Father Cancer Surgical History H/O hernia repair Social History household members: children and other details: grandchildren housing: house current occupational status: retired current occupation: [employer] pets and animals: Yes pets and animals: cat(s) and dog(s) Smoking Status: Current every day smoker tobacco type: cigarettes second hand exposure: Yes alcohol intake: current alcohol intake frequency: 3 or more drinks per day Alcohol type: beer details: At least 6-8 beers daily. substance use type: opiates and other details: Uses vicodin, percocet, suboxone. No IVDA. what type of physical activity do you participate in: none ROS ROS ED Musculoskeletal Musculoskeletal: Reports other Details: Foot pain, swelling and bruising Integumentary Reports Abrasions and other Details: Blister noted dorsum of the left foot. Neurologic Neurologic: Denies paresthesias Hematologic/Lymphatic Hematologic/Lymphatic: Denies easy bleeding or easy bruising EXAM Physical Exam Const Vital Signs: 05/07/25 13:13 Temperature 97.7 F L Temperature Source Temporal Pulse Rate 88 Respiratory Rate 18 Blood Pressure 113/70 Blood Pressure Mean 84 Pulse Ox 96 Oxygen Delivery Method Room Air Positive well nourished and well developed Constitutional Narrative: Patient was seen grimacing as he was walking from triage to his room. General Appearance ED: well developed; Negative for NAD HEENT HEENT Narrative: Head is normocephalic. Ears are normal. Nares patent. atraumatic Eyes PERRL and EOMs intact bilaterally Neck full ROM Resp normal respiratory effort Cardio regular rhythm Rate: regular rate Extremity Negative for normal to inspection Extremity Narrative: Patient has swelling discoloration of the left foot. There is maximal tenderness over the 4th and 5th metatarsal. He also has pain over the 2nd and 3rd. There is discoloration of his 2nd through 5th toe. There is no subungual hematoma of any of his toes. Sensations intact. There is blister noted on the dorsal surface. He there is no tenderness over the lateral or medial malleolus. Because of the swelling and pain unable to appreciate a DP pulse. Neuro oriented x3 and CN's II-XII intact bilaterally Watson Coma Scale: document GCS findings Spontaneous Obeys Commands Oriented 15 Psych mental status grossly normal and thought process normal Skin Skin Narrative: Abrasion/blister with bruising left foot MDM MDM MDM Narrative Medical decision making narrative: X-rays obtained to determine if patient has a contusion versus fracture. He was medicated with [place]. Nurse informing that he was upset that eating get anything stronger. Radiography Chest X-Ray - ED: Read by ED Physician (Three-view x-ray of the left foot reveals a nondisplaced spiral fracture shaft of the fifth metatarsal. This is pendantly reviewed interpreted by me at 1348.) Treatment and Re-Evaluation Narrative: Patient was referred to Dr. Petty is on-call for podiatry. He was placed in a walking boot. He was instructed to keep his foot elevated, ice to the foot 6-10 times a day and he was given crutches to weight-bear as tolerated. Discharge Plan Triage Chief Complaint: Lower Extremity Injury ED Provider: Dominic Lee Dx/Rx/DC Orders Clinical Impression: Closed fracture of shaft of metatarsal bone of left foot, COPD (chronic obstructive pulmonary disease), Chronic pain, Hypertension Instructions: ED Fracture, Foot Prescriptions: New oxycodone-acetaminophen [Percocet] 5-325 mg tablet 1 tab PO Q8H PRN (Reason: pain) 4 Days Qty: 10 0RF No Action (DME) disability placard Qty: 1 0RF Rx Instructions: As directed, Length of time: 5 years albuterol sulfate 90 mcg/actuation HFA aerosol inhaler 2 inh inhalation Q6H PRN (Reason: shortness of breath or wheezing) albuterol sulfate 2.5 mg /3 mL (0.083 %) solution for nebulization 2.5 mg inhalation Q4H PRN (Reason: shortness of breath or wheezing) Trelegy Ellipta 200-62.5-25 mcg blister with device 1 ea inhalation QDAY lorazepam 0.5 mg tablet 0.5 mg PO DAILY PRN (Reason: anxiety) prednisone 10 mg tablet 10 mg PO QDAY Qty: 30 0RF Rx Instructions: take 4 tabs for three days, then 3 tabs for three days, then 2 tabs for three days, then 1 tab for 3 days docusate sodium [Stool Softener] 100 mg capsule 100 mg PO DAILY PRN (Reason: constipation) mirtazapine 7.5 mg tablet 7.5 mg PO QHS buprenorphine-naloxone 8-2 mg film 1 ea sublingual BID Patient Comments: pt states he took half of one early this morning prednisone 20 mg tablet 20 mg PO BID Qty: 14 0RF Rx Instructions: 1 twice a day for 5 days, then 1/day until gone Stand Alone Forms: Bone Health Referral Primary Care Provider: Bridget Guevara Referrals: Calderon Petty DPM [Med Staff - Active Staff] - 3-5 Days if not improving Mati Oliver Arthur, YOUTH DEVELOPMENT PROFESSIONAL-C [[facility]] - Activity Restrictions/Additional Instructions: 1. Wear walking boot while awake. 2. Weight-bear as tolerated only. 3. You are referred to Dr. Calderon Petty podiatry for follow-up. There is a chance this may displace and you would require surgery 4. Elevate your foot is much as possible. Elevation means your toes have to be above your nose. 5. Apply ice 6-10 times a day Print Language: Divehi Disposition Disposition: Home, Self Care
--- NOTE | 2025-05-07 13:40 | RAD_ITS ---
PROCEDURE: FOOT MIN 3 VIEWS 05/07/2025 REASON FOR EXAM: INJURY/PAIN Initial encounter TECHNIQUE: 2 views of the left foot. COMPARISON: None. FINDINGS: Bones: Fracture of the 5th metatarsal in the mid 3rd Joints: Unremarkable Soft tissues: Adjacent soft tissue swelling Other: Bone mineralization normal for age. RAD/Foot min 3 Views IMPRESSION: 5th metatarsal fracture Reading [facility]
--- OUTSIDE RECORDS SUMMARY | 2025-05-07 13:55 | XMS RPT_ITS | CCD ---
Author Organization [facility] Care Team Providers Care Skin Tanner Name Role Phone SIMI BAXTER Unavailable Unavailable SIMI BAXTER Unavailable Unavailable Dr. Rich Salinas Primary Care Provider [phone] Dr. Rich Salinas Attending Provider [phone] Dr. Rich Salinas Referring Provider [phone] Dr. Rich Salinas Primary Care Provider [phone] Dr. Rich Salinas Referring Provider [phone] Melody 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, 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-C Jane Attending Provider Melody MCGRATH, 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-C Jane Primary Care Provider Dr. Dejan Vargas Emergency Provider Dr. Ainsley Esposito Admit Provider Dr. Ainsley Esposito Referring Provider Dr. Ainsley Esposito Other Provider Dr. Zay Lion Attending Provider Dr. Zay Lion Other Provider Dr. Gaye Dorsey Attending Provider Dr. Gaye Dorsey Other Provider Landry 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, 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-C Jane Referring Provider Nel 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, 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-C Martha Attending Provider Matrha Neumann Unavailable Melody CONCRETE STONE FABRICATOR, Jane Unavailable Landry CONCRETE STONE FABRICATOR, Jane Primary Care Provider LANDRY, JANE Primary Care Unavailable DEE GARCES R Referring Unavailable DEE GARCES R Referring Unavailable LANDRY, JANE Primary Care Unavailable DEE GARCES R Referring Unavailable LANDRY, JANE Primary Care Unavailable LANDRY, JANE Primary Care Unavailable DEE GARCES R Referring Unavailable LANDRY, JANE Primary Care Unavailable DEE GARCES R Referring Unavailable Adan PRESS OPERATOR AUTOMATIC, Norma Primary Care Provider Sherri Main RCP Unavailable Unavailabl e Melody 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-C, Jane Primary Care Provider [facility] Doctor, Out of Attending Provider Unavailab WYATT Vallejo Attending Provider WYATT RANDHAWA [facility] Unavailable Chris Giles Attending Unavailable [facility], Jane Primary Care Unavailable Neumann 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, Martha Attending Unavailable Neumann 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, Martha Referring Unavailable [facility], [place] Primary Care Unavailable Neumann 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, Martha Attending Unavailable Neumann 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, Martha Referring Unavailable Landry [facility], [place] Primary Care Unavailable Jopperi, Juan José Admitting Unavailable Jane Lucio Attending Unavailable Robotham, Suzy Consulting Unavailable Jopperi, Juan José Consulting Unavailable Tereletsky, Jane Consulting Unavailable Latasha Hanley Attending Unavailable [facility], [place] Primary Care Unavailable Jopperi, Juan José Admitting Unavailable Jopperi, Juan José Attending Unavailable Jopperi, Juan José Consulting Unavailable Landry [facility], [place] Primary Care Unavailable REZVANI, DORITA Referring Unavailable REZVANI, DORITA Attending Unavailable [facility], [place] Primary Care Unavailable Neumann 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, Martha Referring Unavailable Neumann 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, Martha Attending Unavailable Landry [facility], Jane Primary Care Unavailable Neumann 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, Martha Referring Unavailable Neumann 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, Martha Attending Unavailable Landry [facility], Jane Primary Care Unavailable Jopperi, Juan José Admitting Unavailable Robotham, Suzy Consulting Unavailable Jane Lucio Attending Unavailable Jopperi, Juan José Consulting Unavailable Landry [facility], Jane Primary Care Unavailable REZVANI, DORITA Referring Unavailable REZVANI, DORITA Attending Unavailable [facility], [place] Primary Care Unavailable Neumann 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, Martha Attending Unavailable Neumann 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, Martha Referring Unavailable Landry [facility], Jane Primary Care Unavailable [facility], Out of Attending Unavailable Tereletsky, Jane Referring Unavailable Landry [facility]SC, Jane Primary Care Unavailable Landry [facility], Jane Referring Unavailable Nel 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, Martha Attending Unavailable Landry [facility], Jane Primary Care Unavailable Landry [facility], Jane Referring Unavailable Nel 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, Martha Attending Unavailable Nel 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, Martha Attending Unavailable Landry [facility], Jane Primary Care Unavailable Landry [facility], Jane Referring Unavailable Nel 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, Martha Attending Unavailable RAMANIUK, ALIAKSANDR Attending Unavailable ADAN, NORMA Primary Care Unavailable RAMANIUK, ALIAKSANDR Attending Unavailable ADAN, NORMA Primary Care Unavailable RAMANIUK, ALIAKSANDR Attending Unavailable RAMANIUK, ALIAKSANDR Referring Unavailable ADAN, NORMA Primary Care Unavailable RAMANIUK, ALIAKSANDR Attending Unavailable ADAN, NORMA Referring Unavailable ADAN, NORMA Primary Care Unavailable Allergies Allergy Classification Reported Allergen(s) Allergy Type Date of Onset Reaction(s) Facility (8 sources) Doxycycline Drug Allergy 07-31-2022 Unknown [facility] (1 source) Doxycycline Drug Allergy 10-05-2024 [facility] Repository Medications Current Medications Medication Drug Class(es) Dates Sig (Normalized) Sig (Original) albuterol 0.83 mg/ml inhalation solution (20 sources) beta2-Adrenergic Agonist Start: 02-16-2025 End: 03-22-2025 albuterol (2.5 MG/3ML) 0.083% nebulizer solution Indications: Centrilobular emphysema (HCC) Take 3 mL (2.5 mg) by nebulization 4 times daily. 500 mL 2 03/22/2025 Active Start: 01-14-2025 take 2 puff(s) by in halation every four hours as needed albuterol 108 (90 Base) MCG/ACT inhaler Indications: Centrilobular emphysema (HCC) Inhale 2 puffs every 4 hours as needed. 01/14/2025 Active Start: 08-10-2024 End: 02-16-2025 take 2.5 mg by inhalation every four hours as needed for wheezing Albuterol Sulfate 2.5 mg /3 mL (0.083 %) solution for nebulization Active 2.5 mg INHALATION Q4H as needed for shortness of breath or wheezing August 10, 2024 12:00am Start: 02-18-2024 Albuterol Sulf ate 90 mcg/actuation HFA aerosol inhaler Active 2 NMA INHALATION EVERY 6 HOURS as needed for shortness of breath or wheezing February 18, 2024 12:00am Start: 07-22-2019 End: 08-06-2023 Albuterol Sulfate 90 mcg/act uation HFA aerosol inhaler Discontinued 2 NMA INHALATION EVERY 6 HOURS NEEDED as needed for shortness of breath or wheezing 8.5 January 22, 2023 5:15pm April 29, 2023 4:00pm Start: 07-22-2019 End: 08-06-2023 take 1 puff(s) by inhalation every six hours as needed Albuterol Sulfate Discontinued 2 PUFF INHALATION EVERY 6 HOURS NEEDED 8.January 22, 2023 5:15pm April 29, 2023 4:00pm Start: 12-21-2018 End: 07-22-2019 Albuterol Sulfate 90 mcg/act uation HFA aerosol inhaler Discontinued 2 NMA INHALATION EVERY 6 HOURS NEEDED as needed for shortness of breath or wheezing 1 December 21, 2018 12:43pm July 22, 2019 10:42am Start: 12-21-2018 End: 07-22-2019 take 1 puff(s) by inhalation every six hours as needed Albuterol Sulfate Discontinued 2 PUFF INHALATION EVERY 6 HOURS NEEDED 1 December 21, 2018 12:43pm July 22, 2019 10:42am Start: 11-04-2018 End: 08-06-2023 take 0.63 mg by inhalation three times daily as needed for wheezing Albuterol Sulfate 0.63 mg/3 mL solution for nebulization Discontinued 0 .ROUTE .COMPLEX 225 September 17, 2019 10:43am February 15, 2021 4:01pm INHALE 0.63 MG (3 mL) 3 times daily As Needed for shortness of breath or wheezing Start: 06-24-2017 End: 12-21-2018 Albuterol Sulfate 90 mcg/act uation HFA aerosol inhaler Discontinued 2 NMA INHALATION EVERY 6 HOURS NEEDED as needed for shortness of breath or wheezing 8.5 September 17, 2018 10:43am December 21, 2018 12:44pm Start: 06-24-2017 End: 12-21-2018 take 1 puff(s) by inhalation every six hours as needed Albuterol Sulfate Discontinued 2 PUFF INHALATION EVERY 6 HOURS NEEDED 8.5 September 17, 2018 10:43am December 21, 2018 12:44pm buprenorphine 8 mg / naloxone 2 mg sublingual film (20 sources) Partial Opioid Agonist, Opioid Antagonist Start: 12-24-2024 buprenorphine-naloxo ne (Suboxone) 8-2 MG per sublingual film Place 1 film under tongue twice daily 12/24/2024 Active Start: 09-27-2024 Buprenorphine- Naloxone 8-2 mg film Active 1 NMA SL TWICE A DAY September 27, 2024 12:00am Start: 05-24-2024 End: 09-27-2024 take 1 tablet under the tongue twice daily Buprenorphine-Naloxone 8-2 mg tablet, sublingual Discontinued 1 {tbl} SL TWICE A DAY May 24, 2024 12:00am September 27, 2024 1:45pm busPIRone hydrochloride 5 mg oral tablet (17 sources) Start: 01-22-2025 take 1 tablet by mouth three times daily busPIRone (Buspar) 5 MG tablet Take 1 tab by mouth three times a day 01/22/2025 Active disability placard (8 sources) Start: 02-04-2020 disability placard Active 1 February 04, 2020 1:00am As directed, Length of time: 5 years docusate sodium 100 mg oral capsule (2 sources) Start: 09-27-2024 take 1 capsule by mouth once daily as needed for constipation Docusate Sodium (Stool Softener) 100 mg capsule Active 100 mg PO DAILY as needed for constipation September 27, 2024 12:00am 30 actuat fluticasone furoate 0.1 mg/actuat / umeclidinium 0.0625 mg/actuat / vilanterol 0.025 mg/actuat dry powder inhaler (20 sources) Anticholinerg ic, Corticosteroi d, beta2-Adrener gic Agonist Start: 01-21-2025 End: 03-22-2025 take 1 puff(s) by inhalation once daily Trelegy Ellipta 100-62.5-25 MCG/ACT aerosol powder Indications: Chronic bronchitis, unspecified chronic bronchitis type (HCC) , Centrilobular emphysema (HCC) Inhale 1 puff daily. 60 each 2 03/22/2025 Active Start: 04-29-2023 End: 08-10-2024 Qrgpgtolhew-Oyjbecqho-Lvhica er (Trelegy Ellipta) 100-62.5-25 mcg blister with device Discontinued 1 NMA INHALATION daily April 29, 2023 3:59pm August 10, 2024 2:00pm administer at approximately the same time(s) each day Start: 04-29-2023 Fluticasone-Um eclidin-Vilanter (Trelegy Ellipta) 100-62.5-25 mcg blister with device Active 1 INH INHALATION daily April 29, 2023 3:59pm administer at approximately the same time(s) each day Start: 01-28-2023 End: 04-29-2023 Ygzypcxlimt-Afwcjtupc-Quhaov er (Trelegy Ellipta) 100-62.5-25 mcg blister with device Discontinued 1 NMA INHALATION daily January 28, 2023 4:55pm April 29, 2023 4:00pm administer at approximately the same time(s) each day Start: 01-28-2023 End: 04-29-2023 Famrnpkezqa-Sneuefxpc-Jtscxs er (Trelegy Ellipta) 100-62.5-25 mcg blister with device Discontinued 1 INH INHALATION daily January 28, 2023 4:55pm April 29, 2023 4:00pm administer at approximately the same time(s) each day Start: 07-31-2022 End: 01-28-2023 Sdenhurqfjz-Ezahunsde-Vicczh er (Trelegy Ellipta) 100-62.5-25 mcg blister with device Discontinued 1 NMA INHALATION daily July 31, 2022 2:33pm January 28, 2023 4:55pm administer at approximately the same time(s) each day Start: 07-31-2022 End: 01-28-2023 Ryllsdyacqz-Ogeyzxopo-Nzedla er (Trelegy Ellipta) 100-62.5-25 mcg blister with device Discontinued 1 INH INHALATION daily July 31, 2022 2:33pm January 28, 2023 4:55pm administer at approximately the same time(s) each day Start: 07-31-2022 Fluticasone-Um eclidin-Vilanter (Trelegy Ellipta) 100-62.5-25 mcg blister with device Active 1 INH INHALATION daily July 31, 2022 2:33pm administer at approximately the same time(s) each day Start: 07-05-2021 End: 07-31-2022 Nzysryhmdbb-Bawrckvwd-Opfwxq er (Trelegy Ellipta) 100-62.5-25 mcg blister with device Discontinued 1 NMA INHALATION daily July 05, 2021 8:15am July 31, 2022 2:33pm administer at approximately the same time(s) each day Start: 07-05-2021 End: 07-31-2022 Dwdcltrtqrd-Amxmjhufn-Yvrrnp er (Trelegy Ellipta) 100-62.5-25 mcg blister with device Discontinued 1 INH INHALATION daily July 05, 2021 8:15am July 31, 2022 2:33pm administer at approximately the same time(s) each day Start: 02-06-2021 End: 07-05-2021 Nkqueqsmqmo-Ftsktzlgn-Tcbqxs er (Trelegy Ellipta) 100-62.5-25 mcg blister with device Discontinued 1 NMA INHALATION daily February 06, 2021 10:06am July 05, 2021 8:15am administer at approximately the same time(s) each day Start: 02-06-2021 End: 07-05-2021 Mpirioazkqx-Ntwznjfta-Ipiutv er (Trelegy Ellipta) 100-62.5-25 mcg blister with device Discontinued 1 INH INHALATION daily February 06, 2021 10:06am July 05, 2021 8:15am administer at approximately the same time(s) each day Start: 08-11-2020 End: 02-06-2021 Qfuaqyvzlhz-Dkrefcwqd-Mtnzln er (Trelegy Ellipta) 100-62.5-25 mcg blister with device Discontinued 1 NMA INHALATION daily August 11, 2020 3:48pm February 06, 2021 10:06am administer at approximately the same time(s) each day Start: 08-11-2020 End: 02-06-2021 Mgefcudonyn-Nrirfjvtp-Bgrlhx er (Trelegy Ellipta) 100-62.5-25 mcg blister with device Discontinued 1 INH INHALATION daily August 11, 2020 3:48pm February 06, 2021 10:06am administer at approximately the same time(s) each day Start: 02-04-2020 End: 08-11-2020 Mppwxjkygal-Okfquqiwc-Gzsvnt er (Trelegy Ellipta) 100-62.5-25 mcg blister with device Discontinued 1 NMA INHALATION daily February 04, 2020 2:46pm August 11, 2020 3:48pm administer at approximately the same time(s) each day Start: 02-04-2020 End: 08-11-2020 Opamdzahmgi-Woilunuyy-Jvzoiq er (Trelegy Ellipta) 100-62.5-25 mcg blister with device Discontinued 1 INH INHALATION daily February 04, 2020 2:46pm August 11, 2020 3:48pm administer at approximately the same time(s) each day Start: 02-03-2020 End: 02-04-2020 Qqiynxggjmd-Zfzejstgv-Opflsk er (Trelegy Ellipta) 100-62.5-25 mcg blister with device Discontinued 1 NMA INHALATION daily February 03, 2020 6:07pm February 04, 2020 2:46pm administer at approximately the same time(s) each day Start: 02-03-2020 End: 02-04-2020 Ewjixmwalzn-Mttssnfjr-Gkdutt er (Trelegy Ellipta) 100-62.5-25 mcg blister with device Discontinued 1 INH INHALATION daily February 03, 2020 6:07pm February 04, 2020 2:46pm administer at approximately the same time(s) each day Start: 12-13-2019 End: 02-03-2020 Pvsntnvmioq-Khqgkwcod-Ixcbru er (Trelegy Ellipta) 100-62.5-25 mcg blister with device Discontinued 1 NMA INHALATION daily December 13, 2019 1:11pm February 03, 2020 6:07pm administer at approximately the same time(s) each day Start: 12-13-2019 End: 02-03-2020 Zjjgmpcukpy-Epmstkwdq-Hrifmp er (Trelegy Ellipta) 100-62.5-25 mcg blister with device Discontinued 1 INH INHALATION daily 60 December 13, 2019 1:11pm February 03, 2020 6:07pm administer at approximately the same time(s) each day Start: 03-23-2019 End: 12-13-2019 Usndzwoituv-Acanrcknt-Uhnzbb er (Trelegy Ellipta) 100-62.5-25 mcg blister with device Discontinued 1 NMA INHALATION daily 60 March 23, 2019 12:00am December 13, 2019 1:12pm administer at approximately the same time(s) each day Start: 03-23-2019 End: 12-13-2019 Tjbxnccbrdl-Wsjkegfru-Ekjwsu er (Trelegy Ellipta) 100-62.5-25 mcg blister with device Discontinued 1 INH INHALATION daily 60 March 23, 2019 12:00am December 13, 2019 1:12pm administer at approximately the same time(s) each day Izrlrlexvih-Bxnxihzft-Ygfthx er (2 sources) Start: 08-10-2024 Twfdnbybiaq-Mrneldsih-Vsawta er (Trelegy Ellipta) 200-62.5-25 mcg blister with device Active 1 NMA INHALATION daily August 10, 2024 12:00am LORazepam 0.5 mg oral tablet (2 sources) Benzod iazepi ne Start: 05-24-2024 take 1 tablet by mouth once daily as needed for anxiet y Lorazepam 0.5 mg tablet Active 0.5 mg PO DAILY as needed for anxiety May 24, 2024 12:00am mirtazapine 15 mg oral table t (20 sources) Start: 11-03-2024 take 1 tablet by mouth once daily mirtazapine (Remeron) 15 MG tablet Take 15 mg by mouth Nightly. 11/03/2024 Active Start: 09-27-2024 take 1 tablet by hayden th at bedtime Mirtazapine 7.5 mg tablet Active 7.5 mg PO AT BEDTIME September 27, 2024 12:00am Start: 05-24-2024 End: 09-27-2024 take 1 tablet by mouth at bedtime Mirtazapine 15 mg tablet Discontinued 15 mg PO AT BEDTIME May 24, 2024 12:00am September 27, 2024 2:37pm Start: 04-29-2023 take 1 tablet by hayden th at bedtime Mirtazapine (Remeron) 15 mg tablet Active 15 MG PO AT BEDTIME 60 April 29, 2023 12:00am Multivitamin preparation (6 sources) Start: 05-19-2021 take 1 tablet by mouth once daily Multivitamin Active 1 TABLET PO DAILY May 19, 2021 12:00am 24 hr nicotine 0.875 mg/hr transdermal system (20 sources) Cholinergic Nicotinic Agonist Start: 03-22-2025 End: 04-21-2025 apply 1 dose transdermal route every twenty-four hours nicotine (Nicoderm CQ) 21 MG/24HR patch Indications: Chronic bronchitis, unspecified chronic bronchitis type (HCC) Place 1 patch on the skin Every 24 hours. 30 patch 03/22/2025 Active Start: 03-22-2025 End: 04-21-2025 nicotine polacrilex (Commit) 4 MG lozenge Indications: Chronic bronchitis, unspecified chronic bronchitis type (HCC) Dissolve 1 lozenge (4 mg) in the mouth every 2 hours as needed for smoking cessation. 100 lozenge 03/22/2025 Active Start: 02-21-2025 End: 03-23-2025 nicotine polacrilex (Nicoret te) 4 MG gum Chew 1 each (4 mg) every 2 hours as needed for smoking cessation. 100 each 02/21/2025 Active Start: 07-28-2019 End: 2020 Nicotine (Polacrilex) (Nicor ette) 2 mg gum Discontinued 2 mg BUCCAL Q2H as needed for nicotine cravings July 28, 2019 12:00am 2020 3:19pm predniSONE 10 mg oral tablet (20 sources) Start: 10-05-2024 Prednisone 10 mg tablet Active 10 mg PO daily October 05, 2024 1:00am take 4 tabs for three days, then 3 tabs for three days, then 2 tabs for three days, then 1 tab for 3 days Start: 10-05-2024 End: 10-05-2024 take 2 tablets by mouth once daily Prednisone 20 mg tablet Discontinued 40 mg PO DAILY 20 October 05, 2024 1:00am October 05, 2024 3:46pm Start: 09-29-2024 Prednisone 20 mg tablet Active 20 mg PO TWICE A DAY September 29, 2024 12:00am 1 twice a day for 5 days, then 1/day until gone Start: 08-06-2023 End: 05-24-2024 Prednisone 10 mg tablet Discontinued 10 mg PO daily February 18, 2024 12:00am May 24, 2024 7:47am take 4 tabs for three days, then 3 tabs for three days, then 2 tabs for three days, then 1 tab for 3 days Start: 03-23-2019 End: 04-14-2019 Prednisone 10 mg tablet Discontinued 10 mg PO daily March 23, 2019 12:00am April 14, 2019 1:54pm take 4 tabs for three days, then 3 tabs for three days, then 2 tabs for three days, then 1 tab for 3 days Start: 03-08-2019 End: 03-23-2019 take 2 tablets by mouth once daily at mealtime Prednisone 20 MG tablet Discontinued 40 mg PO DAILY March 08, 2019 12:00am March 23, 2019 8:15am With Food Start: 03-08-2019 End: 03-23-2019 take 40 mg by mouth once daily at mealtime Prednisone Discontinued 40 MG PO DAILY March 08, 2019 12:00am March 23, 2019 8:15am With Food Start: 12-23-2018 End: 02-18-2019 take 2 tablets by mouth once daily Prednisone 20 mg tablet Discontinued 40 mg PO DAILY December 23, 2018 1:00am February 18, 2019 3:37pm Start: 12-23-2018 End: 02-18-2019 take 40 mg by mouth once daily Prednisone Discontinued 40 MG PO DAILY December 23, 2018 1:00am February 18, 2019 3:37pm Start: 10-27-2018 End: 11-25-2018 Prednisone 10 mg tablet Discontinued 0 PO daily October 27, 2018 1:00am November 25, 2018 4:39pm 4 tabs for 3 days, then 3 tabs for 3 days, then 2 tabs for 3 days, then 1 tab for 3 days PO QDAY; administer with food or milk Start: 10-01-2018 End: 10-01-2018 Prednisone 10 mg tablets,dos e pack Discontinued 0 PO per package directions 48 October 01, 2018 12:00am October 01, 2018 3:53pm PO PER PKG DIR Start: 10-01-2018 End: 10-27-2018 take 2 tablets by mouth once daily Prednisone 20 mg tablet Discontinued 40 mg PO DAILY October 01, 2018 12:00am October 27, 2018 6:05pm Start: 10-01-2018 End: 10-27-2018 take 40 mg by mouth once daily Prednisone Discontinued 40 MG PO DAILY October 01, 2018 12:00am October 27, 2018 6:05pm Start: 09-17-2018 End: 10-01-2018 Prednisone 10 mg tablet Discontinued 0 PO daily September 17, 2018 12:00am October 01, 2018 3:35pm 4 tabs for 3 days, then 3 tabs for 3 days, then 2 tabs for 3 days, then 1 tab for 3 days PO QDAY; administer with food or milk Start: 08-26-2017 End: 11-12-2017 take 1 tablet by mouth once daily Prednisone 20 MG tablet Discontinued 20 mg PO DAILY August 26, 2017 12:00am November 12, 2017 2:25pm Completed/Discontinued Medications Medication Drug Class(es) Dates Sig (Normalized) Sig (Original) acetaminophen 325 mg / HYDROcodone bitartrate 10 mg oral tablet (10 sources) Opioid Agonist Start: 05-24-2024 End: 09-27-2024 Hydrocodone-Acetami nophen 10-325 mg tablet Discontinued 1 {tbl} PO EVERY 6 HOURS May 24, 2024 12:00am September 27, 2024 9:01am Start: 05-19-2021 End: 07-31-2022 Hydrocodone-Acetaminophen 5- 325 mg tablet Discontinued 1 {tbl} PO Q4H as needed for pain 14 4 May 19, 2021 July 31, 2022 2:17pm Start: 05-19-2021 End: 07-31-2022 take 1 tablet by mouth every four hours Hydrocodone-Acetaminophen Discontinued 1 TABLET PO Q4H 14 4 May 19, 2021 July 31, 2022 2:17pm amoxicillin 875 mg / clavulanate 125 mg oral tablet (8 sources) Penicillin-class Antibacterial Start: 03-08-2019 End: 03-23-2019 Amoxicillin-Pot Clavulanate 1 EACH tablet Discontinued 1 NMA PO TWICE A DAY March 08, 2019 12:00am March 23, 2019 8:15am Start: 03-08-2019 End: 03-23-2019 Amoxicillin-Pot Clavulanate Discontinued 1 EACH PO TWICE A DAY March 08, 2019 12:00am March 23, 2019 8:15am azithromycin 250 mg oral tablet (2 sources) Macrolide Antimicrobial Start: 02-18-2024 End: 05-24-2024 take 2-5 tablets by mouth once daily Azithromycin 250 mg tablet Discontinued 0 PO .COMPLEX February 18, 2024 12:00am May 24, 2024 7:47am take 500 mg today (day 1), then 250 mg for 4 days (days 2-5) PO baclofen 10 mg oral tablet (8 sources) gamma-Aminobutyric Acid-ergic Agonist Start: 05-24-2021 End: 04-29-2023 take 1 tablet by mouth at bedtime as needed for muscle spasms Baclofen 10 mg tablet Discontinued 10 mg PO AT BEDTIME as needed for muscle spasm May 24, 2021 12:00am April 29, 2023 3:44pm 120 actuat budesonide 0.16 mg/actuat / formoterol fumarate 0.0045 mg/actuat metered dose inhaler (20 sources) Corticosteroid, beta2-Adrenergic Agonist Start: 11-12-2017 End: 03-23-2019 Budesonide-Formote rol (Symbicort) 160-4.5 mcg/actuation HFA aerosol inhaler Discontinued 2 NMA INHALATION Q12H 10.2 August 20, 2018 9:24am September 17, 2018 10:44am Start: 11-12-2017 End: 03-23-2019 take 1 puff(s) by inhalation every twelve hours Budesonide-Formoterol (Symbicort) 160-4.5 mcg/actuation HFA aerosol inhaler Discontinued 2 PUFF INHALATION Q12H 10.2 August 20, 2018 9:24am September 17, 2018 10:44am cyclobenzaprine hydrochloride 10 mg oral tablet (16 sources) Muscle Relaxant Start: 07-28-2019 End: 2020 take 0.5-1 tablets by mouth three times daily as needed for muscle spasms Cyclobenzaprine 10 mg tablet Discontinued 0 .ROUTE .COMPLEX October 21, 2019 10:30am 2020 3:19pm Take 1/2 to 1 tablet (5mg-10mg) by mouth three times daily as needed for muscle spasms doxycycline hyclate 100 mg oral tablet (8 sources) Tetracycline-cla ss Drug Start: 08-26-2017 End: 11-12-2017 take 1 tablet by mouth twice daily Doxycycline Hyclate 100 MG tablet Discontinued 100 mg PO TWICE A DAY August 26, 2017 12:00am November 12, 2017 2:25pm famotidine 20 mg oral tablet (8 sources) Histamine-2 Receptor Antagonist Start: 08-26-2017 End: 11-12-2017 take 1 tablet by mouth twice daily Famotidine 20 MG tablet Discontinued 20 mg PO TWICE A DAY August 26, 2017 12:00am November 12, 2017 2:25pm fluconazole 100 mg oral tablet (2 sources) Azole Antifungal Start: 08-10-2024 End: 09-27-2024 take 1 tablet by mouth once daily Fluconazole 100 mg tablet Discontinued 100 mg PO daily August 10, 2024 12:00am September 27, 2024 1:45pm Food Supplemt, Lactose-Reduced (Ensure Max Protein) liquid (8 sources) Start: 04-14-2019 End: 10-05-2020 Food Supplemt, Lactose-Reduced (Ensure Max Protein) liquid Discontinued 1 NMA PO .qid 990 90 April 14, 2019 12:00am October 04, 2020 1:00am October 05, 2020 1:02am Start: 04-14-2019 End: 10-05-2020 Food Supplemt, Lactose-Reduc ed (Ensure Max Protein) liquid Discontinued 1 EACH PO .qid 990 90 April 14, 2019 12:00am October 05, 2020 1:02am gentamicin 3 mg/ml ophthalmi c solution (8 sources) Start: 04-13-2019 End: 05-26-2019 Gentamicin 1 DROP drops Discontinued 1 NMA RIGHT EYE EVERY 4 HOURS April 13, 2019 12:00am May 26, 2019 3:33pm Start: 04-13-2019 End: 05-26-[address] P RIGHT EYE EVERY 4 HOURS April 13, 2019 12:00am May 26, 2019 3:33pm 12 hr guaiFENesin 1200 mg extended release oral tablet (20 sources) Start: 08-06-2023 End: 09-27-2024 take 1 tablet by mouth every twelve hours Guaifenesin 1,200 mg tablet extended release 12hr Discontinued 1200 mg PO Q12H 60 August 06, 2023 12:00am September 27, 2024 2:37pm Start: 03-08-2019 End: 04-14-2019 take 1 tablet by mouth twice daily Guaifenesin 1,200 MG tablet Discontinued 1200 mg PO TWICE A DAY 30 March 08, 2019 12:00am April 14, 2019 1:53pm Start: 09-17-2018 End: 11-25-2018 take 1 tablet by mouth every twelve hours, then take 1 tablet by mouth every twelve hours Guaifenesin (Mucinex) 1,200 mg tablet extended release 12hr Discontinued 1200 mg PO Q12H 60 October 01, 2018 12:00am November 25, 2018 4:38pm Handicap Placard (16 sources) Start: 04-13-2019 End: 04-14-2019 Handicap Placard Discontinue d 1 U .Route .MEDSULY April 13, 2019 8:42am April 14, 2019 1:53pm 5 years Start: 04-13-2019 End: 04-14-2019 Handicap Placard Discontinue d 1 UNIT .Route .MEDLAWRENCE April 13, 2019 8:42am April 14, 2019 1:53pm 5 years Start: 03-12-2019 End: 04-13-2019 Handicap Placard Discontinue d 1 March 12, 2019 12:00am April 13, 2019 8:42am 5 years 200 actuat levalbuterol 0.045 mg/actuat metered dose inhaler (5 sources) beta2-Adrenergic Agonist Start: 05-24-2024 End: 08-10-2024 Levalbuterol Tartrate 45 mcg/actuation HFA aerosol inhaler Discontinued 2 NMA INHALATION EVERY 4-6 HOURS as needed May 24, 2024 12:00am August 10, 2024 2:01pm Start: 08-06-2023 End: 08-10-2024 Levalbuterol Tartrate (Xopen ex Hfa) 45 mcg/actuation HFA aerosol inhaler Discontinued 2 NMA INHALATION EVERY 6 HOURS August 06, 2023 12:00am August 10, 2024 2:00pm Start: 08-06-2023 Levalbuterol T artrate (Xopenex Hfa) 45 mcg/actuation HFA aerosol inhaler Active 2 INH INHALATION EVERY 6 HOURS August 06, 2023 12:00am levoFLOXacin 500 mg oral tablet (16 sources) Quinolone Antimicrobial Start: 12-23-2018 End: 02-18-2019 take 1 tablet by mouth once daily Levofloxacin 500 mg tablet Discontinued 500 mg PO DAILY December 23, 2018 1:00am February 18, 2019 3:36pm Start: 09-17-2018 End: 10-01-2018 take 1 tablet by mouth once daily Levofloxacin (Levaquin) 500 mg tablet Discontinued 500 mg PO DAILY September 17, 2018 12:00am October 01, 2018 3:35pm loperamide hydrochloride 2 mg oral capsule (8 sources) Opioid Agonist Start: 11-12-2017 End: 07-03-2018 Loperamide (Anti-Diarrheal (Loperamide)) 2 mg capsule Discontinued 2 mg PO every 1 to 4 hours as needed November 12, 2017 1:00am July 03, 2018 3:36pm Multivitamin Tablet (2 sources) Start: 05-19-2021 End: 09-27-2024 Multivitamin Tablet Discontinued 1 {tbl} PO DAILY May 19, 2021 12:00am September 27, 2024 2:37pm Nebulizer Accessories (6 sources) Start: 11-17-2020 End: 04-29-2023 Nebulizer Accessories Discontinued 0 .ROUTE .MEDSUPPLY November 17, 2020 1:00am April 29, 2023 3:43pm As directed Start: 11-17-2020 Nebulizer Acce ssories Active 0 .ROUTE .MEDSUPPLY November 17, 2020 1:00am As directed Nebulizer Accessories (A.I.R .S Nebulizer Replacement) kit (4 sources) Start: 11-04-2018 End: 11-25-2018 Nebulizer Accessories (A.I.R .S Nebulizer Replacement) kit Discontinued 0 .ROUTE .MEDSUPPLY November 04, 2018 5:48pm November 25, 2018 4:39pm As directed Start: 11-04-2018 End: 11-04-2018 Nebulizer Accessories (A.I.R .S Nebulizer Replacement) kit Discontinued 0 .ROUTE .MEDSUPPLY November 04, 2018 1:00am November 04, 2018 5:48pm As directed nebulizer accessories kit (12 sources) Start: 11-04-2018 End: 11-25-2018 nebulizer accessories kit Discontinued 0 .ROUTE .MEDSUPPLY 1 November 04, 2018 5:48pm November 25, 2018 4:39pm As directed Start: 11-04-2018 End: 11-04-2018 nebulizer accessories kit Di scontinued 0 .ROUTE .MEDSUPPLY 1 November 04, 2018 1:00am November 04, 2018 5:48pm As directed Nebulizer Accessories kit (2 sources) Start: 11-17-2020 End: 04-29-2023 Nebulizer Accessories kit Discontinued 0 .ROUTE .MEDSUPPLY 1 November 17, 2020 1:00am April 29, 2023 3:43pm As directed nebulizer device (7 sources) Start: 09-20-2022 End: 04-29-2023 nebulizer device Discontinue d 0 .Route .MEDSUPPLY 1 September 20, 2022 12:00am April 29, 2023 3:43pm As directed Nebulizers (11 sources) Start: 09-20-2022 End: 04-29-2023 Nebulizers Discontinued 0 .R oute 1 September 20, 2022 2:11pm April 29, 2023 3:43pm As directed Start: 07-31-2022 End: 09-20-2022 Nebulizers Discontinued 0 .R oute 1 July 31, 2022 12:00am September 20, 2022 2:12pm As directed Start: 07-31-2022 Nebulizers Act jen 0 .Route 1 July 31, 2022 12:00am As directed Nebulizers misc (4 sources) Start: 09-20-2022 End: 04-29-2023 Nebulizers misc Discontinued 0 .Route 1 September 20, 2022 2:11pm April 29, 2023 3:43pm As directed Start: 07-31-2022 End: 09-20-2022 Nebulizers misc Discontinued 0 .Route 1 July 31, 2022 12:00am September 20, 2022 2:12pm As directed omeprazole 20 mg delayed release oral capsule (8 sources) Proton Pump Inhibitor Start: 02-18-2019 End: 04-14-2019 take 1 capsule by mouth once daily 30 minutes before breakfast Omeprazole 20 mg capsule,delayed release(DR/EC) Discontinued 20 mg PO DAILY February 18, 2019 12:00am April 14, 2019 1:53pm Take 30 minutes before breakfast on empty stomach. rOPINIRole 0.25 mg oral tablet (16 sources) Nonergot Dopamine Agonist Start: 2020 End: 11-17-2020 take 1 tablet by mouth at bedtime Ropinirole 0.25 mg tablet Discontinued 0.25 mg PO AT BEDTIME August 11, 2020 3:48pm November 17, 2020 4:04pm administer 1-3 hours before bedtime sertraline 25 mg oral tablet (5 sources) Serotonin Reuptake Inhibitor Start: 06-13-2023 End: 05-24-2024 take 1 tablet by mouth every twenty-four hours Sertraline 25 mg tablet Discontinued 25 mg PO Q24H June 13, 2023 12:00am May 24, 2024 12:28pm sucralfate 1000 mg oral tablet (8 sources) Aluminum Complex Start: 08-26-2017 End: 11-12-2017 take 1 tablet by mouth four times daily Sucralfate 1 GM tablet Discontinued 1 g PO 4 TIMES DAILY August 26, 2017 12:00am November 12, 2017 2:25pm Tiotropium Gering (8 sources) Anticholinergic Start: 10-01-2018 End: 10-27-2018 take 2.5 ug by inhalation once daily Tiotropium Gering (Spiriva Respimat) 2.5 mcg/actuation mist Discontinued 2 NMA INHALATION DAILY October 01, 2018 12:00am October 27, 2018 6:48pm Start: 10-01-2018 End: 10-27-2018 take 1 puff(s) by inhalation once daily Tiotropium Gering (Spiriva Respimat) 2.5 mcg/actuation mist Discontinued 2 PUFF INHALATION DAILY October 01, 2018 12:00am October 27, 2018 6:48pm Umeclidinium (20 sources) Anticholinergic Start: 12-21-2018 End: 03-23-2019 take 62.5 ug by inhalation once daily Umeclidinium (Incruse Ellipta) 62.5 mcg/actuation blister with device Discontinued 1 NMA INHALATION DAILY December 21, 2018 12:43pm March 23, 2019 8:51am Start: 12-21-2018 End: 03-23-2019 take 62.5 ug by inhalation once daily Umeclidinium (Incruse Ellipta) 62.5 mcg/actuation blister with device Discontinued 1 INH INHALATION DAILY December 21, 2018 12:43pm March 23, 2019 8:51am Start: 11-26-2018 End: 12-21-2018 take 62.5 ug by inhalation once daily Umeclidinium (Incruse Ellipta) 62.5 mcg/actuation blister with device Discontinued 1 NMA INHALATION DAILY November 26, 2018 3:52pm December 21, 2018 12:44pm Start: 11-26-2018 End: 12-21-2018 take 62.5 ug by inhalation once daily Umeclidinium (Incruse Ellipta) 62.5 mcg/actuation blister with device Discontinued 1 INH INHALATION DAILY November 26, 2018 3:52pm December 21, 2018 12:44pm Start: 10-27-2018 End: 11-26-2018 take 62.5 ug by inhalation once daily Umeclidinium (Incruse Ellipta) 62.5 mcg/actuation blister with device Discontinued 1 NMA INHALATION DAILY October 27, 2018 1:00am November 26, 2018 3:52pm varenicline 1 mg oral tablet (16 sources) Partial Cholinergic Nicotinic Agonist Start: 04-14-2019 End: 07-07-2019 take 1 tablet by mouth twice daily, then take 1 tablet by mouth once Varenicline Tartrate (Chantix Continuing Month Box) 1 mg tablet Discontinued 1 mg PO TWICE A DAY 168 84 April 14, 2019 12:00am July 06, 2019 12:00am July 07, 2019 12:06am Start: 04-14-2019 End: 10-27-2019 take 1 tablet by mouth once Varenicline Tartrate (Kumar tix Starting Month Box) 0.5 mg (11)- 1 mg (42) tablets,dose pack Discontinued 0 PO per package directions 53 April 14, 2019 12:00am October 27, 2019 4:34pm PO PER PKG DIR zinc oxide 130 mg/ml topical cream (8 sources) Start: 11-12-2017 End: 09-17-2018 Zinc Oxide (Desitin Rapid Re lief) 13 % cream Discontinued 1 NMA TOPICAL 2 to 4 times per day as needed November 12, 2017 1:00am September 17, 2018 10:12am Problems Active Problems Problem Classification Problem Date Documented Date Episodic/Chronic Acute and unspecified renal failure (8 sources) Injury of kidney; Translations: [Acute kidney failure, unspecified] 03-06-2019 Episodic Alcohol-related disorders (16 sources) Alcohol withdrawal syndrome; Translations: [Alcohol withdrawal syndrome] 03-06-2019 Chronic Cardiac dysrhythmias (1 source) Unspecified atrial fibrillation; Translations: [Unspecified atrial fibrillation] Onset: 10-06-2024 Chronic Chronic obstructive pulmonary disease and bronchiectasis (20 sources) Chronic obstructive lung disease; Translations: [Chronic obstructive pulmonary disease, unspecified] Onset: 12-29-2024 Chronic Complications of surgical procedures or medical care (2 sources) Postprocedural pneumothorax; Translations: [Postprocedural pneumothorax] Onset: 10-08-2024 Episodic Essential hypertension (9 sources) Hypertensive disorder; Translations: [Essential (primary) hypertension] Chronic Genitourinary symptoms and ill-defined conditions (8 sources) Blood in urine; Translations: [Hematuria, unspecified] 03-06-2019 Episodic Immunizations and screening for infectious disease (8 sources) Needs influenza immunization; Translations: [Encounter for immunization] 08-24-2021 Episodic Malaise and fatigue (8 sources) Malaise and fatigue; Translations: [Chronic fatigue, unspecified] 03-06-2019 Chronic Mood disorders (12 sources) Depressive disorder; Translations: [Depression] 04-29-2023 Chronic Mycoses (2 sources) Candidiasis of mouth; Translations: [Candidal stomatitis] 08-10-2024 Episodic Nutritional deficiencies (8 sources) Undernutrition; Translations: [Unspecified protein-calorie malnutrition] 03-12-2019 Chronic Other circulatory disease (16 sources) Air trapping; Translations: [Other specified symptoms and signs involving the circulatory and respiratory systems] 02-17-2025 Episodic Other circulatory disease (2 sources) Other specified symptoms and signs involving the circulatory and respiratory systems; Translations: [Other specified symptoms and signs involving the circulatory and respiratory systems] Onset: 03-22-2025 Episodic Other connective tissue disease (8 sources) Spasm; Translations: [Other muscle spasm] 05-24-2021 Episodic Other hereditary and degenerative nervous system conditions (8 sources) Restless legs; Translations: [Restless legs syndrome] 11-17-2020 Chronic Other injuries and conditions due to external causes (8 sources) Foreign body in esophagus; Translations: [Unspecified foreign body in esophagus causing other injury, initial encounter] 06-01-2016 Episodic Other lower respiratory disease (11 sources) Nodule of lung; Translations: [Solitary pulmonary nodule] 11-20-2021 Episodic Other lower respiratory disease (15 sources) Lung mass; Translations: [Other nonspecific abnormal finding of lung field] 03-23-2019 Episodic Other lower respiratory disease (6 sources) Solitary pulmonary nodule; Translations: [Solitary pulmonary nodule] 04-29-2023 Episodic Other lower respiratory disease (14 sources) Other nonspecific abnormal finding of lung field; Translations: [Swelling, mass, or lump in chest] Onset: 10-08-2024 06-13-2023 Episodic Other lower respiratory disease (2 sources) Cough; Translations: [Cough] 05-24-2024 Episodic Other lower respiratory disease (10 sources) Multiple nodules of lung; Translations: [Other nonspecific abnormal finding of lung field] 08-10-2024 Episodic Other lower respiratory disease (2 sources) Hypoxia; Translations: [Hypoxemia] 02-18-2024 Episodic Other lower respiratory disease (4 sources) Disorder of lung 03-22-2025 Episodic Other nervous system disorders (8 sources) Chronic pain; Translations: [Other chronic pain] 03-06-2019 Chronic Other nutritional; endocrine; and metabolic disorders (5 sources) Weight loss; Translations: [Abnormal weight loss] 04-29-2023 Episodic Other nutritional; endocrine; and metabolic disorders (5 sources) Abnormal weight loss; Translations: [Loss of weight] 04-29-2023 Episodic Other nutritional; endocrine; and metabolic disorders (2 sources) Weight decreased; Translations: [Abnormal weight loss] 04-29-2023 Episodic Other screening for suspected conditions (not mental disorders or infectious disease) (8 sources) Imaging of thorax abnormal; Translations: [Abnormal findings on diagnostic imaging of other specified body structures] 03-06-2019 Chronic Pneumonia (except that caused by tuberculosis or sexually transmitted disease) (8 sources) Pneumococcal pneumonia; Translations: [Pneumonia due to Streptococcus pneumoniae] 03-06-2019 Episodic Residual codes; unclassified (5 sources) Tobacco use and exposure - finding; Translations: [Tobacco use] Onset: 04-21-2025 02-17-2025 Episodic Residual codes; unclassified (1 source) Tobacco use; Translations: [Tobacco use] Onset: 04-21-2025 Episodic Respiratory failure; insufficiency; arrest (adult) (14 sources) Acute respiratory failure; Translations: [Acute respiratory failure with hypoxia] Onset: 04-21-2025 03-06-2019 Episodic Screening and history of mental health and substance abuse codes (1 source) Tobacco use and exposure - finding 02-21-2025 Chronic Septicemia (except in labor) (8 sources) Sepsis; Translations: [Sepsis, unspecified organism] 05-19-2021 Episodic Sprains and strains (8 sources) Strain of neck muscle; Translations: [Strain of muscle, fascia and tendon at neck level, initial encounter] 05-19-2021 Episodic Substance-related disorders (20 sources) Nicotine dependence; Translations: [Nicotine dependence, unspecified, uncomplicated] Onset: 09-06-2024 Chronic Comment on above: LDCT due August 02 Substance-related disorders (16 sources) Opioid withdrawal; Translations: [Opioid use, unspecified with withdrawal] 03-06-2019 Episodic Superficial injury; contusion (8 sources) Abrasion of cornea of right eye; Translations: [Injury of conjunctiva and corneal abrasion without foreign body, right eye, initial encounter] 04-14-2019 Episodic Systemic lupus erythematosus and connective tissue disorders (6 sources) Disorder of lung; 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] Onset: 03-22-2025 03-22-2025 Chronic Unclassified (8 sources) Readiness finding; Translations: [Desire for detoxification] 06-13-2023 Unclassified (1 source) Cough, unspecified; Translations: [Cough, unspecified] Onset: 06-02-2024 Past or Other Problems Problem Classification Problem Date Documented Da te Episodic/Chronic Other lower respiratory disease (1 source) Shortness of breath; Translations: [Shortness of breath] Onset: 11-10-2024 Episodic Other lower respiratory disease (1 source) Dyspnea, unspecified; Translations: [Dyspnea, unspecified] Onset: 09-06-2024 Episodic Other lower respiratory disease (1 source) Hypoxemia; Translations: [Hypoxemia] Onset: 05-24-2024 Episodic Other screening for suspected conditions (not mental disorders or infectious disease) (1 source) Encounter for screening for malignant neoplasm of respiratory organs; Translations: [Encounter for screening for malignant neoplasm of respiratory organs] Onset: 08-25-2024 Episodic Pleurisy; pneumothorax; pulmonary collapse (3 sources) Pneumothorax; Translations: [Pneumothorax, unspecified] Onset: 10-08-2024 10-07-2024 Episodic Results Test Name Value Interpretation Reference Range Facility on 05-02-2025 36 This RN received brian l from patient asking what is going on 05/09/25. This RN reviewed his PET scan appointment and prep details with him. I also advised I was waiting for a call from his daughter to review appointment details. Patient advised she goes into work at 8 am until 5 PM and is unable to call from work. I informed patient that appointment information is in his MyChart and I also put a printed copy in mail for their review. [facility] 36on 04-27-2025 36 This RN left message for patient's daughter regarding scheduling PET scan and EBUS/ENB. This RN spoke with patient regarding scheduling PET scan. Patient scheduled first available PET scan at any location for 05/09/25 4:00 PM at [facility]. This RN reviewed prep with patient on phone. Also sent to home via mail and sent to [place]. Patient requests that I discuss with his daughter. Left message. Will await call back. [facility] 36on 04-26-2025 36 This RN discussed wi Dr. Garibay. He advised ok to proceed with scheduling PET and then EBUS/ENB after we will have PET results. Sent to office R.C. for prior auth of PET. [facility] 36 Called [facility] they stated that the patient was referred to [facility] for financial assistance. His copay was $592 as of 03/10/25 Called [facility] and they stated that they spoke with the patient on 03/15/25. He was not eligible as his out of pocket was not met then. He never called back to update them fully. If he meets his out of pocket then he would potentially qualify but he has to call them. [place] [id number] ----- Message from Wyatt Randhawa DO sent at 04/21/2025 4:37 PM EDT ----- Did pt not qualify for ensifentrine. Looks like last media enrolled him in suzi plus ? [facility] 36on 04-22-2025 36 DO Jacquelin Briones, RN Jorje cooper, mr woody is getting a repeat PET for enlarging nodules and will likley need ebus ENB in near future post PET 4-6 weeks . Could you coordinate either a telephone or in office with one of the [facility] bronch physicians for this . This RN discussed with Dr. Randhawa-he advised to proceed with biopsy [facility] 36 Microscopic analysis added to telephone encounter, path and prior pulmonary notes obtained from [place] provider. Imaging from [place] in PACS for review patient added to lung nodule review conference as urgent late addition 04/26/2025. Sending information to provider as FYI. MICROSCOPIC DIAGNOSIS 09/27/24 Right upper lobe lung mass, CT guided core biopsy: Extensive fibrosis and necrosis. Focal necrotizing granuloma formation. Negative for malignancy. See comment. [facility] 09/28/2024 COMMENT The specimen is evaluated at the time of CT biopsy by Dr. Saleh. Immediate Evaluation = Negative for malignant cells. Dr. Harry was called at 10:05 with results. Special stains for acid fast bacilli and fungi are negative for organisms; matched controls are appropriate. Correlation with clinical, radiologic findings and appropriate follow up are necessary. MICROSCOPIC DESCRIPTION Slides are reviewed. GROSS DESCRIPTION Received in fixative is one container labeled with the patient's name and designated Right lung biopsy. The specimen consists of multiple irregular fragments of gutierrez soft tissue that in aggregate measure 0.7 x 0.1 x <0.1 cm. The specimen is totally submitted in one cassette. Two touch imprints are prepared at the time of core biopsy. [facility] 09/27/2024 TC:5 CPT:36624, [id number], [id number] [facility] 36 Received request for prior pathology from outside facility. [facility] 29on 04-21-2025 29 Addended by: WYATT KINGSLEY on: 04/21/2025 04:47 PM Modules accepted: Orders [facility] Progress Noteon 04-21-2025 Progress Note Patient was identifi ed and seen today via Telehealth by agreement and consent. I used the following Telehealth technology: Audio capability only. Total length of call 10 minutes. The patient was offered and advised video for a more comprehensive evaluation, but the patient declined or was unable to use video. Patient location: Patient Location: Home. This patient encounter is appropriate and reasonable under the circumstances: transportation issues . The patient has been advised of the potential risks and limitations of this mode of treatment (including but not limited to the absence of in-person examination) and has agreed to be treated in a remote fashion in spite of them. Any and all of the patient's/patient's family's questions on this issue have been answered and I have made no promises or guarantees to the patient. The patient has also been advised to contact this office for worsening conditions or problems, and seek emergency medical treatment and/or call 911 if the patient deems either necessary. The patient stated that they are currently in the [facility]. If the patient is a minor, permission has been obtained by the parent or guardian for the patient to receive medical care at this visit. Diagnosis Plan 1. Necrotizing granulomatous inflammation of lung (HCC) PET/CT skull base to mid thigh DME Order for portable oxygen concentrator ANCA Screen with MPO and PR3, with Reflex to ANCA [facility] ANCA Screen with MPO and PR3, with Reflex to ANCA [facility] 2. Pulmonary nodules PET/CT skull base to mid thigh DME Order for portable oxygen concentrator 3. Acute respiratory failure with hypoxia (HCC) 4. Tobacco use [facility] Smoking/Tobacco Cessation Program 69 yo with hx of severe copd with extensive evaluation for granulomatous lung disease at [facility] with prior pet, follow up imaging. Increased nodule size. Prior IR CT guided biopsy 09.27.24 reported necrotizing granuloma, complicated procedure with reported ptx , prior Pet avid cavitary lesion. - necrotizing granulomatous inflammation , limited eval. Advised serologic testing. Discussed with pt and daughter. Pt with his respiratory syptoms and anxiety contributing. Pfts with cwg541% and dlco 38% Follow up CT . Enlarging soft tissue nodule in RUL 1.2 cm . Cavitayr density 4 cm similar and prior pet advis, 'discussed evaluation. Possible PET. Pt wishes to proceed with EBUS / ENB, repeat biopsy. Eval for malignancy / granulomatous lung disease, infectious /inflammatory process. Will coordinate follow up, evaluation, biopsy and subsequent follow up. Both pt / daughter verbalized undertadning risk/benefit/alternative s biopsy/pet /surveillance. Wish to proceed with intervention. Normal [facility] CT CHEST WO IV CONTRASTon CT CHEST WO IV CONTRAST [facility] 1955 [id number] Exam Date/Time: 04/09/2025 10:28 Procedure: CT CHEST WO IV CONTRAST Ordering Provider: RANDHAWA ALIAKSANDR Reason For Exam: Dyspnea, chronic, unclear etiology; necrotizing pna CLINICAL INFORMATION: COPD. Pulmonary nodules. Follow-up study. 1 mm axial cuts are obtained through the chest without IV contrast. Dose reduction was employed with automated exposure control. The examination is compared to a previous study from an outside institution ([facility]) dated 12/29/2024. FINDINGS: Advanced emphysematous changes are noted diffusely. Centrilobular emphysema is most pronounced in the lung apices. There are no focal infiltrates. A masslike density with cavitation is redemonstrated in the posterior right lung apex. This measures approximately 4 cm in diameter, similar to the previous study. A 1.2 cm nodule is present in the anterior right upper lobe (image #[id number]). This has more of a linear/scar appearance on the most recent imaging. Other small nodules are noted bilaterally. These are unchanged. The heart size is normal. There is no significant mediastinal lymphadenopathy. There are no significant coronary arterial calcifications. Upper cuts of the abdomen included on the examination are grossly normal on this unenhanced scan. IMPRESSION: 1. Advanced emphysematous changes. 2. No focal infiltrates. 3. Stable masslike density with cavitation in the right lung apex. 4. Enlarging soft tissue nodule in the anterior right upper lobe. PET/CT and/or tissue sampling is recommended. Report Dictated on Electronically Signed By: Mynor Burnham MD Electronically Signed Date/Time: 04/14/2025 10:53 AM EDT Pt state he has COPD and has had multiple imaging studies. Pt states he is waiting for them to do surgery on his lungs. Pt unclear why he needs to have this scan but did not want to stop the process from getting steps closer to surgery. [facility] 36on 04-08-2025 36 Pt unclear what type of diagnostic testing he's supposed to be getting done tomorrow. Asked If he was going to get a scope shoved down his throat. Confirmed with Pt he is schedualed for a Chest CT wo IV contrast. [facility] 37on 03-22-2025 37 YOUR APPOINTMENT TOVineet DON WAS WITH THE [facility] LUNG NODULE CLINIC, COPD CLINIC, PULMONARY AND SLEEP MEDICINE OFFICE. PLEASE CALL OUR OFFICE AT [phone] IF YOU HAVE NOT RECEIVED YOUR TEST RESULTS 7 DAYS AFTER TESTING IS COMPLETED. PLEASE REMEMBER TO REQUEST REFILLS AT YOUR OFFICE VISITS. PHONE/FAX REQUESTS REQUIRE 48-72 HOURS FOR RESPONSE. A FRIENDLY REMINDER COPAYS ARE DUE AT TIME OF SERVICE. THANK YOU. Our Patients Are Important! We want to improve and you can help. After your visit we want you to feel: Listened to, Respected and have your health care explained. You may receive a survey asking you about your visit. Please complete the survey. We will use your feedback to make improvements. COVID-19 VACCINATION INFORMATION: PH. [phone] HEALTH.[email or web address] ACCINE [facility] Central Scheduling [phone] [facility] Sleep Scheduling [phone] [facility] Office Visiton 03-22-2025 Follow-up visit [id number] Toby Woody 1955 M Date Provider Department Center 03/22/2025 [id number] YANES [facility] PUL None Family History Problem Relation Age of Onset Cancer Father Family Status - Relation Status Age at Father Level of Service:13103 [place] OFFICE/OUTPATIENT ESTABLISHED MOD MDM 30 MIN Reason for Visit and Comments: COPD [313] Follow-up [122653] [facility] Progress Noteon 03-22-2025 Progress Note COPD Clinic [address] [place] [id number] Visit type: New patient Reason for Visit: BLVR Evaluation History of Present Illness: Toby Woody is a 69 y.o. male patient with significant PMH of copd being seen for copd eval and BLVR evaluation Pt presented for follow up, working on smoking cessation. Additional nrt and smoking cessation eval. Resources provided. Pt reports high anxiety with cessation. Limited osh records. Necrotizing pneumonia rul sp biopsy at osh. And pulmonary nodules. Discussed repeat ct, scheduled at [facility] 09 of april with subseuqent likely bronchoscopy ebus/enb to rule out malignancy and chronic infectious process. Biologic and blvr deferred at this time while evaluating pulmonary pathology. Ensifentrine not covered by insurance. Will follow up. Continue prn neb and trelegy 1 puff daily. Avoid inhaler overuse discussed. Unintentional weight loss. Poor appetite . Poor po intake Copd gold4e with hyperinflation and air trapping, future eos eval. Blvr f smoking cessation. Repaet nodule eval as pt does not want to follow up at [facility] Diagnosis Plan 1. Chronic bronchitis, unspecified chronic bronchitis type (HCC) CBC auto differential CBC auto differential nicotine (Nicoderm CQ) 21 MG/24HR patch [facility] Smoking/Tobacco Cessation Program nicotine polacrilex (Commit) 4 MG lozenge Trelegy Ellipta 100-62.5-25 MCG/ACT aerosol powder 2. Centrilobular emphysema (HCC) albuterol (2.5 MG/3ML) 0.083% nebulizer solution Trelegy Ellipta 100-62.5-25 MCG/ACT aerosol powder 3. Pulmonary hyperinflation 4. Pulmonary air trapping CT chest wo IV contrast 5. Necrotizing granulomatous inflammation of lung (HCC) CT chest wo IV contrast Quantiferon TB Gold Quantiferon TB Gold 6. Pulmonary nodules CT chest wo IV contrast 7. 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 RUL nodule sp biopsy, granuloma necrotizing. PFTs-- severe ovd with air trapping and hyperfilantion Oximetry-- 3 L Sleep study-- n/an Home medications : A/P Preliminary not a candidate yet due to current smoking and RUL pulmonary nodule. Request records and evaluation. Will require repeat CT Chest. Smokig cessation, Continue ttriple bd therapy Evaluation for ensifentrine neb additional therapy Nebulizer Start pulmonary rehab Follow up established Diagnosis Plan 1. Chronic bronchitis, unspecified chronic bronchitis type (HCC) CBC auto differential CBC auto differential nicotine (Nicoderm CQ) 21 MG/24HR patch [facility] Smoking/Tobacco Cessation Program nicotine polacrilex (Commit) 4 MG lozenge Trelegy Ellipta 100-62.5-25 MCG/ACT aerosol powder 2. Centrilobular emphysema (HCC) albuterol (2.5 MG/3ML) 0.083% nebulizer solution Trelegy Ellipta 100-62.5-25 MCG/ACT aerosol powder 3. Pulmonary hyperinflation 4. Pulmonary air trapping CT chest wo IV contrast 5. Necrotizing granulomatous inflammation of lung (HCC) CT chest wo IV contrast Quantiferon TB Gold Quantiferon TB Gold 6. Pulmonary nodules CT chest wo IV contrast 7. History of tobacco abuse #exacerbations within the last year: 2 #exacerbations leading to hospitalization within the last year: CAT Score: MMRC Dyspnea Scale: Grade Description of Breathlessness 0 I only get breathless with strenuous exercise. 1 I get short of breath when hurrying on level ground or walking up a slight hill. 2 On level ground, I walk slower than people of the same age because of breathlessness, or have to stop for breath when walking at my own pace. 3 I stop for breath after walking about 100 yards or after a few minutes on level ground. 4 I am too breathless to leave the house or I am breathless when dressing. [x]Age 40--75 []Non smoker []No severe exacerbation in past 3 months []Pulmonary rehab competed - start [x] No AC/antiplatelet rx , no elevated bleeding risk [x] No prior LVRS, thoracic surgery or pleurodesis [x] On optimal Medical Therapy [] No pulmonary hypertension - ABG PaCO2 < 50 [] Echo EF >45 , RVSP < 45 [x] Meets PFT criteria TLC 100, RV > 150 , FEV1 15-45% [] No high risk pulmonary nodules on CT . Endobronchial Valve Pulmonary Clinic Eligibility Checklist [x] Diagnosis of emphysema confirmed by CT [x] BMI < 35 kg/m2 [x] Stable with <= 20mg prednisone (or equivalent) daily [x] Residual volume >= 175% predicted (>= 200% if homogeneous) [x] FEV1 15-45% predicted [x]TLC >= 100% predicted [x] 6MWD 100-500m post-rehabilitation (150-500m if homogeneous) [] Not actively smoking (for at least 4 months) no severe exacerbations in last 3 months [] Target lobe with little or no collateral ventilation (as measured by StratX? Lung Analysis Platform and/or Chartis? Assessment at least 20% in the less than -950 HU measurement Exploratory analysis of LIBERATE data suggests patients were at (more content not included)... [facility] [place] - History AND Physicalon 03-15-2025 [place] - History & Physical [facility] Pulmonary Rehab Reports [address] [place] [address] [place] - History Physical MR#: [id number] Acct: [id number] Name: TOBY WOODY Rep #: [id number] : 1955 69 From: Geovanni Wilson BS, RVT PCP: SCOTT Grullon History of Present Illness General Arrival date:: 03/15/25 Arrival time:: 13:10 Date of Referral:: 02/21/25 Date of Evaluation: 03/15/25 Referring Physician: Dr. Randhawa Primary Diagnosis: centrilobular emphysema History of Present Pulmonary Event mMRC Breathless Scale: When is the patient short of breath? Y/N Grade: Description of Breathlessness: 0 I only get breathless with strenuous exercise. 1 I get short of breath when hurrying on level ground or walking up a slight hill. 2 On level ground, I walk slower than people of the same age because of breathless, or have to stop for breath when walking at my own pace. 3 I stop for breath after walking 100 yards or after a few minutes on level ground. 4 I am too breathless to leave the house or I am breathless when dressing. Respiratory Problems: Yes Retain Secretions, Fatigue, Wheezing, Able to Speak in Full Sentences, Dizziness, Hoarseness, Anxiety, Panic, Dyspnea with Activity and Cough with Secretions; No Limited Range of Motion, Chest Pain, Ankle Swelling, Dyspnea at Rest or Dyspnea Lying Down Flat Medications Home Medications disability placard #1 ea 02/04/20 albuterol sulfate 90 mcg/actuation aerosol inhaler 2 inh inhalation Q6H PRN shortness of breath or wheezing 02/18/24 lorazepam 0.5 mg tablet 0.5 mg PO DAILY PRN anxiety 05/24/24 albuterol sulfate 2.5 mg/3 mL (0.083 %) solution for nebulization 2.5 mg inhalation Q4H PRN shortness of breath or wheezing 08/10/24 fluticasone fur. 200 mcg-umeclid 62.5 mcg-vilant 25 mcg inhalat.powder (Trelegy Ellipta) 1 ea inhalation QDAY 08/10/24 buprenorphine 8 mg-naloxone 2 mg sublingual film 1 ea sublingual BID 09/27/24 docusate sodium 100 mg capsule (Stool Softener) 100 mg PO DAILY PRN constipation 09/27/24 mirtazapine 7.5 mg tablet 7.5 mg PO QHS 09/27/24 prednisone 20 mg tablet 20 mg PO BID #14 tabs 09/29/24 prednisone 10 mg tablet 10 mg PO QDAY #30 tabs 10/05/24 Allergies Allergies doxycycline Adverse Reaction (Unknown, Verified 10/05/24 14:14) Unknown Secretions Thick:: Yes Amount/Day:: 2 TBSP AM: Yes Sleep Disorder Evaluation Hx of Sleep Apnea: No Do you snore loudly (louder than talking or can be heard through closed doors)?: No Do you often feel tired/ fatigued/ sleepy during daytime?: No Has anyone observed you stop breathing during sleep?: No History of Hypertension (for STOP score): Yes STOP Results: Negative Medical Utilization Medical Devices Do you use a peak flow meter at home?: No Do you use a spacer device with your inhalers?: No Medical Utilization Number of hospital visits in the last year?: 2 Number of emergency room visits in the last year?: 2 Do you see your physician on a regular schedule?: No Advanced Directives Advanced Directives Do you have a Healthcare Power of Hot Room Attendant?: No Living Will: No Advance Directives Information Provided: No Advance Directives on File: No DNR Order?:: No Past Medical History Covid-19 Screening Physicial Symptoms Other Clinical Concerns Exposure Risk Pertinent Comorbidities 65 years or older:: Yes Has a chronic lung disease or moderate to severe asthma:: Yes Medical History Medical History Anxiety Smoker On home oxygen therapy Asthma Pulmonary nodules Tobacco use Opiate abuse, continuous Alcohol abuse Anxiety and depression Weight loss Osteoporosis Rheumatoid arthritis Sleep apnea Emphysema of lung Chronic pain Arthritis Hypertension Degenerative disc disease, lumbar Surgical History Surgical History H/O hernia repair Significant Family History Family History Mother Cancer Father Cancer Social History Smoking History Smoking Status: Current every day smoker Years Smokin Packs Smoked per Day: 2 Hx Tobacco Use: Yes Alcohol Use Alcohol Usage: Yes Substance Abuse Hx Substance Use: Yes Occupation Occupation (List type of work in comments):: Retired Functioning ADL/IADL Current Ability Current Ability: Independent: Self-Care (e.g.,grooming, dressing, bathing), Independent: Ambulation, Independent: Transfer and Independent: Household tasks (e.g., light meal prep, laundry, shopping) Pt Functioning Prior to Problem Prior Functioning: Self-Care (e.g.,grooming, dressing, bathing): Independent, Ambulation: Independent, Transfer: Independent and Household tasks (e.g., light meal prep, laundry, shopping): Independent Social Environment Status [facility] (more content not included)... Normal [facility] [place] - Individual Treatment Pl anon 03-15-2025 [place] - Individual Treatment Plan [facility] Pulmonary Rehab Reports [address] [place] [address] [place] - Individual Treatment Plan MR#: [id number] Acct: [id number] Name: TOBY WOODY Rep #: [id number] : 1955 69 From: Geovanni Wilson BS, RVT PCP: SCOTT Grullon General Information2 General Information Admitting Diagnosis: centrilobular emphysema PFT FEV1:: 40 FVC:: 93 FEV1/FVC%:: 42 Personal Learning Style/Barriers Personal Learning Style:: Audio/Visual Barriers to Learning: None Education/Goals [place] Patient Goals: Quit Smoking: Initial Assessment, Increase muscle strength: Initial Assessment, Experience less dyspnea: Initial Assessment, Improve energy level: Initial Assessment, Improve the ability to cope with ADLs: Initial Assessment, Improve knowledge of lung disease: Initial Assessment, Understand how to use medications: Initial Assessment, Increase knowledge of oxygen use: Initial Assessment, Control panic/anxiety: Initial Assessment, Improve diet and nutrition: Initial Assessment, Improve my quality of life: Initial Assessment and Reduce Stress/relaxation techniques: Initial Assessment Exercise - Initial Assessment Visit Date of Eval: 03/15/25 (initial eval ) Problem/Goals Problems: Deconditioning, No regular exercise, Knowledge deficit exercise guidelines and Knowledge deficit exercise safety Goals:: Aerobic exercise 30-60 mins x 12 weeks [36 sessions] Functional Capacity Test Number of feet walked: 954 Lowest SPO2 %: 93 Physician Prescribed Exercise Modalities: Treadmill, Rower, Schwinn Airdyne AD-7, SciFit Stepper, SciFit Pro-II Ergometer and SciFit Lateral Food Service Manager Frequency (days/week): 3 Duration (Minutes):: 30-45 Intensity: 60-80% of age predicted maximum heart rate reserve Current METSs:: 2 Target HR:: 113 (90-113) Resting Blood Pressure: 111/65 Minimum SpO2 with exercise: 96 EKG Type: NSR with sinus arrhythmia Plan Plan and Plan to Review:: Benefits of exercise, Core components of exercise, How to measure dyspnea level, How to monitor dyspnea level, Exercise intensity, Exercise safety guideline, Home exercise guidelines and Jeff: 3-/-13 Nutrition/Wt Mgmt - Initial Visit Date of Eval: 03/15/25 (initial eval ) Problems/Goals Problems: Underweight Goals: Prevent further wt loss Weight Management Knowledge Deficit Management of:: Underweight Admit Height:: 5 ft 7 in Admit Weight:: 117 lb Admit BMI:: 18.3 Intervention Referral to dietitian:: No Will attend diet classes:: Yes Intervention/Plan: Instruct on ideal BMI set weight loss goal w/patient, Assist pt to ID incorporate diet changes for weight loss by S9, Refer to Structured Weight Loss program as appropriate, Encourage goal of using 250-300dcal per session for weight loss and Other additional plan/interventions Plan Nutrition Plan: Yes: Review BMI or WC identify target wt strategies for wt control, Yes: Nutrition education class:, Yes: Medication education class [Prednisone]:, Yes: Weight control education class:, Yes: Education re: Need for ongoing weight monitoring, Yes: Food diary: and Yes: Physical activity log: Nutrition/Wt Mgmt - 30-Day Weight Management Height: 5 ft 7 in Weight:: 117 lb BMI: 18.3 Nutrition/Wt Mgmt - 60-Day Weight Management Height: 5 ft 7 in Weight:: 117 lb BMI: 18.3 Nutrition/Wt Mgmt - 90-Day Weight Management Height: 5 ft 7 in Weight:: 117 lb BMI: 18.3 Nutrition/Wt Mgmt - Final Weight Management Height: 5 ft 7 in Weight:: 117 lb BMI: 18.3 Psychosocial - Initial Assess Visit Date of Eval: 03/15/25 (initial eval ) Problems/Goals History of Emotional Disorders: Anxious and Depression Psychosocial Goals: 1. Patient is free from overwhelming symtoms of depression (or anxiety, 2. Identifies personal stressors states the strategies for managing, 3. Identifies activities to decrease isolation and/or symptoms of, 4. Improved psychosocial coping skills., 5. Verbalizes coping strategies., 6. Adequate treatment of depression. and 7. Improved Q.O.L. Self-reported stressors: Recent Illness Psychosocial Test Tool Used:: Pulmonary QOL and PHQ-9 Questionnaire Referred to MD for counseling:: No Referral to Behavioral Health PS - Interventions: Yes: Attend Stress Management Classes Intervention/Plan: See List Interventions/Plan:: Assess stressors,coping strategies signs of derpression on admission, Instruct/assist pt to develop coping personal stress Mgt strategies, Refer to Behavioral Health if appropriate, Refer to Physician if appropriate, Instruct patient to recognize signs symptoms of depression and Instruct patient to recog Psychosocial - 30-Day Problems/Goals History of Emotional Disorders: Anxious and Depression Psychosocial Goals: 1. Patient is free from overwhelming symtoms of depression (or anxiety, 2. Identifies personal stressors states the strategies for managing, (more content not included)... [facility] 02-21-2025 29 Addended by: WYATT KINGSLEY on: 02/21/2025 12:00 PM Modules accepted: Orders [facility] 29 Addended by: CINDA CEVALLOS on: 02/21/2025 06:50 AM Modules accepted: Orders [facility] 02-17-2025 36 Patient called into line inquiring about sending his pulmonary rehab order over to [facility]. Also saw that smoking cessation coordinator was trying to speak with the patient. Called Zahra and spoke with her Transferred the patient into her line to further discuss care. Will send external referral over to [facility] for him. Tried calling their pulm rehab dept for fax number but left a voicemail. [phone]. [facility] 02-16-2025 29 Addended by: CINDA CEVALLOS on: 02/21/2025 07:59 AM Modules accepted: Orders [facility] 37on 02-16-2025 37 YOUR APPOINTMENT TOVineet DON WAS WITH THE [facility] LUNG NODULE CLINIC, COPD CLINIC, PULMONARY AND SLEEP MEDICINE OFFICE. PLEASE CALL OUR OFFICE AT [phone] IF YOU HAVE NOT RECEIVED YOUR TEST RESULTS 7 DAYS AFTER TESTING IS COMPLETED. PLEASE REMEMBER TO REQUEST REFILLS AT YOUR OFFICE VISITS. PHONE/FAX REQUESTS REQUIRE 48-72 HOURS FOR RESPONSE. A FRIENDLY REMINDER COPAYS ARE DUE AT TIME OF SERVICE. THANK YOU. Our Patients Are Important! We want to improve and you can help. After your visit we want you to feel: Listened to, Respected and have your health care explained. You may receive a survey asking you about your visit. Please complete the survey. We will use your feedback to make improvements. COVID-19 VACCINATION INFORMATION: PH. [phone] HEALTH.[email or web address] ACCINE [facility] Central Scheduling [phone] [facility] Sleep Scheduling [phone] [facility] Office Visiton 02-16-2025 Follow-up visit [id number] Toby Woody 1955 M Date Provider Department Center 02/16/2025 WYATT ORTEGA [facility] None Family History Problem Relation Age of Onset Cancer Father Family Status - Relation Status Age at Father Level of Service:01816 [place] OFFICE/OUTPATIENT NEW MODERATE MDM 45 MINUTES Reason for Visit and Comments: New Patient [542] [facility] Progress Noteon 02-16-2025 Progress Note COPD Clinic [address] [place] [address] Visit type: New patient Reason for Visit: BLVR Evaluation History of Present Illness: Toby Woody is a 69 y.o. 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 RUL nodule sp biopsy, granuloma necrotizing. PFTs-- severe ovd with air trapping and hyperfilantion Oximetry-- 3 L Sleep study-- n/an Home medications : A/P Preliminary not a candidate yet due to current smoking and RUL pulmonary nodule. Request records and evaluation. Will require repeat CT Chest. Smokig cessation, Continue ttriple bd therapy Evaluation for ensifentrine neb additional therapy Nebulizer Start pulmonary rehab Follow up established Diagnosis Plan 1. Chronic bronchitis, unspecified chronic bronchitis type (HCC) Trelegy Ellipta 100-62.5-25 MCG/ACT aerosol powder [facility] Cardiac/Pulmonary Rehab Pulmonary rehab evaluation 2. Centrilobular emphysema (HCC) Trelegy Ellipta 100-62.5-25 MCG/ACT aerosol powder albuterol 108 (90 Base) MCG/ACT inhaler 3. Pulmonary hyperinflation 4. Pulmonary air trapping 5. Tobacco use [facility] Smoking/Tobacco Cessation Program #exacerbations within the last year: 2 #exacerbations leading to hospitalization within the last year: CAT Score: MMRC Dyspnea Scale: Grade Description of Breathlessness 0 I only get breathless with strenuous exercise. 1 I get short of breath when hurrying on level ground or walking up a slight hill. 2 On level ground, I walk slower than people of the same age because of breathlessness, or have to stop for breath when walking at my own pace. 3 I stop for breath after walking about 100 yards or after a few minutes on level ground. 4 I am too breathless to leave the house or I am breathless when dressing. [x]Age 40--75 []Non smoker []No severe exacerbation in past 3 months []Pulmonary rehab competed - start [x] No AC/antiplatelet rx , no elevated bleeding risk [x] No prior LVRS, thoracic surgery or pleurodesis [x] On optimal Medical Therapy [] No pulmonary hypertension - ABG PaCO2 < 50 [] Echo EF >45 , RVSP < 45 [x] Meets PFT criteria TLC 100, RV > 150 , FEV1 15-45% [] No high risk pulmonary nodules on CT . Endobronchial Valve Pulmonary Clinic Eligibility Checklist [x] Diagnosis of emphysema confirmed by CT [x] BMI < 35 kg/m2 [x] Stable with <= 20mg prednisone (or equivalent) daily [x] Residual volume >= 175% predicted (>= 200% if homogeneous) [x] FEV1 15-45% predicted [x]TLC >= 100% predicted [x] 6MWD 100-500m post-rehabilitation (150-500m if homogeneous) [] Not actively smoking (for at least 4 months) no severe exacerbations in last 3 months [] Target lobe with little or no collateral ventilation (as measured by StratX? Lung Analysis Platform and/or Chartis? Assessment at least 20% in the less than -950 HU measurement Exploratory analysis of LIBERATE data suggests patients were at higher risk if the treated lobe was not the lobe with most destruction AND the average destruction was >60% in the non-treated, contralateral lung Pre-EBV Treatment: [] HRCT scan Must meet StratX requirements (ideally <=1.5mm slice thickness) [] Must meet patient selection criteria [] SPECT-CT Pefusion Scan Contraindications The Montrose Valve is contraindicated for: Patients for whom bronchoscopic procedures are contraindicated Patients with evidence of active pulmonary infection Patients with known allergies to Nitinol, Nickel, Titanium, or Silicone Patient who have not quit smoking Patients with large bullae greater than 30% of either lung. - referral to surgical eval. [] Patient participated in pre-visit educational session with RN, including 15 minutes time spent watching PulmonX Montrose Valve How it Works video. We discussed expected improvement with BLVR, which at this time consists of approximately 10% and FEV1 on PFTs as well as symptomatic decrease in dyspnea scoring and increased ambulation distance with a goal to improve overall daily quality of life. We discussed risks of intervention which includes up to 30% risk of pneumothorax, with associated morbidity and mortality, as well as and not limited to valve migration, granulation, bleeding, infection. We also discussed evaluation of candidacy for BLVR including evaluation via StratX report of collateral ventilation, with further need for evaluation with Chartis in endoscopy lab procedure. Patient is aware that even if appropriate can see determine approximate 20% of patients will have positive collateral ventilation and endoscopy at time of procedure, and no valves will be placed. Furthermore patient is informed and verbalized understanding that up to 10% of post BLVR patients can require revision, removal of endobronchial valves. Past Medical History: Pas (more content not included)... [facility] CT CHEST WO IVCONon 12-29-19 CT CHEST WO IVCON * * *Final Report* * * DATE OF EXAM: Dec 29 2024 2:48PM [facility] 0541 - CT CHEST WO IVCON / PROCEDURE REASON: multiple diagnoses * * * * Physician Interpretation * * * * EXAMINATION: CHEST CT WITHOUT CONTRAST CLINICAL HISTORY: Abnormal chest x-ray stable multiple lung nodules, centrilobular emphysema Technique: Spiral CT acquisition of the chest from the thoracic inlet to the upper abdomen without contrast. MQ: CTCWO_6 CT Radiation dose: Integrated Dose-length product (DLP) for this visit = 139 mGy*cm CT Dose Reduction Employed: Automated exposure control(AEC) and iterative recon Comparison: Multiple prior studies dating back to 08/05/2024 RESULT: Limitations: None. Lines, tubes, and devices: None. Lung parenchyma and Airways: interval resolution of groundglass opacities and consolidations in right middle lobe. The nodular consolidation in right upper lobe medially around image 85 decrease in size likely reflecting resolving pneumonia. However, there is development of new ill-defined nodule in right upper lobe adjacent to the bronchovascular structures, measuring approximately 1.3 cm on image 33, there is also new peribronchial consolidation in right upper lobe on image 60 compatible with new focus of infection. The right apical masslike consolidation now demonstrating cavitation is again noted, unchanged in overall size but slightly different in configuration, it was previously biopsied and shown to be necrotizing granulomatous inflammation. Numerous other small lung nodules are stable. Notable examples include: Right upper lobe 5 mm nodule on image 29. Right upper lobe 5 mm nodule on image 90. Right lower lobe 8 mm nodule on image 80 and 5 mm nodules on images 131 and 110. Left lower lobe superior segment 8 mm nodule on image 69. Upper lung predominant centrilobular and paraseptal emphysema is again noted. Saber-sheath configuration of the trachea. There is diffuse bronchial wall thickening in both lungs with scattered areas of mucus plugging particularly in both lower lobes and right middle lobe. Pleural space: No pleural effusion. No pleural thickening. Lower neck, lymph nodes, and mediastinum: The imaged thyroid gland is normal. No lymphadenopathy in the supraclavicular, axillary, mediastinal, or hilar regions. Heart, pericardium, and thoracic vessels: The thoracic aorta and main pulmonary artery are normal in caliber. The cardiac chambers are normal in size. No coronary artery atherosclerotic calcifications are noted, although the study is not optimized for coronary assessment. No pericardial effusion or thickening. Bones and soft tissues: No destructive bone lesion. Chest wall is unremarkable. Upper abdomen: No abnormality in the imaged upper abdomen. Localizer images: No additional findings. IMPRESSION: 1. While some of the consolidations in right middle lobe and in right upper lobe have resolved or decreased in size, there are new consolidations and ill-defined nodules in right upper lobe, compatible with an infectious process. Consider short-term follow-up in 6-8 weeks for resolution. 2. 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 Prior to. Numerous other small lung nodules show no change since the baseline study from August 2024. 3. Upper lung predominant centrilobular and paraseptal emphysema noted. Managed Care Manager: SEJAL Transcribe Date/Time: Dec 29 2024 2:57P Dictated by : JOSE ANTONIO SIERRA MD This examination was interpreted and the report reviewed and electronically signed by: JOSE ANTONIO SIERRA MD on Dec 29 2024 3:05PM EST [id number] Normal [facility] CT Chest WO contraston 12-29 IMPRESSION: 1. While some of the consolidations in right middle lobe and in right upper lobe have resolved or decreased in size, there are new consolidations and ill-defined nodules in right upper lobe, compatible with an infectious process. Consider short-term follow-up in 6-8 weeks for resolution. 2. 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 Prior to. Numerous other small lung nodules show no change since the baseline study from August 2024. 3. Upper lung predominant centrilobular and paraseptal emphysema noted. Managed Care Manager: SEJAL Transcribe Date/Time: Dec 29 2024 2:57P Dictated by : JOSE ANTONIO SIERRA MD This examination was interpreted and the report reviewed and electronically signed by: JOSE ANTONIO SIERRA MD on Dec 29 2024 3:05PM EST DIVISION OF RADIOLOGY * * *Final Report* * * DATE OF EXAM: Dec 29 2024 2:48PM [facility] 0541 - CT CHEST WO IVCON / PROCEDURE REASON: multiple diagnoses * * * * Physician Interpretation * * * * EXAMINATION: CHEST CT WITHOUT CONTRAST CLINICAL HISTORY: Abnormal chest x-ray stable multiple lung nodules, centrilobular emphysema Technique: Spiral CT acquisition of the chest from the thoracic inlet to the upper abdomen without contrast. MQ: CTCWO_6 CT Radiation dose: Integrated Dose-length product (DLP) for this visit = 139 mGy*cm CT Dose Reduction Employed: Automated exposure control(AEC) and iterative recon Comparison: Multiple prior studies dating back to 08/05/2024 RESULT: Limitations: None. Lines, tubes, and devices: None. Lung parenchyma and Airways: interval resolution of groundglass opacities and consolidations in right middle lobe. The nodular consolidation in right upper lobe medially around image 85 decrease in size likely reflecting resolving pneumonia. However, there is development of new ill-defined nodule in right upper lobe adjacent to the bronchovascular structures, measuring approximately 1.3 cm on image 33, there is also new peribronchial consolidation in right upper lobe on image 60 compatible with new focus of infection. The right apical masslike consolidation now demonstrating cavitation is again noted, unchanged in overall size but slightly different in configuration, it was previously biopsied and shown to be necrotizing granulomatous inflammation. Numerous other small lung nodules are stable. Notable examples include: Right upper lobe 5 mm nodule on image 29. Right upper lobe 5 mm nodule on image 90. Right lower lobe 8 mm nodule on image 80 and 5 mm nodules on images 131 and 110. Left lower lobe superior segment 8 mm nodule on image 69. Upper lung predominant centrilobular and paraseptal emphysema is again noted. Saber-sheath configuration of the trachea. There is diffuse bronchial wall thickening in both lungs with scattered areas of mucus plugging particularly in both lower lobes and right middle lobe. Pleural space: No pleural effusion. No pleural thickening. Lower neck, lymph nodes, and mediastinum: The imaged thyroid gland is normal. No lymphadenopathy in the supraclavicular, axillary, mediastinal, or hilar regions. Heart, pericardium, and thoracic vessels: The thoracic aorta and main pulmonary artery are normal in caliber. The cardiac chambers are normal in size. No coronary artery atherosclerotic calcifications are noted, although the study is not optimized for coronary assessment. No pericardial effusion or thickening. Bones and soft tissues: No destructive bone lesion. Chest wall is unremarkable. Upper abdomen: No abnormality in the imaged upper abdomen. Localizer images: No additional findings. DIVISION OF RADIOLOGY Provider, [facility] - 12/29/2024 * * *Final Report* * * DATE OF EXAM: Dec 29 2024 2:48PM [facility] 0541 - CT CHEST WO IVCON / PROCEDURE REASON: multiple diagnoses * * * * Physician Interpretation * * * * EXAMINATION: CHEST CT WITHOUT CONTRAST CLINICAL HISTORY: Abnormal chest x-ray stable multiple lung nodules, centrilobular emphysema Technique: Spiral CT acquisition of the chest from the thoracic inlet to the upper abdomen without contrast. MQ: CTCWO_6 CT Radiation dose: Integrated Dose-length product (DLP) for this visit = 139 mGy*cm CT Dose Reduction Employed: Automated exposure control(AEC) and iterative recon Comparison: Multiple prior studies dating back to 08/05/2024 RESULT: Limitations: None. Lines, tubes, and devices: None. Lung parenchyma and Airways: interval resolution of groundglass opacities and consolidations in right middle lobe. The nodular consolidation in right upper lobe medially around image 85 decrease in size likely reflecting resolving pneumonia. However, there is development of new ill-defined nodule in right upper lobe adjacent to the bronchovascular structures, measuring approximately 1.3 cm on image 33, there is also new peribronchial consolidation in right upper lobe on image 60 compatible with new focus of infection. The right apical masslike consolidation now demonstrating cavitation is again noted, unchanged in overall size but slightly different in configuration, it was previously biopsied and shown to be necrotizing granulomatous inflammation. Numerous other small lung nodules are stable. Notable examples include: Right upper lobe 5 mm nodule on image 29. Right upper lobe 5 mm nodule on image 90. Right lower lobe 8 mm nodule on image 80 and 5 mm nodules on images 131 and 110. Left lower lobe superior segment 8 mm nodule on image 69. Upper lung predominant centrilobular and paraseptal emphysema is again noted. Saber-sheath configuration of the trachea. There is diffuse bronchial wall thickening in both lungs with scattered areas of mucus plugging particularly in both lower lobes and right middle lobe. Pleural space: No pleural effusion. No pleural thickening. Lower neck, lymph nodes, and mediastinum: The imaged thyroid gland is normal. No lymphadenopathy in the supraclavicular, axillary, mediastinal, or hilar regions. Heart, pericardium, and thoracic vessels: The thoracic aorta and main pulmonary artery are normal in caliber. The cardiac chambers are normal in size. No coronary artery atherosclerotic calcifications are noted, although the study is not optimized for coronary assessment. No pericardial effusion or thickening. Bones and soft tissues: No destructive bone lesion. Chest wall is unremarkable. Upper abdomen: No abnormality in the imaged upper abdomen. Localizer images: No additional findings. IMPRESSION IMPRESSION: 1. While some of the consolidations in right middle lobe and in right upper lobe have resolved or decreased in size, there are new consolidations and ill-defined nodules in right upper lobe, compatible with an infectious process. Consider short-term follow-up in 6-8 weeks for resolution. 2. 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 Prior to. Numerous other small lung nodules show no change since the baseline study from August 2024. 3. Upper lung predominant centrilobular and paraseptal emphysema noted. Managed Care Manager: SEJAL Transcribe Date/Time: Dec 29 2024 2:57P Dictated by : JOSE ANTONIO SIERRA MD This examination was interpreted and the report reviewed and electronically signed by: JOSE ANTONIO SIERRA MD on Dec 29 2024 3:05PM EST [facility] Radiology Study observation (narrative) [facility] CT Chest WO contrastOrdered By: Ccf Provider on 12-29-2024 [facility]19-2024 [facility] -------- TOBY WOODY ([id number]) 1955 Date Time Provider Department 11/19/24 HARIS TRACEY PODCCP During your visit today, we recorded the following information about you: Dorothea Kohli 11/19/2024 3:52 PM Signed RECEIVED CALL FROM: Patient PATIENT INFORMATION: Name: Toby Woody : 1955 (home) [phone] (cell) Email: [email or web address] Referring Provider: No referring provider defined for this encounter. Phone: N/A Fax: Requested Surgeon: Haris Tracey M.D. Reason for appointment/diagnosis: Lung nodules Dorothea Kohli November 19, 2024 3:49 PM Davida Denton, RN 01/07/2025 12:25 PM Signed Addended by: DAVIDA DENTON on: 01/07/2025 12:25 PM Modules accepted: Orders Allergies As of Date: 11/19/2024 (Not on File) Date Reviewed: Never Reviewed Reason for Visit: Appointment [186] Problem List As Of Date: 11/19/2024 (None) Encounter Status:Closed by DOROTHEA KOHLI on 11/19/24 [facility] 10[facility]23-2024 [facility][id number][facility] -------- TOBY WOODY ([id number]) 1955 M Date Time Provider Department 10/23/24 EWELINA NAPOLES [id number] During your visit today, we recorded the following information about you: Allergies As of Date: 10/23/2024 (Not on File) Date Reviewed: Never Reviewed Reason for Visit: Appointment [186] Problem List As Of Date: 10/23/2024 (None) Encounter Status:Closed by EWELINA RAY on 10/23/24 [facility] 10-20-2024 [facility] Telephone ([id number]) -------- TOBY WOODY ([id number]) 1955 M Date Time Provider Department 10/20/24 EWELINA NAPOLES [id number] During your visit today, we recorded the following information about you: Allergies As of Date: 10/20/2024 (Not on File) Date Reviewed: Never Reviewed Reason for Visit: Appointment [186] Problem List As Of Date: 10/20/2024 (None) Encounter Status:Closed by EWELINA RAY on 10/20/24 [facility] 10-07-2024 [facility] Telephone (THORMN) -------- TOBY WOODY ([id number]) 1955 M Date Time Provider Department 10/07/24 HARIS TRACEY During your visit today, we recorded the following information about you: Ann Oliver 10/08/2024 12:00 PM Addendum Received Routed [facility] Telephone Encounter from Dr. Martha Beniteztanya is being referred to Unspecified Thoracic Surgeon by Dr. Martha Neumann Patient diagnosis/Reason for consult: spot on lung Referral triage process explained: No Patient will receive a call from Thoracic NPM after triage review with surgeon to discuss any additional testing and/or consults that will be scheduled. Pt will then receive a call from our scheduling office for scheduling. Please call pt at [phone]. Patient was informed consultation could be at [place] or [facility] [place]: No Patient Registration: Registration complete/updated: yes Insurance card(s) scanned in [place] with in the past year: No Pt's [employer] is inactive. Ok to communicate to pt via [employer] no Medical Records: Records in [facility] (internal CC records): Yes Imaging in [facility] (internal CC records): No Care Everywhere - queried no, downloaded No Linked Outside Organizations (list): OS Records Requested: Yes Date: 10/07/2024 Outside Hospital(s) requested records from: [facility] Received: no Uploaded: No. Waiting on additional records: Yes. Missing (list): Office notes OSH Pathology Slides Requested: no Date: N/A Outside Hospital(s) slides requested from: [facility] Radiology Imaging Requested:Yes Date: 10/08/2024 Outside Hospital(s) requested imaging from: [facility]. Imaging will be received via Electronic transfer Received: no Imaging uploaded: No Waiting on additional: Yes. Missing (list): CT Additional providers added to Care Teams: Yes Additional Notes/Comments: Left vm w/ patient to get more info. 10/07. Images will be power shared. -10/08 Enct routed to: Ann Javier 10/08/2024 12:01 PM Signed Records scanned into [facility], awaiting images. [facility] Srinivasan Patino RN 10/18/2024 6:07 PM Addendum Thoracic Surgery Consultation - review of records for appointment scheduling Received medical records from the office of Martha Neumann, RAMIL[place] [address] [facility] [id number] Patient is being referred to Unspecified/First Available (assigned to Dr. Tracey) by Martha Neumann for Lung Nodule Outside hospital records scanned / in epic / Care Everywhere Pathology:CT bx 09/27/2024 Procedures:CT bx 09/27/2024 Imaging CCT 12/29/24 IMPRESSION: 1. While some of the consolidations in right middle lobe and in right upper lobe have resolved or decreased in size, there are new consolidations and ill-defined nodules in right upper lobe, compatible with an infectious process. Consider short-term follow-up in 6-8 weeks for resolution. 2. 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 Prior to. Numerous other small lung nodules show no change since the baseline study from August 2024. 3. Upper lung predominant centrilobular and paraseptal emphysema noted. PET/CT: 08/31/2024 (need images) CT (chest): 08/05/2024 MRI: UGI: Cardiopulmonary Testing PFT 12/29/24 PRE-BRONCH POST-BRONCH Pre LLN Pred ULN %Pred Post %Pred %Chg SPIROMETRY FVC (L) 3.01 2.67 3.59 4.53 83 3.37 93 10 FEV1 (L) 1.11 2.00 2.74 3.43 40 1.10 40 0 LUNG DIFFUSION DLCOunc (ml/min/mmHg) 9.58 14.82 24.76 34.69 38 6MWT 12/29/24 Distance Walked (meters) Distance Walked (feet) Male Predicted Walk Distance (feet) Male Lower Limit of Normal (feet) Male % Predicted Total Duration Of The Stops (seconds) 326.14 1070 1764.44 1262.44 60.6 -- Cardiac: Office Notes/Consults 10/05/2024 Nel MCGRATH History of: FAMILY HISTORY Problem Relation Age of Onset Cancer Mother Cancer Father PAST MEDICAL HISTORY Diagnosis Date Alcohol abuse COPD (chronic obstructive pulmonary disease) (HCC) Emphysema lung (HCC) HTN (hypertension) Lung nodules Narcotic abuse (HCC) CYNTHIA (obstructive sleep apnea) Rheumatoid arthritis (HCC) PAST SURGICAL HISTORY Procedure Laterality Date EGD FLEXIBLE FOREIGN BODY REMOVAL 06/01/2016 HERNIA REPAIR HX Social History Tobacco Use Smoking status: Every Day Types: Cigarettes Substance Use Topics Alcohol use: Yes Alcohol/week: 42.0 standard drinks of alcohol Types: 42 Cans of beer per week Comment: 6-8 beers a day Drug use: Yes Types: Opiates, Narcotics Comment: Suboxone Request Thoracic surgery consult with Dr. Tracey for RUL PET avid nodule after EBUS with pft's/6mw Srinivasan (more content not included)... Normal [facility] CNPN Telephone (THORMN) -------- TOBY WOODY ([id number]) 1955 M Date Time Provider Department 11/7/24 NO PCP THORMN During your visit today, we recorded the following information about you: Nathaniel Pratt 10/07/2024 1:03 PM Signed RECEIVED CALL FROM: Referring physician - Name: Dr.Christina Rodarte PATIENT INFORMATION: Name: Toby Woody : 1955 (home) [phone] (cell) Email: [email or web address] Referring Provider: Martha Neumann Requested Surgeon: Unspecified Thoracic Surgeon Reason for appointment/diagnosis: Abnormal findings of lung Nathaniel Pratt October 07, 2024 12:58 PM Allergies As of Date: 10/07/2024 (Not on File) Date Reviewed: Never Reviewed Reason for Visit: Appointment [186] Problem List As Of Date: 10/07/2024 (None) Encounter Status:Closed by GUSTAVOSAGE NATHANIEL on 10/07/24 Normal [facility] 12 Lead EKGon 10-05-[address] [facility] [address] [place] [id number] 12 Lead EKG 10/05/24 0940 MR#: [id number] Acct: [id number] Name: TOBY WOODY Rep #: [id number] : 1955 69 From: Calderon Ramirez MD Attending Dr: Status: DEP ER Ordering Dr: Chris Giles MD Date: 10/05/24 Location: ED Sex: M C Admitted: Test Reason : Blood Pressure : */* mmHG Vent. Rate : 89 BPM Atrial Rate : 89 BPM P-R Int : 120 ms QRS Dur : 74 ms QT Int : 356 ms P-R-T Axes : 85 86 67 degrees QTcB Int : 433 ms Normal sinus rhythm with sinus arrhythmia Normal ECG Confirmed by Calderon Ramirez ([id number]), video effects editor LATASHA CUEVA ([id number]) on 10/06/2024 11:40:46 AM Referred By: Confirmed By: Calderon Ramirez 10/06/24 1140 Date Calderon Ramirez MD CC: SCOTT Landry; Dr. Chris Giles MD Signed Normal [facility] Basic Metabolic Profile (BMP )on 10-05-2024 BUN/CRE 17.6 RATIO Normal 10-20 [facility] Comment on above: Order Comment: 'TROP ' Serial specimen #1, #2 or #3: 1 Performed By: #### L 500.2500, L501.4020, L100.0100 #### [facility] [address] [place], [address] CA,Total 8.9 mg/dL Normal 8.5-10.1 [facility] Comment on above: Order Comment: 'TROP ' Serial specimen #1, #2 or #3: 1 Performed By: #### L 500.2500, L501.4020, L100.0100 #### [facility] [address] [place], [address] Chloride [Moles/Vol] 107 mmol/L Normal 98-107 [facility] Comment on above: Order Comment: 'TROP ' Serial specimen #1, #2 or #3: 1 Performed By: #### L 500.2500, L501.4020, L100.0100 #### [facility] [address] [place], [address] CO2 [Moles/Vol] 30.0 mmol/L Normal 21.0-32.0 [facility] Comment on above: Order Comment: 'TROP ' Serial specimen #1, #2 or #3: 1 Performed By: #### L 500.2500, L501.4020, L100.0100 #### [facility] [address] [place], [address] Creatinine [Mass/Vol] 0.68 mg/dL Low 0.70-1.30 [facility] Comment on above: Order Comment: 'TROP ' Serial specimen #1, #2 or #3: 1 Result Comment: The validity of the calculated GFR GFRAA in patients over 70 years has not been determined. Clinical correlation is essential. Performed By: #### L 500.2500, L501.4020, L100.0100 #### [facility] [address] [place], [address] ECRCL 67.08 ml/min Normal [facility] Comment on above: Order Comment: 'TROP ' Serial specimen #1, #2 or #3: 1 Performed By: #### L 500.2500, L501.4020, L100.0100 #### [facility] [address] [place], [address] EST GFR - AA 148 mL/min Normal >60 [facility] Comment on above: Order Comment: 'TROP ' Serial specimen #1, #2 or #3: 1 Result Comment: Afri can Iranian GFR Calc Performed By: #### L 500.2500, L501.4020, L100.0100 #### [facility] [address] [place], [address] GAP 5 Normal 5-15 [facility] Comment on above: Order Comment: 'TROP ' Serial specimen #1, #2 or #3: 1 Performed By: #### L 500.2500, L501.4020, L100.0100 #### [facility] [address] [place], [address] GFR/1.73 sq M.predicted among non-blacks MDRD (S/P/Bld) [Vol rate/Area] 122 mL/min/{1.73_m2} Normal >60 [facility] Comment on above: Order Comment: 'TROP ' Serial specimen #1, #2 or #3: 1 Result Comment: Non- GFR Calc Performed By: #### L 500.2500, L501.4020, L100.0100 #### [facility] [address] [place], [address] Glucose [Mass/Vol] 84 mg/dL Normal 74-106 [facility] Comment on above: Order Comment: 'TROP ' Serial specimen #1, #2 or #3: 1 Performed By: #### L 500.2500, L501.4020, L100.0100 #### [facility] [address] [place], [address] Potassium [Moles/Vol] 4.0 mmol/L Normal 3.5-5.1 [facility] Comment on above: Order Comment: 'TROP ' Serial specimen #1, #2 or #3: 1 Performed By: #### L 500.2500, L501.4020, L100.0100 #### [facility] [address] [place], [address] Sodium [Moles/Vol] 142 mmol/L Normal 136-145 [facility] Comment on above: Order Comment: 'TROP ' Serial specimen #1, #2 or #3: 1 Performed By: #### L 500.2500, L501.4020, L100.0100 #### [facility] [address] [place], [address] Urea nitrogen [Mass/Vol] 12 mg/dL Normal 7-18 [facility] Comment on above: Order Comment: 'TROP ' Serial specimen #1, #2 or #3: 1 Performed By: #### L 500.2500, L501.4020, L100.0100 #### [facility] [address] [place], [address] CBC W/Diff, Automatedon 11-0 5-4 Absolute Lymph 2.91 X10 3/uL Normal 0.83-4.51 [facility] Comment on above: Performed By: #### L 500.2500, L501.4020, L100.0100 #### [facility] Laboratory [address] [place], [address] Absolute Neut 3.3 X10 3/uL Normal 2.0-7.7 [facility] Comment on above: Performed By: #### L 500.2500, L501.4020, L100.0100 #### [facility] Laboratory [address] [place], [address] Basophils/100 WBC (Bld) 0.3 % Normal 0-1 [facility] Comment on above: Performed By: #### L 500.2500, L501.4020, L100.0100 #### [facility] Laboratory [address] [place], [address] Eosinophils/100 WBC (Bld) 0.6 % Normal 0-5 [facility] Comment on above: Performed By: #### L 500.2500, L501.4020, L100.0100 #### [facility] Laboratory [address] [place], [address] Erythrocyte distribution width (RBC) [Ratio] 12.9 % Normal 11.6-14.6 [facility] Comment on above: Performed By: #### L 500.2500, L501.4020, L100.0100 #### [facility] Laboratory [address] [place], [address] Hematocrit (Bld) [Volume fraction] 42.1 % Normal 40-54 [facility] Comment on above: Performed By: #### L 500.2500, L501.4020, L100.0100 #### [facility] Laboratory [address] [place], [address] Hemoglobin (Bld) [Mass/Vol] 14.1 g/dL Normal 13.0-16.5 [facility] Comment on above: Performed By: #### L 500.2500, L501.4020, L100.0100 #### [facility] Laboratory [address] [place], [address] IG% 0.400 Normal 0.0-0.9 [facility] Comment on above: Result Comment: IG% - Immature Granulocytes (promyelocytes, myelocytes and metamyelocytes) > 1% indicates that a LEFT SHIFT is Present. Performed By: #### L 500.2500, L501.4020, L100.0100 #### [facility] Laboratory [address] [place], [address] Lymphocytes/100 WBC (Bld) 41.9 % High 19-41 [facility] Comment on above: Performed By: #### L 500.2500, L501.4020, L100.0100 #### [facility] Laboratory [address] [place], [address] MCH (RBC) [Entitic mass] 30.8 pg Normal 27.0-32.0 [facility] Comment on above: Performed By: #### L 500.2500, L501.4020, L100.0100 #### [facility] Laboratory [address] [place], [address] MCHC (RBC) [Mass/Vol] 33.5 g/dL Normal 32-36 [facility] Comment on above: Performed By: #### L 500.2500, L501.4020, L100.0100 #### [facility] Laboratory [address] [place], [address] MCV (RBC) [Entitic vol] 91.9 fL Normal 80-94 [facility] Comment on above: Performed By: #### L 500.2500, L501.4020, L100.0100 #### [facility] Laboratory [address] [place], [address] Monocytes/100 WBC (Bld) 9.9 % Normal 0-10 [facility] Comment on above: Performed By: #### L 500.2500, L501.4020, L100.0100 #### [facility] Laboratory [address] [place], [address] Neutrophils/100 WBC (Bld) 46.9 % Low 47-70 [facility] Comment on above: Performed By: #### L 500.2500, L501.4020, L100.0100 #### [facility] Laboratory [address] [place], [address] Nucleated RBC (Bld) [#/Vol] 0 10*3/uL Normal 0-5 [facility] Comment on above: Performed By: #### L 500.2500, L501.4020, L100.0100 #### [facility] Laboratory [address] [place], [address] Platelet mean volume (Bld) [Entitic vol] 10.0 fL Normal 6.2-12.0 [facility] Comment on above: Performed By: #### L 500.2500, L501.4020, L100.0100 #### [facility] Laboratory [address] [place], [address] Platelets (Bld) [#/Vol] 260 10*3/uL Normal 150-450 [facility] Comment on above: Performed By: #### L 500.2500, L501.4020, L100.0100 #### [facility] Laboratory [address] [place], [address] RBC (Bld) [#/Vol] 4.58 10*6/uL Low 4.6-6.2 [facility] Comment on above: Performed By: #### L 500.2500, L501.4020, L100.0100 #### [facility] Laboratory [address] [place], [address] RDW SD 43.0 fl Normal 35.1-43.9 [facility] Comment on above: Performed By: #### L 500.2500, L501.4020, L100.0100 #### [facility] Laboratory [address] [place], [address] WBC (Bld) [#/Vol] 7.0 10*3/uL Normal 4.4-11.0 [facility] Comment on above: Performed By: #### L 500.2500, L501.4020, L100.0100 #### [facility] Laboratory [address] [place], [place], [address] Chest 1 View (Portable)on Chest 1 View (Portable) [facility] Imaging Services [address] [place] [address] Chest 1 View (Portable) MR#: [id number] Acct: [id number] Name: TOBY WOODY Rep #: [id number] : 1955 M 69 From: Oliver rivas MD PCP: Jane Landry NP-Arthur Status: REG ER Study: Chest 1 View (Portable) Date of Exam: 10/05/24 Exam# [id number] Ordering Dr: Chris Giles MD [id number] STUDY: X-RAY CHEST REASON FOR EXAM: Male, 69 years old. Chest pain TECHNIQUE: Single AP portable view of the chest. COMPARISON: Comparison is made with prior study dated September 29, 2024. FINDINGS: EKG electrodes are seen. There is hyperinflation of the lungs consistent with chronic obstructive lung disease (COPD). There is no demonstrated pleural abnormality. Normal size heart. Calcified left hilar lymph nodes. Normal visualized pulmonary arteries. Normal visualized aortic arch and descending thoracic aorta. Normal visualized thoracic spine. Multiple healed right rib fractures. There is no demonstrated abnormality of the visualized soft tissue structures of the upper abdomen. RAD/Chest 1 View (Portable) IMPRESSION: Hyperinflation. No acute abnormality is seen. Multiple healed right rib fractures. Electronically Signed: Oliver Harry MD at 10:59 EST , CC: 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Luisa Landry; Dr. Chris Giles MD Managed Care Manager: Signed Normal [facility] Emergency Department Summary on 10-05-2024 Emergency Department Summary [facility] Medical Records Department [address] [place] [address] Emergency Department Summary 10/05/24 MR#: [id number] Acct: [id number] Name: TOBY WOODY Rep #: [id number] : 1955 69 From: Chris Giles MD PCP: MARA GrullonC Status:REG ER Location: ED HPI History of Present Illness Chief Complaint: Shortness of Breath Informant: patient Onset/Context/Timing Onset: Today Context: gradual Timing: Continuous Quality: Positive for Wheezing Current Severity: Moderate Maximum Severity: Moderate Worsened by: Exertion and Coughing Relieved by: Oxygen Associated Symptoms cough; Negative for fever or sore throat Chest Pain: Positive for None Narrative Narrative: 69-year-old male history of COPD on oxygen at home occasionally. Patient still smokes. Reportedly had a pneumothorax that was caused after procedure possibly a lung biopsy 1 to 2 weeks ago. Had a chest tube and it was removed 1 to 2 days later. Said he woke up this morning short of breath and wheezing. Cough. No hemoptysis. No chest pain. No fever. No leg pain or swelling. PE Risk Factors: Negative for Cancer, OCP + Smoking + > 35, Prior DVT or PE, Recent surgery or Recent travel Prior similar symptoms: Yes Recent Illness/Hospitalization: Yes PFSH PFSH Medical History Anxiety Smoker On home oxygen therapy Asthma Pulmonary nodules Tobacco use Opiate abuse, continuous Alcohol abuse Anxiety and depression Weight loss Osteoporosis Rheumatoid arthritis Sleep apnea Emphysema of lung Chronic pain Arthritis Hypertension Degenerative disc disease, lumbar Home Medications ???Medication ???Instructions ???Recorded ???Last Taken ???Type disability placard #1 ea 02/04/20 Unknown Rx albuterol sulfate 90 mcg/actuation 2 inh inhalation Q6H PRN shortness 02/18/24 Unknown History aerosol inhaler of breath or wheezing lorazepam 0.5 mg tablet 0.5 mg PO DAILY PRN anxiety 05/24/24 09/26/24 History albuterol sulfate 2.5 mg/3 mL 2.5 mg inhalation Q4H PRN 08/10/24 09/27/24 History (0.083 %) solution for nebulization shortness of breath or wheezing fluticasone fur. 200 mcg-umeclid 1 ea inhalation QDAY 08/10/24 09/27/24 History 62.5 mcg-vilant 25 mcg inhalat.powder (Trelegy Ellipta) buprenorphine 8 mg-naloxone 2 mg 1 ea sublingual BID 09/27/24 09/27/24 History sublingual film docusate sodium 100 mg capsule 100 mg PO DAILY PRN constipation 09/27/24 Unknown History (Stool Softener) mirtazapine 7.5 mg tablet 7.5 mg PO QHS 09/27/24 09/26/24 History prednisone 20 mg tablet 20 mg PO BID #14 tabs 09/29/24 Unknown Rx Allergy/AdvReac Type Severity Reaction Status Date / Time doxycycline AdvReac Unknown Unknown Verified 10/05/24 09:30 Family History Mother Cancer Father Cancer Surgical History H/O hernia repair Social History household members: children and other details: grandchildren housing: house current occupational status: retired current occupation: [employer] pets and animals: Yes pets and animals: cat(s) and dog(s) Smoking Status: Current every day smoker tobacco type: cigarettes second hand exposure: Yes alcohol intake: current alcohol intake frequency: 3 or more drinks per day Alcohol type: beer details: At least 6-8 beers daily. substance use type: opiates and other details: Uses vicodin, percocet, suboxone. No IVDA. what type of physical activity do you participate in: none ROS ROS ED ROS Narrative Cough. Shortness of breath. Wheezing. Constitutional Constitutional ED: Denies chills or fever(s) Eyes Eyes: Denies blurry vision ENT ENT ED: Denies ear pain Cardiovascular Cardiovascular: Denies chest pain Respiratory/Chest Respiratory/Chest: Reports cough, dyspnea and sputum Gastrointestinal Gastrointestinal: Denies abdominal pain, diarrhea, nausea or vomiting Genitourinary Genitourinary ED: Denies dysuria or hematuria Musculoskeletal Musculoskeletal: Denies arthralgias Integumentary Denies abscess Neurologic Neurologic: Denies headache(s) Psychiatric Psychiatric: Denies anxiety Endocrine Endocrinology: Denies cold intolerance Hematologic/Lymphatic Hematologic/Lymphatic: Denies easy bleeding or easy bruising Allergic/Immunologic Allergic/Immunologic ED: Denies mouth swelling or tongue swelling EXAM Physical Exam Narrative Exam Narrative: 69-year-old male sitting upright in bed. Vital signs are stable. He is 100% on nonrebreather. Heart rates in the 90s. He does not look septic or toxic. H EENT exam unremarkable. Mytrex membranes. Neck nontender no JVD. Lungs prolonged expiratory phase. Exp (more content not included)... Normal [facility] L501.4020on 10-05-2024 TROPONIN-I HS 6 pg/mL Normal 3.0-78.0 [facility] Comment on above: Order Comment: 'TROP ' Serial specimen #1, #2 or #3: 1 Result Comment: Horacio zaldivar Note: New Test Units and Gender Specific Reference Ranges. For more information see Policy Stat Procedure [place] High Sensitivity Troponin (TNIH) and attachments. Performed By: #### L 500.2500, L501.4020, L100.0100 #### [facility] Laboratory [address] [place], [address] Pulmonary Visit Reporton Pulmonary Visit Report [facility] [place] [address] [place] [address] OFFICE VISIT Date of Service: 10/05/24 MR#: [id number] Acct: [id number] Name: TOBY WOODY Tanya Rep #: [id number] : 1955 Provider: SCOTT Neumann Age/Sex: 69/M Location: [facility] [place] Status: Signed Assessment and Plan Assessment and Plan (1) Lung mass: Status: Acute Plan: The patient has a concerning mass in the left upper lobe, CT-guided biopsy revealed necrotic tissue. The patient also suffered pneumothorax. PET scan was positive. Given his significant risk for neoplasm I am sending him to a CT surgeon for further evaluation and management. The patient is highly focused on treating his COPD and wanting a valve placed. I explained to him several times that he needs to have this mass definitively diagnosed before he could proceed with any additional workup. He would like to be sent to [facility] for his workup because they can do everything. Follow-up with him in 4 months to make sure that the patient has had the treatment and testing he needs. He has been encouraged contact the office with any questions in the meantime. He is agreeable with this plan. This case was discussed with Dr. Patterson. (2) Acute exacerbation of chronic obstructive pulmonary disease: Status: Chronic Plan: Deteriorated. He is actively being treated for an exacerbation and was discharged from the hospital this morning. Chest x-ray did show resolution of the pneumothorax. They discharged him on a prednisone burst, this patient responds better to a taper, therefore the burst has been discontinued and a taper has been ordered. No change in maintenance medications. No additional testing at this time. Follow-up in 4 months for continued surveillance. Orders: Referrals Cardiovascular/Thoracic Surgery R91.8 - Other nonspecific abnormal finding of lung field Medications: New prednisone take 4 tabs for three days, then 3 tabs for three days, then 2 tabs for three days, then 1 tab for 3 days 10 mg PO QDAY 30 tabs 0RF R91.8 - Other nonspecific abnormal finding of lung field Discontinued prednisone Discontinued Reason: Order Changed 40 mg (2 x 20 mg) PO DAILY 10 days 20 tabs 0RF Plan Details Follow Up: 4 Months (DMB) HPI 4 wk fu Chief Complaint: Test results HPI Comments Details: This patient presents to the office today to discuss test results. He is ambulatory. He was seen in the emergency department recently for complaints of shortness of breath. His workup included a chest x-ray, which shows resolution of the previously seen pneumothorax. The patient was treated for an exacerbation of his COPD. He was discharged this morning on a prednisone burst. He is compliant with Trelegy 1 puff daily. He does report rinsing his mouth out after each use. He denies any medication side effect such as sore throat or thrush. He is also compliant with Mucinex twice daily. He is currently using Albuterol 2-3 times daily. He does have shortness of breath that is worse with exertion and he is exerted easily. He has a cough that is productive of white to brown-colored mucus. He has wheezing and chest tightness. He denies any chest pain or palpitations. He has not had any fever, chills or body aches. He continues to smoke cigarettes. He is currently smoking 2 packs/day. Test results personally viewed with patient: Tissue pathology from CT-guided biopsy completed on September 27, 2024. Tissue is consistent with extensive fibrosis and necrosis. Focal necrotizing granuloma formation. Negative for malignancy. Intake Vital Signs 09/06/24 07:45 10/05/24 08:04 10/05/24 09:30 Height 5 ft 9 in 5 ft 7 in 5 ft 7 in Weight: 120 lb BMI 18.8 Blood Pressure Location Rt brachial Position Sitting Respiration 20 H Pulse Source Monitor Temp 97.4 F L Temperature Source Temporal Artery Oxygen Delivery Method room air Intake Visit Reasons: 4 wk fu [employer] Torch Required: No DME Vendor: [employer] Accompanied by: Self Is patient in pain?: No Allergies doxycycline Adverse Reaction (Unknown, Verified 10/05/24 14:14) Unknown Medications ???Medication ???Instructions ???Recorded ???Confirmed ???Type disability placard #1 ea 02/04/20 10/05/24 Rx albuterol sulfate 90 mcg/actuation 2 inh inhalation Q6H PRN shortness 02/18/24 10/05/24 History aerosol inhaler of breath or wheezing lorazepam 0.5 mg tablet 0.5 mg PO DAILY PRN anxiety 05/24/24 10/05/24 History albuterol sulfate 2.5 mg/3 mL 2.5 mg inhalation Q4H PRN 08/10/24 10/05/24 History (0.083 %) solution for nebulization shortness of breath or wheezing fluticasone fur. 200 mcg-umeclid 1 ea inhalation QDAY 08/10/24 10/05/24 History 62.5 mcg-vilant 25 mcg inhalat.powder (Trelegy Ellipt (more content not included)... Normal [facility] Chest 1 View (Portable)on Chest 1 View (Portable) [facility] Imaging Services [address] [place] [id number] Chest 1 View (Portable) MR#: [id number] Acct: [id number] Name: TOBY WOODY Rep #: [id number] : 1955 M 69 From: Oliver rivas MD PCP: SCOTT Grullon Status: ADM IN Study: Chest 1 View (Portable) Date of Exam: 09/29/24 Exam# [id number] Ordering Dr: Latasha Smith [id number] STUDY: X-RAY CHEST REASON FOR EXAM: Male, 69 years old. Right pneumothorax -- PORTABLE TECHNIQUE: Single AP portable view of the chest. COMPARISON: Comparison is made with prior study dated September 28, 2024. FINDINGS: Hyperinflation. Tiny residual right apical pneumothorax. Normal size heart. Calcified lymph node in the aortopulmonary window. Normal visualized pulmonary arteries. Normal visualized aortic arch and descending thoracic aorta. There are degenerative changes of the visualized thoracic spine. Healed right rib fractures. There is no demonstrated abnormality of the visualized soft tissue structures of the upper abdomen. RAD/Chest 1 View (Portable) IMPRESSION: Hyperinflation. No acute infiltrate is seen. Tiny residual right apical pneumothorax. Electronically Signed: Oliver Harry MD at 8:43 EDT , CC: SCOTT Landry; LISA Smith Managed Care Manager: Signed Normal [facility] Discharge Instructionon 09-02 Discharge Instruction [facility] Medical Records Department [address] [place] [address] Instructions for Home/Discharge Instructions 09/29/24 0854 MR#: [id number] Acct: [id number] Name: TOBY WOODY Rep #: [id number] : 1955 69 From: Jane Lucio DO PCP: SCOTT Grullon Status:ADM IN Discharge Instructions Diet Discharge Diet: No restrictions Activity Discharge Activity: Return to Normal Activity Weight Bearing Status: Full weight bearing Additional Activity Instructions:: No high altitudes for 6 weeks from pneumothorax Follow Up Care Please Follow Up With: Jane Landry, SCOTT Test Results: Test results from this visit will be discussed in further detail at your follow-up appointment, if applicable. Discharge Plan Admission Admit Date/Time: 09/27/24 14:49 Primary Reason for Your Visit: pneumothorax Attending Provider: Jane Lucio Primary Care Provider: Jane Landry Consulting Providers: Suzy Covarrubias; Juan José Styles Instructions Additional Instructions / Restrictions: Leave right chest dressing in place for 2 days. After 2 days, you may remove the entire dressing. You will need a follow-up chest x-ray on Friday. An order has been placed, please come to the hospital for the imaging. No appointment needed. Discharge Orders/Prescriptions Prescriptions: New prednisone 20 mg tablet 20 mg PO BID Qty: 14 0RF Rx Instructions: 1 twice a day for 5 days, then 1/day until gone Continued (DME) disability placard Qty: 1 0RF Rx Instructions: As directed, Length of time: 5 years albuterol sulfate 90 mcg/actuation HFA aerosol inhaler 2 inh inhalation Q6H PRN (Reason: shortness of breath or wheezing) albuterol sulfate 2.5 mg /3 mL (0.083 %) solution for nebulization 2.5 mg inhalation Q4H PRN (Reason: shortness of breath or wheezing) Trelegy Ellipta 200-62.5-25 mcg blister with device 1 ea inhalation QDAY lorazepam 0.5 mg tablet 0.5 mg PO DAILY PRN (Reason: anxiety) docusate sodium [Stool Softener] 100 mg capsule 100 mg PO DAILY PRN (Reason: constipation) mirtazapine 7.5 mg tablet 7.5 mg PO QHS buprenorphine-naloxone 8-2 mg film 1 ea sublingual BID Patient Comments: pt states he took half of one early this morning Other Ambulatory Orders: Chest 1 View (Portable) (Routine) Timeframe: 20241001 Facility: [facility] - Location: [facility] Ordered By: Latasha AG Referrals / Follow Up: Martha Neumann NP, NP-C [Med Staff - Adv Practice Prof] - See Referral Note (as directed) Jane Landry NP-C [Primary Care Provider] - Disposition Disposition (needs filled in before D/C Order can be placed): Home, Self Care 09/29/24 0859 Jane Lucio DO CC: SCOTT Landry; Dr. Juan José Styles DO; Dr. Suzy Covarrubias MD Signed Normal [facility] Chest 1 View (Portable)on Chest 1 View (Portable) [facility] Imaging Services [address] [place], [place] [id number] Chest 1 View (Portable) MR#: [id number] Acct: [id number] Name: TOBY WOODY Rep #: [id number] : 1955 M 69 From: Ashok Espinoza MD PCP: SCOTT Grullon Status: ADM IN Study: Chest 1 View (Portable) Date of Exam: 09/28/24 Exam# [id number] Ordering Dr: Latasha Smith [id number] INDICATION: Follow-up right pneumothorax EXAMINATION/TECHNIQUE: X-RAY - portable upright AP chest x-ray COMPARISON: 09/28/2024 at 2:40 PM FINDINGS: Right chest tube removed. Stable small right apical pneumothorax. Remainder the study is stable. RAD/Chest 1 View (Portable) IMPRESSION: Stable small right-sided pneumothorax status post chest tube removal. Electronically Signed: Ashok Espinoza MD at 19:00 EDT , CC: SCOTT Landry; LISA Smith Managed Care Manager: Signed Normal [facility] Chest 1 View (Portable) [facility] Imaging Services [address] [place] [address] Chest 1 View (Portable) MR#: [id number] Acct: [id number] Name: TOBY WOODY Rep #: [id number] : 1955 M 69 From: Ashok Espinoza MD PCP: SCOTT Grullon Status: ADM IN Study: Chest 1 View (Portable) Date of Exam: 09/28/24 Exam# [id number] Ordering Dr: Latasha Smith [id number] INDICATION: Follow-up right pneumothorax, 6 hours off suction EXAMINATION/TECHNIQUE: X-RAY - portable upright AP chest x-ray COMPARISON: 09/28/2024 at 5:42 AM FINDINGS: Stable small right apical pneumothorax. Right chest tube remains. Study otherwise unchanged. RAD/Chest 1 View (Portable) IMPRESSION: Persistent small right apical pneumothorax. Electronically Signed: Ashok Espinoza MD at 17:39 EDT , CC: SCOTT Landry; LISA Smith Managed Care Manager: Signed Normal [facility] Chest 1 View (Portable) [facility] Imaging Services [address] [place], [place] [address] Chest 1 View (Portable) MR#: [id number] Acct: [id number] Name: TOBY WOODY Rep #: [id number] : 1955 M 69 From: Calderon Manley PCP: SCOTT Grullon Status: ADM IN Study: Chest 1 View (Portable) Date of Exam: 09/28/24 Exam# [id number] Ordering Dr: Latasha Smith-C ADDENDUM by Dr. Calderon Moran MD on 09/28/24 at 0736 [id number] EXAM: XR CHEST, 1 VIEW CLINICAL INDICATION: right pneumothorax -- PORTABLE TECHNIQUE: Frontal view of the chest. COMPARISON: 09/27/2024. FINDINGS: LUNGS AND PLEURAL SPACES: Mild increase in the right apical pneumothorax. Previously the visceral pleura of the apex of the lung was approximately 7 mm below the superior sulcus. It is now approximately 1.2 cm below the superior sulcus with increased pneumothorax extending laterally. No effusion. No change in the opacity in the right superior sulcus. HEART: Unremarkable. Cardiac silhouette not enlarged. MEDIASTINUM: Central airways and mediastinal contour are unremarkable. BONES/JOINTS: Unremarkable. No acute fracture. SOFT TISSUES: Unremarkable. TUBES, LINES AND DEVICES: No change in the small caliber right-sided chest tube. 09/28/24735 Date cc: SCOTT Landry; LISA Smith * Signed ADDENDUM by Dr. Calderon Moran MD on 09/28/24 at 0736 RAD/Chest 1 View (Portable) IMPRESSION: 1. Mild increase in the right apical pneumothorax. Previously the visceral pleura of the apex of the lung was approximately 7 mm below the superior sulcus. It is now approximately 1.2 cm below the superior sulcus with increased pneumothorax extending laterally. 2. No change in the opacity in the right superior sulcus. 3. No change in the small caliber right-sided chest tube. N.B. : The above Results were Read Back by Calderon Moran MD to Courtney Garcia RN, and understanding confirmed on 09/28/2024 08:10:13 (ET). Electronically Signed: Calderon Moran MD at 7:36 EDT , 09/28/24 0817 Date cc: SCOTT Landry; LISA Smith * Signed We are attempting to reach an attending provider to discuss findings. An addendum with communication details will be sent when the communication is complete. [id number] EXAM: XR CHEST, 1 VIEW CLINICAL INDICATION: right pneumothorax -- PORTABLE TECHNIQUE: Frontal view of the chest. COMPARISON: 09/27/2024. FINDINGS: LUNGS AND PLEURAL SPACES: Mild increase in the right apical pneumothorax. Previously the visceral pleura of the apex of the lung was approximately 7 mm below the superior sulcus. It is now approximately 1.2 cm below the superior sulcus with increased pneumothorax extending laterally. No effusion. No change in the opacity in the right superior sulcus. HEART: Unremarkable. Cardiac silhouette not enlarged. MEDIASTINUM: Central airways and mediastinal contour are unremarkable. BONES/JOINTS: Unremarkable. No acute fracture. SOFT TISSUES: Unremarkable. TUBES, LINES AND DEVICES: No change in the small caliber right-sided chest tube. RAD/Chest 1 View (Portable) IMPRESSION: 1. Mild increase in the right apical pneumothorax. Previously the visceral pleura of the apex of the lung was approximately 7 mm below the superior sulcus. It is now approximately 1.2 cm below the superior sulcus with increased pneumothorax extending laterally. 2. No change in the opacity in the right superior sulcus. 3. No change in the small caliber right-sided chest tube. Electronically Signed: Calderon Moran MD at 7:36 EDT , CC: SCOTT Landry; LISA Smith Managed Care Manager: Signed Normal [facility] Discharge Instructionon 09-01 Discharge Instruction [facility] Medical Records Department [address] [place] [id number] Instructions for Home/Discharge Instructions 09/28/24 1630 MR#: [id number] Acct: [id number] Name: TOBY WOODY Rep #: [id number] : 1955 69 From: Latasha AG PA-C PCP: SCOTT Grullon Status:ADM IN Discharge Instructions Diet Discharge Diet: No restrictions Activity Lifting Restrictions: no lifting greater than 10 pounds for 3 days Additional Activity Instructions:: No high altitudes for 6 weeks from pneumothorax Follow Up Care Please Follow Up With: Jane Landry NP-C When: 1 week Test Results: Test results from this visit will be discussed in further detail at your follow-up appointment, if applicable. Pending Tests Upon Discharge: Please obtain a Chest x-ray on Friday to follow-up from pneumothorax Discharge Plan Admission Admit Date/Time: 09/27/24 14:49 Attending Provider: Jane Lucio Primary Care Provider: Jane Landry Consulting Providers: Suzy Covarrubias; Juan José Styles Instructions Additional Instructions / Restrictions: Leave right chest dressing in place for 2 days. After 2 days, you may remove the entire dressing. You will need a follow-up chest x-ray on Friday. An order has been placed, please come to the hospital for the imaging. No appointment needed. Discharge Orders/Prescriptions Prescriptions: No Action (DME) disability placard Qty: 1 0RF Rx Instructions: As directed, Length of time: 5 years albuterol sulfate 90 mcg/actuation HFA aerosol inhaler 2 inh inhalation Q6H PRN (Reason: shortness of breath or wheezing) albuterol sulfate 2.5 mg /3 mL (0.083 %) solution for nebulization 2.5 mg inhalation Q4H PRN (Reason: shortness of breath or wheezing) Trelegy Ellipta 200-62.5-25 mcg blister with device 1 ea inhalation QDAY lorazepam 0.5 mg tablet 0.5 mg PO DAILY PRN (Reason: anxiety) docusate sodium [Stool Softener] 100 mg capsule 100 mg PO DAILY PRN (Reason: constipation) mirtazapine 7.5 mg tablet 7.5 mg PO QHS buprenorphine-naloxone 8-2 mg film 1 ea sublingual BID Patient Comments: pt states he took half of one early this morning Other Ambulatory Orders: Chest 1 View (Portable) (Routine) Timeframe: [id number] Facility: [facility] - Location: [facility] Ordered By: Latasha AG Referrals / Follow Up: Landry,Jane VSC, 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-C [Primary Care Provider] - 09/28/24 1633 Latasha AG PA-C CC: 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-C Jane Landry; Dr. Juan José Styles DO; Dr. Suzy Covarrubias MD Signed Normal [facility] Biopsy/Inj or Needle Placeme nton 09-27-2024 Biopsy/Inj or Needle Placement [facility] Imaging Services [address] [place], [place] [address] Biopsy/Inj or Needle Placement MR#: [id number] Acct: [id number] Name: TOBY WOODY Rep #: [id number] : 1955 M 69 From: Oliver rivas MD PCP: SCOTT Grullon Status: REG CLI Study: Biopsy/Inj or Needle Placement Date of Exam: Exam# [id number] Ordering Dr: Martha Neumann NP 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-C [id number] PROCEDURE: CT GUIDED CORE NEEDLE BIOPSY OF A right upper lobe LUNG LESION INDICATION: Male, 69 years old. RUL lung nodule PET positive PHYSICIAN: Dr. Kamryn Knight CONSENT: Written informed consent was obtained having explained the risks, benefits and alternatives in detail with the patient who accepted the risks and agreed to proceed. Laboratory review and clinical assessment was performed. CONSCIOUS SEDATION PROTOCOL: The Drugs used were: Versed, 2 mg IV., and 50 mcg Fentanyl, IV. The sedation time was: 23 minutes. Conscious sedation was started on 9:39 AM and terminated at 10:02 AM. The conscious sedation protocol was independently monitored. RADIATION DOSAGE (If Supplied By Facility): CTDIvol = ( 14.5 ) mGy, DLP = ( 181.24 ) mGycm Individualized dose optimization techniques were used for this CT. TECHNIQUE: The patient was placed in the prone position. A noncontrast CT was performed to localize the lesion in the posterior right upper lobe . The skin surface was prepped and draped in a sterile fashion. 1% lidocaine was used for local anesthesia. Using CT guidance, a 20-gauge coaxial biopsy device was advanced to the periphery of the lesion. A total of 6 core specimens were obtained. The specimens were placed in a formalin solution. A post procedure CT demonstrated no adverse sequelae or pneumothorax. The patient tolerated the procedure well without adverse event. A negative biopsy does not exclude malignancy. Further imaging or clinical followup based on patient condition and degree of clinical suspicion for malignancy. Suggest rebiopsy, if biopsy results do not match with clinical scenario. CT/Biopsy/Inj or Needle Placement IMPRESSION: 1. CT directed core needle biopsy of the right upper lobe lung nodule using CT image guidance with image documentation as described. Pathology results are pending. 2. Conscious Sedation protocol utilized with independent monitoring. Electronically Signed: Oliver Harry MD at 10:29 EDT Reading Location ID and State: [facility] / [place] , Service support , CC: SCOTT Neumann; SCOTT Landry Managed Care Manager: Signed Normal [facility] CBC W/Diff, Automatedon 10-2 Absolute Lymph 2.71 X10 3/uL Normal 0.83-4.51 [facility] Comment on above: Performed By: #### L 100.0100, L300.3900, L300.4310 ####[facility] [address] [place], [place], [id number] Absolute Neut 4.1 X10 3/uL Normal 2.0-7.7 [facility] Comment on above: Performed By: #### L 100.0100, L300.3900, L300.4310 ####[facility] [address] [place], [address] Basophils/100 WBC (Bld) 0.6 % Normal 0-1 [facility] Comment on above: Performed By: #### L 100.0100, L300.3900, L300.4310 ####[facility] [address] [place], [address] Eosinophils/100 WBC (Bld) 4.3 % Normal 0-5 [facility] Comment on above: Performed By: #### L 100.0100, L300.3900, L300.4310 ####[facility] [address] [place], [address] Erythrocyte distribution width (RBC) [Ratio] 12.6 % Normal 11.6-14.6 [facility] Comment on above: Performed By: #### L 100.0100, L300.3900, L300.4310 ####[facility] [address] [place], [address] Hematocrit (Bld) [Volume fraction] 47.6 % Normal 40-54 [facility] Comment on above: Performed By: #### L 100.0100, L300.3900, L300.4310 ####[facility] [address] [place], [address] Hemoglobin (Bld) [Mass/Vol] 16.0 g/dL Normal 13.0-16.5 [facility] Comment on above: Performed By: #### L 100.0100, L300.3900, L300.4310 ####[facility] [address] [place], [address] IG% 0.200 Normal 0.0-0.9 [facility] Comment on above: Result Comment: IG% - Immature Granulocytes (promyelocytes, myelocytes and metamyelocytes) > 1% indicates that a LEFT SHIFT is Present. Performed By: #### L 100.0100, L300.3900, L300.4310 ####[facility] [address] [place], [address] Lymphocytes/100 WBC (Bld) 33.7 % Normal 19-41 [facility] Comment on above: Performed By: #### L 100.0100, L300.3900, L300.4310 ####[facility] [address] [place], [address] MCH (RBC) [Entitic mass] 30.7 pg Normal 27.0-32.0 [facility] Comment on above: Performed By: #### L 100.0100, L300.3900, L300.4310 ####[facility] [address] [place], [address] MCHC (RBC) [Mass/Vol] 33.6 g/dL Normal 32-36 [facility] Comment on above: Performed By: #### L 100.0100, L300.3900, L300.4310 ####[facility] [address] [place], [address] MCV (RBC) [Entitic vol] 91.4 fL Normal 80-94 [facility] Comment on above: Performed By: #### L 100.0100, L300.3900, L300.4310 ####[facility] [address] [place], [address] Monocytes/100 WBC (Bld) 10.8 % High 0-10 [facility] Comment on above: Performed By: #### L 100.0100, L300.3900, L300.4310 ####[facility] [address] [place], [address] Neutrophils/100 WBC (Bld) 50.4 % Normal 47-70 [facility] Comment on above: Performed By: #### L 100.0100, L300.3900, L300.4310 ####[facility] [address] [place], [address] Nucleated RBC (Bld) [#/Vol] 0 10*3/uL Normal 0-5 [facility] Comment on above: Performed By: #### L 100.0100, L300.3900, L300.4310 ####[facility] [address] [place], [address] Platelet mean volume (Bld) [Entitic vol] 9.4 fL Normal 6.2-12.0 [facility] Comment on above: Performed By: #### L 100.0100, L300.3900, L300.4310 ####[facility] [address] [place], [address] Platelets (Bld) [#/Vol] 281 10*3/uL Normal 150-450 [facility] Comment on above: Performed By: #### L 100.0100, L300.3900, L300.4310 ####[facility] [address] [place], [address] RBC (Bld) [#/Vol] 5.21 10*6/uL Normal 4.6-6.2 [facility] Comment on above: Performed By: #### L 100.0100, L300.3900, L300.4310 ####[facility] [address] [place], [address] RDW SD 42.5 fl Normal 35.1-43.9 [facility] Comment on above: Performed By: #### L 100.0100, L300.3900, L300.4310 ####[facility] [address] [place], [address] WBC (Bld) [#/Vol] 8.1 10*3/uL Normal 4.4-11.0 [facility] Comment on above: Performed By: #### L 100.0100, L300.3900, L300.4310 ####[facility] [address] [place], [address] Chest 1 View (Portable)on Chest 1 View (Portable) [facility] Imaging Services [address] [place] [address] Chest 1 View (Portable) MR#: [id number] Acct: [id number] Name: TOBY WOODY Rep #: [id number] : 1955 M 69 From: Oliver rivas MD PCP: SCOTT Grullon Status: REG ER Study: Chest 1 View (Portable) Date of Exam: 09/27/24 Exam# [id number] Ordering Dr: Crow Pina DO [id number] STUDY: X-RAY CHEST REASON FOR EXAM: Male, 69 years old. Chest tube placement TECHNIQUE: Single AP portable view of the chest. COMPARISON: Comparison is made with prior chest radiograph done earlier today. FINDINGS: A small caliber chest tube has been placed with the tip in the medial aspect of the right upper hemithorax. Minimal residual right apical pneumothorax. Normal size heart. Normal mediastinum and ian. Normal visualized pulmonary arteries. There is atherosclerotic calcification of the aortic arch with tortuosity. Normal visualized thoracic spine. Healed right rib fractures. There is no demonstrated abnormality of the visualized soft tissue structures of the upper abdomen. RAD/Chest 1 View (Portable) IMPRESSION: Status post small-caliber right-sided chest tube placement. Minimal residual right apical pneumothorax. Electronically Signed: Oliver Harry MD at 14:05 EDT , CC: SCOTT Landry; Dr. Crow Pina DO Managed Care Manager: Signed Normal [facility] Chest Insp/Exp 2 Viewon 09-01 Chest Insp/Exp [address] [facility] Imaging Services [address] [place], [place] [id number] Chest Insp/Exp 2 View MR#: [id number] Acct: [id number] Name: TOBY WOODY Rep #: [id number] : 1955 M 69 From: Oliver rivas MD PCP: SCOTT Grullon Status: REG CLI Study: Chest Insp/Exp 2 View Date of Exam: 09/27/24 Exam# [id number] Ordering Dr: Oliver Harry [id number] STUDY: X-RAY CHEST REASON FOR EXAM: Male, 69 years old. Post lung biopsy -- 2 hours post lung biopsy TECHNIQUE: AP inspiration and expiration views were obtained. COMPARISON: Comparison is made with prior study done earlier today. FINDINGS: EKG electrodes are seen. Hyperinflation. There has been a slight increase in the size of the right pneumothorax. The patient is symptomatic at this time. The patient was referred to the emergency room for chest tube placement. RAD/Chest Insp/Exp 2 View IMPRESSION: Slight increase in size of the right-sided pneumothorax. The patient is symptomatic. The patient is referred to the emergency room for appropriate treatment. Electronically Signed: Oliver Harry MD at 13:31 EDT , CC: SCOTT Landry; Dr. Oliver Harry MD Managed Care Manager: Signed Normal [facility] Chest Insp/Exp [address] [facility] Imaging Services [address] [place], [place] [id number] Chest Insp/Exp 2 View MR#: [id number] Acct: [id number] Name: TOBY WOODY Rep #: [id number] : 1955 M 69 From: Oliver rivas MD PCP: SCOTT Grullon Status: REG CLI Study: Chest Insp/Exp 2 View Date of Exam: 09/27/24 Exam# [id number] Ordering Dr: Oliver Harry [id number] STUDY: X-RAY CHEST REASON FOR EXAM: Male, 69 years old. Post lung biopsy -- Immediately post lung biopsy TECHNIQUE: AP inspiration and expiration views. COMPARISON: None. FINDINGS: The patient is status post right lung biopsy. There is evidence of a small right apical pneumothorax. The patient is asymptomatic. Multiple healed right rib fractures. Hyperinflation. RAD/Chest Insp/Exp 2 View IMPRESSION: Tiny right apical pneumothorax on the immediate post right lung biopsy radiographs. Electronically Signed: Oliver Harry MD at 10:17 EDT Reading Location ID and State: [facility] / [place] , Service support , CC: SCOTT Landry; Dr. Oliver Harry MD Managed Care Manager: Signed Normal [facility] Consultation - Surgicalon Consultation - Surgical [facility] Medical Records Department [address] [facility] [place] [address] Consultation - Surgical 09/27/24 1551 MR#: [id number] Acct: [id number] Name: TOBY WOODY Rep #: [id number] : 1955 69 From: Latasha MAHONEYC PCP: Jane Landry, 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-C Status:ADM IN Location: MS3 GH080-[address] Suzy Covarrubias MD on 09/27/24 at 2138 Addendum Patient seen and examined agree with Latasha Smith's note. Patient's percutaneous chest tube is to -20 suction via Pleur-evac no leak with cough however patient states it does hurt to cough. Did have some bubbles trying up to -40 however did maintain its seal when turned back down to -20. Will check chest x-ray in the morning. Patient is aware this may take a couple days in the hospital. Patient over the question this time. 09/27/242137 Cosigner Signature (if applicable): cc: 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-C Jane Landry * Signed Assessment Plan Assessment/Plan (1) Pneumothorax: QUALIFIERS: Pneumothorax type: postprocedural Qualified Code(s): J95.811 - Postprocedural pneumothorax PLAN: I have been consulted in conjunction with Dr. Covarrubias. She will independently evaluate this patient. Patient is a 69 y/o M who is s/p CT-guided biopsy of right lung mass today, who developed a pneumothorax post-procedure. CXR confirms chest tube placement with a minimal residual right apical pneumothorax. Patient will be admitted with the chest tube to wall suction. Plan to repeat CXR tomorrow morning. Continue oxygen via nasal canula. Patient has had the opportunity to ask and have questions answered. Patient verbally understands and agrees with the plan. Thank you for allowing us to participate in this patient's care. HPI Consult Data Date of Consult: 09/27/24 HPI Narrative Reason for Consultation: Right pneumothorax HPI Narrative: TOBY WOODY, is a 69 M who presents from radiology with a right-sided pneumothorax. Patient had a CT-guided biopsy of the right upper lobe by our radiology department today. Patient was found to have a worsening pneumothorax at his 2-hour post-procedural CXR. Patient was short of breath at that time and sent directly to the the ED to have a chest tube placed. Patient states he smokes 2 packs of cigarettes per day. Patient had a PET scan which demonstrated reactivity in the right upper lobe, which lead to the biopsy. Patient is on oxygen via nasal canula as needed at home for the past 6 months. Follow-up CXR s/p chest tube placement demonstrates residual right apical pneumothorax. [facility] Medical History (Updated 09/27/24 @ 16:00 by Latasha AG PALuisa) Anxiety Smoker On home oxygen therapy Asthma Pulmonary nodules Tobacco use Opiate abuse, continuous Alcohol abuse Anxiety and depression Weight loss Osteoporosis Rheumatoid arthritis Sleep apnea Emphysema of lung Chronic pain Arthritis Hypertension Degenerative disc disease, lumbar Home Medications ???Medication ???Instructions ???Recorded ???Last Taken ???Type disability placard #1 ea 02/04/20 Unknown Rx albuterol sulfate 90 mcg/actuation 2 inh inhalation Q6H PRN shortness 02/18/24 Unknown History aerosol inhaler of breath or wheezing lorazepam 0.5 mg tablet 0.5 mg PO DAILY PRN anxiety 05/24/24 09/26/24 History albuterol sulfate 2.5 mg/3 mL 2.5 mg inhalation Q4H PRN 08/10/24 09/27/24 History (0.083 %) solution for nebulization shortness of breath or wheezing fluticasone fur. 200 mcg-umeclid 1 ea inhalation QDAY 08/10/24 09/27/24 History 62.5 mcg-vilant 25 mcg inhalat.powder (Trelegy Ellipta) buprenorphine 8 mg-naloxone 2 mg 1 ea sublingual BID 09/27/24 09/27/24 History sublingual film docusate sodium 100 mg capsule 100 mg PO DAILY PRN constipation 09/27/24 Unknown History (Stool Softener) mirtazapine 7.5 mg tablet 7.5 mg PO QHS 09/27/24 09/26/24 History Allergy/AdvReac Type Severity Reaction Status Date / Time doxycycline AdvReac Unknown Unknown Verified 09/27/24 08:58 Family History Mother Cancer Father Cancer Surgical History H/O hernia repair Social History household members: children and other details: grandchildren housing: house current occupational status: retired current occupation: [employer] pets and animals: Yes pets and animals: cat(s) and dog(s) Smoking Status: Current every day smoker tobacco type: cigarettes second hand exposure: Yes alcohol intake: current alcohol intake frequency: 3 or more drinks per day Alcohol type: beer details: At least 6-8 beers daily. substance use type: opiates and other details: Uses vicodin, percocet, suboxone. No IVDA. what type of physical activity do you participate in: none (more content not included)... Normal [facility] Emergency Department Summary on 09-27-2024 Emergency Department Summary [facility] Medical Records Department [address] [place] [address] Emergency Department Summary 09/27/24 MR#: [id number] Acct: [id number] Name: TOBY WOODY Rep #: [id number] : 1955 69 From: Crow Pina DO PCP: SCOTT Grullon Status:ADM IN [place] [id number] HPI History of Present Illness Chief Complaint: Shortness of Breath Detail of Chief Complaint: Shortness of breath Informant: patient Narrative Narrative: Patient presents with shortness of breath after having a lung biopsy this morning. Patient was noted to have a small pneumothorax that seem to get worse after 2 hours and was referred to the emergency department for chest tube placement. Patient denies any significant chest pain. He has a slight cough that is producing some bloody sputum since the biopsy. Denies fevers or chills or sweats. [facility] Medical History (Updated 09/27/24 @ 13:[address] Crow Pina, ) Pulmonary nodules Tobacco use Opiate abuse, continuous Alcohol abuse Anxiety and depression Weight loss Osteoporosis Rheumatoid arthritis Sleep apnea Emphysema of lung Chronic pain Arthritis Hypertension Degenerative disc disease, lumbar Home Medications ???Medication ???Instructions ???Recorded ???Last Taken ???Type disability placard #1 ea 02/04/20 Unknown Rx multivitamin 1 tab PO DAILY vitamin 05/19/21 Unknown History guaifenesin 1,200 mg tablet, 1,200 mg PO Q12H #60 tabs 08/06/23 Unknown Rx extended release 12 hr albuterol sulfate 90 mcg/actuation 2 inh inhalation Q6H PRN shortness 02/18/24 Unknown History aerosol inhaler of breath or wheezing lorazepam 0.5 mg tablet 0.5 mg PO DAILY PRN anxiety 05/24/24 Unknown History mirtazapine 15 mg tablet 15 mg PO QHS 05/24/24 Unknown History albuterol sulfate 2.5 mg/3 mL 2.5 mg inhalation Q4H PRN 08/10/24 Unknown History (0.083 %) solution for nebulization shortness of breath or wheezing fluticasone fur. 200 mcg-umeclid 1 ea inhalation QDAY 08/10/24 Unknown History 62.5 mcg-vilant 25 mcg inhalat.powder (Trelegy Ellipta) Allergy/AdvReac Type Severity Reaction Status Date / Time doxycycline AdvReac Unknown Unknown Verified 09/27/24 08:58 Family History (Reviewed 05/24/24 @ 12:37 by Martha Neumann 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, 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-C) Mother Cancer Father Cancer Surgical History H/O hernia repair Social History household members: children and other details: grandchildren housing: house current occupational status: retired current occupation: [employer] pets and animals: Yes pets and animals: cat(s) and dog(s) Smoking Status: Current every day smoker tobacco type: cigarettes second hand exposure: Yes alcohol intake: current alcohol intake frequency: 3 or more drinks per day Alcohol type: beer details: At least 6-8 beers daily. substance use type: opiates and other details: Uses vicodin, percocet, suboxone. No IVDA. what type of physical activity do you participate in: none ROS ROS ED Review of Systems ROS Unobtainable: other Constitutional Constitutional ED: Reports lethargy; Denies chills, fever(s), sweats or weight loss Eyes Eyes: Denies blurry vision, change in vision or diplopia ENT ENT ED: Denies rhinorrhea or sore throat Cardiovascular Cardiovascular: Denies chest pain, orthopnea or racing heartbeat Respiratory/Chest Respiratory/Chest: Reports cough and dyspnea; Denies dyspnea on exertion, orthopnea or sputum Gastrointestinal Gastrointestinal: Denies abdominal pain, diarrhea, nausea or vomiting Genitourinary Genitourinary ED: Denies dysuria, hematuria or urinary frequency Musculoskeletal Musculoskeletal: Denies arthralgias, back pain, myalgias or neck pain Integumentary Denies abscess, Abrasions or rash Neurologic Neurologic: Denies headache(s) or weakness Psychiatric Psychiatric: Denies anxiety, depression or suicidal thoughts Endocrine Endocrinology: Denies polydipsia, polyphagia or polyuria Hematologic/Lymphatic Hematologic/Lymphatic: Denies easy bleeding, easy bruising or lymphadenopathy Allergic/Immunologic Allergic/Immunologic ED: Denies mouth swelling, tongue swelling or urticaria EXAM Physical Exam Const Vital Signs: 09/27/24 12:43 09/27/24 12:43 09/27/24 13:02 Temperature 98.0 F Temperature Source Oral Pulse Rate 86 Respiratory Rate 21 H Respiratory Effort Short of Breath Respiratory Depth Shallow Respiratory Pattern Tachypnea Blood Pressure 130/76 H Blood Pressure Mean 94 Pulse Ox 96 Oxygen Delivery Method Nasal Cannula Nasal Cannula Nasal Cannula Oxygen Flow Rate (L/min) 2 2 2 09/27/24 13:25 09/27/24 13:41 Temperature Temperature Source Pulse Rate 83 Respiratory Rate 18 R (more content not included)... Normal [facility] H AND P Exam - [facility] 09-27-2024 H&P Exam - Hospitalist [facility] Medical Records Department [address] [place] [address] H P Exam - Hospitalist 09/27/24 1454 MR#: [id number] Acct: [id number] Name: TOBY WOODY Rep #: [id number] : 1955 69 From: Juan José Styles DO PCP: SCOTT Grullon Status:ADM ANY Location: [place] [address] HPI - General General Date of Admission: 09/27/24 Date of Service: 09/27/24 Chief Complaint: Shortness of breath HPI Narrative TOBY WOODY, is a 69 M who presents with shortness of breath. Patient underwent a lung biopsy this morning for a lung nodule and sustained a small pneumothorax 2 hours afterwards. Patient was sent to the emergency room and had a right-sided chest tube placed. Dr. Covarrubias was contacted drug from the emergency room to be seen the patient in consultation. Patient having similar chest pain after the chest tube was placed. [facility] Medical History Pulmonary nodules Tobacco use Opiate abuse, continuous Alcohol abuse Anxiety and depression Weight loss Osteoporosis Rheumatoid arthritis Sleep apnea Emphysema of lung Chronic pain Arthritis Hypertension Degenerative disc disease, lumbar Home Medications ???Medication ???Instructions ???Recorded ???Last Taken ???Type disability placard #1 ea 02/04/20 Unknown Rx albuterol sulfate 90 mcg/actuation 2 inh inhalation Q6H PRN shortness 02/18/24 Unknown History aerosol inhaler of breath or wheezing lorazepam 0.5 mg tablet 0.5 mg PO DAILY PRN anxiety 05/24/24 09/26/24 History albuterol sulfate 2.5 mg/3 mL 2.5 mg inhalation Q4H PRN 08/10/24 09/27/24 History (0.083 %) solution for nebulization shortness of breath or wheezing fluticasone fur. 200 mcg-umeclid 1 ea inhalation QDAY 08/10/24 09/27/24 History 62.5 mcg-vilant 25 mcg inhalat.powder (Trelegy Ellipta) buprenorphine 8 mg-naloxone 2 mg 1 ea sublingual BID 09/27/24 09/27/24 History sublingual film docusate sodium 100 mg capsule 100 mg PO DAILY PRN constipation 09/27/24 Unknown History (Stool Softener) mirtazapine 7.5 mg tablet 7.5 mg PO QHS 09/27/24 09/26/24 History Allergy/AdvReac Type Severity Reaction Status Date / Time doxycycline AdvReac Unknown Unknown Verified 09/27/24 08:58 Family History Mother Cancer Father Cancer Surgical History H/O hernia repair Social History household members: children and other details: grandchildren housing: house current occupational status: retired current occupation: [employer] pets and animals: Yes pets and animals: cat(s) and dog(s) Smoking Status: Current every day smoker tobacco type: cigarettes second hand exposure: Yes alcohol intake: current alcohol intake frequency: 3 or more drinks per day Alcohol type: beer details: At least 6-8 beers daily. substance use type: opiates and other details: Uses vicodin, percocet, suboxone. No IVDA. what type of physical activity do you participate in: none ROS ROS Narrative All review of systems were negative except as mentioned above in the history of present illness and the other review of systems. Vital Signs Vital Signs Vital Signs: 09/27/24 12:43 09/27/24 12:43 09/27/24 13:02 Temperature 36.7 C Temperature Source Oral Pulse Rate 86 Respiratory Rate 21 H Respiratory Effort Short of Breath Respiratory Depth Shallow Respiratory Pattern Tachypnea Blood Pressure 130/76 H Blood Pressure Mean 94 Pulse Ox 96 Oxygen Delivery Method Nasal Cannula Nasal Cannula Nasal Cannula Oxygen Flow Rate (L/min) 2 2 2 09/27/24 13:25 09/27/24 13:41 Temperature Temperature Source Pulse Rate 83 Respiratory Rate 18 Respiratory Effort Short of Breath Labored Accessory Muscle Use Respiratory Depth Deep Respiratory Pattern Tachypnea Blood Pressure 119/65 Blood Pressure Mean 83 Pulse Ox 98 96 Oxygen Delivery Method Nasal Cannula Nasal Cannula Oxygen Flow Rate (L/min) 3 3 Weight Weight: 51.9 kg Body Mass Index (BMI) 17.9 Physical Exam Const alert and no apparent distress Constitutional Narrative: Uncomfortable. HEENT normocephalic and head/scalp atraumatic Resp normal respiratory effort, no retractions, no use of accessory muscles and clear to auscultation bilaterally Resp Narrative: Chest tube on right side Cardio regular rate, regular rhythm, S1 normal heart sound and S2 normal heart sound GI normal to inspection, nondistended, normoactive bowel sounds and soft to palpation Extremity normal to inspection and no clubbing, cyanosis or edema Neuro oriented x3, CN's II-XII intact bilaterally, moves all ex (more content not included)... Normal [facility] Partial Thromboplast Timeon 09-27-2024 aPTT Coag (Bld) [Time] 34.0 s Normal 24.1-36.2 [facility] Comment on above: Performed By: #### L 100.0100, L300.3900, L300.4310 ####[facility] [address] [place], [address] Prothrombin Time w/INRon INR Coag (PPP) [Relative time] 1.0 {INR} Normal [facility] Comment on above: Performed By: #### L 100.0100, L300.3900, L300.4310 ####[facility] [address] [place], [place], [id number] PT Coag (PPP) [Time] 13.4 s Normal 11.7-14.9 [facility] Comment on above: Performed By: #### L 100.0100, L300.3900, L300.4310 ####[facility] [address] [place], [place], [address] Special Stain Group IIon Special Stain Group II Patient Age/Sex Location Account Attending Physician TOBY WOODY/M CT [id number] SCOTT Lee Specimen: [id number] Received: 09/27/24 Status: SEAN Dimas Num: [id number] Spec Type: ASP RAD Subm Dr: SCOTT Lee HEADER OPERATION: CT guided right lung biopsy PRE-OP DIAGNOSIS: Right upper lung lobe mass TISSUE SUBMITTED: 20 gauge x 6 cores MICROSCOPIC DIAGNOSIS Right upper lobe lung mass, CT guided core biopsy: Extensive fibrosis and necrosis. Focal necrotizing granuloma formation. Negative for malignancy. See comment. . 09/28/2024 COMMENT The specimen is evaluated at the time of CT biopsy by Dr. Saleh. Immediate Evaluation = Negative for malignant cells. Dr. Harry was called at 10:05 with results. Special stains for acid fast bacilli and fungi are negative for organisms; matched controls are appropriate. Correlation with clinical, radiologic findings and appropriate follow up are necessary. MICROSCOPIC DESCRIPTION Slides are reviewed. GROSS DESCRIPTION Received in fixative is one container labeled with the patient's name and designated Right lung biopsy. The specimen consists of multiple irregular fragments of gutierrez soft tissue that in aggregate measure 0.7 x 0.1 x <0.1 cm. The specimen is totally submitted in one cassette. Two touch imprints are prepared at the time of core biopsy. Tate 09/27/2024 TC:5 CPT:00169, 99094, 82084y3 Patient Age/Sex Location Account Attending Physician TOBY WOODY Tanya 69/M [place] [id number] SCOTT Lee Signed (signature on file) Dr. Karl Saleh MD 09/29/24 0851 Normal [facility] Comment on above: Performed By: #### P SSII ####[facility] [address] [place], [address] Partial Thromboplast Timeon 09-06-2024 aPTT Coag (Bld) [Time] 37.8 s High 24.1-36.2 [facility] Comment on above: Performed By: #### L 100.1900, L300.3900, L300.4310 ####[facility] [address] [place], [address] Platelet Counton 09-06-2024 Platelets (Bld) [#/Vol] 296 10*3/uL Normal 150-450 [facility] Comment on above: Performed By: #### L 100.1900, L300.3900, L300.4310 ####[facility] [address] [place], [address] Prothrombin Time w/INRon INR Coag (PPP) [Relative time] 1.0 {INR} Normal [facility] Comment on above: Performed By: #### L 100.1900, L300.3900, L300.4310 ####[facility] [address] [place], [address] PT Coag (PPP) [Time] 13.3 s Normal 11.7-14.9 [facility] Comment on above: Performed By: #### L 100.1900, L300.3900, L300.4310 ####[facility] [address] [place], [address] Pulmonary Visit Reporton Pulmonary Visit Report [facility] [place] [address] [place], [place] [address] OFFICE VISIT Date of Service: 09/06/24 MR#: [id number] Acct: [id number] Name: TOBY WOODY Rep #: [id number] : 1955 Provider: SCOTT Neumann Age/Sex: 69/M Location: [facility] Status: Signed Assessment and Plan Assessment and Plan (1) Right upper lobe pulmonary nodule: Status: Acute Plan: Recent PET scan showed reactivity in the right upper lobe. The patient is agreeable to a CT-guided biopsy for tissue pathology. We will return to the office here once pathology is available for review. Obtaining some lab work today to make sure that the patient is not at higher risk for bleeding. All questions were answered. (2) COPD (chronic obstructive pulmonary disease): Status: Chronic Qualifiers: COPD type: unspecified COPD Qualified Code(s): J44.9 - Chronic obstructive pulmonary disease, unspecified Plan: Stable, he does not appear to be an exacerbation of COPD today. No need for prednisone or antibiotic. Continue current maintenance medication, symptomatically controlled with triple therapy on Trelegy. No additional testing at this time. Contact the office for any new or worsening symptoms. An acute visit and typically be arranged within 1-2 days. Follow-up in 1 month. Orders: Orders Biopsy/Inj or Needle Placement Today R91.1 - Solitary pulmonary nodule, R91.8 - Other nonspecific abnormal finding of lung field Partial Thromboplast Time Today I48.91 - Unspecified atrial fibrillation, R05.9 - Cough, unspecified Platelet Count Today R05.9 - Cough, unspecified, R06.00 - Dyspnea, unspecified Prothrombin Time w/INR Today I48.91 - Unspecified atrial fibrillation, R05.9 - Cough, unspecified OP Smoking Cessation Consult Today F17.210 - Nicotine dependence, cigarettes, uncomplicated HPI 2 wk fu Chief Complaint: Test results HPI Comments Details: This patient presents to the office today to discuss test results. He is ambulatory. He has not recently been seen in the ED or urgent care for any respiratory illness. He has not required any antibiotics or prednisone for any breathing problems. He is compliant with Trelegy 1 puff daily. He does report rinsing his mouth out after each use. He denies any medication side effect such as sore throat or thrush. He is also compliant with Mucinex twice daily. He is currently using Albuterol 2-3 times daily. He does have shortness of breath that is worse with exertion. He is exerted easily. He has a cough that is productive of yellow to brown-colored mucus. He has wheezing and chest tightness. He denies any chest pain or palpitations. He has not had any fever, chills or body aches. He continues to smoke cigarettes. He is currently smoking 2 packs/day. He reports that he would like help to quit smoking. Test results personally viewed with patient: PET/CT scan completed on August 31, 2024. Impression: The increase in radiopharmaceutical concentration defined in the right upper lung field, right upper lobe fulfills quantitative criteria for viable neoplasm with single-point technique. Histopathologic sampling is recommended. No other quantitatively significant hypermetabolic abnormalities are noted. Intake Vital Signs 08/10/24 08:41 09/06/24 07:45 Height 5 ft 9 in 5 ft 9 in Weight: 114 lb 115 lb BMI 16.8 16.9 BP 108/69 128/74 H Blood Pressure Location Lt brachial Rt brachial Position Sitting Sitting Respiration 20 H 20 H Pulse 81 68 Pulse Source Monitor Monitor Temp 97.6 F L 97.5 F L Temperature Source Temporal Artery Temporal Artery Pulse Oximetry (%) 94 95 Oxygen Delivery Method room air room air Intake Visit Reasons: 2 wk fu DME Vendor: n/a Accompanied by: Self Is patient in pain?: No Allergies doxycycline Adverse Reaction (Unknown, Verified 09/06/24 13:31) Unknown Medications ???Medication ???Instructions ???Recorded ???Confirmed ???Type disability placard #1 ea 02/04/20 09/06/24 Rx multivitamin 1 tab PO DAILY vitamin 05/19/21 09/06/24 History guaifenesin 1,200 mg tablet, 1,200 mg PO Q12H #60 tabs 08/06/23 09/06/24 Rx extended release 12 hr albuterol sulfate 90 mcg/actuation 2 inh inhalation Q6H PRN 02/18/24 09/06/24 History aerosol inhaler buprenorphine 8 mg-naloxone 2 mg 1 tab sublingual BID PRN 05/24/24 09/06/24 History sublingual tablet hydrocodone 10 mg-acetaminophen 1 tab PO Q6 05/24/24 09/06/24 History 325 mg tablet lorazepam 0.5 mg tablet 0.5 mg PO DAILY PRN 05/24/24 09/06/24 History mirtazapine 15 mg tablet 15 mg PO QHS 05/24/24 09/06/24 History albuterol sulfate 2.5 mg/3 mL mg inhalation 08/10/24 09/06/24 History (0.083 %) solution for nebulization fluconazole 100 mg tablet 100 mg PO QDAY #7 tabs 08/10/24 (more content not included)... Normal [facility] PET/CT Tumor Base -Thigh Ini ton 08-31-2024 PET/CT Tumor Base -Thigh Init 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 INDICATIONS: 69-year-old male with a history of pulmonary nodularity. ? COMPARISON EXAMINATION: FDG-PET CT study dated 07/19/2019, CT of the chest dated 08/05/2024. ? INDEX LESION SIZE SUV INTERPRETATION Right upper lung field, right upper lobe 46.3 mm 4.5 Fulfills quantitative criteria for viable neoplasm, histopathologic analysis is recommended.? ? TECHNIQUE: Following the intravenous administration of 14.83 mCi of F-18 deoxyglucose via the left antecubital fossa, multiplanar image acquisitions of the head, neck, chest, abdomen and pelvis to the level of the midthigh, obtained at one-hour post radiopharmaceutical administration contemporaneously interpreted with the current CT of the chest, abdomen and pelvis dated 09/01/2024 and prior FDG-PET CT study dated 07/19/2019, CT of the chest dated 08/05/2024 via coregistration reveal: ? SERUM GLUCOSE LEVEL:? 100 mg/dL? HEIGHT:?? 69 inches WEIGHT:?? 126 pounds ? FINDINGS: ? HEAD/NECK:? There is no evidence of abnormal increased glucose metabolism in the pharyngeal mucosal space, parapharyngeal space, oropharynx, bilateral-lateral and anterior neck, hypopharynx and distribution of the larynx. ? The visualized portion of the cerebral cortical-subcortical structures demonstrate symmetric and preserved glucose metabolism. ? CHEST:? Increased FDG concentration is noted in the right apical lung field, right upper lobe. The calculated standard uptake value is 4.5. The maximal axial diameter of the metabolic, morphologic abnormality is 46.3 mm[address] ? CT of the chest demonstrates the following anatomic characteristics: Atherosclerotic calcification is defined in the thoracic aorta without evidence of dilatation, aneurysm formation. Both calcified and noncalcified mediastinal soft tissue reveals no evidence of increased tracer uptake. Centrilobular emphysematous changes are defined in the bilateral upper-mid lung zones. ? ABDOMEN/PELVIS:? Normal physiologic distribution of the radiopharmaceutical is identified in the hepatic (2.9) and splenic parenchyma, both renal units, urinary bladder, and visualized intestinal tract. ? CT of the abdomen and pelvis is remarkable for the following: Calcified phlebolith formation is noted in the bilateral lower hemipelvis. Atherosclerotic calcification is defined in the abdominal aorta without evidence of dilatation, aneurysm formation. Pelvic arterial calcification is observed. Right and left inguinal soft tissue densities are ametabolic. ? SKELETAL:? There is no evidence of quantitatively significant enhanced glucose metabolism on meticulous inspection of the appendicular and axial skeletal structures. ? Degenerative changes defined in the thoracic and lumbar spine demonstrate no evidence of increased glucose metabolism. There are no sclerotic, mixed sclerotic-lytic, or primarily lytic changes defined in the axial skeletal structures with evidence of increased FDG uptake. ? PET/PET/CT Tumor Base -Thigh Init IMPRESSION: 1. The increase in radiopharmaceutical concentration defined in the right upper lung field, right upper lobe fulfills quantitative criteria for viable neoplasm with single point technique. Histopathologic sampling is recommended.? 2. No other quantitatively significant hypermetabolic abnormalities are noted. Electronic Signature Simi Rasmussen D.O. Accurate Quantification of SUVs for this report are calculated using the exclusive [employer]. (U.S. Patent No. [phone] [id number] [phone] [phone] [phone] [place] patent [id number] [phone] [phone]). Standardization and correction of the FDG SUV metric via [employer] technology allow for vendor non-specific objective quantitative examination comparison and optimization of the sensitivity and specificity of the FDG PET-CT examination. [email or web address] ? Electronically Signed: Simi Rasmussen DO at 21:37 EDT , CC: SCOTT Neumann; SCOTT Landry Managed Care Manager: Signed Normal [facility] Pulmonary Visit Reporton Pulmonary Visit Report [facility] Pulmonary Medicine of [address] [place], [place] [id number] OFFICE VISIT Date of Service: 08/10/24 MR#: [id number] Acct: [id number] Name: TOBY WOODY Rep #: [id number] : 1955 Provider: SCOTT Neumann Age/Sex: 69/M Location: [facility] Status: Signed Assessment and Plan Assessment and Plan (1) Pulmonary nodules: Status: Acute Plan: Multiple pulmonary nodules, some are new. Sending the patient for a PET scan. Once PET scan results are available we will contact the patient to set up an appointment to discuss results. The patient does have extensive emphysema, this will need to be considered if biopsy is necessary. (2) COPD (chronic obstructive pulmonary disease): Status: Chronic Qualifiers: COPD type: unspecified COPD Qualified Code(s): J44.9 - Chronic obstructive pulmonary disease, unspecified Plan: He does not appear to be an exacerbation of COPD today. No need for prednisone or antibiotic. Continue current maintenance medication, symptomatically controlled with use of triple therapy on Trelegy. No additional testing at this time. Contact the office for any new or worsening symptoms. An acute visit and typically be arranged within 1-2 days. (3) Oral thrush: Status: Acute Plan: New. The patient has developed thrush despite rinsing his mouth out after Trelegy. Placing him on 7 days of fluconazole. Orders: Orders PET/CT Tumor Base -Thigh Init Today R91.8 - Other nonspecific abnormal finding of lung field Medications: New fluconazole 100 mg PO QDAY 7 tabs 0RF R91.8 - Other nonspecific abnormal finding of lung field Plan Details Follow Up: 2 Weeks (CSM) HPI 7 m fu Chief Complaint: Test results HPI Comments Details: This patient presents to the office today to request refills/supplies for his supplemental oxygen. He is ambulatory. He has not recently been seen in the ED or urgent care for any respiratory illness. He has not required any antibiotics or prednisone for any breathing problems. He is compliant with Trelegy 1 puff daily. He does report rinsing his mouth out after each use. He denies any medication side effect such as sore throat or thrush. He is also compliant with Mucinex twice daily. He is currently using Albuterol 2-3 times daily. He does have shortness of breath that is worse with exertion. He is exerted easily. He has a cough that is productive of yellow to brown-colored mucus. He has wheezing and chest tightness. He denies any chest pain or palpitations. He has not had any fever, chills or body aches. He continues to smoke cigarettes. He is currently smoking 2 packs/day. Test results personally viewed with patient: Low-dose CT lung screening completed on August 05, 2024. There is a 1.8 cm x 2.7 cm heterogeneous nodular density in the medial posterior aspect of the right lung apex. This has progressed as compared to prior study. A neoplastic process should be ruled out. There is also evidence of a 1 cm nodule in the anterior aspect of the right lung apex. The previously seen nodule in the posterior aspect of the superior segment of the left lobe has increased in size. It presently measures 6.5 mm. There is a new 8.7 mm noncalcified nodule in the peripheral lateral aspect of the right lower lobe. Intake Vital Signs 02/18/24 07:54 05/24/24 07:46 08/10/24 08:41 Height 5 ft 9 in 5 ft 9 in 5 ft 9 in Weight: 114 lb BMI 16.8 BP 108/69 Blood Pressure Location Lt brachial Position Sitting Respiration 20 H Pulse 81 Pulse Source Monitor Temp 97.6 F L Temperature Source Temporal Artery Pulse Oximetry (%) 94 Oxygen Delivery Method room air Intake Visit Reasons: 7 m fu [employer] Required: No DME Vendor: n/a Accompanied by: Self Is patient in pain?: No Allergies doxycycline Adverse Reaction (Unknown, Verified 05/24/24 12:27) Unknown Medications ???Medication ???Instructions ???Recorded ???Confirmed ???Type disability placard #1 ea 02/04/20 08/10/24 Rx multivitamin 1 tab PO DAILY vitamin 05/19/21 08/10/24 History guaifenesin 1,200 mg tablet, 1,200 mg PO Q12H #60 tabs 08/06/23 08/10/24 Rx extended release 12 hr albuterol sulfate 90 mcg/actuation 2 inh inhalation Q6H PRN 02/18/24 08/10/24 History aerosol inhaler buprenorphine 8 mg-naloxone 2 mg 1 tab sublingual BID PRN 05/24/24 08/10/24 History sublingual tablet hydrocodone 10 mg-acetaminophen 1 tab PO Q6 05/24/24 08/10/24 History 325 mg tablet lorazepam 0.5 mg tablet 0.5 mg PO DAILY PRN 05/24/24 08/10/24 History mirtazapine 15 mg tablet 15 mg PO QHS 05/24/24 08/10/24 History albuterol sulfate 2.5 mg/3 mL mg inhalation 08/10/24 08/10/24 History (0.083 %) solution for nebulization fluconazole 100 mg tablet 100 mg PO QDAY #7 tabs 08/10 (more content not included)... Normal [facility] Low Dose CT Lung Screeningon 08-05-2024 Low Dose CT Lung Screening 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 Current smoker. Patient smokes 2 packs per day for 48 years. RADIATION DOSAGE (If Supplied By Facility): CTDIvol = ( 1.47 ) mGy, DLP = ( 55.23 ) mGycm TECHNIQUE: No contrast was administered. Low dose technique was utilized (average mAS-38 and kVp 120). 1.25 mm axial source images with a slice interval of 1.25-mm were reconstructed in lung windows. 2.5 mm axial source images with a slice interval of 2.5-mm were reconstructed in lung windows. 5.0 mm axial source images with a slice interval of 5.0-mm were reconstructed in soft tissue windows. COMPARISON: Comparison is made with prior study dated August 01, 2023. NODULES: There is evidence of a 1.8 cm x 2.7 cm heterogeneous nodular density in the medial posterior aspect of the right lung apex. This has progressed as compared to prior study. A neoplastic process should be ruled out. There is also evidence of a 1 cm nodule in the anterior aspect of the right lung apex. The previously seen nodule in the posterior aspect of the superior segment of the left lobe has increased in size. It presently measures 6.5 mm. There is a new 8.7 mm noncalcified nodule in the peripheral lateral aspect of the right lower lobe as seen on axial image #100. Emphysema: Hyperinflation. Diffuse emphysematous changes with bullous formation worse in the upper lobes. Focal infiltrate/scarring in the posterior aspect of the right upper lobe abutting the right major fissure. Stable calcified granuloma in the posteromedial segment of the right lower lobe. Endobronchial lesion: None Aorta: Atherosclerotic plaque formation. CORONARY ARTERIES: Coronary artery calcification no significant coronary artery calcification is seen. Heart: Unremarkable Pulmonary artery: Unremarkable. Mediastinal nodes: Calcified mediastinal lymph nodes. Other chest and abdominal findings: CT/Low Dose CT Lung Screening IMPRESSION: Lung-RADS category 4B - Chest CT with or without contrast, PET/CT and/or tissue sampling can be obtained depending on the probability of malignancy and comorbidities. IMPORTANT NOTES FOR USE: ACR Lung-RADS Version 1.1 Assessment Categories Release Date: 2018 Category: Coded 0-4 bases on nodule(s) with highest degree of suspicion. Negative screen is defined as categories 1 and 2; a positive screen is defined as categories 3 and 4. Category 3 and 4A nodules that are unchanged on interval CT should be coded as category 2, and individuals returned to screening in 12 months. Category 4X: Category 3 or 4 nodules with additional imaging findings that increase the suspicion of lung cancer, such as spiculation, GGN that doubles in size in 1 year, enlarged lymph notes, etc. Category Modifiers: S (significant finding unrelated to lung cancer) Electronically Signed: Oliver Harry MD at 12:40 EDT , CC: SCOTT Neumann; SCOTT Landry Managed Care Manager: Signed Normal [facility] Respiratory Cultureon 2023 RESPC No Haemophilus, Streptococcus pneumoniae, beta-hemolytic Streptococcus or Staphylococcus aureus isolated. Presumptive C albicans Amount Growth 1+ Normal [facility] Comment on above: Performed By: #### M 100.2400, M100.1999 ####[facility] [id number] [place], [address] Gram Stainon 05-25-2024 GS Acceptable Specimen? Yes (<25 Epithelial cells per/lpf) Gram Stain 2+ Gram positive rods 1+ Gram positive cocci Rare Yeast Like Organisms 2+ Epithelial cells Normal [facility] Comment on above: Performed By: #### M 100.2400, M100.1999 ####[facility] [id number] [place], [address] Pulmonary Visit Reporton Pulmonary Visit Report [facility] [address] [place], [place] [address] OFFICE VISIT Date of Service: 05/24/24 MR#: [id number] Acct: [id number] Name: TOBY WOODY Rep #: [id number] : 1955 Provider: SCOTT Neumann Age/Sex: 69/M Location[place] [facility] [place] Status: Signed Assessment and Plan Assessment and Plan (1) COPD (chronic obstructive pulmonary disease): Status: Chronic Qualifiers: COPD type: unspecified COPD Qualified Code(s): J44.9 - Chronic obstructive pulmonary disease, unspecified Plan: Unclear if he is in exacerbation today. He was unable to perform the NIOX procedure. He did provide us with a sputum for culture and sensitivity. Lung sounds have rhonchi and wheezing throughout, however patient does have baseline wheezing. Continue triple therapy on Trelegy. Will await sputum results before ordering any antibiotics. Keep previously scheduled routine follow-up in August. Contact the office with any new or worsening symptoms in the meantime. (2) Hypoxia: Status: Chronic Plan: Patient reports shortness of breath on exertion. For this reason, walking oximetry was performed in the office today. Please review findings noted in the vital signs section. He did desaturate during the fifth minute of ambulation. It is recommended that he utilize 2 L/min of supplemental oxygen with any ambulation. Orders will be prepared and sent to the appropriate [employer] company. Orders: Orders Culture, Sputum Today R05.9 - Cough, unspecified NIOX Today R05.9 - Cough, unspecified Walking Oximetry Today R09.02 - Hypoxemia Medications: Discontinued azithromycin Discontinued Reason: Order Completed take 500 mg today (day 1), then 250 mg for 4 days (days 2-5) PO 6 tabs 0RF prednisone take 4 tabs for three days, then 3 tabs for three days, then 2 tabs for three days, then 1 tab for 3 days Discontinued Reason: Order Completed 10 mg PO QDAY 30 tabs 0RF HPI Follow up to get O2 Chief Complaint: Oxygen HPI Comments Details: This patient presents to the office today to request refills/supplies for his supplemental oxygen. He is ambulatory. He has not recently been seen in the ED or urgent care for any respiratory illness. He has not required any antibiotics or prednisone for any breathing problems. He reports that he has hope and is feeling much better and was kicked off of hospice. When he was discharged from hospice they removed his supplemental oxygen. He has 1 tank remaining and would like to verify if he should be utilizing supplemental oxygen on ambulation. He does have a portable pulse oximeter and checks his saturations at home. He admits that sometimes on room air saturation will drop to 86%. He is compliant with Trelegy 1 puff daily. He does report rinsing his mouth out after each use. He denies any medication side effect such as sore throat or thrush. He is also compliant with Mucinex twice daily. He is currently using Xopenex 2-3 times daily. He does have shortness of breath that is worse with exertion. He is exerted easily. He has a cough that is productive of yellow to brown-colored mucus. He has wheezing and chest tightness. He denies any chest pain or palpitations. He has not had any fever, chills or body aches. Intake Vital Signs 02/18/24 07:54 05/24/24 07:46 05/24/24 13:10 05/24/24 13:11 05/24/24 13:12 05/24/24 13:13 05/24/24 13:14 05/24/24 13:15 05/24/24 13:16 Height 5 ft 9 in 5 ft 9 in Weight: 126 lb 114 lb BMI 18.6 16.8 BP 118/68 109/87 H Blood Pressure Location Lt brachial Lt brachial Position Sitting Sitting Respiration 22 H 18 Pulse 83 102 H 100 73 85 111 H 107 H 101 H Pulse Source Monitor Monitor Monitor Monitor Monitor Monitor Monitor Monitor Monitor Temp 98.0 F 97.3 F L Temperature Source Temporal Artery Temporal Artery Pulse Oximetry (%) 97 97 93 92 92 91 88 94 Oxygen Delivery Method room air room air room air room air room air room air room air room ai r nasal canula Oxygen Flow Rate (L/min) 2 Comment min 1 MIN 2 MIN 3 MIN 4 MIN 5 Intake Visit Reasons: Follow up to get O2 Chief Complaint: detox [employer] Required: No DME Vendor: previously hospice. Accompanied by: Self Is patient in pain?: No Allergies doxycycline Adverse Reaction (Unknown, Verified 05/24/24 12:27) Unknown Medications ???Medication ???Instructions ???Recorded ???Confirmed ???Type disability placard #1 ea 02/04/20 05/24/24 Rx multivitamin 1 tab PO DAILY vitamin 05/19/21 05/24/24 History fluticasone fur. 100 mcg-umeclid 1 inh inhalation QDAY copd #90 ea 04/29/23 05/24/24 Rx 62.5 mcg-vilant 25 mcg inhalat.powder (Trelegy Ellipta) guaifenesin 1,200 mg tablet, 1,200 mg PO Q12H #60 tabs 08/06/23 05/24/24 Rx extended release 12 hr levalbuterol ta (more content not included)... Normal [facility] Basophil percentageOrdered B y: Aissatou San on 08-01-2023 Basophil percentage < 0.9 mg/dL 0.70-1.30 [facility] No Panel InformationOrdered By: Aissatou San on 08-01-2023 Bedside Estimated GFR (eGFR) > 60.0000 mL/min >60 [facility] HIV 1 and HIV-2 antibody ass ay with HIV-1 p24 antigen detectionOrdered By: Ainsley Esposito on 06-14-2023 HIV 1+2 Ab+HIV1 p24 Ag IA Ql Non-Reactive Nonreactive [facility] No Panel InformationOrdered By: Ainsley Esposito on 06-14-2023 Hepatitis B Surface Antigen Non-Reactive Nonreactive [facility] Hepatitis C Antibody Non-Reactive Nonreactive [facility] Comment on above: Non Reactive: < 0.8 Equivocal: >/= 0.8 to < 1.0 Reactive: >/= 1.0The [facility] recommends that a reactive/equivocal HCV antibody result be followed up by the HCV Nucleic Acid Amplificationtest (702039) Serum Treponema species anti body detectionOrdered By: Ainsley Vaibhav on 06-14-2023 Treponema sp Ab Ql (S) Non-Reactive [facility] Serum hepatitis B virus surf mee antibody IgG detectionOrdered By: Ainsley Vaibhav on 06-14-2023 HBV surface IgG Ql (S) Non-Reactive [facility] Comment on above: Non Reactive: Incons istent with immunity less than <10 mIU/mL Reactive: Consistent with immunity greater than or equal to 10 mIU/mL Whole blood hemoglobin A1c/t otal hemoglobin ratio (mass fraction)Ordered By: Ainsley Esposito on 06-14-2023 HbA1c (Bld) [Mass fraction] 4.9 % 3.8-5.6 [facility] Comment on above: Normal < 5.7 % Predi abetic 5.7 - 6.4 % Diabetic >or= 6.5 % Please note range changes. Absolute lymphocyte countOrd ered By: ED PROVIDER on 06-13-2023 Lymphocytes Auto (Unsp spec) [#/Vol] 2.03 10*3/uL 0.83-4.51 [facility] Basophil percentageOrdered B y: Ainsley Esposito on 06-13-2023 Basophil percentage 3.1 mg/dL 2.5-4.9 [facility] Bilirubin [Mass/Vol] 0.80 mg/dL 0.20-1.00 [facility] Comment on above: For patients on eltr ombopag therapy, use of Dimension [place] TBIL is not recommended. Protein [Mass/Vol] 8.2 g/dL 6.4-8.2 [facility] Basophil percentageOrdered B y: ED PROVIDER on 06-13-2023 Basophils/100 WBC (Bld) 0.6 % 0-1 [facility] Chloride [Moles/Vol] 104 mmol/L 98-107 [facility] Eosinophils/100 WBC (Bld) 1.1 % 0-5 [facility] Glucose [Mass/Vol] 131 mg/dL 74-106 [facility] Comment on above: Fasting Glucose resu lt greater than or equal to 126 mg/dL suggests DIABETES MELLITUS per A.D.A. criteria. Neutrophils (Bld) [#/Vol] 3.8 10*3/uL 2.0-7.7 [facility] Neutrophils/100 WBC (Bld) 58.2 % 47-70 [facility] Potassium [Moles/Vol] 4.2 mmol/L 3.5-5.1 [facility] Sodium [Moles/Vol] 137 mmol/L 136-145 [facility] WBC (Bld) [#/Vol] 6.6 10*3/uL 4.4-11.0 [facility] Blood erythrocytes count (nu mber/volume)Ordered By: ED PROVIDER on 06-13-2023 RBC (Bld) [#/Vol] 5.53 10*6/uL 4.6-6.2 [facility] Blood hemoglobin measurement (mass/volume)Ordered By: ED PROVIDER on 06-13-2023 Hemoglobin (Bld) [Mass/Vol] 17.7 g/dL 13.0-16.5 [facility] Blood lymphocytes/100 leukoc ytesOrdered By: ED PROVIDER on 06-13-2023 Lymphocytes/100 WBC (Bld) 30.9 % 19-41 [facility] Blood monocytes/100 leukocyt esOrdered By: ED PROVIDER on 06-13-2023 Monocytes/100 WBC (Bld) 9.0 % 0-10 [facility] Blood platelet mean volumeOr dered By: ED PROVIDER on 06-13-2023 Platelet mean volume (Bld) [Entitic vol] 9.5 fL 6.2-12.0 [facility] Determination of erythrocyte mean corpuscular volume (MCV)Ordered By: ED PROVIDER on 06-13-2023 MCV (RBC) [Entitic vol] 92.6 fL 80-94 [facility] Direct bilirubinOrdered By: Ainsley Esposito on 06-13-2023 Bilirubin.direct [Mass/Vol] 0.27 mg/dL 0.00-0.30 [facility] Hematocrit Auto (Bld) [Volum e fraction]Ordered By: ED PROVIDER on 06-13-2023 Hematocrit (Bld) [Volume fraction] 51.2 % 40-54 [facility] Laboratory - Chemistry and C hemistry - challengeOrdered By: Ainsley Esposito on 06-13-2023 ALP [Catalytic activity/Vol] 101 U/L 45-117 [facility] ALT [Catalytic activity/Vol] 28 U/L 16-61 [facility] Globulin (S) [Mass/Vol] 3.9 g/dL 2.2-4.2 [facility] Magnesium [Mass/Vol] 2.3 mg/dL 1.6-2.6 [facility] Laboratory - Chemistry and C hemistry - challengeOrdered By: ED PROVIDER on 06-13-2023 CO2 [Moles/Vol] 29.0 mmol/L 21.0-32.0 [facility] Urea nitrogen/Creatinine [Mass ratio] 13.4 mg/mg 10-20 [facility] Laboratory - Drug toxicology Ordered By: ED PROVIDER on 06-13-2023 Amphetamines Ql (U) Negative <1000 ng/mL [facility] Benzodiazepines Ql (U) Negative < 200 ng/mL [facility] Cannabinoids Screen Ql (U) Negative < 50 ng/mL [facility] Cocaine Ql (U) Negative < 300 ng/mL [facility] Opiates Ql (U) Negative < 300 ng/mL [facility] Laboratory - Hematology and Cell countsOrdered By: ED PROVIDER on 06-13-2023 Erythrocyte distribution width (RBC) [Entitic vol] 43.5 fL 35.1-43.9 [facility] Erythrocyte distribution width (RBC) [Ratio] 12.7 % 11.6-14.6 [facility] Immature granulocytes/100 WBC (Bld) 0.200 % 0.0-0.9 [facility] Comment on above: IG% - Immature Granu locytes (promyelocytes, myelocytes and metamyelocytes) > 1% indicates that a LEFT SHIFT is Present. MCH (RBC) [Entitic mass] 32.0 pg 27.0-32.0 [facility] Nucleated RBC/100 WBC (Bld) [Ratio] 0 % 0-5 [facility] MCHC Auto (RBC) [Mass/Vol]Or dered By: ED PROVIDER on 06-13-2023 MCHC (RBC) [Mass/Vol] 34.6 g/dL 32-36 [facility] No Panel InformationOrdered By: ED PROVIDER on 06-13-2023 Estimated Creatinine Clearance Calc 54.19 ml/min [facility] Estimated GFR (MDRD) Amer 99 mL/min >60 [facility] Comment on above: GFR Calc Estimated GFR (MDRD) Non-Af Amer 82 mL/min >60 [facility] Comment on above: Non- GFR Calc Ethyl Alcohol Level < 3.0 mg/dL [facility] Comment on above: The serum:whole bloo d ethanol ratio is approximately 1.14and varies slightly with hematocrit. Medical Alcohol reference interval and critical value innon-tolerant individuals; 50 - 100 Impairment 100 Intoxication 100 - 250 Severe Poisoning 250 - 400 Deep/possible fatal coma MDMA (Ecstasy) Screen Negative < 500 ng/mL [facility] Urine Barbiturates Screen Negative < 200 ng/mL [facility] Urine Drug Screen Comment [facility] Comment on above: CONFIRMATORY TESTING FOR ALL POSITIVE URINE DRUG SCREENRESULTS WILL ONLY BE SENT OUT UPON PHYSICIAN ORDER. VISTA Urine Drug Screen methods provide only preliminaryanalytical test results. A more specific alternate chemicalmethod must be used in order to obtain a confirmedanalytical result. Gas chromatography/mass spectrometery(GC/MS) is the preferred confirmatory method. Clinicalconsideration and professional judgement should be appliedto any drug of abuse test result, particularly whenpreliminary positive results are used. URINE TCA TESTING MUST BE ORDERED SEPARATELY. USE TESTMNEMONIC: [facility] Urine Methadone Screen Negative < 300 ng/mL [facility] Platelets bldOrdered By: ED PROVIDER on 06-13-2023 Platelets (Bld) [#/Vol] 271 10*3/uL 150-450 [facility] Serum or plasma albumin laisha urement (mass/volume)Ordered By: Ainsley Esposito on 06-13-2023 Albumin [Mass/Vol] 4.3 g/dL 3.2-5.0 [facility] Serum or plasma calcium laisha urement (mass/volume)Ordered By: ED PROVIDER on 06-13-2023 Calcium [Mass/Vol] 9.7 mg/dL 8.5-10.1 [facility] Serum or plasma creatinine m easurement (mass/volume)Ordered By: ED PROVIDER on 06-13-2023 Creatinine [Mass/Vol] 0.97 mg/dL 0.70-1.30 [facility] Comment on above: The validity of the calculated GFR & GFRAA in patients over 70 years has not been determined. Clinical correlation is essential. Serum or plasma urea nitroge n measurement (mass/volume)Ordered By: ED PROVIDER on 06-13-2023 Urea nitrogen [Mass/Vol] 13 mg/dL 7-18 [facility] Thin prep Papanicolaou smear with manual screeningOrdered By: Ainsley White on 06-13-2023 Thin prep Papanicolaou smear with manual screening 20 U/L 15-37 [facility] Thin prep Papanicolaou smear with manual screeningOrdered By: ED PROVIDER on 06-13-2023 Thin prep Papanicolaou smear with manual screening 4 5-15 [facility] Urine phencyclidine (PCP) de tectionOrdered By: ED PROVIDER on 06-13-2023 Phencyclidine Ql (U) Negative < 25 ng/mL [facility] Absolute lymphocyte countOrd ered By: Jane Landry on 05-07-2023 Lymphocytes Auto (Unsp spec) [#/Vol] 2.70 10*3/uL 0.83-4.51 [facility] Basophil percentageOrdered B y: Jane Landry on 05-07-2023 Basophils/100 WBC (Bld) 0.6 % 0-1 [facility] Eosinophils/100 WBC (Bld) 4.2 % 0-5 [facility] Neutrophils (Bld) [#/Vol] 4.0 10*3/uL 2.0-7.7 [facility] Neutrophils/100 WBC (Bld) 48.6 % 47-70 [facility] WBC (Bld) [#/Vol] 8.2 10*3/uL 4.4-11.0 [facility] Blood erythrocytes count (nu mber/volume)Ordered By: Jane Landry on 05-07-2023 RBC (Bld) [#/Vol] 4.55 10*6/uL 4.6-6.2 [facility] Blood hemoglobin measurement (mass/volume)Ordered By: Jane Landry on 05-07-2023 Hemoglobin (Bld) [Mass/Vol] 14.5 g/dL 13.0-16.5 [facility] Blood lymphocytes/100 leukoc ytesOrdered By: Jane Landry on 05-07-2023 Lymphocytes/100 WBC (Bld) 33.0 % 19-41 [facility] Blood monocytes/100 leukocyt esOrdered By: Jane Landry on 05-07-2023 Monocytes/100 WBC (Bld) 13.2 % 0-10 [facility] Blood platelet mean volumeOr dered By: Jane Landry on 05-07-2023 Platelet mean volume (Bld) [Entitic vol] 10.1 fL 6.2-12.0 [facility] Determination of erythrocyte mean corpuscular volume (MCV)Ordered By: Jane Landry on 05-07-2023 MCV (RBC) [Entitic vol] 93.8 fL 80-94 [facility] Hematocrit Auto (Bld) [Volum e fraction]Ordered By: Jane Landry on 05-07-2023 Hematocrit (Bld) [Volume fraction] 42.7 % 40-54 [facility] Laboratory - Hematology and Cell countsOrdered By: Jane Landry on 05-07-2023 Erythrocyte distribution width (RBC) [Entitic vol] 40.6 fL 35.1-43.9 [facility] Erythrocyte distribution width (RBC) [Ratio] 11.7 % 11.6-14.6 [facility] Immature granulocytes/100 WBC (Bld) 0.400 % 0.0-0.9 [facility] Comment on above: IG% - Immature Granu locytes (promyelocytes, myelocytes and metamyelocytes) > 1% indicates that a LEFT SHIFT is Present. MCH (RBC) [Entitic mass] 31.9 pg 27.0-32.0 [facility] Nucleated RBC/100 WBC (Bld) [Ratio] 0 % 0-5 [facility] MCHC Auto (RBC) [Mass/Vol]Or dered By: Jane Landry on 05-07-2023 MCHC (RBC) [Mass/Vol] 34.0 g/dL 32-36 [facility] Platelets bldOrdered By: Diane Landry on 05-07-2023 Platelets (Bld) [#/Vol] 299 10*3/uL 150-450 [facility] Absolute lymphocyte countOrd ered By: Jane Landry on 04-29-2023 Lymphocytes Auto (Unsp spec) [#/Vol] 2.32 10*3/uL 0.83-4.51 [facility] Basophil percentageOrdered B y: Jane Landry on 04-29-2023 Basophils/100 WBC (Bld) 0.6 % 0-1 [facility] Bilirubin [Mass/Vol] 0.90 mg/dL 0.20-1.00 [facility] Comment on above: For patients on eltr ombopag therapy, use of Dimension [place] TBIL is not recommended. Chloride [Moles/Vol] 104 mmol/L 98-107 [facility] Eosinophils/100 WBC (Bld) 2.0 % 0-5 [facility] Glucose [Mass/Vol] 86 mg/dL 74-106 [facility] Neutrophils (Bld) [#/Vol] 4.7 10*3/uL 2.0-7.7 [facility] Neutrophils/100 WBC (Bld) 57.6 % 47-70 [facility] Potassium [Moles/Vol] 4.2 mmol/L 3.5-5.1 [facility] Protein [Mass/Vol] 8.0 g/dL 6.4-8.2 [facility] Sodium [Moles/Vol] 139 mmol/L 136-145 [facility] WBC (Bld) [#/Vol] 8.1 10*3/uL 4.4-11.0 [facility] Blood erythrocytes count (nu mber/volume)Ordered By: Jane Landry on 04-29-2023 RBC (Bld) [#/Vol] 5.89 10*6/uL 4.6-6.2 [facility] Blood hemoglobin measurement (mass/volume)Ordered By: Jane Landry on 04-29-2023 Hemoglobin (Bld) [Mass/Vol] 18.4 g/dL 13.0-16.5 [facility] Blood lymphocytes/100 leukoc ytesOrdered By: Jane Landry on 04-29-2023 Lymphocytes/100 WBC (Bld) 28.6 % 19-41 [facility] Blood monocytes/100 leukocyt esOrdered By: Jane Landry on 04-29-2023 Monocytes/100 WBC (Bld) 10.8 % 0-10 [facility] Blood platelet mean volumeOr dered By: Jane Landry on 04-29-2023 Platelet mean volume (Bld) [Entitic vol] 9.7 fL 6.2-12.0 [facility] Determination of erythrocyte mean corpuscular volume (MCV)Ordered By: Jane Landry on 04-29-2023 MCV (RBC) [Entitic vol] 93.4 fL 80-94 [facility] Hematocrit Auto (Bld) [Volum e fraction]Ordered By: Jane Landry on 04-29-2023 Hematocrit (Bld) [Volume fraction] 55.0 % 40-54 [facility] Laboratory - Chemistry and C hemistry - challengeOrdered By: Jane Landry on 04-29-2023 ALP [Catalytic activity/Vol] 103 U/L 45-117 [facility] ALT [Catalytic activity/Vol] 34 U/L 16-61 [facility] CO2 [Moles/Vol] 30.0 mmol/L 21.0-32.0 [facility] Globulin (S) [Mass/Vol] 3.8 g/dL 2.2-4.2 [facility] Urea nitrogen/Creatinine [Mass ratio] 19.8 mg/mg 10-20 [facility] Laboratory - Hematology and Cell countsOrdered By: Jane Landry on 04-29-2023 Erythrocyte distribution width (RBC) [Entitic vol] 41.2 fL 35.1-43.9 [facility] Erythrocyte distribution width (RBC) [Ratio] 11.9 % 11.6-14.6 [facility] Immature granulocytes/100 WBC (Bld) 0.400 % 0.0-0.9 [facility] Comment on above: IG% - Immature Granu locytes (promyelocytes, myelocytes and metamyelocytes) > 1% indicates that a LEFT SHIFT is Present. MCH (RBC) [Entitic mass] 31.2 pg 27.0-32.0 [facility] Nucleated RBC/100 WBC (Bld) [Ratio] 0 % 0-5 [facility] MCHC Auto (RBC) [Mass/Vol]Or dered By: Jane Landry on 04-29-2023 MCHC (RBC) [Mass/Vol] 33.5 g/dL 32-36 [facility] No Panel InformationOrdered By: Jane Landry on 04-29-2023 Estimated GFR (MDRD) Amer 106 mL/min >60 [facility] Comment on above: GFR Calc Estimated GFR (MDRD) Non-Af Amer 88 mL/min >60 [facility] Comment on above: Non- GFR Calc Thyroid Stimulating Hormone (TSH) 2.48 uIU/mL 0.358-3.74 [facility] Platelets bldOrdered By: Diane Landry on 04-29-2023 Platelets (Bld) [#/Vol] 314 10*3/uL 150-450 [facility] Review by pathologistOrdered By: Jane Landry on 04-29-2023 Pathologist review Joel (Unsp spec) [Interp] Reviewed [facility] Comment on above: Previous reported re sult: Marita black Edited by: JEVON on 05/01/23:0926Polycythemia Clinical correlation necessary.Karl Saleh M.D. 05/01/23 AMENDED REPORT 05/01/23 0926 PATH REV previously reported as: Marita black Serum or plasma albumin laisha urement (mass/volume)Ordered By: Jane Landry on 04-29-2023 Albumin [Mass/Vol] 4.2 g/dL 3.2-5.0 [facility] Serum or plasma albumin/glob ulin mass ratioOrdered By: Jane Landry on 04-29-2023 Albumin/Globulin [Mass ratio] 1.1 {ratio} 0.9-2.4 [facility] Serum or plasma calcium laisha urement (mass/volume)Ordered By: Jane Landry on 04-29-2023 Calcium [Mass/Vol] 9.8 mg/dL 8.5-10.1 [facility] Serum or plasma creatinine m easurement (mass/volume)Ordered By: Jane Landry on 04-29-2023 Creatinine [Mass/Vol] 0.91 mg/dL 0.70-1.30 [facility] Comment on above: The validity of the calculated GFR & GFRAA in patients over 70 years has not been determined. Clinical correlation is essential. Serum or plasma urea nitroge n measurement (mass/volume)Ordered By: Jane Landry on 04-29-2023 Urea nitrogen [Mass/Vol] 18 mg/dL 7-18 [facility] Thin prep Papanicolaou smear with manual screeningOrdered By: Jane Landry on 04-29-2023 Thin prep Papanicolaou smear with manual screening 21 U/L 15-37 [facility] Thin prep Papanicolaou smear with manual screening 5 5-15 [facility] Absolute lymphocyte counton 07-31-2022 Lymphocytes Auto (Unsp spec) [#/Vol] 1.55 10*3/uL 0.83-4.51 [facility] Work Phone: Basophil percentageon 2021 Basophils/100 WBC (Bld) 0.3 % 0-1 [facility] Work Phone: Bilirubin [Mass/Vol] 0.70 mg/dL 0.20-1.00 [facility] Work Phone: Comment on above: For patients on eltr ombopag therapy, use of Dimension [place] TBIL is not recommended. Chloride [Moles/Vol] 102 mmol/L 98-107 [facility] Work Phone: Eosinophils/100 WBC (Bld) 2.2 % 0-5 [facility] Work Phone: Glucose [Mass/Vol] 125 mg/dL 74-106 [facility] Work Phone: Comment on above: Fasting Glucose resu lt from 100 to 125 mg/dL suggests IMPAIRED HOMEOSTASIS per A.D.A. criteria. Neutrophils (Bld) [#/Vol] 4.2 10*3/uL 2.0-7.7 [facility] Work Phone: [phone] Neutrophils/100 WBC (Bld) 62.7 % 47-70 [facility] Work Phone: Potassium [Moles/Vol] 4.8 mmol/L 3.5-5.1 [facility] Work Phone: Protein [Mass/Vol] 7.7 g/dL 6.4-8.2 [facility] Work Phone: Sodium [Moles/Vol] 137 mmol/L 136-145 [facility] Work Phone: WBC (Bld) [#/Vol] 6.7 10*3/uL 4.4-11.0 [facility] Work Phone: Blood erythrocytes count (nu mber/volume)on 07-31-2022 RBC (Bld) [#/Vol] 5.26 10*6/uL 4.6-6.2 [facility] Work Phone: Blood hemoglobin measurement (mass/volume)on 07-31-2022 Hemoglobin (Bld) [Mass/Vol] 16.8 g/dL 13.0-16.5 [facility] Work Phone: Blood lymphocytes/100 leukoc yteson 07-31-2022 Lymphocytes/100 WBC (Bld) 23.2 % 19-41 [facility] Work Phone: Blood monocytes/100 leukocyt eson 07-31-2022 Monocytes/100 WBC (Bld) 11.2 % 0-10 [facility] Work Phone: Blood platelet mean volumeon 07-31-2022 Platelet mean volume (Bld) [Entitic vol] 10.1 fL 6.2-12.0 [facility] Work Phone: Determination of erythrocyte mean corpuscular volume (MCV)on 07-31-2022 MCV (RBC) [Entitic vol] 95.8 fL 80-94 [facility] Work Phone: Hematocrit Auto (Bld) [Volum e fraction]on 07-31-2022 Hematocrit (Bld) [Volume fraction] 50.4 % 40-54 [facility] Work Phone: [phone] Laboratory - Chemistry and C hemistry - challengeon 07-31-2022 ALP [Catalytic activity/Vol] 99 U/L 45-117 [facility] Work Phone: ALT [Catalytic activity/Vol] 23 U/L 16-61 [facility] Work Phone: CO2 [Moles/Vol] 29.0 mmol/L 21.0-32.0 [facility] Work Phone: Globulin (S) [Mass/Vol] 3.9 g/dL 2.2-4.2 [facility] Work Phone: Urea nitrogen/Creatinine [Mass ratio] 14.9 mg/mg 10-20 [facility] Work Phone: Laboratory - Hematology and Cell countson 07-31-2022 Erythrocyte distribution width (RBC) [Entitic vol] 43.7 fL 35.1-43.9 [facility] Work Phone: Erythrocyte distribution width (RBC) [Ratio] 12.2 % 11.6-14.6 [facility] Work Phone: Immature granulocytes/100 WBC (Bld) 0.400 % 0.0-0.9 [facility] Work Phone: Comment on above: IG% - Immature Granu locytes (promyelocytes, myelocytes and metamyelocytes) > 1% indicates that a LEFT SHIFT is Present. MCH (RBC) [Entitic mass] 31.9 pg 27.0-32.0 [facility] Work Phone: Nucleated RBC/100 WBC (Bld) [Ratio] 0 % 0-5 [facility] Work Phone: MCHC Auto (RBC) [Mass/Vol]on 07-31-2022 MCHC (RBC) [Mass/Vol] 33.3 g/dL 32-36 [facility] Work Phone: No Panel Informationon 07-31 Estimated GFR (MDRD) Amer 111 mL/min >60 [facility] Work Phone: Comment on above: GFR Calc Estimated GFR (MDRD) Non-Af Amer 92 mL/min >60 [facility] Work Phone: Comment on above: Non- GFR Calc Platelets bldon 07-31-2022 Platelets (Bld) [#/Vol] 283 10*3/uL 150-450 [facility] Work Phone: Serum or plasma albumin laisha urement (mass/volume)on 07-31-2022 Albumin [Mass/Vol] 3.8 g/dL 3.2-5.0 [facility] Work Phone: Serum or plasma albumin/glob ulin mass ratioon 07-31-2022 Albumin/Globulin [Mass ratio] 1.0 {ratio} 0.9-2.4 [facility] Work Phone: Serum or plasma calcium laisha urement (mass/volume)on 07-31-2022 Calcium [Mass/Vol] 9.5 mg/dL 8.5-10.1 [facility] Work Phone: Serum or plasma creatinine m easurement (mass/volume)on 07-31-2022 Creatinine [Mass/Vol] 0.88 mg/dL 0.70-1.30 [facility] Work Phone: Comment on above: The validity of the calculated GFR & GFRAA in patients over 70 years has not been determined. Clinical correlation is essential. Serum or plasma urea nitroge n measurement (mass/volume)on 07-31-2022 Urea nitrogen [Mass/Vol] 13 mg/dL 7-18 [facility] Work Phone: Thin prep Papanicolaou smear with manual screeningon 07-31-2022 Thin prep Papanicolaou smear with manual screening 17 U/L 15-37 [facility] Work Phone: Thin prep Papanicolaou smear with manual screening 6 5-15 [facility] Work Phone: Vital Signs Date Time Vital Sign Value Performing Clinician Facility 03-22-2025 15:16-0400 Body height 172.7 cm Wyatt Randhawa Ofelia Feliz Work Phone: [facility] 03-22-2025 15:16-0400 Body mass index (BMI) [Ratio] 17.33 kg/m2 Wyatt Randhawa Ofelia Feliz Work Phone: [facility] 03-22-2025 15:16-0400 Body weight 51.71 kg Wyatt Randhawa DO Work Phone: [facility] 03-22-2025 15:16-0400 Diastolic blood pressure 77 mm[Hg] Wyatt Randhawa DO Work Phone: [facility] 03-22-2025 15:16-0400 Heart rate 76 /min Alikimani Randhawa DO Work Phone: [facility] 03-22-2025 15:16-0400 SaO2% (BldA) [Mass fraction] 94 % Alikimani Randhawa DO Work Phone: [facility] 03-22-2025 15:16-0400 Systolic blood pressure 111 mm[Hg] Wyatt Randhawa DO Work Phone: [facility] 03-15-2025 14:14-0400 Body mass index (BMI) [Ratio] 18.3 kg/m2 Jane Landry 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-C Work Phone: [phone] [place] [address] 03-15-2025 13:31-0400 Body height 170.18 cm Jane Landry 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-C Work Phone: [phone] [place] [address] 03-15-2025 13:31-0400 Body weight 53.07 kg Jane Landry 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-C Work Phone: [phone] [place] [address] 03-15-2025 13:18-0400 Diastolic blood pressure 65 mm[Hg] Jane Landry 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-C Work Phone: [phone] [place] [address] 03-15-2025 13:18-0400 Heart rate 77 /min Jane Landry 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-C Work Phone: [phone] [place] [address] 03-15-2025 13:18-0400 SaO2% (BldA) [Mass fraction] 96 % Jane Landry 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-C Work Phone: [phone] [place] [address] 03-15-2025 13:18-0400 Systolic blood pressure 111 mm[Hg] Jane Landry 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-C Work Phone: [phone] [place] [address] 02-16-2025 15:17-0400 Body height 172.7 cm Wyatt Randhawa DO Work Phone: [facility] 02-16-2025 15:17-0400 Body mass index (BMI) [Ratio] 17.79 kg/m2 Wyatt Randhawa DO Work Phone: [facility] [employer] 02-16-2025 15:17-0400 Body weight 53.07 kg Wyatt Randhawa DO Work Phone: [facility] [employer] 02-16-2025 15:17-0400 Diastolic blood pressure 65 mm[Hg] Wyatt Randhawa DO Work Phone: [facility] [employer] 02-16-2025 15:17-0400 Heart rate 77 /min Wyatt Randhawa DO Work Phone: [facility] [employer] 02-16-2025 15:17-0400 Respiratory rate 14 /min Wyatt Randhawa DO Work Phone: [facility] [employer] 02-16-2025 15:17-0400 SaO2% (BldA) [Mass fraction] 96 % Wyatt Randhawa DO Work Phone: [facility] [employer] Comment on above: RA 02-16-2025 15:17-0400 Systolic blood pressure 111 mm[Hg] Wyatt Randhawa DO Work Phone: [facility] [employer] 12-29-2024 13:46-0500 Body height 170.3 cm Pulm Wstr Work Phone: [facility] 12-29-2024 13:46-0500 Body mass index (BMI) [Ratio] 17.83 kg/m2 Pulm Wstr Work Phone: [facility] 12-29-2024 13:46-0500 Body weight 51.71 kg Pulm Wstr Work Phone: [facility] 12-29-2024 13:46-0500 Heart rate 79 /min Pulm Wstr Work Phone: [facility] 12-29-2024 13:46-0500 Respiratory rate 14 /min Pulm Wstr Work Phone: [facility] 12-29-2024 13:46-0500 SaO2% (BldA) [Mass fraction] 95 % Pulm Wstr Work Phone: [facility] 08-06-2023 14:28-0400 Heart rate 76 /min Dr. Rich Salinas Work Phone: [facility] 08-06-2023 14:28-0400 SaO2% (BldA) [Mass fraction] 99 % Dr. Rich Salinas Work Phone: [facility] 08-06-2023 08:59-0400 Body height 175.[address] Rich Salinas Work Phone: [facility] 08-06-2023 08:59-0400 Body mass index (BMI) [Ratio] 17.4 kg/m2 Dr. Rich Salinas Work Phone: [facility] 08-06-2023 08:59-0400 Body temperature 97.4 [degF] Dr. Rich Salinas Work Phone: [facility] 08-06-2023 08:59-0400 Body weight 53.[address] Rich Salinas Work Phone: [facility] 08-06-2023 08:59-0400 Diastolic blood pressure 87 mm[Hg] Dr. Rich Salinas Work Phone: [facility] 08-06-2023 08:59-0400 Respiratory rate 18 /min Dr. Rich Salinas Work Phone: [facility] 08-06-2023 08:59-0400 Systolic blood pressure 134 mm[Hg] Dr. Rich Salinas Work Phone: [facility] 06-16-2023 11:10-0400 Heart rate 71 /min Dr. Rich Salinas Work Phone: [facility] 06-16-2023 11:10-0400 Respiratory rate 18 /min Dr. Rich Salinas Work Phone: [facility] 06-16-2023 08:38-0400 Body temperature 97.5 [degF] Dr. Rich Salinas Work Phone: [facility] 06-16-2023 08:38-0400 Diastolic blood pressure 78 mm[Hg] Dr. Rich Salinas Work Phone: [facility] 06-16-2023 08:38-0400 SaO2% (BldA) [Mass fraction] 95 % Dr. Rich Salinas Work Phone: [facility] 06-16-2023 08:38-0400 Systolic blood pressure 110 mm[Hg] Dr. Rich Salinas Work Phone: [facility] 06-14-2023 12:20-0400 Body height 175.[address] Rich Salinas Work Phone: [facility] 06-14-2023 12:20-0400 Body weight 51.[address] Rich Salinas Work Phone: [facility] 06-14-2023 00:53-0400 Body mass index (BMI) [Ratio] 16.7 kg/m2 Dr. Rich Salinas Work Phone: [facility] 06-14-2023 00:30-0400 Diastolic blood pressure 78 mm[Hg] Dr. Rich Slainas Work Phone: [facility] 06-14-2023 00:30-0400 Systolic blood pressure 120 mm[Hg] Dr. Rich Salinas Work Phone: [facility] 06-13-2023 23:49-0400 Heart rate 92 /min Dr. Rich Salinas Work Phone: [facility] 06-13-2023 23:49-0400 Respiratory rate 22 /min Dr. Rich Salinas Work Phone: [facility] 06-13-2023 21:47-0400 Body height 175.[address] Rich Salinas Work Phone: [facility] 06-13-2023 21:47-0400 Body mass index (BMI) [Ratio] 17.3 kg/m2 Dr. Rich Salinas Work Phone: [facility] 06-13-2023 21:47-0400 Body temperature 98.3 [degF] Dr. Rihc Salinas Work Phone: [facility] 06-13-2023 21:47-0400 Body weight 53.[address] Rich Salinas Work Phone: [facility] 06-13-2023 21:47-0400 SaO2% (BldA) [Mass fraction] 98 % Dr. Rich Salinas Work Phone: [facility] 04-29-2023 15:49-0400 Body height 172.[address] Rich Salinas Work Phone: [facility] 04-29-2023 15:49-0400 Body mass index (BMI) [Ratio] 17.6 kg/m2 Dr. Rich Salinas Work Phone: [facility] 04-29-2023 15:49-0400 Body temperature 98.2 [degF] Dr. Rich Salinas Work Phone: [facility] 04-29-2023 15:49-0400 Body weight 52.[address] Rich Salinas Work Phone: [facility] 04-29-2023 15:49-0400 Diastolic blood pressure 62 mm[Hg] Dr. Rich Salinas Work Phone: [facility] 04-29-2023 15:49-0400 Heart rate 96 /min Dr. Rich Salinas Work Phone: [facility] 04-29-2023 15:49-0400 Respiratory rate 12 /min Dr. Rich Salinas Work Phone: [facility] 04-29-2023 15:49-0400 SaO2% (BldA) [Mass fraction] 97 % Dr. Rich Salinas Work Phone: [facility] 04-29-2023 15:49-0400 Systolic blood pressure 106 mm[Hg] Dr. Rich Salinas Work Phone: [facility] 07-31-2022 14:13-0400 Body height 172.[address] Rihc Salinas Work Phone: [facility] Work Phone: 07-31-2022 14:13-0400 Body mass index (BMI) [Ratio] 18.3 kg/m2 Dr. Rich Salinas Work Phone: [facility] Work Phone: 07-31-2022 14:13-0400 Body temperature 97.4 [degF] Dr. Rich Salinas Work Phone: [facility] Work Phone: 07-31-2022 14:13-0400 Body weight 54.[address] Rich Salinas Work Phone: [facility] Work Phone: 07-31-2022 14:13-0400 Diastolic blood pressure 60 mm[Hg] Dr. Rich Salinas Work Phone: [facility] Work Phone: 07-31-2022 14:13-0400 Heart rate 86 /min Dr. Rich Salinas Work Phone: [facility] Work Phone: 07-31-2022 14:13-0400 Respiratory rate 18 /min Dr. Rich Salinas Work Phone: [facility] Work Phone: 07-31-2022 14:130400 SaO2% (BldA) [Mass fraction] 98 % Dr. Rich Salinas Work Phone: [facility] Work Phone: 07-31-2022 14:13-0400 Systolic blood pressure 106 mm[Hg] Dr. Rich Salinas Work Phone: [facility] Work Phone: Encounters Encounter Date Encounter Type Care Provider Facility Start: 05-11-2025 ambulatory Jane Landry VSC Facility :[facility] Start: 04-26-2025 End: 04-26-2025 Documentation procedure Vera Medina RN [facility] Comment on above: Care Coordination (L josseline Nodule Review Conference Recommendations /) Start: 04-22-2025 End: 04-22-2025 Telephone encounter Wyatt Randhawa DO Work Phone: [facility] Comment on above: Care Coordination Start: 04-21-2025 End: 04-22-2025 [facility] Start: 04-09-2025 End: 04-09-2025 Subsequent hospital visit by physician Wyatt Randhawa DO Work Phone: [facility] Comment on above: Pulmonary air trappi ng; Necrotizing granulomatous inflammation of lung (HCC); Pulmonary nodules Start: 04-09-2025 End: 04-09-2025 ambulatory [facility] Start: 04-01-2025 End: 04-30-2025 Discharged Recurring Jane Landry 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-C Work Phone: -Pulmonary Rehab Work Phone: Start: 04-01-2025 End: 04-30-2025 ambulatory Jane Landry 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-C Work Phone: [facility] Work Phone: Start: 03-22-2025 End: 03-22-2025 Office outpatient visit 25 minutes Wyatt Randhawa DO Work Phone: [facility] Lung Nodule [facility] [place] Comment on above: Chronic bronchitis, unspecified chronic bronchitis type (HCC) (Primary Dx); Centrilobular emphysema (HCC); Pulmonary hyperinflation; Pulmonary air trapping; Necrotizing granulomatous inflammation of lung (HCC); Pulmonary nodules; History of tobacco abuse Start: 03-22-2025 End: 03-22-20[facility] Start: 03-16-2025 End: 03-16-2025 ambulatory Sherri Main [facility] Start: 03-15-2025 End: 03-15-2025 ambulatory Jane Landry 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-C Work Phone: [facility] Work Phone: Start: 03-15-2025 End: 03-15-2025 Patient encounter procedure OUT OF TOWN DOCTOR -Pulmonary Rehab Work Phone: Start: 03-15-2025 End: 03-15-2025 ambulatory Jane Landry VSC Facility:[facility] Start: 02-17-2025 End: 02-17-2025 ambulatory Sherri Main [facility] Start: 02-17-2025 End: 02-17-2025 Telephone encounter Wyatt Randhawa DO Work Phone: [facility] Lung Nodule [facility] Jin Sandoval Comment on above: Care Coordination Start: 02-16-2025 End: 02-16-2025 [facility] Start: 02-16-2025 End: 02-16-2025 Office outpatient new 45 minutes Wyatt Randhawa DO Work Phone: [facility] Lung Nodule [facility] Comment on above: Chronic bronchitis, unspecified chronic bronchitis type (HCC) (Primary Dx); Centrilobular emphysema (HCC); Pulmonary hyperinflation; Pulmonary air trapping; Tobacco use Start: 12-29-2024 End: 12-29-2024 Subsequent hospital visit by physician [facility] ([facility]) Work Phone: Cat Scan Comment on above: Abnormal chest x-ray with multiple lung nodules [R91.8] Start: 12-29-2024 End: 12-30-2024 ambulatory Pulm Lab [facility] Work Phone: PULM [facility] Comment on above: Spirometry Start: 12-29-2024 End: 12-29-2024 Patient encounter procedure Pulm [facility] Work Phone: [facility] LAB [facility] Start: 11-19-2024 End: 11-19-2024 Telephone encounter Haris Tracey MD Work Phone: NOC Comment on above: Appointment Start: 10-23-2024 End: 10-23-2024 Telephone encounter Ewelina [id number] Comment on above: Appointment Start: 10-20-2024 End: 10-20-2024 Telephone encounter Demary Bar[id number] Comment on above: Appointment Start: 10-19-2024 End: 10-19-2024 Patient encounter procedure Dee Garces MD Work Phone: Pulmonary Medicine Start: 10-15-2024 Encounter for other preprocedural examination Martha Neumann 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 [facility] Start: 10-07-2024 End: 10-18-2024 Telephone encounter No Pcp [facility] [employer] Comment on above: Appointment External Referrals/r esources; Consult (RUL lung nodule) Start: 10-05-2024 End: 10-05-2024 ambulatory Jane Landry [facility] Facility:[facility] Start: 10-05-2024 End: 10-05-2024 Emergency department patient visit [facility] Facility:[facility] Start: 09-27-2024 End: 09-29-2024 [facility] Start: 09-27-2024 ambulatory [facility] Facility :[facility] Start: 09-27-2024 End: 09-27-2024 ambulatory [facility] Facility:[facility] Start: 09-06-2024 End: 09-06-2024 ambulatory Jane Landry [facility] Facility:[facility] Start: 09-06-2024 End: 09-06-2024 ambulatory Jane Landry [facility] [facility] Start: 08-17-2024 End: 08-17-2024 ambulatory Jane Landry VSC Facility:[facility] Start: 08-10-2024 End: 08-10-2024 ambulatory Jane Landry VSC Facility:[facility] Start: 08-05-2024 End: 08-05-2024 ambulatory Jane Landry VSC Facility:[facility] Start: 05-24-2024 End: 05-24-2024 ambulatory Martha Neumann 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 Facility:[facility] Start: 05-24-2024 End: 05-24-2024 ambulatory [facility] Facility:[facility] Start: 08-06-2023 End: 08-06-[address] Rich Salinas Work Phone: [facility]-Pulmonary Medicine [facility] Work Phone: Start: 08-01-2023 End: 08-01-[address] Rich Salinas Work Phone: [facility] Work Phone: Start: 08-01-2023 End: 08-01-[address] Rich Salinas Work Phone: [facility] Work Phone: Start: 06-16-2023 Non-patient / Non-visit Dr. Kaya Salinas Work Phone: [facility] Work Phone: Start: 06-15-2023 Non-patient / Non-visit Dr. Kaya Salinas Work Phone: [facility] Work Phone: Start: 06-14-2023 Non-patient / Non-visit Dr. Kaya Salinas Work Phone: [facility] Work Phone: Start: 06-13-2023 End: 06-16-2023 Evaluation and management of inpatient Dr. Rich Salinas Work Phone: [facility]-Medical Surgical 3 Work Phone: Start: 05-16-2023 End: 05-16-[address] Rich Salinas Work Phone: [facility] Work Phone: Start: 05-16-2023 End: 05-16-[address] Rich Salinas Work Phone: [facility]-Cat Scan, [facility] Start: 05-07-2023 End: 05-07-[address] Rich Salinas Work Phone: [facility]-Laboratory, [place] Start: 04-29-2023 End: 04-29-[address] Rich Salinas Work Phone: [facility] Work Phone: Start: 04-29-2023 End: 04-29-[address] Rich Salinas Work Phone: [facility] Internal [facility] Start: 07-31-2022 End: 07-31-[address] Rich Salinas Work Phone: [facility] Work Phone: Start: 07-31-2022 End: 07-31-[address] Rich Salinas Work Phone: [facility] Start: 02-13-2018 Ambulatory SIMI BAXTER Fac ility:B Procedures Date Procedure Procedure Detail Performing Clinician Start: 12-29-2024 Ct thorax w/o contra st material Dee Garces MD Work Phone: Start: 12-29-2024 End: 12-29-2024 Co diffusing capacity Dee Garces MD Work Phone: Start: 08-01-2023 CT of thorax with contrast Dr. Rich Salinas Work Phone: Start: 05-16-2023 CT of thorax with contrast Dr. Rich Salinas Work Phone: Plan of Treatment Date Care Activity Detail Author Start: 2029 RSV Vaccine (1 - 1-d ose 75+ series) RSV Vaccine (1 - 1-dose 75+ series) [facility] Start: 04-09-2026 Screening for malign ant neoplasm of lung Lung Cancer Screening [facility] Start: 12-29-2025 Screening for malign ant neoplasm of lung Lung Cancer Screening [facility] Start: 08-01-2025 Influenza vaccination Influenz a Vaccine (Season Ended) [facility] Start: 05-24-2025 End: 05-24-2025 Telemedicine consultation with patient 05/24/2025 8:45 AM EDT Telemedicine [facility] Lung Nodule Clinic - [address] [place] [address] [phone] Wyatt Randhawa [facility] [address] [place] [address] [facility] Lung Nodule [facility] Start: 05-09-2025 End: 05-09-2025 Patient encounter procedure 05/09/2025 4:00 PM EDT Appointment [facility] [address] [place] [address] Wyatt Randhawa [facility] [address] [place] [id number] [facility] [place] Kevin PET Start: 04-21-2025 End: 04-21-2025 Telemedicine consultation with patient 04/21/2025 1:30 PM EDT Telemedicine [facility] Lung Nodule Clinic - [place] [address] [place] [address] [phone] Wyatt Randhawa [facility] [address] [place] [address] [facility] Lung Nodule [facility] Start: 04-09-2025 End: 04-09-2025 Patient encounter procedure 04/09/2025 10:30 AM EDT Appointment [facility] [address] [place] [address] [facility] [place] [phone] [facility] [address] Imaging Start: 03-22-2025 End: 03-22-2025 Patient encounter procedure 03/22/2025 3:15 PM EDT Office Visit [facility] Lung Nodule [facility] [address] [place] [phone] Wyatt Randhawa DO [address] [place] [address] [facility] Lung Nodule [facility] Start: 03-22-2025 End: 03-22-2026 CBC W Auto Differential panel - Blood CBC auto differential Lab Routine Chronic bronchitis, unspecified chronic bronchitis type (HCC) Expected: 03/22/2025 (Approximate), Expires: 03/22/2026 [facility] Comment on above: Expected: 03/22/2025 (Approximate), Expires: 03/22/2026 Start: 03-22-2025 End: 03-22-2026 CT Chest WO contrast CT chest wo IV contrast Imaging Routine Pulmonary air trapping Necrotizing granulomatous inflammation of lung (HCC) Pulmonary nodules Expected: 03/22/2025, Expires: 03/22/2026 [facility] Work Phone: Comment on above: Expected: 03/22/2025 , Expires: 03/22/2026 Start: 03-22-2025 End: 03-22-2026 QUANTIFERON TB GOLD Quantiferon TB Gold Lab Routine Necrotizing granulomatous inflammation of lung (HCC) Expected: 03/22/2025 (Approximate), Expires: 03/22/2026 [facility] Comment on above: Expected: 03/22/2025 (Approximate), Expires: 03/22/2026 Start: 02-17-2025 End: 02-17-2026 Pulmonary rehab evaluation Pulmonary rehab evaluation Card Rehab Routine Chronic bronchitis, unspecified chronic bronchitis type (HCC) Expected: 02/17/2025 (Approximate), Expires: 02/17/2026 [facility] Work Phone: Comment on above: Expected: 02/17/2025 (Approximate), Expires: 02/17/2026 Start: 01-11-2025 End: 01-11-2025 Patient encounter procedure 01/11/2025 12:30 PM EST Office Visit [facility] [address] [place] [address] Haris Tracey MD [address] [facility] [id number] [place] [address] Lung nodule [facility] Comment on above: Lung nodule Start: 01-04-2025 End: 01-04-2025 Patient encounter procedure 01/04/2025 1:00 PM EST Office Visit Pulmonary Medicine [address] [place] [address] Juanita Nuñez MD [address] [place] [address] ?SLEEP,COPD//NPV [facility] Comment on above: ?SLEEP,COPD//NPV Start: 12-01-2024 Advance Directive Discussion Advance Directive Discussion [facility] Start: 12-01-2024 Medicare Advantage A nnual Wellness Visit Medicare Advantage Annual Wellness Visit [facility] Start: 10-19-2024 End: 01-18-2025 ALPHA 1 ANTITRYP PHEN/GENOTYPE ALPHA 1 ANTITRYP PHEN/GENOTYPE Lab Routine Abnormal chest x-ray with multiple lung nodules Centrilobular emphysema (HCC) Expected: 10/19/2024, Expires: 01/18/2025 [facility] Work Phone: Comment on above: Expected: 10/19/2024 , Expires: 01/18/2025 Start: 08-01-2024 Covid-19 Vaccine ( season) Covid-19 Vaccine ( season) [facility] Start: 08-01-2024 Influenza vaccination Influenza Vacc ine (#1) [facility] Start: 12-01-2023 Advance Directive Discussion Advance Directive Discussion [facility] Start: 06-16-2023 Patient discharge [facility] Start: 06-15-2023 [facility] Start: 06-15-2023 Incentive spirometry [facility] Start: 06-14-2023 End: 06-15-2023 [facility] Start: 06-14-2023 Assessment using assessment scale [facility] Start: 06-14-2023 End: 06-14-2023 Following clinical pathway protocol [facility] Start: 06-14-2023 Assessment of risk o f venous thromboembolism [facility] Start: 06-14-2023 Continuous positive airway pressure ventilation treatment [facility] Start: 06-14-2023 Hepatitis B surface antigen measurement [facility] Start: 06-14-2023 Hepatitis C antibody measurement [facility] Start: 06-14-2023 Inhalation therapy procedure [facility] Start: 06-14-2023 Introduction of urin jefry catheter [facility] Start: 06-14-2023 Notification of physician [facility] Start: 06-14-2023 Oxygen therapy [facility] Start: 06-14-2023 Provision of activit y privileges [facility] Start: 06-14-2023 Referral to service [facility] Start: 06-14-2023 Vital signs measurements [facility] Start: 06-14-2023 [facility] Start: 06-14-2023 Consultation [facility] Start: 06-14-2023 Patient referral to dietitian [facility] Start: 06-13-2023 Admission procedure [facility] Start: 2019 Pneumococcal Vaccine : 65+ (1 of 1 - PCV) Pneumococcal Vaccine: 65+ (1 of 1 - PCV) [facility] Start: 2014 RSV Immunization for Adults (1 - Risk 60-74 years 1-dose series) RSV Immunization for Adults (1 - Risk 60-74 years 1-dose series) [facility] Start: 2004 Pneumococcal Vaccine : 50+ (1 of 1 - PCV) Pneumococcal Vaccine: 50+ (1 of 1 - PCV) [facility] Start: 2004 Shingrix Vaccine (1 of 2) Ybarra grix Vaccine (1 of 2) [facility] Start: 06-05-2004 Zoster Vaccines (1 of 2) Zoste r Vaccines (1 of 2) [facility] Start: 1999 Diabetes Screening Diabetes Screenin g [facility] Start: 1999 Screening for malign ant neoplasm of colon [facility] Start: 1989 Lipid panel Lipid Screening [facility] Start: 1973 DTaP/Tdap/Td Vaccine s (1 - Tdap) DTaP/Tdap/Td Vaccines (1 - Tdap) [facility] Start: 1973 Pneumococcal Vaccine : 50+ (1 of 2 - PCV) Pneumococcal Vaccine: 50+ (1 of 2 - PCV) [facility] Start: 1973 Pneumococcal Vaccine : 50+ Years (1 of 2 - PCV) Pneumococcal Vaccine: 50+ Years (1 of 2 - PCV) [facility] Start: 1973 Urine microalbumin profile DTaP,Tdap,Td Vaccine (1 - Tdap) [facility] Start: 1972 Anxiety Screening Anxiety Screening [facility] Start: 1972 Depression Screening Depression Scre ening [facility] Start: 1972 Hepatitis C screening Hepatitis C Sc reening [facility] Start: 1966 Depression Monitoring Depression Mon itoring [facility] Start: 1966 Depression Screening Depression Scre ing [facility] Start: 1954 Abdominal aortic ane urysm screening Abdominal Aortic Aneurysm Screening [facility] Start: 1954 Lipid panel Lipid Panel [facility] Start: 1954 Screening for malign ant neoplasm of colon [facility] CT Chest [facility] CT Chest W contrast IV [facility] End: 11-18-2025 CT Chest WO contrast CT CHEST WO IVCON Radiology Routine Abnormal chest x-ray with multiple lung nodules Centrilobular emphysema (HCC) 1 Occurrences starting 10/19/2024 until 11/18/2025 [facility] Comment on above: 1 Occurrences starti ng 10/19/2024 until 11/18/2025 End: 04-09-2025 CT Chest WO contrast [facility] Work Phone: Comment on above: Once for 1 Occurrenc es starting 04/09/2025 until 04/09/2025 Hemoglobin A1c/Hemoglobin.total in Blood [facility] Hepatitis B virus merlos rface IgG Ab [Presence] in Serum [facility] HIV 1+2 Ab+HIV1 p24 Ag [Presence] in Serum or Plasma by Immunoassay [facility] End: 11-17-2025 LUNG DIFFUSION CAPACITY (DLCO) LUNG DIFFUSION CAPACITY (DLCO) PFT Routine Lung nodule 1 Occurrences starting 10/18/2024 until 11/17/2025 [facility] Work Phone: Comment on above: 1 Occurrences starti ng 10/18/2024 until 11/17/2025 End: 11-18-2025 LUNG DIFFUSION CAPACITY (DLCO) LUNG DIFFUSION CAPACITY (DLCO) PFT Routine Abnormal chest x-ray with multiple lung nodules Centrilobular emphysema (HCC) 1 Occurrences starting 10/19/2024 until 11/18/2025 [facility] Comment on above: 1 Occurrences starti ng 10/19/2024 until 11/18/2025 LUNG DIFFUSION CAPAC ITY (DLCO) LUNG DIFFUSION CAPACITY (DLCO) PFT Routine Abnormal chest x-ray with multiple lung nodules Centrilobular emphysema (HCC) 12/29/2024 12:59 PM EST [facility] Work Phone: End: 11-18-2025 LUNG VOLUMES LUNG VOLUMES PFT Routine Abnormal chest x-ray with multiple lung nodules Centrilobular emphysema (HCC) 1 Occurrences starting 10/19/2024 until 11/18/2025 [facility] Comment on above: 1 Occurrences starti ng 10/19/2024 until 11/18/2025 LUNG VOLUMES LUNG VOLUMES PFT Routine Abnormal chest x-ray with multiple lung nodules Centrilobular emphysema (HCC) 12/29/2024 12:59 PM EST [facility] Work Phone: Patient Education Addiction: Get ting Help Addiction: Your Treatment Options Addiction Recovery Counseling ED Opioid Withdrawal [facility] Work Phone: Patient referral [facility] Work Phone: End: 11-17-2025 SIX MINUTE WALK SIX MINUTE WALK PFT Routine Lung nodule 1 Occurrences starting 10/18/2024 until 11/17/2025 [facility] Comment on above: 1 Occurrences starti ng 10/18/2024 until 11/17/2025 End: 11-18-2025 SIX MINUTE WALK SIX MINUTE WALK PFT Routine Abnormal chest x-ray with multiple lung nodules Centrilobular emphysema (HCC) 1 Occurrences starting 10/19/2024 until 11/18/2025 [facility] Comment on above: 1 Occurrences starti ng 10/19/2024 until 11/18/2025 SIX MINUTE WALK SIX MINUTE WALK PFT Routine Abnormal chest x-ray with multiple lung nodules Centrilobular emphysema (HCC) 12/29/2024 1:49 PM [facility] ([facility]) [facility] Work Phone: End: 11-18-2025 SPIROMETRY - BASELINE AND POST DILATOR SPIROMETRY - BASELINE AND POST DILATOR PFT Routine Abnormal chest x-ray with multiple lung nodules Centrilobular emphysema (HCC) 1 Occurrences starting 10/19/2024 until 11/18/2025 [facility] Comment on above: 1 Occurrences starti ng 10/19/2024 until 11/18/2025 SPIROMETRY - BASELIN E AND POST DILATOR SPIROMETRY - BASELINE AND POST DILATOR PFT Routine Abnormal chest x-ray with multiple lung nodules Centrilobular emphysema (HCC) 12/29/2024 12:59 PM [facility] ([facility]) [facility] Work Phone: End: 11-17-2025 SPIROMETRY WITH DILATOR IF OBSTRUCTED SPIROMETRY WITH DILATOR IF OBSTRUCTED PFT Routine Lung nodule 1 Occurrences starting 10/18/2024 until 11/17/2025 [facility] Comment on above: 1 Occurrences starti ng 10/18/2024 until 11/17/2025 Treponema sp Ab [Presence] in Serum [facility] Payers Date Payer Category Payer Medicaid HMO UHC [employer] M EDICAID ONLY [id number] 2024 Medicare HMO UHC DUAL COMPLET E Member Subscriber Plan / Payer (Effective 2024-Present) Name: Toby Woody Relation to Subscriber: Self Name: Toby Woody Payer ID: [id number] (NAIC) Group ID: [id number] Type: Medicare HMO Address: [place] [id number] 2024 Unknown [id number] 2024 Unknown [id number] 2024 Medicaid [id number] 2024 Self-pay [id number] 2023 Medicare [id number] 2023 Unknown [id number] 2014 Unknown [id number] Medicare [id number] Unknown AARP [id number] Unknown [facility] [employer] [id number] Unknown [id number] Unknown [id number] Unknown [id number] Unknown [id number] Unknown [id number] Unknown [id number] [id number] Unknown [id number] Unknown [id number] [id number] Unknown [id number] [id number] Unknown [id number] [id number] Unknown [id number] [id number] Unknown [id number] 2.840.1.147936.3.579.2.462 Unknown [id number] [id number] Unknown [id number] [id number] Unknown [id number] [id number] Unknown [id number] [id number] Unknown [id number] [id number] Unknown [id number] [id number] Unknown [id number] [id number] Unknown [id number] Social History Date Type Detail Facility Start: 07-31-2022 End: 08-06-2023 Tobacco smoking status MIIS Unknown if ever smoked [facility] Start: 03-06-2019 Heavy [facility] Start: 03-06-2019 Marijuana;- [facility] Start: 03-08-2019 Cigarettes [facility] Start: 1955 Sex Assigned At Male [facility] Start: 12-01-1969 End: 04-06-2025 Tobacco smoking status NHIS Smokes tobacco daily [facility] Work Phone: Start: [birth year]-01-1969 History of tobacco use Cigarette Smo ker [facility] Start: 01-16-2024 End: 04-06-2025 Alcoholic beverage intake Current drinker of alcohol (finding) [facility] Start: 01-16-2024 End: 04-06-2025 Alcoholic beverage intake [facility] Start: 01-16-2024 End: 04-06-2025 Tobacco use panel [facility] National Score (1-100), lower number is lower risk 66 [facility] Start: 01-16-2024 Alcohol Comment 6-8 beers a day [facility] Start: 1955 Sex assigned at Not on file [facility] Start: 12-29-2024 End: 04-06-2025 Tobacco use and exposure Smokeless tobacco non-user [facility] Start: 02-17-2025 Tobacco Comment 02/17/25 2 PPD wears O2 [facility] Start: 01-31-2025 End: 03-21-2025 Sex Male (finding) [facility] Start: 04-06-2025 Tobacco Comment 02/17/25 2 PPD wears O2. 04/06/25 2 PPD. [facility] Goals Date Patient Goal Desired Activity /State Functional Status Date Assessment Result Facility 06-16-2023 Functional status Ambulates [facility] Work Phone: Mental Status Date Assessment Result Facility 06-16-2023 Cognitive function Voice/Name [facility] Work Phone: Clinical Notes 06-13-2023 to 05-02-2025 Telephone Encounter - Jacquelin Riddle RN - 05/02/2025 3:49 PM EDTTelephone Encounter - Jacquelin Riddle RN - 05/02/2025 3:49 PM Ernesto Medina RN - 04/26/2025 9:21 AM EDTPatient Instructions Note Date & Type Note Facility 05-02-2025 Telephone encounter Note This RN received call from patient asking what is going on 05/09/25. This RN reviewed his PET scan appointment and prep details with him. I also advised I was waiting for a call from his daughter to review appointment details. Patient advised she goes into work at 8 am until 5 PM and is unable to call from work. I informed patient that appointment information is in his MyChart and I also put a printed copy in mail for their review. [facility] 05-02-2025 Miscellaneous Notes This RN received call from patient asking what is going on 05/09/25. This RN reviewed his PET scan appointment and prep details with him. I also advised I was waiting for a call from his daughter to review appointment details. Patient advised she goes into work at 8 am until 5 PM and is unable to call from work. I informed patient that appointment information is in his MyChart and I also put a printed copy in mail for their review. This RN left message for patient's daughter regarding scheduling PET scan and EBUS/ENB. This RN spoke with patient regarding scheduling PET scan. Patient scheduled first available PET scan at any location for 05/09/25 4:00 PM at [facility]. This RN reviewed prep with patient on phone. Also sent to home via mail and sent to [place] [facility]. Patient requests that I discuss with his daughter. Left message. Will await call back. This RN discussed with Dr. Garibay. He advised ok to proceed with scheduling PET and then EBUS/ENB after we will have PET results. Sent to office R.C. for prior auth of PET. Images from the original note were not included. Wyatt Randhawa, BECKI [place], mr woody is getting a repeat PET for enlarging nodules and will likley need ebus ENB in near future post PET 4-6 weeks . Could you coordinate either a telephone or in office with one of the [facility] bronch physicians for this . This RN discussed with Dr. Randhawa-he advised to proceed with biopsy documented in this encounter [facility] 04-28-2025 Note LVM & My Chart messa ge checking in on the patients smoking cessation progress. Gave contact information, will follow up. [facility] 04-27-2025 Telephone encounter Note This RN left message for patient's daughter regarding scheduling PET scan and EBUS/ENB. This RN spoke with patient regarding scheduling PET scan. Patient scheduled first available PET scan at any location for 05/09/25 4:00 PM at [facility]. This RN reviewed prep with patient on phone. Also sent to home via mail and sent to [place]. Patient requests that I discuss with his daughter. Left message. Will await call back. [facility] 04-27-2025 Miscellaneous Notes This RN left message for patient's daughter regarding scheduling PET scan and EBUS/ENB. This RN spoke with patient regarding scheduling PET scan. Patient scheduled first available PET scan at any location for 05/09/25 4:00 PM at [facility]. This RN reviewed prep with patient on phone. Also sent to home via mail and sent to [employer]. Patient requests that I discuss with his daughter. Left message. Will await call back. This RN discussed with Dr. Garibay. He advised ok to proceed with scheduling PET and then EBUS/ENB after we will have PET results. Sent to office R.C. for prior auth of PET. Images from the original note were not included. Wyatt Randhawa, DO BECKI [place], mr woody is getting a repeat PET for enlarging nodules and will likley need ebus ENB in near future post PET 4-6 weeks . Could you coordinate either a telephone or in office with one of the [facility] bronch physicians for this . This RN discussed with Dr. Randhawa-he advised to proceed with biopsy documented in this encounter [facility] 04-26-2025 Telephone encounter Note This RN discussed with Dr. Garibay. He advised ok to proceed with scheduling PET and then EBUS/ENB after we will have PET results. Sent to office R.C. for prior auth of PET. [facility] 04-26-2025 Miscellaneous Notes This RN discussed with Dr. Garibay. He advised ok to proceed with scheduling PET and then EBUS/ENB after we will have PET results. Sent to office R.C. for prior auth of PET. Images from the original note were not included. DO Jacquelin Briones, RN Jorje cooper, mr woody is getting a repeat PET for enlarging nodules and will likley need ebus ENB in near future post PET 4-6 weeks . Could you coordinate either a telephone or in office with one of the [facility] bronch physicians for this . This RN discussed with Dr. Randhawa-he advised to proceed with biopsy documented in this encounter [facility] 04-26-2025 History of Presen t illness Narrative Lung Nodule Multidisciplinary Review Conference Consensus Recommendation Summary Privileged Information LUNG NODULE CONFERENCE CLINICAL SUMMARY Basic Demographic Information Toby Woody Date of presentation : 04/26/25 1955 Presenting physician: Dr. Randhawa 69 y.o. [] Previous presentation date : na Presentation Type [] Prospective [] Retrospective [] Nodule Brief Clinical Summary & Lung Nodule Conference Review Recommendations 12 Toby Woody Dx: Enlarging RUL Nodule Presenter: Dr. Randhawa Clin: T N M Stage: Path: T N M Stage: : 54 Smoking History: [x] Current [] Former [] Never Surg. Onc: Pulm: [facility] Med. Onc: Other: Imaging and Procedures [] Prospective [] Retrospective Rad. Onc: PCP: Norma Guevara Screenin08/05/24 MRI: Summary: 69-year-old with past medical history of pneumothorax, RA, Oxygen dependent, weight loss, had lung screening in August 2024 at outside facility which was classified as a lung RADS 4B, patient was sent for PET scan in August 2024 which showed increased uptake in right upper lobe nodule. Patient was sent for CT guided lung biopsy of right upper lobe 09-27-2024 which showed no malignant cells, no infection on cultures, noted to have necrotizing granulomas. Patient referred to pulmonary in January 2025 for evaluation of COPD/BL VR candidacy repeat CT chest completed 04-09-2025 now shows enlarging soft tissue nodule in right upper lobe, present to review prior imaging, pathology and discuss recommendations for tissue sampling. CT C: 04/09/25; 10/08/24; 2019 PET:08/31/24; 2019 CT A/P: PFT: 12/29/2024 Other: PATH: CT guide RUL lung bx 09/27/24 Recommendations: 1.) PET scan 2.) Consider EBUS/ENB Available Protocol Recommendation [] Yes Protocol: Report Completed by Vera Medina RN 04/26/2025 Lung Nodule Conference Moderator-Francisco Garibay MD Recommendations from Lung Nodule Multidisciplinary Review Conference are based on national evidence based guidelines. The plan used by the managing physician(s) may vary based on the status of the individual patient and the reports results made available at time of presentation. We recognize that this data set may change and that the final treatment plan may differ from this recommendation. documented in this encounter [facility] 04-26-2025 Note Lung Nodule Multidis ciplinary Review Conference Consensus Recommendation Summary Privileged Information LUNG NODULE CONFERENCE CLINICAL SUMMARY Basic Demographic Information Toby Woody Date of presentation : 04/26/25 1955 Presenting physician: Dr. Randhawa 69 y.o. [] Previous presentation date : na Presentation Type [] Prospective [] Retrospective [] Nodule Brief Clinical Summary & Lung Nodule Conference Review Recommendations 12 Toby Woody Dx: Enlarging RUL Nodule Presenter: Dr. Randhawa Clin: T N M Stage: Path: T N M Stage: : 54 Smoking History: [x] Current [] Former [] Never Surg. Onc: Pulm: Anne Randhawa Med. Onc: Other: Imaging and Procedures [] Prospective [] Retrospective Rad. Onc: PCP: Norma Guevara Screenin08/05/24 MRI: Summary: 69-year-old with past medical history of pneumothorax, RA, Oxygen dependent, weight loss, had lung screening in August 2024 at outside facility which was classified as a lung RADS 4B, patient was sent for PET scan in August 2024 which showed increased uptake in right upper lobe nodule. Patient was sent for CT guided lung biopsy of right upper lobe 09-27-2024 which showed no malignant cells, no infection on cultures, noted to have necrotizing granulomas. Patient referred to pulmonary in January 2025 for evaluation of COPD/BL VR candidacy repeat CT chest completed 04-09-2025 now shows enlarging soft tissue nodule in right upper lobe, present to review prior imaging, pathology and discuss recommendations for tissue sampling. CT C: 04/09/25; 10/08/24; 2018 PET:08/31/24; 2018 CT A/P: PFT: 12/29/2024 Other: PATH: CT guide RUL lung bx 09/27/24 Recommendations: 1.) PET scan 2.) Consider EBUS/ENB Available Protocol Recommendation [] Yes Protocol: Report Completed by Vera Medina RN 04/26/2025 Lung Nodule Conference Moderator-Francisco Garibay MD Recommendations from Lung Nodule Multidisciplinary Review Conference are based on national evidence based guidelines. The plan used by the managing physician(s) may vary based on the status of the individual patient and the reports results made available at time of presentation. We recognize that this data set may change and that the final treatment plan may differ from this recommendation. [facility] 04-22-2025 Telephone encounter Note Images from the original note were not included. DO Jacquelin Briones, BECKI cooper, mr woody is getting a repeat PET for enlarging nodules and will likley need ebus ENB in near future post PET 4-6 weeks . Could you coordinate either a telephone or in office with one of the [facility] bronch physicians for this . This RN discussed with Dr. Randhawa-he advised to proceed with biopsy [facility] 04-06-2025 Note [facility] Smoking Cessation Progress Note Smoking Cessation Intervention Session type: Follow Up Session length: 10 minutes Smoking History: Started at 14, 2 PPD, no quit attempts, ETOH, O2 dependent. Pack Years: 110 Tobacco Use as of 04/06/2025 Every Day; Cigarettes: Started 1970; 2.0 packs/day; Smoked an average of 2.0 packs/day for 55.3 years; Total pack years: 110.7 Smokeless Tobacco: Never used smokeless tobacco. Tobacco Cessation: Ready to quit: No; Counseling given: Yes Comments: 02/17/25 2 PPD wears O2. 04/06/25 2 PPD. Vaping Use as of 04/06/2025 Former; Substances: Nicotine Tried for 2 months How important is it to the patient to quit? (0-10): 10 How confident is the patient that they can quit? (0-10): 4 Stage of Change: Pre-Contemplation Fagerstrom Test for Nicotine Dependence Score: 9 Reasons to quit smoking identified: Yes Triggers for smoking identified: Yes Quit strategies for smoking identified: Yes Nicotine withdrawal symptoms reviewed: Yes Smoking urge distractions discussed: Yes Request for nicotine withdrawal medication: Yes Ready to choose a quit date with in the next 30 days: No Additional Comments: Patient was referred for smoking cessation counseling by Dr. Randhawa. The patient is smoking 2 PPD & hasn't been able to make any changes in his smoking habits. Patient was again encouraged to start reducing the amount he smokes. Will follow up in 3 weeks per patient request. [facility] 03-22-2025 History of Presen t illness Narrative Images from the original note were not included. [facility] [address] [place], [place] [id number] Visit type: New patient Reason for Visit: BLVR Evaluation History of Present Illness: Toby Woody is a 69 y.o. male patient with significant PMH of copd being seen for copd eval and BLVR evaluation Pt presented for follow up, working on smoking cessation. Additional nrt and smoking cessation eval. Resources provided. Pt reports high anxiety with cessation. Limited [facility] records. Necrotizing pneumonia rul sp biopsy at [facility]. And pulmonary nodules. Discussed repeat ct, scheduled at [facility] 09 of april with subseuqent likely bronchoscopy ebus/enb to rule out malignancy and chronic infectious process. Biologic and blvr deferred at this time while evaluating pulmonary pathology. Ensifentrine not covered by insurance. Will follow up. Continue prn neb and trelegy 1 puff daily. Avoid inhaler overuse discussed. Unintentional weight loss. Poor appetite . Poor po intake Copd gold4e with hyperinflation and air trapping, future eos eval. Blvr f smoking cessation. Repaet nodule eval as pt does not want to follow up at [facility] Diagnosis Plan 1. Chronic bronchitis, unspecified chronic bronchitis type (HCC) CBC auto differential CBC auto differential nicotine (Nicoderm CQ) 21 MG/24HR patch [facility] Smoking/Tobacco Cessation Program nicotine polacrilex (Commit) 4 MG lozenge Trelegy Ellipta 100-62.5-25 MCG/ACT aerosol powder 2. Centrilobular emphysema (HCC) albuterol (2.5 MG/3ML) 0.083% nebulizer solution Trelegy Ellipta 100-62.5-25 MCG/ACT aerosol powder 3. Pulmonary hyperinflation 4. Pulmonary air trapping CT chest wo IV contrast 5. Necrotizing granulomatous inflammation of lung (HCC) CT chest wo IV contrast Quantiferon TB Gold Quantiferon TB Gold 6. Pulmonary nodules CT chest wo IV contrast 7. 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 RUL nodule sp biopsy, granuloma necrotizing. PFTs-- severe ovd with air trapping and hyperfilantion Oximetry-- 3 L Sleep study-- n/an Home medications : A/P Preliminary not a candidate yet due to current smoking and RUL pulmonary nodule. Request records and evaluation. Will require repeat CT Chest. Smokig cessation, Continue ttriple bd therapy Evaluation for ensifentrine neb additional therapy Nebulizer Start pulmonary rehab Follow up established Diagnosis Plan 1. Chronic bronchitis, unspecified chronic bronchitis type (HCC) CBC auto differential CBC auto differential nicotine (Nicoderm CQ) 21 MG/24HR patch [facility] Smoking/Tobacco Cessation Program nicotine polacrilex (Commit) 4 MG lozenge Trelegy Ellipta 100-62.5-25 MCG/ACT aerosol powder 2. Centrilobular emphysema (HCC) albuterol (2.5 MG/3ML) 0.083% nebulizer solution Trelegy Ellipta 100-62.5-25 MCG/ACT aerosol powder 3. Pulmonary hyperinflation 4. Pulmonary air trapping CT chest wo IV contrast 5. Necrotizing granulomatous inflammation of lung (HCC) CT chest wo IV contrast Quantiferon TB Gold Quantiferon TB Gold 6. Pulmonary nodules CT chest wo IV contrast 7. History of tobacco abuse #exacerbations within the last year: 2 #exacerbations leading to hospitalization within the last year: CAT Score: MMRC Dyspnea Scale: Grade Description of Breathlessness 0 I only get breathless with strenuous exercise. 1 I get short of breath when hurrying on level ground or walking up a slight hill. 2 On level ground, I walk slower than people of the same age because of breathlessness, or have to stop for breath when walking at my own pace. 3 I stop for breath after walking about 100 yards or after a few minutes on level ground. 4 I am too breathless to leave the house or I am breathless when dressing. [x]Age 40--75 []Non smoker []No severe exacerbation in past 3 months []Pulmonary rehab competed - start [x] No AC/antiplatelet rx , no elevated bleeding risk [x] No prior LVRS, thoracic surgery or pleurodesis [x] On optimal Medical Therapy [] No pulmonary hypertension - ABG PaCO2 < 50 [] Echo EF >45 , RVSP < 45 [x] Meets PFT criteria TLC 100, RV > 150 , FEV1 15-45% [] No high risk pulmonary nodules on CT . Endobronchial Valve Pulmonary Clinic Eligibility Checklist [x] Diagnosis of emphysema confirmed by CT [x] BMI < 35 kg/m2 [x] Stable with <= 20mg prednisone (or equivalent) daily [x] Residual volume >= 175% predicted (>= 200% if homogeneous) [x] FEV1 15-45% predicted [x]TLC >= 100% predicted [x] 6MWD 100-500m post-rehabilitation (150-500m if homogeneous) [] Not actively smoking (for at least 4 months) no severe exacerbations in last 3 months [] Target lobe with little or no collateral ventilation (as measured by StratX Lung Analysis Platform and/or Chartis Assessment at least 20% in the less than -950 HU measurement Exploratory analysis of LIBERATE data suggests patients were at higher risk if the treated lobe was not the lobe with most destruction AND the average destruction was >60% in the non-treated, contralateral lung Pre-EBV Treatment: [] HRCT scan Must meet StratX requirements (ideally <=1.5mm slice thickness) [] Must meet patient selection criteria [] SPECT-CT Pefusion Scan Contraindications The Montrose Valve is contraindicated for: Patients for whom bronchoscopic procedures are contraindicated Patients with evidence of active pulmonary infection Patients with known allergies to Nitinol, Nickel, Titanium, or Silicone Patient who have not quit smoking Patients with large bullae greater than 30% of either lung. - referral to surgical eval. [] Patient participated in pre-visit educational session with RN, including 15 minutes time spent watching PulmonX Montrose Valve How it Works video. We discussed expected improvement with BLVR, which at this time consists of approximately 10% and FEV1 on PFTs as well as symptomatic decrease in dyspnea scoring and increased ambulation distance with a goal to improve overall daily quality of life. We discussed risks of intervention which includes up to 30% risk of pneumothorax, with associated morbidity and mortality, as well as and not limited to valve migration, granulation, bleeding, infection. We also discussed evaluation of candidacy for BLVR including evaluation via StratX report of collateral ventilation, with further need for evaluation with Chartis in endoscopy lab procedure. Patient is aware that even if appropriate can see determine approximate 20% of patients will have positive collateral ventilation and endoscopy at time of procedure, and no valves will be placed. Furthermore patient is informed and verbalized understanding that up to 10% of post BLVR patients can require revision, removal of endobronchial valves. Past Medical History: Past Medical History: Diagnosis Date COPD (chronic obstructive pulmonary disease) (HCC) Social History: Social History Socioeconomic History Marital status: Single Tobacco Use Smoking status: Every Day Current packs/day: 2.00 Average packs/day: 2.0 packs/day for 55.3 years (110.6 ttl pk-yrs) Types: Cigarettes Start date: 1969 Smokeless tobacco: Never Tobacco comments: 02/17/25 2 PPD wears O2 Vaping Use Vaping status: Former Substances: Nicotine Substance and Sexual Activity Alcohol use: Yes Drug use: Never Family History: Family History Problem Relation Name Age of Onset Cancer Father ROS: Review of Systems Constitutional: Positive for fatigue. HENT: Positive for congestion. Respiratory: Positive for cough and shortness of breath. Cardiovascular: Negative for chest pain. Gastrointestinal: Negative for abdominal distention. Allergic/Immunologic: Positive for environmental allergies. Psychiatric/Behavioral: Negative for agitation, behavioral problems and confusion. All other systems reviewed and are negative. Medications: @MEDCMED@ Allergies: No Known Allergies Vital Signs: BP 111/77 (BP Location: Right arm, Patient Position: Sitting, BP Cuff Size: Adult) Pulse 76 Ht 5' 8 (1.727 m) Wt 114 lb (51.7 kg) SpO2 94% BMI 17.33 kg/m Physical Exam: Physical Exam HENT: Nose: No congestion. Pulmonary: Effort: Pulmonary effort is normal. Breath sounds: Rhonchi present. No wheezing or rales. Abdominal: General: Abdomen is flat. Musculoskeletal: General: No swelling or deformity. Normal range of motion. Right lower leg: No edema. Left lower leg: No edema. Skin: General: Skin is warm. Neurological: General: No focal deficit present. Mental Status: He is alert and oriented to person, place, and time. Psychiatric: Comments: anxiety Assessment and Plan: Diagnosis Plan 1. Chronic bronchitis, unspecified chronic bronchitis type (HCC) CBC auto differential CBC auto differential nicotine (Nicoderm CQ) 21 MG/24HR patch [facility] Smoking/Tobacco Cessation Program nicotine polacrilex (Commit) 4 MG lozenge Trelegy Ellipta 100-62.5-25 MCG/ACT aerosol powder 2. Centrilobular emphysema (HCC) albuterol (2.5 MG/3ML) 0.083% nebulizer solution Trelegy Ellipta 100-62.5-25 MCG/ACT aerosol powder 3. Pulmonary hyperinflation 4. Pulmonary air trapping CT chest wo IV contrast 5. Necrotizing granulomatous inflammation of lung (HCC) CT chest wo IV contrast Quantiferon TB Gold Quantiferon TB Gold 6. Pulmonary nodules CT chest wo IV contrast 7. History of tobacco abuse Follow-up: Telephone follow up after cT 04/09/25 documented in this encounter [facility] 03-22-2025 Instructions Janice Amaral MA - 03/22/2025 3:15 PM EDT YOUR APPOINTMENT TODAY WAS WITH THE [facility] LUNG NODULE CLINIC, COPD CLINIC, PULMONARY AND SLEEP MEDICINE OFFICE. PLEASE CALL OUR OFFICE AT [phone] IF YOU HAVE NOT RECEIVED YOUR TEST RESULTS 7 DAYS AFTER TESTING IS COMPLETED. PLEASE REMEMBER TO REQUEST REFILLS AT YOUR OFFICE VISITS. PHONE/FAX REQUESTS REQUIRE 48-72 HOURS FOR RESPONSE. A FRIENDLY REMINDER COPAYS ARE DUE AT TIME OF SERVICE. THANK YOU. Our Patients Are Important! We want to improve and you can help. After your visit we want you to feel: Listened to, Respected and have your health care explained. You may receive a survey asking you about your visit. Please complete the survey. We will use your feedback to make improvements. COVID-19 VACCINATION INFORMATION: PH. [phone] [email or web address] [facility] Central Scheduling [phone] [facility] Sleep Scheduling [phone] documented in this encounter [facility] 03-16-2025 History of Presen t illness Narrative Images from the original note were not included. [facility] Smoking Cessation Progress Note Smoking Cessation Intervention Session type: Follow Up Session length: 25 minutes Smoking History: Started at 14, 2 PPD, no quit attempts, ETOH, O2 dependent. Pack Years: 110 Tobacco Use as of 03/16/2025 Every Day; Cigarettes: Started 1970; 2.0 packs/day; Smoked an average of 2.0 packs/day for 55.3 years; Total pack years: 110.6 Smokeless Tobacco: Never used smokeless tobacco. Comments: 02/17/25 2 PPD wears O2 Vaping Use as of 03/16/2025 Former; Substances: Nicotine Tried for 2 months How important is it to the patient to quit? (0-10): 10 How confident is the patient that they can quit? (0-10): 4 Stage of Change: Contemplation Fagerstrom Test for Nicotine Dependence Score: 9 Reasons to quit smoking identified: Yes Triggers for smoking identified: Yes Quit strategies for smoking identified: Yes Nicotine withdrawal symptoms reviewed: Yes Smoking urge distractions discussed: Yes Request for nicotine withdrawal medication: Yes Ready to choose a quit date with in the next 30 days: No Additional Comments: Patient was referred for smoking cessation counseling by Dr. Randhawa. Patient is a candidate for EBV placement. He smokes 2 PPD & is O2 dependent. He called in to follow up after I left a message last week. He hasn't made any changes in his habits. I again encouraged him to start tapering down. We talked about different ways to accomplish our goal. Patient knows he needs to be cigarette free to qualify for the EBV procedure with the goal to be cigarette free post procedure. Will follow up in 3 weeks per patient request. documented in this encounter [facility] 03-16-2025 Note [facility] Smoking Cessation Progress Note Smoking Cessation Intervention Session type: Follow Up Session length: 25 minutes Smoking History: Started at 14, 2 PPD, no quit attempts, ETOH, O2 dependent. Pack Years: 110 Tobacco Use as of 03/16/2025 Every Day; Cigarettes: Started 1970; 2.0 packs/day; Smoked an average of 2.0 packs/day for 55.3 years; Total pack years: 110.6 Smokeless Tobacco: Never used smokeless tobacco. Comments: 02/17/25 2 PPD wears O2 Vaping Use as of 03/16/2025 Former; Substances: Nicotine Tried for 2 months How important is it to the patient to quit? (0-10): 10 How confident is the patient that they can quit? (0-10): 4 Stage of Change: Contemplation Fagerstrom Test for Nicotine Dependence Score: 9 Reasons to quit smoking identified: Yes Triggers for smoking identified: Yes Quit strategies for smoking identified: Yes Nicotine withdrawal symptoms reviewed: Yes Smoking urge distractions discussed: Yes Request for nicotine withdrawal medication: Yes Ready to choose a quit date with in the next 30 days: No Additional Comments: Patient was referred for smoking cessation counseling by Dr. Randhawa. Patient is a candidate for EBV placement. He smokes 2 PPD & is O2 dependent. He called in to follow up after I left a message last week. He hasn't made any changes in his habits. I again encouraged him to start tapering down. We talked about different ways to accomplish our goal. Patient knows he needs to be cigarette free to qualify for the EBV procedure with the goal to be cigarette free post procedure. Will follow up in 3 weeks per patient request. [facility] 03-11-2025 Note LVM checking on the patients smoking cessation progress. Gave contact information, will follow up. [facility] 02-21-2025 Note Called and spoke wit h patient. Let him know that I sent his external referral to [facility] and that his ohtuvayre was sent to the credit [facility]. Sent in order for nicorette gum. Pt verbalized understanding. No further questions at this time. [facility] 02-21-2025 Telephone encounter Note Called and spoke with patient. Let him know that I sent his external referral to [facility] and that his ohtuvayre was sent to the credit ver[facility]. Sent in order for nicorette gum. Pt verbalized understanding. No further questions at this time. [facility] 02-21-2025 Miscellaneous Notes Called and spoke with patient. Let him know that I sent his external referral to [facility] and that his ohtuvayre was sent to the credit verifier. Sent in order for nicorette gum. Pt verbalized understanding. No further questions at this time. Addended by: WYATT RANDHAWA on: 02/21/2025 12:00 PM Modules accepted: Orders Addended by: CINDA DURAN on: 02/21/2025 06:50 AM Modules accepted: Orders Patient called into line inquiring about sending his pulmonary rehab order over to [facility]. Also saw that smoking cessation coordinator was trying to speak with the patient. Called Zahra and spoke with her Transferred the patient into her line to further discuss care. Will send external referral over to [facility] for him. Tried calling their pulm rehab dept for fax number but left a voicemail. [phone]. documented in this encounter [facility] 02-21-2025 Note Addended by: WYATT KINGSLEY on: 02/21/2025 12:00 PM Modules accepted: Orders [facility] 02-21-2025 Note Addended by: WYATT KINGSLYE on: 02/21/2025 12:00 PM Modules accepted: Orders [facility] 02-21-2025 Note Addended by: WYATT KINGSLEY on: 02/21/2025 12:00 PM Modules accepted: Orders [facility] 02-21-2025 Miscellaneous Notes Addended by: WYATT RANDHAWA on: 02/21/2025 12:00 PM Modules accepted: Orders Addended by: CINDA DURAN on: 02/21/2025 06:50 AM Modules accepted: Orders Patient called into line inquiring about sending his pulmonary rehab order over to [facility]. Also saw that smoking cessation coordinator was trying to speak with the patient. Called Zahra and spoke with her Transferred the patient into her line to further discuss care. Will send external referral over to [facility] for him. Tried calling their pulm rehab dept for fax number but left a voicemail. [phone]. documented in this encounter [facility] 02-21-2025 Note Addended by: CINDA CEVALLOS on: 02/21/2025 06:50 AM Modules accepted: Orders [facility] 02-21-2025 Note Addended by: CINDA CEVALLOS on: 02/21/2025 06:50 AM Modules accepted: Orders [facility] 02-21-2025 Note Addended by: CINDA CEVALLOS on: 02/21/2025 06:50 AM Modules accepted: Orders [facility] 02-17-2025 Note [facility] Smoking Cessation Progress Note Smoking Cessation Intervention Session type: initial Session length: 45 minutes Smoking History: Started at 14, 2 PPD, no quit attempts, ETOH, O2 dependent. Pack Years: 110 How important is it to the patient to quit? (0-10): 10 How confident is the patient that they can quit? (0-10): 4 Stage of Change: Contemplation Fagerstrom Test for Nicotine Dependence Score: 9 Reasons to quit smoking identified: [x]Yes []No Triggers for smoking identified: [x]Yes []No Quit strategies for smoking identified: [x]Yes []No Nicotine withdrawal symptoms reviewed: [x]Yes []No Smoking urge distractions discussed: [x]Yes []No Request for nicotine withdrawal medication: [x]Yes []No Ready to choose a quit date with in the next 30 days: []Yes [x]No Additional Comments: Patient was referred for smoking cessation counseling by Dr. Randhawa. Patient is a candidate for EBV placement. He smokes 2 PPD & is O2 dependent. Patient was reminded to not wear O2 when smoking. The longest he's gone without a cigarette is 24 hours. Patient currently drinks & was made aware that drinking makes it harder to quit smoking. I encouraged him to start tapering down. Patient knows he needs to be cigarette free to qualify for the EBV procedure with the goal to be a non smoker after as well. Smoking cessation education mailed to patient's home address. Patient verified address on file. Will follow up in 3 weeks per patient request. [facility] 02-17-2025 Telephone encounter Note Patient called into line inquiring about sending his pulmonary rehab order over to [facility]. Also saw that smoking cessation coordinator was trying to speak with the patient. Called Zahra and spoke with her Transferred the patient into her line to further discuss care. Will send external referral over to [facility] for him. Tried calling their pulm rehab dept for fax number but left a voicemail. [phone]. [facility] 02-17-2025 History of Presen t illness Narrative LVM letting the patient know he was referred for smoking cessation counseling. Gave contact information, will follow up. documented in this encounter [facility] 02-17-2025 Note LVM letting the aurelia ent know he was referred for smoking cessation counseling. Gave contact information, will follow up. [facility] 02-16-2025 History of Presen t illness Narrative Images from the original note were not included. COPD [facility] [address] [place], [place] [id number] Visit type: New patient Reason for Visit: BLVR Evaluation History of Present Illness: Toby Woody is a 69 y.o. 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 RUL nodule sp biopsy, granuloma necrotizing. PFTs-- severe ovd with air trapping and hyperfilantion Oximetry-- 3 L Sleep study-- n/an Home medications : A/P Preliminary not a candidate yet due to current smoking and RUL pulmonary nodule. Request records and evaluation. Will require repeat CT Chest. Smokig cessation, Continue ttriple bd therapy Evaluation for ensifentrine neb additional therapy Nebulizer Start pulmonary rehab Follow up established Diagnosis Plan 1. Chronic bronchitis, unspecified chronic bronchitis type (HCC) Trelegy Ellipta 100-62.5-25 MCG/ACT aerosol powder [facility] Pulmonary rehab evaluation 2. Centrilobular emphysema (HCC) Trelegy Ellipta 100-62.5-25 MCG/ACT aerosol powder albuterol 108 (90 Base) MCG/ACT inhaler 3. Pulmonary hyperinflation 4. Pulmonary air trapping 5. Tobacco use [facility] Smoking/Tobacco Cessation Program #exacerbations within the last year: 2 #exacerbations leading to hospitalization within the last year: CAT Score: MMRC Dyspnea Scale: Grade Description of Breathlessness 0 I only get breathless with strenuous exercise. 1 I get short of breath when hurrying on level ground or walking up a slight hill. 2 On level ground, I walk slower than people of the same age because of breathlessness, or have to stop for breath when walking at my own pace. 3 I stop for breath after walking about 100 yards or after a few minutes on level ground. 4 I am too breathless to leave the house or I am breathless when dressing. [x]Age 40--75 []Non smoker []No severe exacerbation in past 3 months []Pulmonary rehab competed - start [x] No AC/antiplatelet rx , no elevated bleeding risk [x] No prior LVRS, thoracic surgery or pleurodesis [x] On optimal Medical Therapy [] No pulmonary hypertension - ABG PaCO2 < 50 [] Echo EF >45 , RVSP < 45 [x] Meets PFT criteria TLC 100, RV > 150 , FEV1 15-45% [] No high risk pulmonary nodules on CT . Endobronchial Valve Pulmonary Clinic Eligibility Checklist [x] Diagnosis of emphysema confirmed by CT [x] BMI < 35 kg/m2 [x] Stable with <= 20mg prednisone (or equivalent) daily [x] Residual volume >= 175% predicted (>= 200% if homogeneous) [x] FEV1 15-45% predicted [x]TLC >= 100% predicted [x] 6MWD 100-500m post-rehabilitation (150-500m if homogeneous) [] Not actively smoking (for at least 4 months) no severe exacerbations in last 3 months [] Target lobe with little or no collateral ventilation (as measured by StratX Lung Analysis Platform and/or Chartis Assessment at least 20% in the less than -950 HU measurement Exploratory analysis of LIBERATE data suggests patients were at higher risk if the treated lobe was not the lobe with most destruction AND the average destruction was >60% in the non-treated, contralateral lung Pre-EBV Treatment: [] HRCT scan Must meet StratX requirements (ideally <=1.5mm slice thickness) [] Must meet patient selection criteria [] SPECT-CT Pefusion Scan Contraindications The Montrose Valve is contraindicated for: Patients for whom bronchoscopic procedures are contraindicated Patients with evidence of active pulmonary infection Patients with known allergies to Nitinol, Nickel, Titanium, or Silicone Patient who have not quit smoking Patients with large bullae greater than 30% of either lung. - referral to surgical eval. [] Patient participated in pre-visit educational session with RN, including 15 minutes time spent watching PulmonX Montrose Valve How it Works video. We discussed expected improvement with BLVR, which at this time consists of approximately 10% and FEV1 on PFTs as well as symptomatic decrease in dyspnea scoring and increased ambulation distance with a goal to improve overall daily quality of life. We discussed risks of intervention which includes up to 30% risk of pneumothorax, with associated morbidity and mortality, as well as and not limited to valve migration, granulation, bleeding, infection. We also discussed evaluation of candidacy for BLVR including evaluation via StratX report of collateral ventilation, with further need for evaluation with Chartis in endoscopy lab procedure. Patient is aware that even if appropriate can see determine approximate 20% of patients will have positive collateral ventilation and endoscopy at time of procedure, and no valves will be placed. Furthermore patient is informed and verbalized understanding that up to 10% of post BLVR patients can require revision, removal of endobronchial valves. Past Medical History: Past Medical History: Diagnosis Date COPD (chronic obstructive pulmonary disease) ([facility]) Social History: Social History Socioeconomic History Marital status: Single Tobacco Use Smoking status: Every Day Current packs/day: 2.00 Average packs/day: 2.0 packs/day for 55.2 years (110.4 ttl pk-yrs) Types: Cigarettes Start date: 1969 Smokeless tobacco: Never Tobacco comments: 02/17/25 2 PPD wears O2 Vaping Use Vaping status: Former Substances: Nicotine Substance and Sexual Activity Alcohol use: Yes Drug use: Never Family History: Family History Problem Relation Name Age of Onset Cancer Father ROS: Review of Systems Constitutional: Positive for fatigue. HENT: Positive for congestion. Respiratory: Positive for cough and shortness of breath. Cardiovascular: Negative for chest pain. Gastrointestinal: Negative for abdominal distention. Allergic/Immunologic: Positive for environmental allergies. Psychiatric/Behavioral: Negative for agitation, behavioral problems and confusion. All other systems reviewed and are negative. Medications: @MEDCMED@ Allergies: No Known Allergies Vital Signs: BP 111/65 (BP Location: Left arm, Patient Position: Sitting, BP Cuff Size: Adult) Pulse 77 Resp 14 Ht 5' 8 (1.727 m) Wt 117 lb (53.1 kg) SpO2 96% Comment: RA BMI 17.79 kg/m Physical Exam: Physical Exam HENT: Nose: No congestion. Pulmonary: Effort: Pulmonary effort is normal. Breath sounds: Wheezing, rhonchi and rales present. Abdominal: General: Abdomen is flat. Musculoskeletal: General: No swelling or deformity. Normal range of motion. Right lower leg: No edema. Left lower leg: No edema. Skin: General: Skin is warm. Neurological: General: No focal deficit present. Mental Status: He is alert and oriented to person, place, and time. Psychiatric: Mood and Affect: Mood normal. Assessment and Plan: Diagnosis Plan 1. Chronic bronchitis, unspecified chronic bronchitis type (HCC) Trelegy Ellipta 100-62.5-25 MCG/ACT aerosol powder [facility] Pulmonary rehab evaluation 2. Centrilobular emphysema (HCC) Trelegy Ellipta 100-62.5-25 MCG/ACT aerosol powder albuterol 108 (90 Base) MCG/ACT inhaler 3. Pulmonary hyperinflation 4. Pulmonary air trapping 5. Tobacco use [facility] Smoking/Tobacco Cessation Program Follow-up: No follow-ups on file. On this date, 02/17/25 I have spent 50 minutes reviewing previous notes, test results and face to face with the patient discussing the diagnosis and importance of compliance with the treatment plan as well as documenting on the day of the visit. documented in this encounter [facility] 02-16-2025 History of Presen t illness Narrative Images from the original note were not included. COPD [facility] [address] [place] [id number] Visit type: New patient Reason for Visit: BLVR Evaluation History of Present Illness: Toby Woody is a 69 y.o. 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 RUL nodule sp biopsy, granuloma necrotizing. PFTs-- severe ovd with air trapping and hyperfilantion Oximetry-- 3 L Sleep study-- n/an Home medications : A/P Preliminary not a candidate yet due to current smoking and RUL pulmonary nodule. Request records and evaluation. Will require repeat CT Chest. Smokig cessation, Continue ttriple bd therapy Evaluation for ensifentrine neb additional therapy Nebulizer Start pulmonary rehab Follow up established Diagnosis Plan 1. Chronic bronchitis, unspecified chronic bronchitis type (HCC) Trelegy Ellipta 100-62.5-25 MCG/ACT aerosol powder [facility] Pulmonary rehab evaluation 2. Centrilobular emphysema (HCC) Trelegy Ellipta 100-62.5-25 MCG/ACT aerosol powder albuterol 108 (90 Base) MCG/ACT inhaler 3. Pulmonary hyperinflation 4. Pulmonary air trapping 5. Tobacco use [facility] Smoking/Tobacco Cessation Program #exacerbations within the last year: 2 #exacerbations leading to hospitalization within the last year: CAT Score: MMRC Dyspnea Scale: Grade Description of Breathlessness 0 I only get breathless with strenuous exercise. 1 I get short of breath when hurrying on level ground or walking up a slight hill. 2 On level ground, I walk slower than people of the same age because of breathlessness, or have to stop for breath when walking at my own pace. 3 I stop for breath after walking about 100 yards or after a few minutes on level ground. 4 I am too breathless to leave the house or I am breathless when dressing. [x]Age 40--75 []Non smoker []No severe exacerbation in past 3 months []Pulmonary rehab competed - start [x] No AC/antiplatelet rx , no elevated bleeding risk [x] No prior LVRS, thoracic surgery or pleurodesis [x] On optimal Medical Therapy [] No pulmonary hypertension - ABG PaCO2 < 50 [] Echo EF >45 , RVSP < 45 [x] Meets PFT criteria TLC 100, RV > 150 , FEV1 15-45% [] No high risk pulmonary nodules on CT . Endobronchial Valve Pulmonary Clinic Eligibility Checklist [x] Diagnosis of emphysema confirmed by CT [x] BMI < 35 kg/m2 [x] Stable with <= 20mg prednisone (or equivalent) daily [x] Residual volume >= 175% predicted (>= 200% if homogeneous) [x] FEV1 15-45% predicted [x]TLC >= 100% predicted [x] 6MWD 100-500m post-rehabilitation (150-500m if homogeneous) [] Not actively smoking (for at least 4 months) no severe exacerbations in last 3 months [] Target lobe with little or no collateral ventilation (as measured by StratX Lung Analysis Platform and/or Chartis Assessment at least 20% in the less than -950 HU measurement Exploratory analysis of LIBERATE data suggests patients were at higher risk if the treated lobe was not the lobe with most destruction AND the average destruction was >60% in the non-treated, contralateral lung Pre-EBV Treatment: [] HRCT scan Must meet StratX requirements (ideally <=1.5mm slice thickness) [] Must meet patient selection criteria [] SPECT-CT Pefusion Scan Contraindications The Montrose Valve is contraindicated for: Patients for whom bronchoscopic procedures are contraindicated Patients with evidence of active pulmonary infection Patients with known allergies to Nitinol, Nickel, Titanium, or Silicone Patient who have not quit smoking Patients with large bullae greater than 30% of either lung. - referral to surgical eval. [] Patient participated in pre-visit educational session with RN, including 15 minutes time spent watching PulmonX Montrose Valve How it Works video. We discussed expected improvement with BLVR, which at this time consists of approximately 10% and FEV1 on PFTs as well as symptomatic decrease in dyspnea scoring and increased ambulation distance with a goal to improve overall daily quality of life. We discussed risks of intervention which includes up to 30% risk of pneumothorax, with associated morbidity and mortality, as well as and not limited to valve migration, granulation, bleeding, infection. We also discussed evaluation of candidacy for BLVR including evaluation via StratX report of collateral ventilation, with further need for evaluation with Chartis in endoscopy lab procedure. Patient is aware that even if appropriate can see determine approximate 20% of patients will have positive collateral ventilation and endoscopy at time of procedure, and no valves will be placed. Furthermore patient is informed and verbalized understanding that up to 10% of post BLVR patients can require revision, removal of endobronchial valves. Past Medical History: Past Medical History: Diagnosis Date COPD (chronic obstructive pulmonary disease) (HCC) Social History: Social History Socioeconomic History Marital status: Single Tobacco Use Smoking status: Every Day Current packs/day: 2.00 Average packs/day: 2.0 packs/day for 55.2 years (110.4 ttl pk-yrs) Types: Cigarettes Start date: 1970 Smokeless tobacco: Never Tobacco comments: 02/17/25 2 PPD wears O2 Vaping Use Vaping status: Former Substances: Nicotine Substance and Sexual Activity Alcohol use: Yes Drug use: Never Family History: Family History Problem Relation Name Age of Onset Cancer Father ROS: Review of Systems Constitutional: Positive for fatigue. HENT: Positive for congestion. Respiratory: Positive for cough and shortness of breath. Cardiovascular: Negative for chest pain. Gastrointestinal: Negative for abdominal distention. Allergic/Immunologic: Positive for environmental allergies. Psychiatric/Behavioral: Negative for agitation, behavioral problems and confusion. All other systems reviewed and are negative. Medications: @MEDCMED@ Allergies: No Known Allergies Vital Signs: BP 111/65 (BP Location: Left arm, Patient Position: Sitting, BP Cuff Size: Adult) Pulse 77 Resp 14 Ht 5' 8 (1.727 m) Wt 117 lb (53.1 kg) SpO2 96% Comment: RA BMI 17.79 kg/m Physical Exam: Physical Exam HENT: Nose: No congestion. Pulmonary: Effort: Pulmonary effort is normal. Breath sounds: Wheezing, rhonchi and rales present. Abdominal: General: Abdomen is flat. Musculoskeletal: General: No swelling or deformity. Normal range of motion. Right lower leg: No edema. Left lower leg: No edema. Skin: General: Skin is warm. Neurological: General: No focal deficit present. Mental Status: He is alert and oriented to person, place, and time. Psychiatric: Mood and Affect: Mood normal. Assessment and Plan: Diagnosis Plan 1. Chronic bronchitis, unspecified chronic bronchitis type (HCC) Trelegy Ellipta 100-62.5-25 MCG/ACT aerosol powder [facility] Pulmonary rehab evaluation 2. Centrilobular emphysema (HCC) Trelegy Ellipta 100-62.5-25 MCG/ACT aerosol powder albuterol 108 (90 Base) MCG/ACT inhaler 3. Pulmonary hyperinflation 4. Pulmonary air trapping 5. Tobacco use [facility] Smoking/Tobacco Cessation Program Follow-up: No follow-ups on file. On this date, 02/17/25 I have spent 50 minutes reviewing previous notes, test results and face to face with the patient discussing the diagnosis and importance of compliance with the treatment plan as well as documenting on the day of the visit. documented in this encounter [facility] 02-16-2025 Instructions Paulina Elias MA - 02/16/2025 3:00 PM EDT YOUR APPOINTMENT TODAY WAS WITH THE [facility] L[facility]G [facility]ODULE [facility], COPD CLINIC, PULMONARY AND SLEEP MEDICINE OFFICE. PLEASE CALL OUR OFFICE AT [phone] IF YOU HAVE NOT RECEIVED YOUR TEST RESULTS 7 DAYS AFTER TESTING IS COMPLETED. PLEASE REMEMBER TO REQUEST REFILLS AT YOUR OFFICE VISITS. PHONE/FAX REQUESTS REQUIRE 48-72 HOURS FOR RESPONSE. A FRIENDLY REMINDER COPAYS ARE DUE AT TIME OF SERVICE. THANK YOU. Our Patients Are Important! We want to improve and you can help. After your visit we want you to feel: Listened to, Respected and have your health care explained. You may receive a survey asking you about your visit. Please complete the survey. We will use your feedback to make improvements. COVID-19 VACCINATION INFORMATION: PH. [phone] [email or web address] [facility] Central Scheduling [phone] [facility] Sleep Scheduling [phone] documented in this encounter [facility] 02-16-2025 Esau Elias MA - 02/16/2025 3:00 PM EDT YOUR APPOINTMENT TODAY WAS WITH THE [facility], COPD CLINIC, PULMONARY AND SLEEP MEDICINE OFFICE. PLEASE CALL OUR OFFICE AT [phone] IF YOU HAVE NOT RECEIVED YOUR TEST RESULTS 7 DAYS AFTER TESTING IS COMPLETED. PLEASE REMEMBER TO REQUEST REFILLS AT YOUR OFFICE VISITS. PHONE/FAX REQUESTS REQUIRE 48-72 HOURS FOR RESPONSE. A FRIENDLY REMINDER COPAYS ARE DUE AT TIME OF SERVICE. THANK YOU. Our Patients Are Important! We want to improve and you can help. After your visit we want you to feel: Listened to, Respected and have your health care explained. You may receive a survey asking you about your visit. Please complete the survey. We will use your feedback to make improvements. COVID-19 VACCINATION INFORMATION: PH. [phone] [email or web address] [facility] Central Scheduling [phone] [facility] Sleep Scheduling [phone] documented in this encounter [facility] 02-16-2025 Miscellaneous Notes Addended by: CINDA DURAN on: 02/21/2025 07:59 AM Modules accepted: Orders documented in this encounter [facility] 02-16-2025 Note Addended by: CINDA CEVALLOS on: 02/21/2025 07:59 AM Modules accepted: Orders [facility] 12-29-2024 History of Presen t illness Narrative Radiology Service Progress Note PATIENT NAME: Toby Woody DATE OF SERVICE: December 29, 2024 TIME: 3:55 PM PATIENT IDENTITY VERIFICATION COMPLETED USING TWO (2) IDENTIFIERS: Name and Date of confirmed by patient verbally. FALL SCREENING: Has the patient had 2 falls in the last year or 1 fall with injury or currently using an Ambulatory Assistive Device (Walker, Cane, Wheelchair, Crutches, etc.)? No PATIENT GENDER DATA: Assigned male at PATIENT RELEVANT IMPLANT DATA REVIEWED: Yes PATIENT PRESENTS WITH AN IMPLANTABLE OR ATTACHED DIRECTOR OF REGIONAL SALES: No RADIOLOGY DEPARTMENT: CT; Exam(s) Completed: Chest PERIPHERAL IV DATA: Not applicable SIGNED BY: RT Virgilio(R) December 29, 2024 3:55 PM documented in this encounter [facility] 12-29-2024 Note HNO ID: [id number] Author: RITA GLASS RT(R) Service: ? Author Type: [employer] Member Type: Progress Notes Filed: 12/29/2024 15:55 Note Text: Radiology Service Progress Note PATIENT NAME: Toby Woody DATE OF SERVICE: December 29, 2024 TIME: 3:55 PM PATIENT IDENTITY VERIFICATION COMPLETED USING TWO (2) IDENTIFIERS: Name and Date of confirmed by patient verbally. FALL SCREENING: Has the patient had 2 falls in the last year or 1 fall with injury or currently using an Ambulatory Assistive Device (Walker, Cane, Wheelchair, Crutches, etc.)? No PATIENT GENDER DATA: Assigned male at PATIENT RELEVANT IMPLANT DATA REVIEWED: Yes PATIENT PRESENTS WITH AN IMPLANTABLE OR ATTACHED DIRECTOR OF REGIONAL SALES: No RADIOLOGY DEPARTMENT: CT; Exam(s) Completed: Chest PERIPHERAL IV DATA: Not applicable SIGNED BY: PHILLY Poole) December 29, 2024 3:55 PM [facility] 12-29-2024 Note HNO ID: [id number] Author: CECILIA RANDOLPH RPFT Service: ? Author Type: Respiratory Therapist Type: Procedures Filed: 12/29/2024 13:51 Note Text: Attestation signed by Calderon Jules MD at 12/30/2024 10:32 AM The patient completed the six minute walk test with No stops. . The patient required Room Air to complete the test. The distance the patient walked in six minutes is moderately reduced. This is the first time patient takes the six minute walk test. The patient perceived their dyspnea during the six minute walk test to be 5-Severe on the modified Jeff scale. The patient perceived their fatigue during the six minute walk test to be 3-Moderate on the modified Jeff scale. I have reviewed the findings and made appropriate revisions as needed. SIGNATURE: Calderon Jules MD PATIENT NAME: Toby Woody DATE: December 30, 2024 TIME: 10:32 AM RESPIRATORY THERAPY SIX MINUTE WALK TEST OXIMETRY REPORT Six Minute Walk Test for This Encounter Oxygen Device Liters FIO2 SpO2% HR Activity Feet Speed (MPH) Flag R/A 95 79 Resting R/A 91 97 Six Minute Walk 1070 2 R/A 93 80 Recovery 1 minute post R/A 96 83 Recovery 2 minute post R/A 98 81 Recovery 3 minute post General Information Height Weight Pulse Oximetry Site Oximeter Pre Blood Pressure Post Blood Pressure Total Time Spent (min) 170.3 cm (5' 7.05) 51.7 kg (114 lb) Forehead Masimo 114/78 123/78 30 _ Distance Walked (meters) Distance Walked (feet) Male Predicted Walk Distance (feet) Male Lower Limit of Normal (feet) Male % Predicted Total Duration Of The Stops (seconds) 326.14 1070 1764.44 1262.44 60.6 -- _ Lowest SpO2 During 6 Minute Walk Pre-Jeff Dyspnea Rating Pre-Jeff Fatigue Rating Post Jeff Dyspnea Rating Post Jeff Fatigue Rating 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 Author Type: Respiratory Therapist Type: Progress Notes Filed: 12/29/2024 13:51 Note Text: PULM FUNCTION: Provider: Dee Garces MD Assisting Tech: Petush, Cecilia, RPFT Spirometry w/BD: 1 DLCO: 1 LV - Box: 1 6 MW: 1 [facility] 12-29-2024 History of Presen t illness Narrative PULM FUNCTION: Provider: Dee Garces MD Assisting Tech: Cecilia Randolph RPFT Spirometry w/BD: 1 DLCO: 1 LV - Box: 1 6 MW: 1 documented in this encounter [facility] 11-19-2024 Telephone encounter Note RECEIVED CALL FROM: Patient PATIENT INFORMATION: Name: Toby Woody : 1955 (home) [phone] (cell) Email: [email or web address] Referring Provider: No referring provider defined for this encounter. Phone: N/A Fax: Requested Surgeon: Haris Tracey M.D. Reason for appointment/diagnosis: Lung nodules Dorothea Kohli November 19, 2024 3:49 PM [facility] 11-19-2024 Miscellaneous Notes RECEIVED CALL FROM: Patient PATIENT INFORMATION: Name: Toby Woody : 1955 (home) [phone] (cell) Email: [email or web address] Referring Provider: No referring provider defined for this encounter. Phone: N/A Fax: Requested Surgeon: Haris Tracey M.D. Reason for appointment/diagnosis: Lung nodules Dorothea Kohli November 19, 2024 3:49 PM documented in this encounter [facility] 10-19-2024 Note HNO ID: [id number] Author: ANALY MEZA RN Service: ? Author Type: Physician Type: Progress Notes Filed: 10/19/2024 15:38 Note Text: Dear Dr. Haris Tracey, Thank you for this interesting e-consult. Pt with PET avid RUL nodule No nodes CT chest 08/05/24 [id number] increased some other nodules - noted change CT-FNA done on 09/27 Necrotizing granulomas noted on Path. Complicated by PTX PT also asking for Valves for COPD Will schedule for pulm consult. It is possible the lesion is diagnostic of necrotizing granuloma. Can also start assessment for BLVR Thank you again. Dee Onofre MD 10/19/2024 12:27 PM [facility] 10-19-2024 History of Presen t illness Narrative Dear Dr. Haris Tracey, Thank you for this interesting e-consult. Pt with PET avid RUL nodule No nodes CT chest 08/05/24 42I50ow increased some other nodules - noted change CT-FNA done on 09/27 Necrotizing granulomas noted on Path. Complicated by PTX PT also asking for Valves for COPD Will schedule for pulm consult. It is possible the lesion is diagnostic of necrotizing granuloma. Can also start assessment for BLVR Thank you again. Dee Onofre MD 10/19/2024 12:27 PM documented in this encounter [facility] 10-11-2024 Telephone encounter Note Images from the original note were not included. Thoracic Surgery Consultation - review of records for appointment scheduling Received medical records from the office of Martha Neumann, RAMILA [address] [place] [address] Patient is being referred to Unspecified/First Available (assigned to Dr. Tracey) by Martha Neumann for Lung Nodule Outside hospital records scanned / in [facility] / Care Everywhere Pathology:CT bx 09/27/2024 Procedures:CT bx 09/27/2024 Imaging PET/CT: 08/31/2024 (need images) CT (chest): 08/05/2024 MRI: UGI: Cardiopulmonary Testing PFT's/Six: Requested Cardiac: Office Notes/Consults 10/05/2024 Nel MCGRATH History of: FAMILY HISTORY Problem Relation Age of Onset Cancer Mother Cancer Father PAST MEDICAL HISTORY Diagnosis Date Alcohol abuse COPD (chronic obstructive pulmonary disease) (HCC) Emphysema lung (HCC) HTN (hypertension) Lung nodules Narcotic abuse (HCC) CYNTHIA (obstructive sleep apnea) Rheumatoid arthritis (HCC) PAST SURGICAL HISTORY Procedure Laterality Date EGD FLEXIBLE FOREIGN BODY REMOVAL 06/01/2016 HERNIA REPAIR HX Social History Tobacco Use Smoking status: Every Day Types: Cigarettes Substance Use Topics Alcohol use: Yes Alcohol/week: 42.0 standard drinks of alcohol Types: 42 Cans of beer per week Comment: 6-8 beers a day Drug use: Yes Types: Opiates, Narcotics Comment: Suboxone Request Thoracic surgery consult with Dr. Tracey for RUL PET avid nodule after EBUS with pft's/6mw Srinivasan Wei RN [facility] 10-11-2024 Miscellaneous Notes Images from the original note were not included. Thoracic Surgery Consultation - review of records for appointment scheduling Received medical records from the office of Martha Neumann NP [address] [facility] [address] Patient is being referred to Unspecified/First Available (assigned to Dr. Tracey) by Martha Neumann for Lung Nodule Outside hospital records scanned / in [facility] / Care Everywhere Pathology:CT bx 09/27/2024 Procedures:CT bx 09/27/2024 Imaging PET/CT: 08/31/2024 (need images) CT (chest): 08/05/2024 MRI: UGI: Cardiopulmonary Testing PFT's/Six: Requested Cardiac: Office Notes/Consults 10/05/2024 Nel MCGRATH History of: FAMILY HISTORY Problem Relation Age of Onset Cancer Mother Cancer Father PAST MEDICAL HISTORY Diagnosis Date Alcohol abuse COPD (chronic obstructive pulmonary disease) (HCC) Emphysema lung (HCC) HTN (hypertension) Lung nodules Narcotic abuse (HCC) CYNTHIA (obstructive sleep apnea) Rheumatoid arthritis (HCC) PAST SURGICAL HISTORY Procedure Laterality Date EGD FLEXIBLE FOREIGN BODY REMOVAL 06/01/2016 HERNIA REPAIR HX Social History Tobacco Use Smoking status: Every Day Types: Cigarettes Substance Use Topics Alcohol use: Yes Alcohol/week: 42.0 standard drinks of alcohol Types: 42 Cans of beer per week Comment: 6-8 beers a day Drug use: Yes Types: Opiates, Narcotics Comment: Suboxone Request Thoracic surgery consult with Dr. Tracey for RUL PET avid nodule after EBUS with pft's/6mw Srinivasan Wei RN Records scanned into [facility], awaiting images. Ann Mckinney Received Routed [facility] Telephone Encounter from Dr. Martha Neumann Toby Woody is being referred to Unspecified Thoracic Surgeon by Dr. Martha Neumann Patient diagnosis/Reason for consult: spot on lung Referral triage process explained: No Patient will receive a call from Thoracic NPM after triage review with surgeon to discuss any additional testing and/or consults that will be scheduled. Pt will then receive a call from our scheduling office for scheduling. Please call pt at [phone]. Patient was informed consultation could be at [facility] or [facility] [place]: No Patient Registration: Registration complete/updated: yes Insurance card(s) scanned in [facility] with in the past year: No Pt's iDoc24 is inactive. Ok to communicate to pt via iDoc24 no Medical Records: Records in [facility] (internal CC records): Yes Imaging in [facility] (internal CC records): No Care Everywhere - queried no, downloaded No Linked Outside Organizations (list): OS Records Requested: Yes Date: 10/07/2024 Outside Hospital(s) requested records from: [facility] Received: no Uploaded: No. Waiting on additional records: Yes. Missing (list): Office notes OS Pathology Slides Requested: no Date: N/A Outside Hospital(s) slides requested from: [facility] Radiology Imaging Requested:Yes Date: 10/08/2024 Outside Hospital(s) requested imaging from: [facility]. Imaging will be received via Electronic transfer Received: no Imaging uploaded: No Waiting on additional: Yes. Missing (list): CT Additional providers added to Care Teams: Yes Additional Notes/Comments: Left vm w/ patient to get more info. 10/07. Images will be power shared. -10/08 Enct routed to: Jenniffer Mckinney documented in this encounter [facility] 10-08-2024 Telephone encounter Note Records scanned into [facility], awaiting images. Ann Mckinney [facility] 10-07-2024 Telephone encounter Note Received Routed [facility] Telephone Encounter from Dr. Martha Neumann Toby Woody is being referred to Unspecified Thoracic Surgeon by Dr. Martha Neumann Patient diagnosis/Reason for consult: spot on lung Referral triage process explained: No Patient will receive a call from Thoracic NPM after triage review with surgeon to discuss any additional testing and/or consults that will be scheduled. Pt will then receive a call from our scheduling office for scheduling. Please call pt at [phone]. Patient was informed [facility] [place]: No Patient Registration: Registration complete/updated: yes Insurance card(s) scanned in [facility] with in the past year: No Pt's iDoc24 is inactive. Ok to communicate to pt via iDoc24 no Medical Records: Records in [facility] (internal CC records): Yes Imaging in [facility] (internal CC records): No Care Everywhere - queried no, downloaded No Linked Outside Organizations (list): OS Records Requested: Yes Date: 10/07/2024 Outside Hospital(s) requested records from: [facility] Received: no Uploaded: No. Waiting on additional records: Yes. Missing (list): Office notes OS Pathology Slides Requested: no Date: N/A Outside Hospital(s) slides requested from: [facility] Radiology Imaging Requested:Yes Date: 10/08/2024 Outside Hospital(s) requested imaging from: [facility]. Imaging will be received via Electronic transfer Received: no Imaging uploaded: No Waiting on additional: Yes. Missing (list): CT Additional providers added to Care Teams: Yes Additional Notes/Comments: Left vm w/ patient to get more info. 10/07. Images will be power shared. -10/08 Enct routed to: Jenniffer Mckinney [facility] 10-07-2024 Telephone encounter Note RECEIVED CALL FROM: Referring physician - Name: Dr.Christina Rodarte PATIENT INFORMATION: Name: Toby Woody : 1955 (home) [phone] (cell) Email: [email or web address] Referring Provider: Martha Neumann Requested Surgeon: Unspecified Thoracic Surgeon Reason for appointment/diagnosis: Abnormal findings of lung Nathaniel Pratt October 07, 2024 12:58 PM [facility] 10-07-2024 Miscellaneous Notes RECEIVED CALL FROM: Referring physician - Name: Dr.Christina Rodarte PATIENT INFORMATION: Name: Toby Woody : 1955 (home) [phone] (cell) Email: [email or web address] Referring Provider: Martha Neumann Requested Surgeon: Unspecified Thoracic Surgeon Reason for appointment/diagnosis: Abnormal findings of lung Nathaniel Pratt October 07, 2024 12:58 PM documented in this encounter [facility] 09-29-2024 Note [facility] Medical Records Department [address] [place] [address] Discharge Summary 09/29/24 0859 MR#: [id number] Acct: [id number] Name: TOBY WOODY Rep #: [id number] : 1955 69 From: Jane Lucio DO PCP: SCOTT Grullon Status:DIS IN Location: [facility]3 [id number] Providers Date of Admission: 09/27/24 Date of Discharge: 09/29/24 Primary Care Physician: SCOTT Grullon Consultations 09/27/24 15:51 Consult: General Surgery Routine Consulting Provider: Suzy Covarrubias Reason for Consult: chest tube mgmt EMERGENT Consult: No MD Notified: Yes Date Notified: 09/27/24 Time Notified: 14:53 Method of Notification: ED Physician Initiated Reason For Visit: PNEUMOTHORAX Diagnosis Discharge Diagnosis (1) Lung mass: Status: Acute Code(s): R91.8 - Other nonspecific abnormal finding of lung field Plan 1. Right pneumothorax as a complication of CT-guided needle biopsy of right lung lesion-patient has a chest tube currently, general surgery is participating in his care #2 right upper lung lesions concerning for neoplasm-biopsy results are pending at this time #3 chronic obstructive pulmonary disease-patient has oxygen at home and uses it as needed. Patient remains on aerosol treatments #4 low BMI-complicates care, management, recovery, and prognosis #5 left lung nodule-etiology unclear at this point #6 right lower lobe lung lesion-etiology unclear Total clinical time spent by myself addressing the patient's medical issues, reviewing all of his data, and collaborating with patient's care team: 35 minutes Medications at Discharge Home Medications disability placard #1 ea 02/04/20 albuterol sulfate 90 mcg/actuation aerosol inhaler 2 inh inhalation Q6H PRN shortness of breath or wheezing 02/18/24 lorazepam 0.5 mg tablet 0.5 mg PO DAILY PRN anxiety 05/24/24 albuterol sulfate 2.5 mg/3 mL (0.083 %) solution for nebulization 2.5 mg inhalation Q4H PRN shortness of breath or wheezing 08/10/24 fluticasone fur. 200 mcg-umeclid 62.5 mcg-vilant 25 mcg inhalat.powder (Trelegy Ellipta) 1 ea inhalation QDAY 08/10/24 buprenorphine 8 mg-naloxone 2 mg sublingual film 1 ea sublingual BID 09/27/24 docusate sodium 100 mg capsule (Stool Softener) 100 mg PO DAILY PRN constipation 09/27/24 mirtazapine 7.5 mg tablet 7.5 mg PO QHS 09/27/24 prednisone 20 mg tablet 20 mg PO BID #14 tabs 09/29/24 Hospital Course Operations None Procedures None Summary of Care Provided Minutes Spent on Discharge: 31 Hospital Course: This 69-year-old white male was seen in the emergency room at [facility] after he underwent a needle biopsy of the right lung lesion and afterwards chest x-ray revealed a pneumothorax which was small. Chest tube was inserted in the emergency room with good results, he was admitted to [place] [address] and seen in consultation by general surgery. Patient's chest tube was subsequently removed by general surgery and there was no recurrence of the pneumothorax. On 09/29/2024, patient was seen and examined: On examination he appeared cachectic and older than his stated age. Vital signs as documented. Skin warm and dry and without overt rashes. Neck without JVD, neck was supple, trachea midline, thyroid was normal. Lungs clear bilaterally, normal air movement was noted. Heart exam notable for regular rhythm, normal sounds and absence of murmurs, rubs or gallops. Abdomen unremarkable and without evidence of organomegaly, masses, or abdominal aortic enlargement. Bowel sounds are present, abdomen is not distended. Extremities nonedematous, no cyanosis was noted, no clubbing was noted. Neuro: Cranial nerves II through XII are grossly intact, no focal motor deficits were noted, sensation to light touch and pinprick intact, motor exam 5/5 throughout. Psych: Patient is alert and oriented x3, he does not appear anxious or depressed, he does not appear agitated. Patient was discharged home in stable condition on 09/29/2024. Medical Records Data Medical Nutrition Assessment Dietitian: Malnutrition Criteria Met Start: 09/28/24 16:26 Freq: Status: Active Protocol: Document 09/28/24 16:26 RMA (Rec: 09/28/24 16:26 RMA [id number]) Nutrition Malnutrition Evidence of Malnutrition Exists Yes Malnutrition (severe): Chronic Evidenced By Suboptimal Energy Intake ( Severe),Weight Loss (Severe), Physical Changes (Severe) Clinical Problem Chronic Disease or Condition Related Malnutrition Etiology severe protein-calorie malnutrition in the context of chronic disease related to inadequate oral/energy intake and increased energy expenditure Signs/Symptoms as evidenced by BMI 17.7, PO meeting less than 50% estimated nutrition needs x 6 months, 13% unintentional weight loss x 6-12 months and muscle wasting and fat depletion in the face, orbitals, clavicle, arms and (more content not included)... [facility] 06-15-2023 Progress note Note Date/Time June 15, 2023 12:40pm [facility] Medical Records Department [address] [place] [address] Progress Note - Hospitalist 06/15/23 1236 MR#: [id number] Acct: [id number] Name: TOBY WOODY Rep #:[id number] : 1955 68 From: Zay Manley PCP: SCOTT Grullon Status:ADM IN [facility] Reason for Visit Reason for Visit: Follow-up for acute alcohol withdrawal/opioid and alcohol withdrawal. Patient also has advanced COPD. Objective Data Objective Data Vital Signs: Vital Signs Temp Pulse Resp BP Pulse Ox O2 Del Method 97.8 F 82 18 139/74 H 94 Room Air 06/15/23 07:56 06/15/23 07:56 06/15/23 07:56 06/15/23 07:56 06/15/23 07:56 06/15/23 08:01 Oxygen Delivery Method Room Air Weight: 113 lb 9.6 oz Body Mass Index (BMI) 16.7 Intake & Output: Intake and Output for Last 24 Hours 06/13/23 06/14/23 06/15/23 23:59 23:59 23:59 Intake Total 1000 / 1000 Balance 1000 / 1000 Lab / Micro Data 06/13/23 22:10 06/13/23 22:10 Physical Exam Narrative Patient is status he takes Vicodin about 4 tablets daily sometimes it takes 6 tablets also. He drinks about 6-8 bottles of beer every day. He denies IV needle. He denies history of chronic liver disease. Denies chronic stigmata ofliver disease. He stated he slept all night yesterday. Patient also has chronic cough for many years and gets easily short of breath even on mild exertion/walking or conversation. Smokes 3 packs/day Physical exam: General: Alert, Oriented x3, Cooperative HEENT: Atraumatic, PERRLA, EOMI, Normocephalic Oral: Oral mucosa moist. No Gingival or Mucosal Lesions/ Ulcerations Neck: Supple, No JVD, Negative Carotid Bruits Lungs: Air entry diminished in bilateral lung bases. Bilateral coarse wheezing. Cardiovascular: Regular rate, Regular Rhythm, Normal S1, Normal S2, No murmurs Abdomen: Bowel Sounds Present, Soft, Non Tender, Non-Distended : No renal angle tenderness. No suprapubic tenderness. Extremities: No edema, Capillary Refill Less than 3 Seconds Skin: No rashes, No breakdown Musculoskeletal: No Tenderness to Palpation of Joints or Extremities Neurological: Cranial nerves II-XII grossly intact, DTR 2+/4 and Symmetrical, Neuro grossly intact Psych/Mental Status: Flat affect. Denies hallucination/delusion. Assessment & Plan Assessment/Plan (1) Desire for detoxification: PLAN: Plan The patient is a 68 y/o M admitted with acute alcohol and opioid withdrawal syndrome stabilization. #1. Acute EtOH Withdrawal with history of chronic alcohol use dependence and tolerance: Patient is admitted to [facility] floor. Patient on phenobarbital basedorder set along with other adjunctive medications as needed for alcohol withdrawal symptom control. CIWA monitor. mutual fund manager consulted for dischargeplanning. Electrolytes including sodium, potassium magnesium and phosphorus arein normal range. #2. Acute Opiate Withdrawal with history of chronic opioid use/Vicodin dependence and tolerance: Denies IV needle use in the past. Denies chronic liver disease/viral hepatitis. The patient is started on buprenorphine along with other adjunctive medications as needed for medical stabilization as per order set of opioid withdrawal syndrome.Patient also on trazodone, hydroxyzine, gabapentin as needed ordered. Advised quitting opioid use. mutual fund manager consult. #3. Hypertension, uncontrolled: From chart review it seems patient was on antihypertensive medication in the past but currently is not. Blood pressure most recently normal. #4. Hyperglycemia, mild: Admission glucose 131, A1c 4.9.. #5. Polysubstance Abuse, Chronic: Patient has hepatitis B surface antigen, hepatitis panel HIV 1 and 2 antibody and syphilis antibody pending. #6. History of pulmonary nodules: Patient had outpatient CT chest 05/16/2023 with new irregular mildly spiculated nodule measuring up to 1 cm in the superiorsegment of the left lower lobe abutting the major fissure in the parietal pleural as well as a previously noted nodule in the right lower lobe now measuring 6 mm maximum diameter and appears smaller and less spiculated in the prior exam, previously noted nodule in the superior segment of the left lower lobe appears stable and measuring 6 mm with stable emphysematous changes as wellas unchanged right apical scarring. Advised that he needs a CT scan follow-up in 3 to 6 months follow-up in pulmonary clinic #7. Anxiety and depression, insomnia: Patient with trial of Zoloft supposedly but suspect this was not try for an appropriate amount of time with recent initiation of mirtazapine. Encourage continued outpatient follow-up and therapyas this likely contributes to his substance abuse as well as chronic pain. We will have. As needed trazodone as noted. #8. COPD: Patient follows Dr. Beach but has not seen him in 2 years. DuoNeb every 4 hourly while awake, Pep/incentive spirometry and Mucinex DM. Patient does not seem to be in exacerbation but it seems advanced COPD/chronic bronchitis with chronic cough with sputum production and dyspnea on mild/minimalexertion. #9. Chronic pain, back pain with DDD: Contributes greatly to his substance abuse, will have as needed agents as noted above, will benefit greatly from potential consideration of injections with pain management which may be considered outpatient. #10. Tobacco use: Encourage tobacco cessation, #11. CYNTHIA: CPAP q HS if amenable. #12. DVT Prophylaxis: Low risk, encourage ambulation. #13. CODE status: Full Code. Charges/Coding Visit Charges Inpatient E&M: 10333 Subs Hosp L2 06/15/23 1240 <Electronically signed by Zay Lion MD> Cosigner Signature (if applicable): CC: ~ Signed [facility] Work Phone: 1(177) 118-320307-15-2023 Progress note Author aZy Lion [facility] June 14, 2023 4:35pm Note Date/Time June 14, 2023 4:35 pm [facility] Medical Records Department [address] [place] [address] Progress Note - Hospitalist 06/14/23 1628 MR#: [id number] Acct: [id number] Name: TOBY WOODY Tanya Rep #:[id number] : 1955 68 From: Zay Manley PCP: Jane Landry, 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-C Status:ADM IN [place] [facility] [id number] Subjective Subjective Follow-up for acute alcohol and opioid withdrawal syndrome. Objective Data Objective Data Vital Signs: Vital Signs Temp Pulse Resp BP Pulse Ox O2 Del Method 98.0 F 83 18 120/63 92 Room Air 06/14/23 13:33 06/14/23 14:00 06/14/23 14:00 06/14/23 13:33 06/14/23 13:33 06/14/23 13:33 Oxygen Delivery Method Room Air Weight: 113 lb 9.6 oz Body Mass Index (BMI) 16.7 Intake & Output: Intake and Output for Last 24 Hours 06/12/23 06/13/23 06/14/23 23:59 23:59 23:59 Intake Total 1000 / 1000 Balance 1000 / 1000 Lab / Micro Data 06/13/23 22:10 06/13/23 22:10 Labs: Laboratory Results - last 24 hr 06/13/23 22:00: Urine Opiates Screen NEGATIVE, Urine Methadone Screen NEGATIVE, Ur Barbiturates Screen NEGATIVE, Ur Phencyclidine Scrn NEGATIVE, Ur AmphetaminesScreen NEGATIVE, MDMA (Ecstasy) Screen NEGATIVE, U Benzodiazepines Scrn NEGATIVE, Urine Cocaine Screen NEGATIVE, U Cannabinoids Screen NEGATIVE, Ur DrugScreen Comment 06/13/23 22:10: WBC 6.6, RBC 5.53, Hgb 17.7 H, Hct 51.2, MCV 92.6, MCH 32.0, MCHC 34.6, RDW Std Deviation 43.5, RDW Coeff of Dilshad 12.7, Plt Count 271, MPV 9.5, Immature Gran % (Auto) 0.200, Neut % (Auto) 58.2, Lymph % (Auto) 30.9, [place]% (Auto) 9.0, Eos % (Auto) 1.1, Baso % (Auto) 0.6, Absolute Neuts (auto) 3.8, Absolute Lymphs (auto) 2.03, Nucleated RBC % 0 Sodium 137, Potassium 4.2, Chloride 104, Carbon Dioxide 29.0, Anion Gap 4 L, BUN 13, Creatinine 0.97, Estim Creat Clear Calc 54.19, Est GFR (MDRD) Af Amer 99, Est GFR (MDRD) Non-Af 82, BUN/Creatinine Ratio 13.4, Glucose 131 H, Calcium 9.7, Phosphorus 3.1, Magnesium 2.3, Total Bilirubin 0.80, Direct Bilirubin 0.27,AST 20, ALT 28, Alkaline Phosphatase 101, Total Protein 8.2, Albumin 4.3, Globulin 3.9, Ethyl Alcohol < 3.0 06/14/23 06:21: Hemoglobin A1c 4.9 Physical Exam Narrative Patient is status he takes Vicodin about 4 tablets daily sometimes it takes 6 tablets also. He drinks about 6-8 bottles of beer every day. He denies IV needle. He denies history of chronic liver disease. Denies chronic stigmata ofliver disease. He stated he slept all night yesterday. Physical exam: General: Alert, Oriented x3, Cooperative HEENT: Atraumatic, PERRLA, EOMI, Normocephalic Oral: Oral mucosa moist. No Gingival or Mucosal Lesions/ Ulcerations Neck: Supple, No JVD, Negative Carotid Bruits Lungs: Air entry diminished in bilateral lung bases. No crepitation/rhonchi Cardiovascular: Regular rate, Regular Rhythm, Normal S1, Normal S2, No murmurs Abdomen: Bowel Sounds Present, Soft, Non Tender, Non-Distended : No renal angle tenderness. No suprapubic tenderness. Extremities: No edema, Capillary Refill Less than 3 Seconds Skin: No rashes, No breakdown Musculoskeletal: No Tenderness to Palpation of Joints or Extremities Neurological: Cranial nerves II-XII grossly intact, DTR 2+/4 and Symmetrical, Neuro grossly intact Psych/Mental Status: Flat affect. Denies hallucination/delusion. Assessment & Plan Assessment/Plan (1) Desire for detoxification: PLAN: Plan The patient is a 68 y/o M admitted with acute alcohol and opioid withdrawal syndrome stabilization. #1. Acute EtOH Withdrawal with history of chronic alcohol use dependence and tolerance: Patient is admitted to MedSurg floor. Patient on phenobarbital basedorder set along with other adjunctive medications as needed for alcohol withdrawal symptom control. CIWA monitor. mutual fund manager consulted for dischargeplanning. Electrolytes including sodium, potassium magnesium and phosphorus arein normal range. #2. Acute Opiate Withdrawal with history of chronic opioid use/Vicodin dependence and tolerance: Denies IV needle use in the past. Denies chronic liver disease/viral hepatitis. The patient is started on buprenorphine along with other adjunctive medications as needed for medical stabilization as per order set of opioid withdrawal syndrome.Patient also on trazodone, hydroxyzine, gabapentin as needed ordered. Advised quitting opioid use. mutual fund manager consult. #3. Hypertension, uncontrolled: From chart review it seems patient was on antihypertensive medication in the past but currently is not. Blood pressure most recently normal. #4. Hyperglycemia, mild: Admission glucose 131, A1c 4.9.. #5. Polysubstance Abuse, Chronic: Patient has hepatitis B surface antigen, hepatitis panel HIV 1 and 2 antibody and syphilis antibody pending. #6. History of pulmonary nodules: Patient had outpatient CT chest 05/16/2023 with new irregular mildly spiculated nodule measuring up to 1 cm in the superiorsegment of the left lower lobe abutting the major fissure in the parietal pleural as well as a previously noted nodule in the right lower lobe now measuring 6mm maximum diameter and appears smaller and less spiculated in the prior exam, previously noted nodule in the superior segment of the left lower lobe appears stable and measuring 6 mm with stable emphysematous changes as well as unchangedright apical scarring. Advised that he needs a CT scan follow-up in 3 to 6 months follow-up in pulmonary clinic #7. Anxiety and depression, insomnia: Patient with trial of Zoloft supposedly but suspect this was not try for an appropriate amount of time with recent initiation of mirtazapine. Encourage continued outpatient follow-up and therapyas this likely contributes to his substance abuse as well as chronic pain. We will have. As needed trazodone as noted. #8. COPD: Will maintain on ATC budesonide therapies, PRN albuterol, incentive spirometry #9. Chronic pain, back pain with DDD: Contributes greatly to his substance abuse, will have as needed agents as noted above, will benefit greatly from potential consideration of injections with pain management which may be considered outpatient. #10. Tobacco use: Encourage tobacco cessation, #11. CYNTHIA: CPAP q HS if amenable. #12. DVT Prophylaxis: Low risk, encourage ambulation. #13. CODE status: Full Code. Charges/Coding Visit Charges Inpatient E&M: 15165 Subs Hosp L2 06/14/23 4065 <Electronically signed by Zay Lion MD> Cosigner Signature (if applicable): CC: ~ Signed [facility] Work Phone: [phone]) 459-360707-15-2023 History and physical note Author Ainsley Esposito [facility] June 14, 2023 1:38am Note Date/Time June 13, 2023 11:3 3pm [facility] Medical Records Department [address] [place] [address] H&P Exam - Hospitalist 06/13/23 2330 MR#: [id number] Acct: [id number] Name: TOBY WOODY Rep #:[id number] : 1955 68 From: Ainsley Esposito MD PCP: Jane Landry 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-C Status:ADM IN [place] [facility] [id number] HPI - General General Date of Admission: 06/13/23 Date of Service: 06/13/23 Chief Complaint: Opiate, EtOH abuse, detoxification. HPI Narrative The patient is a 68 y/o M w/ PMHx: HTN, Tobacco use, Pulmonary nodules, COPD, Depression and Anxiety, Rheumatoid arthritis, CYNTHIA, Chronic pain syndrome, Polysubstance abuse (EtOH 6-8 beers at least daily, last use > 24 hours, Opiates, vicodin pills usually, used via oral ingestion, at least 6 tablets or more daily, last use several hours prior to ED presentation), Tobacco use who presents to the [facility] ED on06/13/23 with ongoing substance abuse, both EtOH and opiates with acute EtOH withdrawal and acute Opiate withdrawal, onset starting on day of ED presentation, progressively worsening with onset of nausea, tremors, agitation and intermittent fatigue, diaphoresis, body aches, restless legs, tactile disturbances. He denies any IVDA but has been buying nacrotic pills on the street and notes has had percocet, suboxone and possibly other agents. Patient is interested in attaining both clean and sober status. Work-upin the ED included T98.3, heart rate 90, BP 162/90, respiratory rate 18, 98% on room air, CBC with WBC 6.6, hemoglobin 17.7, platelet 271 without marked shift, UDS negative, ethyl alcohol <3, BMP with glucose 131 otherwise not marked appearing. He does report severe muscle cramps in addition. [facility] Medical History (Updated 06/14/23 @ 01:[address] Ainsley Esposito MD) Alcohol abuse Anxiety and depression Arthritis Chronic pain COPD (chronic obstructive pulmonary disease) Degenerative disc disease, lumbar Emphysema of lung Hypertension Opiate abuse, continuous Osteoporosis Pulmonary nodules Rheumatoid arthritis Sleep apnea Tobacco use Weight loss Home Medications disability placard #1 ea 02/04/20 [Rx Last Taken Unknown] multivitamin 1 tab PO DAILY vitamin 05/19/21 [History Last Taken Unknown] albuterol sulfate 0.63 mg/3 mL solution for nebulization See Rx Instructions .Route .COMPLEX copd #225 mL 07/31/22 [Rx Last Taken Unknown] albuterol sulfate 90 mcg/actuation aerosol inhaler 2 puff inhalation Q6H PRN PRNshortness of breath or wheezing #8.5 grams 04/29/23 [Rx Last Taken Unknown] fluticasone fur. 100 mcg-umeclid 62.5 mcg-vilant 25 mcg inhalat.powder (Trelegy Ellipta) 1 inh inhalation QDAY copd #90 ea 04/29/23 [Rx Last Taken Unknown] sertraline 25 mg tablet 25 mg PO Q24H depression 06/13/23 [History Last Taken Unknown] Allergy/AdvReac Type Severity Reaction Status Date / Time doxycycline AdvReac Unknown Unknown Verified 06/13/23 21:49 Family History (Updated 06/14/23 @ 01:[address] Ainsley Esposito MD) Mother Cancer Father Cancer Surgical History H/O hernia repair Social History (Updated 06/14/23 @ 01:[address] Ainsley Esposito MD) household members: children and other details: grandchildren housing: house current occupational status: retired current occupation: [employer] pets and animals: Yes pets and animals: cat(s) and dog(s) Smoking Status: Current every day smoker tobacco type: cigarettes Smoking packsper day: 2 Smoking cigarettes per day: 40.0 second hand exposure: Yes alcohol intake: current alcohol intake frequency: 3 or more drinks per day Alcohol type: beer details: At least 6-8 beers daily. substance use type: opiates and other details: Uses vicodin, percocet, suboxone. No IVDA. what type of physical activity do you participate in: none ROS ROS Narrative Admission Review of Systems: CONSTITUTIONAL: No weight loss, fever, chills, + weakness or fatigue. HEENT: + Mild rhinorrhea evident. Eyes: No visual loss, blurred vision, double vision or yellow sclerae. Ears, Nose, Throat: No hearing loss, sneezing, congestion, sore throat. SKIN: No rash or itching, lesions, wounds. CARDIOVASCULAR: No chest pain, chest pressure or chest discomfort, palpitations,edema, orthopnea, syncopal events. RESPIRATORY: + Chronic intermittent dyspnea, chronic occasional cough without marked sputum, No wheezing, hemoptysis. GASTROINTESTINAL: + anorexia, nausea, abdominal discomfort. No vomiting, diarrhea, melena, BRBPR. GENITOURINARY: No dysuria, frequency, urgency or retention. NEUROLOGICAL: + Restless legs, tremors. No headache, dizziness, syncope, paralysis, ataxia, numbness or tingling in the extremities, focal weakness, change in bowel or bladder control, seizure. MUSCULOSKELETAL: + muscle, back pain, joint pain or stiffness. HEMATOLOGIC: + Easy bleeding or bruising. LYMPHATICS: No enlarged nodes. No history of splenectomy. PSYCHIATRIC: No history of depression or anxiety. ENDOCRINOLOGIC: + reports of sweating, cold or heat intolerance. No polyuria or polydipsia. ALLERGIES: No history of asthma, hives, eczema or rhinitis. Vital Signs Vital Signs Vital Signs: 06/13/23 21:47 Temperature 98.3 F Temperature Source Temporal Pulse Rate 90 Respiratory Rate 18 Blood Pressure 162/90 H Blood Pressure Mean 114 Pulse Ox 98 Oxygen Delivery Method Room Air Weight Weight: 117 lb 8.102 oz Body Mass Index (BMI) 17.3 Physical Exam Narrative Physical Examination: General: Awake, alert, oriented x 3 and cooperative, laying in the ED bed, restless, noting abdominal discomfort and muscle cramping. Skin: Flushed color, normal turgor, no icterus, no cyanosis. HEENT: AT/NC, EOMI, PERRLA, dry MM, no carotid bruits or JVD noted, mild rhinorrhea evident. Lungs: Diminished, greater bases, appropriate effort, no rales, ronchi or wheezing. Heart: Regular rate and rhythm; no gallop, rub audible. Abdomen: Soft, mild generalized discomfort with palpation with no rebound or guarding, ND, hyperactive BS, mild HM. Extremities: No cyanosis, clubbing, or edema, evidence of muscle and fat loss. Neurological: Patient awake, alert, oriented as noted, cognitive function intact; pupils equally reactive to light and accommodation, cranial nerves grossly normal, moving all 4 extremities, no focal deficits, mild tremors, reporting tactile disturbances, strength moderately globally decreased secondaryto acute presentation. Psychiatric: Affect appears fatigued, anxious, restless, no acute evidence of depressive feelings. Results Lab / Micro Data 06/13/23 22:10 06/13/23 22:10 Labs: Laboratory Results - last 24 hr 06/13/23 22:00: Urine Opiates Screen NEGATIVE, Urine Methadone Screen NEGATIVE, Ur Barbiturates Screen NEGATIVE, Ur Phencyclidine Scrn NEGATIVE, Ur AmphetaminesScreen NEGATIVE, MDMA (Ecstasy) Screen NEGATIVE, U Benzodiazepines Scrn NEGATIVE, Urine Cocaine Screen NEGATIVE, U Cannabinoids Screen NEGATIVE, Ur DrugScreen Comment 06/13/23 22:10: WBC 6.6, RBC 5.53, Hgb 17.7 H, Hct 51.2, MCV 92.6, MCH 32.0, MCHC 34.6, RDW Std Deviation 43.5, RDW Coeff of Dilshad 12.7, Plt Count 271, MPV 9.5, Immature Gran % (Auto) 0.200, Neut % (Auto) 58.2, Lymph % (Auto) 30.9, [place]% (Auto) 9.0, Eos % (Auto) 1.1, Baso % (Auto) 0.6, Absolute Neuts (auto) 3.8, Absolute Lymphs (auto) 2.03, Nucleated RBC % 0, Sodium 137, Potassium 4.2, Chloride 104, Carbon Dioxide 29.0, Anion Gap 4 L, BUN 13, Creatinine 0.97, EstimCreat Clear Calc 54.19, Est GFR (MDRD) Af Amer 99, Est GFR (MDRD) Non-Af 82, BUN/Creatinine Ratio 13.4, Glucose 131 H, Calcium 9.7, Ethyl Alcohol < 3.0 Assessment & Plan Assessment/Plan (1) Desire for detoxification: PLAN: Plan The patient is a 68 y/o M w/ PMHx: HTN, Tobacco use, Pulmonary nodules, COPD, Depression and Anxiety, Rheumatoid arthritis, CYNTHIA, Chronic pain syndrome, Polysubstance abuse (EtOH 6-8 beers at least daily, last use > 24 hours, Opiates, vicodin pills usually, used via oral ingestion, at least 6 tablets or more daily, last use several hours prior to ED presentation), Tobacco use who presents to the [facility] ED on06/13/23 with acute opiate and EtOH withdrawal interested in clean/sober status. #1. Acute EtOH Withdrawal: Will admit to medical surgical floor, routine labs obtained in the ED upon presentation and notable []. Given interest in sobriety, will initiate and continue on protocol with taper course of Phenobarbital, scheduled gabapentin for seizure prophylaxis, as needed Catapres, Bentyl, Vistaril, IV fluids, IV antiemetics, Tylenol as needed for pain. Will consult Case management for assistance for transition to next level of rehabilitation care. Mag, phos pending. Maintain on CIWA protocol concurrently. #2. Acute Opiate Withdrawal: Given patient concurrent usage of opiates, will additionally initiate and continue on protocol with tapering course of Subutex, as needed tylenol, ibuprofen, bowel regimen, gabapentin, Bentyl, Vistaril, methocarbamol, clonidine, PRN nightly trazodone for insomnia, IV fluids, IV antiemetics. Once patient clinically improved and completion of taper nearing will plan consultation with case management for transition to next level of rehabilitation care. #3. Hypertension, uncontrolled: Patient with chart reported previous hypertensive history, from current medication list not on any antihypertensive medications, will for now especially given acute presentation with opiate and alcohol withdrawal utilize as needed IV hydralazine but if blood pressure remains elevated above goal would add oral regimen. #4. Hyperglycemia, mild: Admission glucose 131, will obtain hemoglobin A1c to be cautious. #5. Polysubstance Abuse, Chronic: Given history of polysubstance abuse regardless of IV drug abuse history lacking to be cautious will obtain HIV, RPR and hepatitis panel. Patient currently not candidate for hep C treatment currently as needs to be clean, sober x 6 months, documented attendance NA or AA meetings, counseling and ongoing negative drug screens. #6. History of pulmonary nodules: Patient with prior noted history of pulmonary nodule unfortunately not following up aggressively with pulmonary medicine, will encourage continued outpatient follow-up as per recent evaluation by his primary care with outpatient CT chest 05/16/2023 with new irregular mildly spiculated nodule measuring up to 1 cm in the superior segment of the left lower lobe abutting the major fissure in the parietal pleural as well as a previously noted nodule in the right lower lobe now measuring 6 mm maximum diameter and appears smaller and less spiculated in the prior exam, previously noted nodule in the superior segment of the left lower lobe appears stable and measuring 6 mm with stable emphysematous changes as well as unchanged right apical scarring. We will need again CT follow-up in 3 to 6 months therefore recommended aggressive continued outpatient follow-up with his primary care. #7. Anxiety and depression, insomnia: Patient with trial of Zoloft supposedly but suspect this was not try for an appropriate amount of time with recent initiation of mirtazapine. Encourage continued outpatient follow-up and therapy as this likely contributes to his substance abuse as well as chronic pain. We will have. As needed trazodone as noted. #8. Chronic COPD: Will maintain on ATC budesonide therapies, PRN albuterol, HOB, IS parameters. #9. Chronic pain, back pain with DDD: Contributes greatly to his substance abuse, will have as needed agents as noted above, will benefit greatly from potential consideration of injections with pain management which may be considered outpatient. #10. Tobacco use: Encourage tobacco cessation, RT consulted for education, NR ordered. #11. CYNTHIA: CPAP q HS if amenable. #12. DVT Prophylaxis: Low risk, encourage ambulation. #13. CODE status: Full Code. Admission Evaluation Time spent evaluating chart, patient history, patient evaluation, care planning and discussion with specialists: 75 minutes. Charges/Coding Visit Charges Inpatient E&M: 69161 Init Hosp L3 06/14/23 0138 <Electronically signed by Ainsley Esposito MD> Cosigner Signature (if applicable): CC: SCOTT Landry; Dr. Ainsley Esposito MD~ Signed [facility] Work Phone: 1(846) 380-513307-15-2023 Discharge summary Author Dejan Vargas [facility] June 13, 2023 11:43pm Note Date/Time June 13, 2023 11:2 3pm [facility] Medical Records Department [address] [place] [address] Emergency Department Summary 06/13/23 MR#: [id number] Acct: [id number] Name: TOBY WOODY Rep #:[id number] : 1955 68 From: Dejan Vargas MD PCP: Jane Landry, 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-C Status:REG ER Location: ED HPI History of Present Illness Chief Complaint: Substance Abuse Informant: patient Narrative Narrative: Patient presents requesting detox from both alcohol and Vicodin/opiates. Patient is drank for a long time. He states he drinks 6 or 8 beers a day but that is been increasing since he can is retired over the last couple years. He does not remember the last time he went more than about 24 hours without drinking. He thinks he would get pretty shaky if he did not drink but he reallydoes not stop. He also uses opiates. He primarily uses Vicodin because he used to be prescribed these for pain. But then he started buying them from people at work when he worked. He buys them on the street. He will occasionally take Percocet. He will occasionally take Suboxone. He has never injected. Patient states he just feels like he needs to get off the chemicals. They are not good for him. On review of systems I also find out that he likely has chronic COPD. Last use an inhaler about 6 hours ago. He is wheezing now. He is not having any real medical acute complaints. He does have a history of about a 40 pound weight loss over the last 3 or so years. He also reports having a spot on his lung 2 or so years ago. They then found 2 more spots. When his doctor gets back in town they were going to work this up. They recommended biopsy a few years ago but he did not do it because they were not bothering him. But now he is decidedto have this done. [facility] Medical History Alcohol abuse Anxiety and depression Arthritis Chronic pain COPD (chronic obstructive pulmonary disease) Degenerative disc disease, lumbar Emphysema of lung Hypertension Opiate abuse, continuous Osteoporosis Pulmonary nodules Rheumatoid arthritis Sleep apnea Tobacco use Weight loss Home Medications disability placard #1 ea 02/04/20 [Rx Last Taken Unknown] multivitamin 1 tab PO DAILY 05/19/21 [History Last Taken Unknown] albuterol sulfate 0.63 mg/3 mL solution for nebulization See Rx Instructions .Route .COMPLEX #225 mL 07/31/22 [Rx Last Taken Unknown] albuterol sulfate 90 mcg/actuation aerosol inhaler 2 puff inhalation Q6H PRN PRNshortness of breath or wheezing #8.5 grams 04/29/23 [Rx Last Taken Unknown] fluticasone fur. 100 mcg-umeclid 62.5 mcg-vilant 25 mcg inhalat.powder (Trelegy Ellipta) 1 inh inhalation QDAY #90 ea 04/29/23 [Rx Last Taken Unknown] sertraline 25 mg tablet 25 mg PO Q24H 06/13/23 [History Last Taken Unknown] Allergy/AdvReac Type Severity Reaction Status Date / Time doxycycline AdvReac Unknown Unknown Verified 06/13/23 21:49 Family History Unknown No problems noted. Surgical History H/O hernia repair Social History household members: children and other details: grandchildren housing: house current occupational status: employed current occupation: [employer] pets and animals: Yes pets and animals: cat(s) and dog(s) Smoking Status: Current every day smoker tobacco type: cigarettes second hand exposure: Yes alcohol intake: current alcohol intake frequency: 3 or more drinks per day Alcohol type: beer substance use type: does not use what type of physical activity do you participate in: none ROS ROS ED Constitutional Constitutional ED: Denies chills or fever(s) Eyes Eyes: Denies change in vision ENT ENT ED: Denies rhinorrhea Cardiovascular Cardiovascular: Denies chest pain or palpitations Respiratory/Chest Respiratory/Chest: Reports cough; Denies dyspnea or sputum Gastrointestinal Gastrointestinal: Denies nausea or vomiting Genitourinary Genitourinary ED: Denies dysuria Musculoskeletal Musculoskeletal: Denies myalgias Integumentary Denies rash Neurologic Neurologic: Denies headache(s) Hematologic/Lymphatic Hematologic/Lymphatic: Denies easy bleeding Allergic/Immunologic Allergic/Immunologic ED: Denies urticaria EXAM Physical Exam Narrative Exam Narrative: Patient is awake and alert but no acute distress. No confusion. HEENT shows no trauma. Mucous membranes are moist. Neck is supple Lungs show some diffuse but mild expiratory wheezing. No coughing while I am inthe room. His saturations are still normal at 98% on room air though. Heart sounds regular. Abdomen is very thin and not tender. He states sometimes he gets abdominal painbut that has been going on for years. That is why he started on Vicodin originally. But he is not having symptoms now. Extremities are thin. Neurologic patient is awake alert appropriate. No flight of ideas. No paranoia. No indication of hallucinations. Const Vital Signs: 06/13/23 21:47 Temperature 98.3 F Temperature Source Temporal Pulse Rate 90 Respiratory Rate 18 Blood Pressure 162/90 H Blood Pressure Mean 114 Pulse Ox 98 Oxygen Delivery Method Room Air MDM MDM MDM Narrative Medical decision making narrative: Patient CBC shows some high hemoglobin likely due to chronic COPD. Rest of the CBC is overall normal. Patient's electrolytes show no marked abnormalities. His glucose is slightly upat 131. His alcohol is negative. His toxicology urine screen is negative. Patient thinks his last helton or Percocet was 2 maybe 3 days ago. He is not 100% certain. He states he just had a little drink of alcohol be for he came inhere so he surprised his level is 0. Before that he either had drinks late lastnight or early this morning. I also reviewed an outpatient CT from about 1 month ago. He has a spiculated mass in the left lower lobe. This along with his weight loss, age, long historyof smoking leads me to believe that this is likely lung cancer. They are pending biopsy of this. Lab Data Attestation: I reviewed the patient's lab results. Labs: Laboratory Results - last 24 hr 06/13/23 06/13/23 22:00 22:10 WBC 6.6 RBC 5.53 Hgb 17.7 H Hct 51.2 MCV 92.6 MCH 32.0 MCHC 34.6 RDW Std Deviation 43.5 RDW Coeff of Dilshad 12.7 Plt Count 271 MPV 9.5 Immature Gran % (Auto) 0.200 Neut % (Auto) 58.2 Lymph % (Auto) 30.9 [place] % (Auto) 9.0 Eos % (Auto) 1.1 Baso % (Auto) 0.6 Absolute Neuts (auto) 3.8 Absolute Lymphs (auto) 2.03 Nucleated RBC % 0 Sodium 137 Potassium 4.2 Chloride 104 Carbon Dioxide 29.0 Anion Gap 4 L BUN 13 Creatinine 0.97 Estim Creat Clear Calc 54.19 Est GFR (MDRD) Af Amer 99 Est GFR (MDRD) Non-Af 82 BUN/Creatinine Ratio 13.4 Glucose 131 H Calcium 9.7 Urine Opiates Screen NEGATIVE Urine Methadone Screen NEGATIVE Ur Barbiturates Screen NEGATIVE Ur Phencyclidine Scrn NEGATIVE Ur Amphetamines Screen NEGATIVE MDMA (Ecstasy) Screen NEGATIVE U Benzodiazepines Scrn NEGATIVE Urine Cocaine Screen NEGATIVE U Cannabinoids Screen NEGATIVE Ur Drug Screen Comment Ethyl Alcohol < 3.0 Management Discussion w/another healthcare provider: Hospitalist Discharge Plan Triage Chief Complaint: Substance Abuse ED Provider: Dejan Vargas Dx/Rx/DC Orders Clinical Impression: Alcohol dependence, Opiate dependence, Mass of left lung, Desire for detoxification Prescriptions: No Action (DME) disability erik Qty: 1 0RF Rx Instructions: As directed, Length of time: 5 years albuterol sulfate 0.63 mg/3 mL solution for nebulization See Rx Instructions .ROUTE .COMPLEX Qty: 225 3RF Dose Instruction: INHALE 0.63 MG (3 mL) 3 times daily As Needed for shortness of breath or wheezing Rx Instructions: INHALE 0.63 MG (3 mL) 3 times daily As Needed for shortness of breath or wheezing Trelegy Ellipta 100-62.5-25 mcg blister with device 1 inh INHALATION QDAY Qty: 90 3RF Rx Instructions: administer at approximately the same time(s) each day albuterol sulfate 90 mcg/actuation HFA aerosol inhaler 2 puff INHALATION Q6H PRN PRN (Reason: shortness of breath or wheezing) Qty: 8.5 5RF multivitamin Tablet 1 tab PO DAILY sertraline 25 mg tablet 25 mg PO Q24H Patient Comments: TAKE 1 TABLET BY MOUTH EVERY DAY Primary Care Provider: Jane Landry NP Referrals: Jane Landry NP, 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-C [Primary Care Provider] - Disposition Disposition: Acute Care [facility] What to do if you have Problems For any increased pain, shortness of breath, bleeding, nausea or vomiting, chestpain, or any unexpected problems, contact your Primary Care Provider. Call [facility] ([phone]) or report to the closest Emergency Room. Call 911 if necessary. 06/13/23 7756 <Electronically signed by Dejan Vargas MD> Cosigner Signature (if applicable): CC: 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-C Jane Landry ~ Signed [facility] Work Phone: [phone] 467-743507-14-2023 Discharge summary Author Dejan Vargas [facility] June 13, 2023 11:43pm Note Date/Time June 13, 2023 11:2 3pm [facility] Medical Records Department [address] [place] [address] Emergency Department Summary 06/13/23 MR#: [id number] Acct: [id number] Name: TOBY WOODY Rep #:[id number] : 1955 68 From: Dejan Vargas MD PCP: MARA GrullonC Status:REG ER Location: ED HPI History of Present Illness Chief Complaint: Substance Abuse Informant: patient Narrative Narrative: Patient presents requesting detox from both alcohol and Vicodin/opiates. Patient is drank for a long time. He states he drinks 6 or 8 beers a day but that is been increasing since he can is retired over the last couple years. He does not remember the last time he went more than about 24 hours without drinking. He thinks he would get pretty shaky if he did not drink but he reallydoes not stop. He also uses opiates. He primarily uses Vicodin because he used to be prescribed these for pain. But then he started buying them from people at work when he worked. He buys them on the street. He will occasionally take Percocet. He will occasionally take Suboxone. He has never injected. Patient states he just feels like he needs to get off the chemicals. They are not good for him. On review of systems I also find out that he likely has chronic COPD. Last use an inhaler about 6 hours ago. He is wheezing now. He is not having any real medical acute complaints. He does have a history of about a 40 pound weight loss over the last 3 or so years. He also reports having a spot on his lung 2 or so years ago. They then found 2 more spots. When his doctor gets back in town they were going to work this up. They recommended biopsy a few years ago but he did not do it because they were not bothering him. But now he is decidedto have this done. [facility] Medical History Alcohol abuse Anxiety and depression Arthritis Chronic pain COPD (chronic obstructive pulmonary disease) Degenerative disc disease, lumbar Emphysema of lung Hypertension Opiate abuse, continuous Osteoporosis Pulmonary nodules Rheumatoid arthritis Sleep apnea Tobacco use Weight loss Home Medications disability placard #1 ea 02/04/20 [Rx Last Taken Unknown] multivitamin 1 tab PO DAILY 05/19/21 [History Last Taken Unknown] albuterol sulfate 0.63 mg/3 mL solution for nebulization See Rx Instructions .Route .COMPLEX #225 mL 07/31/22 [Rx Last Taken Unknown] albuterol sulfate 90 mcg/actuation aerosol inhaler 2 puff inhalation Q6H PRN PRNshortness of breath or wheezing #8.5 grams 04/29/23 [Rx Last Taken Unknown] fluticasone fur. 100 mcg-umeclid 62.5 mcg-vilant 25 mcg inhalat.powder (Trelegy Ellipta) 1 inh inhalation QDAY #90 ea 04/29/23 [Rx Last Taken Unknown] sertraline 25 mg tablet 25 mg PO Q24H 06/13/23 [History Last Taken Unknown] Allergy/AdvReac Type Severity Reaction Status Date / Time doxycycline AdvReac Unknown Unknown Verified 06/13/23 21:49 Family History Unknown No problems noted. Surgical History H/O hernia repair Social History household members: children and other details: grandchildren housing: house current occupational status: employed current occupation: [employer] pets and animals: Yes pets and animals: cat(s) and dog(s) Smoking Status: Current every day smoker tobacco type: cigarettes second hand exposure: Yes alcohol intake: current alcohol intake frequency: 3 or more drinks per day Alcohol type: beer substance use type: does not use what type of physical activity do you participate in: none ROS ROS ED Constitutional Constitutional ED: Denies chills or fever(s) Eyes Eyes: Denies change in vision ENT ENT ED: Denies rhinorrhea Cardiovascular Cardiovascular: Denies chest pain or palpitations Respiratory/Chest Respiratory/Chest: Reports cough; Denies dyspnea or sputum Gastrointestinal Gastrointestinal: Denies nausea or vomiting Genitourinary Genitourinary ED: Denies dysuria Musculoskeletal Musculoskeletal: Denies myalgias Integumentary Denies rash Neurologic Neurologic: Denies headache(s) Hematologic/Lymphatic Hematologic/Lymphatic: Denies easy bleeding Allergic/Immunologic Allergic/Immunologic ED: Denies urticaria EXAM Physical Exam Narrative Exam Narrative: Patient is awake and alert but no acute distress. No confusion. HEENT shows no trauma. Mucous membranes are moist. Neck is supple Lungs show some diffuse but mild expiratory wheezing. No coughing while I am inthe room. His saturations are still normal at 98% on room air though. Heart sounds regular. Abdomen is very thin and not tender. He states sometimes he gets abdominal painbut that has been going on for years. That is why he started on Vicodin originally. But he is not having symptoms now. Extremities are thin. Neurologic patient is awake alert appropriate. No flight of ideas. No paranoia. No indication of hallucinations. Const Vital Signs: 06/13/23 21:47 Temperature 98.3 F Temperature Source Temporal Pulse Rate 90 Respiratory Rate 18 Blood Pressure 162/90 H Blood Pressure Mean 114 Pulse Ox 98 Oxygen Delivery Method Room Air MDM MDM MDM Narrative Medical decision making narrative: Patient CBC shows some high hemoglobin likely due to chronic COPD. Rest of the CBC is overall normal. Patient's electrolytes show no marked abnormalities. His glucose is slightly upat 131. His alcohol is negative. His toxicology urine screen is negative. Patient thinks his last helton or Percocet was 2 maybe 3 days ago. He is not 100% certain. He states he just had a little drink of alcohol be for he came inhere so he surprised his level is 0. Before that he either had drinks late lastnight or early this morning. I also reviewed an outpatient CT from about 1 month ago. He has a spiculated mass in the left lower lobe. This along with his weight loss, age, long historyof smoking leads me to believe that this is likely lung cancer. They are pending biopsy of this. Lab Data Attestation: I reviewed the patient's lab results. Labs: Laboratory Results - last 24 hr 06/13/23 06/13/23 22:00 22:10 WBC 6.6 RBC 5.53 Hgb 17.7 H Hct 51.2 MCV 92.6 MCH 32.0 MCHC 34.6 RDW Std Deviation 43.5 RDW Coeff of Dilshad 12.7 Plt Count 271 MPV 9.5 Immature Gran % (Auto) 0.200 Neut % (Auto) 58.2 Lymph % (Auto) 30.9 [place] % (Auto) 9.0 Eos % (Auto) 1.1 Baso % (Auto) 0.6 Absolute Neuts (auto) 3.8 Absolute Lymphs (auto) 2.03 Nucleated RBC % 0 Sodium 137 Potassium 4.2 Chloride 104 Carbon Dioxide 29.0 Anion Gap 4 L BUN 13 Creatinine 0.97 Estim Creat Clear Calc 54.19 Est GFR (MDRD) Af Amer 99 Est GFR (MDRD) Non-Af 82 BUN/Creatinine Ratio 13.4 Glucose 131 H Calcium 9.7 Urine Opiates Screen NEGATIVE Urine Methadone Screen NEGATIVE Ur Barbiturates Screen NEGATIVE Ur Phencyclidine Scrn NEGATIVE Ur Amphetamines Screen NEGATIVE MDMA (Ecstasy) Screen NEGATIVE U Benzodiazepines Scrn NEGATIVE Urine Cocaine Screen NEGATIVE U Cannabinoids Screen NEGATIVE Ur Drug Screen Comment Ethyl Alcohol < 3.0 Management Discussion w/another healthcare provider: Hospitalist Discharge Plan Triage Chief Complaint: Substance Abuse ED Provider: Dejan Vargas Dx/Rx/DC Orders Clinical Impression: Alcohol dependence, Opiate dependence, Mass of left lung, Desire for detoxification Prescriptions: No Action (DME) disability placard Qty: 1 0RF Rx Instructions: As directed, Length of time: 5 years albuterol sulfate 0.63 mg/3 mL solution for nebulization See Rx Instructions .ROUTE .COMPLEX Qty: 225 3RF Dose Instruction: INHALE 0.63 MG (3 mL) 3 times daily As Needed for shortness of breath or wheezing Rx Instructions: INHALE 0.63 MG (3 mL) 3 times daily As Needed for shortness of breath or wheezing Trelegy Ellipta 100-62.5-25 mcg blister with device 1 inh INHALATION QDAY Qty: 90 3RF Rx Instructions: administer at approximately the same time(s) each day albuterol sulfate 90 mcg/actuation HFA aerosol inhaler 2 puff INHALATION Q6H PRN PRN (Reason: shortness of breath or wheezing) Qty: 8.5 5RF multivitamin Tablet 1 tab PO DAILY sertraline 25 mg tablet 25 mg PO Q24H Patient Comments: TAKE 1 TABLET BY MOUTH EVERY DAY Primary Care Provider: Jane Landry NP Referrals: Jane Landry NP, 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-C [Primary Care Provider] - Disposition Disposition: Acute Care [facility] What to do if you have Problems For any increased pain, shortness of breath, bleeding, nausea or vomiting, chestpain, or any unexpected problems, contact your Primary Care Provider. Call [facility] ([phone]) or report to the closest Emergency Room. Call 911 if necessary. 06/13/23 2343 <Electronically signed by Dejan Vargas MD> Cosigner Signature (if applicable): CC: 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-C Jane Landry ~ Signed [facility] Work Phone: Consult note Author Larisa Landry [facility] June 16, 2023 12:00pm Note Date/Time June 16, 2023 12:[address] [facility] Medical Records Department [address] [address] Counseling Note - Pharmacy 06/16/23 1200 MR#: [id number] Acct: [id number] Name: TOBY WOODY Rep #:[id number] : 1955 68 From: Larisa Landry PCP: SCOTT Grullon Status:ADM IN [place] [facility] [id number] [place] Med Reconciliation Pharmacy Service has performed discharge medication reconciliation for this patient. The patient's discharge medication list was reviewed for discrepancies and discrepancies were resolved. Medications at Discharge Home Medications disability placard #1 ea 02/04/20 multivitamin 1 tab PO DAILY vitamin 05/19/21 albuterol sulfate 0.63 mg/3 mL solution for nebulization See Rx Instructions .Route .COMPLEX copd #225 mL 07/31/22 albuterol sulfate 90 mcg/actuation aerosol inhaler 2 puff inhalation Q6H PRN PRNshortness of breath or wheezing #8.5 grams 04/29/23 fluticasone fur. 100 mcg-umeclid 62.5 mcg-vilant 25 mcg inhalat.powder (Trelegy Ellipta) 1 inh inhalation QDAY copd #90 ea 04/29/23 sertraline 25 mg tablet 25 mg PO Q24H depression 06/13/23 06/16/23 1200 <Electronically signed by Larisa Landry> Date _ Larisa Verdeigner Signature (if applicable): Date CC: ~ Signed [facility] Work Phone: Discharge summary Author Gaye Dorsey [facility] June 16, 2023 11:48am Note Date/Time June 16, 2023 11:4 8am [facility] Medical Records Department [address] [place] [address] Instructions for Home/Discharge Instructions 06/16/23 1145 MR#: [id number] Acct: [id number] Name: TOBY WOODY Rep #:[id number] : 1955 68 From: Gaye Dorsey MD PCP: Jane Landry NP-C Status:ADM IN Discharge Instructions Diet Discharge Diet: No restrictions Activity Discharge Activity: Return to Normal Activity Follow Up Care Test Results: Test results from this visit will be discussed in further detail at your follow- up appointment, if applicable. Discharge Plan Admission Admit Date/Time: 06/13/23 23:30 Primary Reason for Your Visit: Alcohol and opioid detox Attending Provider: Gaye Dorsey Primary Care Provider: Jane Landry NP Consulting Providers: Ainsley Esposito; Zay Lion Instructions Patient Instructions: Addiction: Getting Help, Addiction: Your Treatment Options, Addiction Recovery Counseling, ED Opioid Withdrawal Additional Instructions / Restrictions: DISCHARGE INSTRUCTIONS PLEASE READ *Please take this with you to your next doctors appointment* - It is strongly advised that you refrain from any substance use. Please call [facility] located at [address] [place] [phone] (ph [phone]) if you are interested in further resources -Please follow-up with [facility] upon discharge due to lung nodules found on your imaging. Please call their office to schedule a follow-up appointment upon discharge. -Please call your primary care provider's office upon discharge to schedule a hospital follow up within 1 week. -For any concerning signs or symptoms please call 911 or proceed to the nearest emergency department Discharge Orders/Prescriptions Prescriptions: Continued (DME) disability placard Qty: 1 0RF Rx Instructions: As directed, Length of time: 5 years albuterol sulfate 0.63 mg/3 mL solution for nebulization See Rx Instructions .ROUTE .COMPLEX Qty: 225 3RF Dose Instruction: INHALE 0.63 MG (3 mL) 3 times daily As Needed for shortness of breath or wheezing Rx Instructions: INHALE 0.63 MG (3 mL) 3 times daily As Needed for shortness of breath or wheezing Trelegy Ellipta 100-62.5-25 mcg blister with device 1 inh INHALATION QDAY Qty: 90 3RF Rx Instructions: administer at approximately the same time(s) each day albuterol sulfate 90 mcg/actuation HFA aerosol inhaler 2 puff INHALATION Q6H PRN PRN (Reason: shortness of breath or wheezing) Qty: 8.5 5RF multivitamin Tablet 1 tab PO DAILY sertraline 25 mg tablet 25 mg PO Q24H Patient Comments: TAKE 1 TABLET BY MOUTH EVERY DAY Referrals / Follow Up: Salvador Beach MD [Med Staff - Active Staff] - 07/22/23 9:45 am (For history of possible COPD, smokes 3 packs/day since early age 15. Chronic cough, dyspnea onmild exertion.) Jane Landry 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, 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-C [Primary Care Provider] - Disposition Disposition (needs filled in before D/C Order can be placed): Home, Self Care 06/16/23 1148<Electronically signed by Gaye Dorsey MD>Gaye Dorsey MD CC: 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-C Jane Landry; Dr. Ainsley Esposito MD; Dr. Zay Lion MD ~ Signed [facility] Work Phone: Evaluation note* Diagnosis Onset Date Resolution Status COPD (chronic obstructive pulmonary disease) chronic Hypertension chronic Nicotine dependence [facility] Work Phone: Evaluation note* Diagnosis Onset Date Resolution Status Depression acute Lung nodule acute Weight loss acute COPD (chronic obstructive pulmonary disease) chronic Opiate dependence [facility] Work Phone: Evaluation note* Diagnosis Onset Date Resolution Status Depression acute Lung nodule acute Weight loss acute COPD (chronic obstructive pulmonary disease) chronic Opiate dependence chronic Alcohol dependence acute Desire for detoxification ac cheesh-na Mass of left lung acute Opiate dependence [facility] Work Phone: Evaluation note* Diagnosis Onset Date Resolution Status Depression acute Lung nodule acute Weight loss acute COPD (chronic obstructive pulmonary disease) chronic Opiate dependence chronic Alcohol dependence acute Desire for detoxification ac cheesh-na Lung nodule acute Mass of left lung acute COPD (chronic obstructive pulmonary disease) chronic Opiate dependence chronic COPD exacerbation chronic Nicotine dependence, cigarettes, uncomplicated chronic [facility] Work Phone: evaluation note* Diagnosis Lung nodule- Primary Solitary pulmonary nodule documented in this encounter [facility] note* Diagnosis Abnormal chest x-ray with multiple lung nodules- Primary Other nonspecific abnormal finding of lung field Centrilobular emphysema (HCC) Other emphysema documented in this encounter [facility] note* Diagnosis Abnormal chest x-ray with multiple lung nodules Other nonspecific abnormal finding of lung field Centrilobular emphysema (HCC) Other emphysema documented in this encounter [facility] note* Diagnosis Abnormal chest x-ray with multiple lung nodules Other nonspecific abnormal finding of lung field Centrilobular emphysema (HCC) Other emphysema documented in this encounter [facility] note* Diagnosis Abnormal chest x-ray with multiple lung nodules Other nonspecific abnormal finding of lung field Centrilobular emphysema (HCC) Other emphysema documented in this encounter [facility] note* Diagnosis Chronic bronchitis, unspecified chronic bronchitis type (HCC)- Primary Centrilobular emphysema (HCC) Pulmonary hyperinflation Pulmonary air trapping Tobacco use documented in this encounter [facility] note* Diagnosis Chronic bronchitis, unspecified chronic bronchitis type (HCC)- Primary Centrilobular emphysema (HCC) Pulmonary hyperinflation Pulmonary air trapping Tobacco use documented in this encounter [facility] noteNo assessment information availableWGood [facility] Work Phone: Evaluation note* Diagnosis Chronic bronchitis, unspecified chronic bronchitis type (HCC)- Primary Centrilobular emphysema (HCC) Pulmonary hyperinflation Pulmonary air trapping Necrotizing granulomatous inflammation of lung (HCC) Pulmonary nodules Other diseases of lung, not elsewhere classified History of tobacco abuse documented in this encounter [facility] note* Diagnosis Pulmonary air trapping Necrotizing granulomatous inflammation of lung (HCC) Pulmonary nodules Other diseases of lung, not elsewhere classified documented in this encounter [facility] for referral (narrative)* Outpatient Procedure (Routine) - New Request Specialty Diagnoses / Procedures Referred By Contac t Referred To [facility]AT[facility] Diagnoses Lung nodule Procedures SPIROMETRY WITH DILATOR IF OBSTRUCTED BRNCDILAT RSPSE SPMTRY PRE&POST-BRNCDILAT ADMN Haris Tracey MD [address] [place] [address] [address] Referral ID Status Reason Start Date Expiration Date Visits Requested Visits Authorized [id number] New Request Auto-Generat ed Referral 4 11/17/2025 1 1 * Outpatient Procedure (Routine) - New Request Specialty Diagnoses / Procedures Referred By Contchristian t Referred To [facility]PIRATORY [facility] Diagnoses Lung nodule Procedures SIX MINUTE WALK CARDIOPULMONARY EXERCISE STRESS Haris Tracey MD [address] [place] [address] [address] [place] [address] Referral ID Status Reason Start Date Expiration Date Visits Requested Visits Authorized [id number] New Request Auto-Generat ed Referral 4 11/17/2025 1 1 * Outpatient Procedure (Routine) - New Request Specialty Diagnoses / Procedures Referred By Contac t Referred To [facility]PIRATORY [facility] Diagnoses Lung nodule Procedures LUNG DIFFUSION CAPACITY (DLCO) DIFFUSING CAPACITY Haris Tracey MD [address] [place] [address] [address] [place] [address] Referral ID Status Reason Start Date Expiration Date Visits Requested Visits Authorized [id number] New Request Auto-Generat ed Referral 4 11/17/2025 1 1 [facility]No reason for referral information availableWGood [facility] Work Phone: Reason for visit Narrative* Imaging (Routine) - Closed Specialty Diagnoses / Procedures Referred By Contac t Referred To Contact Radiology Diagnoses Pulmonary air trapping Necrotizing granulomatous inflammation of lung (HCC) Pulmonary nodules Procedures CT chest wo IV contrast Kenia Randhawasahilalejandra, DO [address] [place] [address] Phone: tel: fax: Referral ID Status Reason Start Date Expiration Date Visits Re quested Visits Authorized [id number] Closed 03/22/2025 03/22/2026 1 1 [facility] Health Summary Purpose Family History No Family History Records Found Relationship Condition Age at Onset Recorded Date/T vamsi Unknown Family History?No pertinent history Unkno wn March 06, 2019 3:27pm Family History?No pertinent history Unkno wn 2020 4:05pm Relationship Condition Age at Onset Recorded Date/T vamsi mother Malignant neoplasm Unknown father Malignant neoplasm Unknown Advance Directives No Advanced Directives Records Found Advance Directive Response Recorded Date/ Time Advance Directives No May 05 0 4:05pm Living Will No May 19, 2021 4:06pm Power of Hot Room Attendant No May 19 1 4:06pm Advance Directive Response Recorded Date/ Time Advance Directives No May 05 0 4:05pm Living Will No June 13, 2023 10:32pm Power of Hot Room Attendant No June 13 3 10:32pm Advance Directive Response Recorded Date/ Time Advance Directives No May 05 0 4:05pm Living Will No June 14, 2023 12:53am Power of Hot Room Attendant No June 14 3 12:53am Advance Directive Response Recorded Date/ Time Advance Directives on File No March 15, 2025 1:18pm Living Will No March 15, 2025 1:18pm Do you have a Healthcare Power of Hot Room Attendant? No March 15, 2025 1:18pm Advance Directives No May 05 0 4:05pm Chief Complaint and Reason for Visit Chief Complaint GENERAL CHECK UP Reason for Visit COPD (chronic obstru ctive pulmonary disease) Hypertension Nicotine dependence Chief Complaint MED REFILLS Reason for Visit Depression Lung nodule Weight loss COPD (chronic obstructive pulmonary disease) Opiate dependence Chief Complaint MED REFILLS LUNG MASS Reason for Visit Depression Lung nodule Weight loss COPD (chronic obstructive pulmonary disease) Opiate dependence Chief Complaint MED REFILLS LUNG MASS OPIATE/ETOH DETOX Reason for Visit Depression Lung nodule Weight loss COPD (chronic obstructive pulmonary disease) Opiate dependence Alcohol dependence Desire for detoxification Mass of left lung Opiate dependence Chief Complaint MED REFILLS LUNG MASS OPIATE/ETOH DETOX OPIATE/ETOH DETOX OPIATE/ETOH DETOX Reason for Visit Depression Lung nodule Weight loss COPD (chronic obstructive pulmonary disease) Opiate dependence Alcohol dependence Desire for detoxification Mass of left lung Opiate dependence Chief Complaint MED REFILLS LUNG MASS OPIATE/ETOH DETOX OPIATE/ETOH DETOX OPIATE/ETOH DETOX OPIATE/ETOH DETOX NEW LUNG NODULE Hospital Reason for Visit Depression Lung nodule Weight loss COPD (chronic obstructive pulmonary disease) Opiate dependence Alcohol dependence Desire for detoxification Lung nodule Mass of left lung COPD (chronic obstructive pulmonary disease) Opiate dependence COPD exacerbation Nicotine dependence, cigarettes, uncomplicated Chief Complaint Admit Date Centrilobular emphysema March 15, 2025 1:03pm Chief Complaint Admit Date Centrilobular emphysema March 15, 2025 1:03pm centrilobular emphysema April 01, 2025 8: 29am Reason for Referral Specialty Diagnoses / Procedures Referred By Cristiano sarabia Referred To Contact CT IMAGING Diagnoses Abnormal chest x-ray with multiple lung nodules Centrilobular emphysema (HCC) Procedures CT CHEST WO IVCON DIAGNOSTIC COMPUTED TOMOGRAPHY THORAX W/O CNTRST Dee Garces MD [id number] [facility] [place] [address] Referral ID Status Reason Start Date Expiration Date Visits Requested Visits Authorized [id number] New Request Auto-Generat ed Referral 11/18/2025 1 1 Specialty Diagnoses / Procedures Referred By Cristiano sarabia [facility] Diagnoses Abnormal chest x-ray with multiple lung nodules Centrilobular emphysema (HCC) Procedures SPIROMETRY - BASELINE AND POST DILATOR BRNCDILAT RSPSE SPMTRY PRE&POST-BRNCDILAT ADMN Dee Garces MD [address] [place] [address] [facility] [place] [address] [place], [place] [id number] Referral ID Status Reason Start Date Expiration Date Visits Requested Visits Authorized [id number] New Request Auto-Generat ed Referral 4 11/18/2025 1 1 Specialty Diagnoses / Procedures Referred By Contac t Referred To [facility] Diagnoses Abnormal chest x-ray with multiple lung nodules Centrilobular emphysema (HCC) Procedures SIX MINUTE WALK CARDI[place]ULMONARY [place] [address] [place] [address] [address] Referral ID Status Reason Start Date Expiration Date Visits Requested Visits Authorized [id number] New Request Auto-Generat ed Referral 4 11/18/2025 1 1 Specialty Diagnoses / Procedures Referred By Contac t Referred To [facility] Diagnoses Abnormal chest x-ray with multiple lung nodules Centrilobular emphysema (HCC) Procedures [place] [address] [place] [address] [place] [address] Referral ID Status Reason Start Date Expiration Date Visits Requested Visits Authorized [id number] New Request Auto-Generat ed Referral 4 11/18/2025 1 1 Specialty Diagnoses / Procedures Referred By Contac t Referred To [facility] Diagnoses Abnormal chest x-ray with multiple lung nodules Centrilobular emphysema (HCC) Procedures LUNG DIFFUSION CAPACITY (DLCO) DIFFUSING CAPACITY Dee Garces MD [address] [place] [address] [address] Referral ID Status Reason Start Date Expiration Date Visits Requested Visits Authorized [id number] New Request Auto-Generat ed Referral 4 11/18/2025 1 1 Referral ID Status Reason Start Date Expiration Date V isits Requested Visits Authorized [id number] Closed Auto-Generate d Referral 10/19/2024 11/18/2025 1 1 Additional Source Comments (unrecognized sect ion and content) No Status Records FoundNo Status Records FoundNo Status Records FoundNo Status Records Found INFORMATION SOURCE (unrecogn ized section and content) DATE CREATED AUTHOR 05/22/2018 [facility] ([place]) DATE CREATED AUTHOR AUTHOR'S ORGANIZ ATION 01/09/2025 [facility] DATE CREATED AUTHOR AUTHOR'S ORGANIZ ATION 05/01/2025 [facility] DATE CREATED AUTHOR AUTHOR'S ORGANIZ ATION 05/03/2025 [facility] Goals (unrecognized section and content) Goals may be documented in a n alternate sectionGoals may be documented in an alternate sectionGoals may be documented in an alternate sectionGoals may be documented in an alternate sectionGoals may be documented in an alternate sectionGoals may be documented in an alternate section Care Teams (unrecognized sec tion and content) Team Status: Active Member Role Status Dates Dr. Rich Salinas MD Family Provider Active Dr. Rich Salinas MD Primary Care Provider Active Team Status: Inactive Member Role Status Dates Dr. Rich Salinas MD Primary Care Provider, Refer ring Provider Active Jane Landry 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, 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-C Attending Provider Active Team Status: Inactive Member Role Status Dates Dr. Rich Salinas MD Primary Care Provider Active Jane Landry NP, 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-C Attending Provider, Referring Prov ider Active Team Status: Active Member Role Status Dates Dr. Rich Salinas MD Family Provider Active Jane Landry NP, 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-C Primary Care Provider Active Team Status: Inactive Member Role Status Dates Jane Landry NP, 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-C Primary Care Provide r, Attending Provider, Referring Provider Active Team Status: Inactive Member Role Status Dates Jane Landry NP, 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-C Primary Care Provider, Attending P rocindyder Active Team Status: Active Member Role Status Dates Jane Landry NP, 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-C Primary Care Provider Active Dr. Dejan Vargas MD Emergency Provider Active Dr. Ainsley Esposito MD Admit Provider, Attending Provider, Referring Provider Active Team Status: Active Member Role Status Dates Jane Landry NP, 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-C Primary Care Provider Active Dr. Dejan Vargas MD Emergency Provider Active Dr. Ainsley Esposito MD Admit Provider, Referring Provider, Other Provider Active Dr. Zay Lion MD Attending Provider, Other Provi macho Active Team Status: Inactive Member Role Status Dates Jane Landry NP, 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-C Primary Care Provider Active Dr. Dejan Vargas MD Emergency Provider Active Dr. Ainsley Esposito MD Admit Provider, Referring Provider, Other Provider Active Dr. Gaye Dorsey MD Attending Provider Active Dr. Zay Lion MD Other Provider Active Team Status: Active Member Role Status Dates Jane Landry 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, 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-C Primary Care Provider Active Dr. Dejan Vargas MD Emergency Provider Active Dr. Ainsley Esposito MD Admit Provider, Other Provider Active Dr. Zay Lion MD Attending Provider, Other Provi macho Active Team Status: Inactive Member Role Status Dates Jane Landry 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, 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-C Primary Care Provider, Referring P rovider Active Martha Neumann 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, 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-C Attending Provider Active Team Status: Active Member Role Status Dates Jane Landry 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, 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-C Primary Care Provider Active Dr. Dejan Vargas MD Emergency Provider Active Dr. Ainsley Esposito MD Admit Provider, Other Provider Active Dr. Gaye Dorsey MD Attending Provider, Other Provid er Active Dr. Zay Lion MD Other Provider Active Team Status: Inactive Member Role Status Dates Jane Landry 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, 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-C Primary Care Provider Active Dr. Aissatou San MD Attending Provider Active Skin Tanner Relationship Specialty Start Date End Date Martha Neumann [address] [place] [address] Vascular Medicine 10/07/24 Skin Tanner Relationship Specialty Start Date End Date Martha Neumann [address] [place] [address] Vascular Medicine 10/07/24 Skin Tanner Relationship Specialty Start Date End Date Martha Neumann [address] [place] [address] Vascular Medicine 10/07/24 Skin Tanner Relationship Specialty Start Date End Date Martha Neumann [address] [place] [address] Vascular Medicine 10/07/24 Skin Tanner Relationship Specialty Start Date End Date Jane Landry CNP [address] [place] [address] PCP - General Family Medicine 12/09/24 Martha Neumann [address] [place] [address] Vascular Medicine 10/07/24 Jane Landry CNP [address] [place] [address] Referring Family Medicine 12/09/24 Skin Tanner Relationship Specialty Start Date End Date Jane Landry CNP [address] [place] [address] PCP - General Family Medicine 12/09/24 Martha Neumann [address] [place] [address] Vascular Medicine 10/07/24 Jane Landry CNP [address] [place] [address] Referring Family Medicine 12/09/24 Skin Tanner Relationship Specialty Start Date End Date Jane Landry CNP [address] [place] [address] PCP - General Family Medicine 12/09/24 Martha Neumann [address] [place] [address] Vascular Medicine 10/07/24 Jane Landry CNP [address] [facility] [place] [place] [address] Referring Family Medicine 12/09/24 Skin Tanner Relationship Specialty Start Date End Date Norma Guevara FNP [address] [place] [address] PCP - General Family Medicine 02/16/25 Sherri Main, PLUMBER GASFITTER Respiratory Therapist Respiratory Therapy 02/17/25 Skin Tanner Relationship Specialty Start Date End Date Norma Guevara FNP [address] [place] [address] PCP - General Family Medicine 02/16/25 Skin Tanner Relationship Specialty Start Date End Date Norma Guevara FNP [address] [place] [address] PCP - General Family Medicine 02/16/25 Sherri Main, PLUMBER GASFITTER Respiratory Therapist Respiratory Therapy 02/17/25 Skin Tanner Relationship Specialty Start Date End Date Norma Guevara FNP [address] [place] [address] PCP - General Family Medicine 02/16/25 Sherri Main, PLUMBER GASFITTER Respiratory Therapist Respiratory Therapy 02/17/25 Skin Tanner Relationship Specialty Start Date End Date Norma Guevara FNP [address] [place] [address] PCP - General Family Medicine 02/16/25 Sherri Main, PLUMBER GASFITTER Respiratory Therapist Respiratory Therapy 02/17/25 Team Status: Active Member Role Status Dates Jane HERNANDEZ, 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-C Primary Care Provider Active Team Status: Inactive Member Role Status Dates Jane HERNANDEZ, 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-C Primary Care Provider Active Start: March 15, 2025 End: March 15, 2025 Out of Town Doctor Attending Provider Active Sta rt: March 15, 2025 End: March 15, 2025 Skin Tanner Relationship Specialty Start Date End Date Norma Guevara FNP [address] [place] [address] PCP - General Family Medicine 02/16/25 Sherri Main, PLUMBER GASFITTER Respiratory Therapist Respiratory Therapy 02/17/25 Skin Tanner Relationship Specialty Start Date End Date Norma Guevara FNP [address] [place] [address] PCP - General Family Medicine 02/16/25 Sherri Main, PLUMBER GASFITTER Respiratory Therapist Respiratory Therapy 02/17/25 Skin Tanner Relationship Specialty Start Date End Date Norma Guevara FNP [address] [place] [address] PCP - General Family Medicine 02/16/25 Sherri Main, PLUMBER GASFITTER Respiratory Therapist Respiratory Therapy 02/17/25 Skin Tanner Relationship Specialty Start Date End Date AdanNorma cage FNP [address] [place] [address] PCP - General Family Medicine 02/16/25 Sherri Main, PLUMBER GASFITTER Respiratory Therapist Respiratory Therapy 02/17/25 Skin Tanner Relationship Specialty Start Date End Date Norma Guevara PRESS OPERATOR AUTOMATIC [address] [place] [address] PCP - General Family Medicine 02/16/25 Sherri Main, PLUMBER GASFITTER Respiratory Therapist Respiratory Therapy 02/17/25 Skin Tanner Relationship Specialty Start Date End Date Adan Norma, PRESS OPERATOR AUTOMATIC [address] [place] [address] PCP - General Family Medicine 02/16/25 Sherri Main, PLUMBER GASFITTER Respiratory Therapist Respiratory Therapy 02/17/25 Team Status: Inactive Member Role Status Dates Jane Landry VSC, 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-C Primary Care Provider Active Start: April 01, 2025 End: April 30, 2025 SYDNEE MADRIGAL Attending Provider Active S tart: April 01, 2025 End: April 30, 2025 SYDNEE MADRIGAL Referring Provider Active S tart: April 01, 2025 End: April 30, 2025 Skin Tanner Relationship Specialty Start Date End Date Norma Guevara FNP [address] [place] [address] PCP - General Family Medicine 02/16/25 Sherri Main, PLUMBER GASFITTER Respiratory Therapist Respiratory Therapy 02/17/25 Source Comments (unrecognize d section and content) In the event this informatio n is protected by the Federal Confidentiality of Alcohol and Drug Abuse Patient Records regulations: The Federal rules restrict any use of the information to criminally investigate or prosecute any alcohol or drug abuse patient.[facility] the event this information is protected by the Federal Confidentiality of Alcohol and Drug Abuse Patient Records regulations: The Federal rules restrict any use of the information to criminally investigate or prosecute any alcohol or drug abuse patient.[facility] Campus[facility] the event this information is protected by the Federal Confidentiality of Alcohol and Drug Abuse Patient Records regulations: The Federal rules restrict any use of the information to criminally investigate or prosecute any alcohol or drug abuse patient.[facility] CampusIn the event this information is protected by the Federal Confidentiality of Alcohol and Drug Abuse Patient Records regulations: The Federal rules restrict any use of the information to criminally investigate or prosecute any alcohol or drug abuse patient.[facility] CampusIn the event this information is protected by the Federal Confidentiality of Alcohol and Drug Abuse Patient Records regulations: The Federal rules restrict any use of the information to criminally investigate or prosecute any alcohol or drug abuse patient.[facility] Campus[facility] the event this information is protected by the Federal Confidentiality of Alcohol and Drug Abuse Patient Records regulations: The Federal rules restrict any use of the information to criminally investigate or prosecute any alcohol or drug abuse patient.[facility] CampusIn the event this information is protected by the Federal Confidentiality of Alcohol and Drug Abuse Patient Records regulations: The Federal rules restrict any use of the information to criminally investigate or prosecute any alcohol or drug abuse patient.[facility] CampusIn the event this information is protected by the Federal Confidentiality of Alcohol and Drug Abuse Patient Records regulations: The Federal rules restrict any use of the information to criminally investigate or prosecute any alcohol or drug abuse patient.[facility] CampusIn the event this information is protected by the Federal Confidentiality of Alcohol and Drug Abuse Patient Records regulations: The Federal rules restrict any use of the information to criminally investigate or prosecute any alcohol or drug abuse patient.[facility] CampusIn the event this information is protected by the Federal Confidentiality of Alcohol and Drug Abuse Patient Records regulations: The Federal rules restrict any use of the information to criminally investigate or prosecute any alcohol or drug abuse patient.[facility] CampusIn the event this information is protected by the Federal Confidentiality of Alcohol and Drug Abuse Patient Records regulations: The Federal rules restrict any use of the information to criminally investigate or prosecute any alcohol or drug abuse patient.[facility] Reason for Visit (unrecogniz ed section and content) Reason Comments Appointment Reason Comments External Referrals/resources Consult RUL lung nodule Reason Comments Spirometry Specialty Diagnoses / Procedures Referred By Contac t Referred To [facility] Diagnoses Abnormal chest x-ray with multiple lung nodules Centrilobular emphysema (HCC) Procedures LUNG DIFFUSION CAPACITY (DLCO) DIFFUSING CAPACITY Dee Garces MD [address] [place] [address] [place] [id number] Referral ID Status Reason Start Date Expiration Date V isits Requested Visits Authorized [id number] Closed Auto-Generate d Referral 12/01/2024 11/30/2025 1 1 Specialty Diagnoses / Procedures Referred By Contac t Referred To [facility] Diagnoses Abnormal chest x-ray with multiple lung nodules Centrilobular emphysema (HCC) Procedures SIX MINUTE WALK CARDIOPULMONARY EXERCISE STRESS Dee Garces MD [address] [place] [address] [address] Referral ID Status Reason Start Date Expiration Date V isits Requested Visits Authorized [id number] Closed Auto-Generate d Referral 12/08/2024 11/30/2025 1 1 Specialty Diagnoses / Procedures Referred By Contac t Referred [facility] Diagnoses Abnormal chest x-ray with multiple lung nodules Centrilobular emphysema (HCC) Procedures SPIROMETRY - BASELINE AND POST DILATOR BRNCDILAT RSPSE SPMTRY PRE&POST-BRNCDILAT ADMN Dee Garces MD [address] [place] [address] Respiratory [place] [address] [place] [id number] Referral ID Status Reason Start Date Expiration Date V isits Requested Visits Authorized [id number] Closed Auto-Generate d Referral 12/01/2024 11/30/2025 1 1 Specialty Diagnoses / Procedures Referred By Contac t Referred [facility] Diagnoses Abnormal chest x-ray with multiple lung nodules Centrilobular emphysema (HCC) Procedures [place] [address] [place] [address] [place] [address] Referral ID Status Reason Start Date Expiration Date V isits Requested Visits Authorized [id number] Closed Auto-Generate d Referral 12/08/2024 11/30/2025 [address] Specialty Diagnoses / Procedures Referred By Contac t Referred To Contact CT IMAGING Diagnoses Abnormal chest x-ray with multiple lung nodules Centrilobular emphysema (HCC) Procedures CT CHEST WO IVCON DIAGNOSTIC COMPUTED TOMOGRAPHY THORAX [place] [address] [place] [address] [address] [address] [id number] Referral ID Status Reason Start Date Expiration Date V isits Requested Visits Authorized [id number] Closed Auto-Generate d Referral 10/19/2024 11/18/2025 1 1 Reason Onset Date Comments Nicotine Dependence 02/17/2025 Reason Comments New Patient Specialty Diagnoses / Procedures Referred By Contac t Referred To Contact Pulmonology Diagnoses Chronic obstructive pulmonary disease, unspecified (HCC) Pt would like [place] [facility] consultation for management of COPD Procedures [place] OFFICE/OUTPATIENT NEW MODERATE MDM 45 MINUTES Norma Guevara FNP [address] [facility] [place] [address] Phone: tel: fax: [facility] Lung Nodule [facility] - [address] [address] Phone: tel: fax: Referral ID Status Reason Start Date Expiration Date Visits Re quested Visits Authorized [id number] Closed 01/31/2025 01/31/2026 1 1 Reason Onset Date Comments Care Coordination 02/17/2025 Reason Comments New Patient Specialty Diagnoses / Procedures Referred By Contac t Referred To Contact Pulmonology Diagnoses Chronic obstructive pulmonary disease, unspecified (HCC) Pt would like [place] [facility] consultation for management of COPD Procedures [place] OFFICE/OUTPATIENT NEW MODERATE MDM 45 MINUTES Norma Guevara, KLAUS [address] [place] [address] Phone: tel: fax: [facility] Lung Nodule [facility] - [address] [address] Phone: tel: fax: Reason Comments COPD Follow-up Reason Onset Date Comments Nicotine Dependence 03/16/2025 Reason Comments Care Coordination Lung Nodule Review C onference Recommendations Reason Onset Date Comments Care Coordination 04/22/2025 FOR RECORDS PERTAINING TO PATIENTS WHO ARE [...] BE BASED ON THE PRIMARY CLINICAL RECORDS. [employer] provides no warranty or guarantee of the accuracy or completeness of information in this document.
== END 2025-05-07 14:17 | disposition home or self-care (01) ==
PROVIDERS: Emergency Provider Emergency Medicine; PCP Nurse Practitioner Family; Referring Provider Emergency Medicine; Visit Provider Emergency Medicine
DX: S92.355A Nondisplaced fracture of fifth metatarsal bone, left foot, initial encounter for closed fracture (principal); J44.9 Chronic obstructive pulmonary disease, unspecified; W22.8XXA Striking against or struck by other objects, initial encounter; G89.29 Other chronic pain; I10 Essential (primary) hypertension; Z99.81 Dependence on supplemental oxygen; Z79.899 Other long term (current) drug therapy
CPT/HCPCS: 73630; 99284

== ENCOUNTER → 2025-10-03 | Outpatient (CLI) | payer MEDICARE, MEDICAID, SELFPAY ==
[2025-03-15 14:14] VITALS: BMI 18.3
--- NOTE | 2025-10-03 17:58 | CT_ITS ---
PROCEDURE: CT/Chest without Contrast
== END | disposition home or self-care (01) ==
PROVIDERS: PCP Nurse Practitioner Family
DX: M31.30 Wegener's granulomatosis without renal involvement (principal)
CPT/HCPCS: 71250